=== PATIENT | female | born 1945 | race Caucasian/White ===

== ENCOUNTER 2020-08-16 07:21 | Outpatient (REF) | payer MEDICARE, SELFPAY ==
[2020-08-16 11:52] LABS: Alanine Aminotransferase 23 U/L (0-31); Albumin Level 4.1 g/dL (3.5-5.0); Alkaline Phosphatase 67 U/L (39-117); Anion Gap 12 (12-20); Aspartate Amino Transferase 22 U/L (5-31); Bilirubin Total 0.5 mg/dL (0.0-1.0); Blood Urea Nitrogen 35 mg/dL (9-16); Calcium 8.5 mg/dL (8.4-10.2); Carbon Dioxide 26 mmol/L (22-29); Chloride 108 mmol/L (96-108); Cholesterol 141 mg/dL; Estimated Glomerular Filt Rate > 60; Glucose Fasting 90 mg/dL (60-99); HDL Cholesterol 54 mg/dL; LDL Cholesterol Calculated 73 mg/dl; Potassium 4.1 mmol/l (3.3-5.1); Sodium 142 mmol/L (135-145); Total Protein 6.6 g/dL (6.5-8.0); Triglycerides 71 mg/dL
[2020-08-16 12:15] LABS: TSH reflex Free T4 0.26 mIU/mL (0.32-4.0)
[2020-08-16 13:04] LABS: Free T4 (Free Thyroxine) 1.57 ng/dL (0.71-1.85)
== END 2020-08-16 07:22 | disposition home or self-care (01) ==
LOC: HO.HMGCLDS 07:21
PROVIDERS: PCP Internal Medicine; Visit Provider Internal Medicine
DX: E06.3 Autoimmune thyroiditis (principal); E78.00 Pure hypercholesterolemia, unspecified
CPT/HCPCS: 80053; 80061; 84439; 84443

== ENCOUNTER 2020-08-23 20:01 | Emergency (ER) | payer MEDICARE, SELFPAY ==
[2020-08-23 20:26] VITALS: BP 148/78; PULSE 93; RESP 16; TEMP 36.7; O2SAT 97; BMI 29.6
--- NOTE | 2020-08-23 21:11 | ED.SKABFB ---
HPI - Skin/Abscess/Foreign Bdy General Chief complaint: Skin/Abscess/Foreign Body Stated complaint: CHICKEN IN THROAT Time Seen by Provider: 08/23/20 21:11 Source: patient Mode of arrival: ambulatory History of Present Illness HPI narrative: Patient feels like she swallowed a chicken bone, able to tolerate fluids Onset (ago): hour(s) (2) Location: neck Quality: sharp Pain Consistency: constant Relieving factors: none Exacerbating factors: none Associated symptoms: denies other symptoms Related Data Previous Rx's Medication Instructions Recorded cephalexin [Keflex] 500 mg PO QID #28 cap 08/23/20 Allergies Allergy/AdvReac Type Severity Reaction Status Date / Time orange Allergy Intermediate RASH Unverified 07/26/20 15:02 nickel [Nickel] Allergy Mild RASH Unverified 07/26/20 15:02 nickel Allergy Unknown rash Uncoded 07/09/20 00:00 orange juice Allergy Unknown hives Uncoded 07/09/20 00:00 Review of Systems Constitutional: Constitutional: Reports no additional constitutional complaints Eyes: Eyes: Reports no additional eye complaints ENT: Denies dizziness Cardiovascular: Cardiovascular: Reports no additional cardiovascular complaints Respiratory: Respiratory: Reports as per HPI Gastrointestinal: Gastrointestinal: Reports no additional gastrointestinal complaints Genitourinary: Genitourinary: Reports no additional female genitourinary complaints Musculoskeletal: Musculoskeletal: Reports no additional musculoskeletal complaints Integumentary/Breasts: Skin/Breast: Denies rash Neurologic: Reports system reviewed and no additional complaints, except as documented, Denies dizziness and Denies Sensory deficit (Neuro) Psychiatric: Psychiatric: Denies anxiety [facility] Past Medical History Medical History (Updated 08/23/20 @ 22:24 by Nishant Catalan MD) HTN (hypertension) Hyperlipidemia Hypothyroid Surgical History (Updated 08/23/20 @ 20:29 by Farhat Burroughs) Hx of tonsillectomy Social History Social History Advance Directives: No Advance Directives Information Provided: Yes Physical Exam Vital Signs: Vital Signs: Vital Signs Temp Pulse Resp BP Pulse Ox 08/23/20 20:26 98.1 F 93 16 148/78 H 97 Body Mass Index 29.6 Const: General: healthy appearing Nutritional Appearance: average body habitus Orientation/consciousness: oriented to person and patient oriented x3 Limitations: no limitations HENMT: Head: Yes normal to inspection Ears: external ears normal General nose exam: Normal external nose present Mouth: Normal oral and palatal mucosa present and oropharynx normal Throat: Yes posterior oropharynx normal Eyes: General: appearance normal, both eyes and all related structures Neck: Other: supple Neck: Yes normal visual inspection Chest: Chest palpation & inspection: normal inspection of the chest Resp: Auscultation: clear to auscultation bilaterally Cardio: Jugular venous distension: no JVD Rate: regular rate Rhythm: regular rhythm Heart sounds: S1 normal heart sound present and S2 normal heart sound present GI: Inspection: Yes normal to inspection Palpation (GI): Soft to palpation, nontender and No hepatosplenomegaly present Auscultation: normal bowel sounds : General: Yes no CVA tenderness Back/Spine/Pelvis: Back: no CVA tenderness Skin: Other: patient with right leg erythema and warmth Neuro: General: oriented to person and patient oriented x3 Cranial nerves: Yes CN's II-XII intact bilaterally Motor exam (neuro): 5/5 motor strength present throughout Sensory Exam: No Sensory deficit (Neuro) Extrem: General: Yes normal to inspection Psych: Appearance: grossly normal Course Course Course Narrative: Patient with cellulitis of leg, no FB in throat, tolerated swallowing pill without problem MDM - Skin/Abscess/Foreign Bdy MDM Narrative Medical decision making narrative: ruled out FB of throat Differential Diagnosis Differential diagnosis: Likely cellulitis Discharge Plan Discharge Clinical Impression: Cellulitis Qualifiers: Site of cellulitis: extremity Site of cellulitis of extremity: lower extremity Laterality: right Qualified Code(s): L03.115 - Cellulitis of right lower limb Patient Disposition: Home, Self-Care Instructions: Cellulitis (ED) Prescriptions: New cephalexin [Keflex] 500 mg capsule 500 mg PO QID Qty: 28 RF: 0 Referrals: Jenna Daly MD [Primary Care Provider] - 2 days
--- NOTE | 2020-08-23 21:13 | XR_ITS ---
EXAMINATION: XR SOFT TISSUE NECK CLINICAL INDICATION: Swallowed a chicken bone COMPARISON: None TECHNIQUE: 2 views of the soft tissue neck were obtained. FINDINGS: There is no radiopaque foreign body. No prevertebral soft tissue swelling. The pharynx, hypopharynx structures are normal. The epiglottis is normal. There are surgical clips in the upper central neck. There is multilevel degenerative spondylosis of the spine. Lung apices are clear. IMPRESSION: No radiopaque foreign body. No acute abnormalities soft tissues of neck
[2020-08-23] MEDS: cephALEXin 500 MG CAPSULE PO (22:17)
== END 2020-08-23 22:46 | disposition home or self-care (01) ==
PROVIDERS: Emergency Provider Emergency Medicine; PCP Internal Medicine
DX: L03.115 Cellulitis of right lower limb (principal); I10 Essential (primary) hypertension
CPT/HCPCS: 70360; 99283

== ENCOUNTER 2020-09-14 11:00 | Outpatient (REF) | payer MEDICARE, SELFPAY ==
--- NOTE | 2020-09-14 13:03 | US_ITS ---
EXAMINATION: US VENOUS ULTRASOUND WITH DOPPLER LOWER EXTREMITY, RIGHT CLINICAL INFORMATION: Right lower extremity edema. COMPARISON: Prior venous ultrasound examinations, most recently 05/30/2020. TECHNIQUE: Ultrasound of the deep veins is performed from the hip to the calf with compression sonography and color and pulse Doppler assessment. Spectral analysis with color-flow imaging is performed. FINDINGS: There is normal venous compression and respiratory variation and augmented flow. The visualized common femoral vein, proximal greater saphenous vein, femoral vein, profunda femoral vein, popliteal vein, and the trifurcation region shows no evidence of deep venous thrombosis. There is no significant popliteal fossa cyst. If the patient's symptoms persist, followup ultrasound in 5 days 7 days might be of value to exclude proximal propagation from a non-visualized calf vein. US/US venous duplex LE RT IMPRESSION: No DVT demonstrated in the right lower extremity.
== END 2020-09-14 11:01 | disposition home or self-care (01) ==
LOC: HO.HMGCLDS 11:00
PROVIDERS: PCP Internal Medicine; Visit Provider Internal Medicine
DX: Z20.828 Contact with and (suspected) exposure to other viral communicable diseases (principal); R60.0 Localized edema
CPT/HCPCS: 93971; C9803; U0003

== ENCOUNTER 2020-09-17 07:01 | Outpatient (REF) | payer MEDICARE, SELFPAY ==
[2020-09-17 11:34] LABS: MANUAL DIFF FLAG NO
[2020-09-17 11:47] LABS: Basophils Absolute Auto 0.1 X10*3/uL (0.0-0.2); Basophils Percent Auto 0.9 % (0-2); Eosinophils Absolute Auto 0.2 X10*3/uL (0.0-0.4); Eosinophils Percent Auto 2.2 % (0-4); Hematocrit 44.5 % (37-47); Hemoglobin 13.7 g/dl (12.0-16.0); Imm Gran Abs Auto 0.01 X10*3/uL (0.00-0.03); Imm Gran Pct Auto 0.1 % (0.0-0.4); Lymphocytes Absolute Auto 1.6 X10*3/uL (1.2-4.9); Lymphocytes Percent Auto 23.4 % (20-40); Mean Corpuscular HGB Conc 30.8 g/dl (31.0-35.0); Mean Corpuscular Hemoglobin 29.3 pg (27.0-33.0); Mean Corpuscular Volume 95.3 fL (80-98); Mean Platelet Volume 11.6 fL (9.4-12.3); Monocytes Absolute Auto 0.5 X10*3/uL (0.1-1.2); Monocytes Percent Auto 6.7 % (2-11); Neutrophils Absolute Auto 4.4 X10*3/uL (2.0-8.3); Neutrophils Percent Auto 66.7 % (45-73); Platelet Count 277 X10*3/uL (160-400); Red Blood Count 4.67 X10*6/uL (4.20-5.50); Red Cell Distribution Width 12.8 % (11.0-16.0); White Blood Count 6.7 X10*3/uL (4.8-10.8)
[2020-09-17 12:18] LABS: Anion Gap 14 (12-20); Blood Urea Nitrogen 30 mg/dL (9-16); Calcium 8.9 mg/dL (8.4-10.2); Carbon Dioxide 26 mmol/L (22-29); Chloride 105 mmol/L (96-108); Cholesterol 161 mg/dL; Estimated Glomerular Filt Rate > 60; Glucose Fasting 89 mg/dL (60-99); HDL Cholesterol 64 mg/dL; LDL Cholesterol Calculated 86 mg/dl; Potassium 4.8 mmol/l (3.3-5.1); Sodium 140 mmol/L (135-145); Triglycerides 55 mg/dL
== END 2020-09-17 07:02 | disposition home or self-care (01) ==
LOC: HO.HMGCLDS 07:01
PROVIDERS: PCP Internal Medicine; Visit Provider Nurse Practitioner Family
DX: L03.115 Cellulitis of right lower limb (principal); L03.116 Cellulitis of left lower limb
CPT/HCPCS: 36415; 80048; 80061; 85025

== ENCOUNTER 2020-10-02 10:42 | Outpatient (REF) | payer MEDICARE, SELFPAY | END 2020-10-02 10:43 | disposition home or self-care (01) | LOC: HO.HMGCLDS 10:42 | PROVIDERS: PCP Internal Medicine; Visit Provider Internal Medicine | DX: Z20.828 Contact with and (suspected) exposure to other viral communicable diseases (principal) | CPT/HCPCS: U0003 ==

== ENCOUNTER 2020-10-19 14:11 | Outpatient (REF) | payer MEDICARE, SELFPAY ==
[2020-10-19 17:29] LABS: TSH reflex Free T4 0.46 mIU/mL (0.32-4.0)
== END 2020-10-19 14:12 | disposition home or self-care (01) ==
LOC: HO.HMGCLDS 14:11
PROVIDERS: PCP Internal Medicine; Visit Provider Internal Medicine
DX: E03.9 Hypothyroidism, unspecified (principal)
CPT/HCPCS: 84443

== ENCOUNTER → 2020-10-23 10:16 | Outpatient (BNVA) | payer MEDICARE, SELFPAY | PROVIDERS: PCP Internal Medicine; Visit Provider Surgery Vascular Surgery | DX: I83.11 Varicose veins of right lower extremity with inflammation (principal); I65.23 Occlusion and stenosis of bilateral carotid arteries | CPT/HCPCS: 99202 ==

== ENCOUNTER 2020-10-26 12:57 | Outpatient (REF) | payer MEDICARE, SELFPAY ==
--- NOTE | 2020-10-26 12:59 | US_ITS ---
EXAMINATION: US EXTRACRANIAL CAROTID DUPLEX, BILATERAL CLINICAL INFORMATION: Decreased carotid pulses. COMPARISON: None TECHNIQUE: Real-time ultrasound and Doppler techniques (integrating B-mode 2-D vascular images, Doppler spectral analysis and color-flow Doppler imaging) were utilized to interrogate the extracranial carotid arteries, the vertebral arteries and proximal subclavian arteries bilaterally. The degree of stenosis is determined by criteria similar to NASCET. FINDINGS: Right Side: 1. There is hard atherosclerotic plaque seen in the bifurcation/proximal ICA region. 2. The common carotid artery PSV proximally is 85 cm/s and distally 65.6 cm/s. 3. The proximal internal carotid artery velocities are 70.3 cm/s systolic and 20 cm/s diastolic. 4. The proximal external carotid artery PSV is 156 cm/s. 5. The vertebral artery shows 79.2 flow. 6. The subclavian artery waveforms are normal. Left Side: 1. There is hard atherosclerotic plaque seen in the bifurcation/proximal ICA region. 2. The common carotid artery PSV proximally is 105 cm/s and distally 105 cm/s. 3. The proximal internal carotid artery velocities are 95 cm/s systolic and 27 cm/s diastolic. 4. The proximal external carotid artery PSV is 162 cm/s. 5. The vertebral artery shows 61.3 flow. 6. The subclavian artery waveforms are normal. US/US carotid duplex BI IMPRESSION: 1. RIGHT: No hemodynamically significant stenosis in right carotid artery. 2. LEFT: No hemodynamically significant stenosis in left carotid artery. 3. Normal antegrade flow seen in both vertebral arteries.
== END 2020-10-26 12:58 | disposition home or self-care (01) ==
LOC: HO.HMGCX 12:57
PROVIDERS: PCP Internal Medicine; Visit Provider Internal Medicine
DX: I87.2 Venous insufficiency (chronic) (peripheral) (principal)
CPT/HCPCS: 93880

== ENCOUNTER 2020-10-31 12:51 | Outpatient (REF) | payer MEDICARE, SELFPAY ==
--- NOTE | 2020-10-31 | US_ITS ---
EXAMINATION: RIGHT and LEFT LOWER EXTREMITY VENOUS ULTRASOUND (Reflux Exam) CLINICAL INDICATION: leg pain and varicose veins. COMPARISON: Previous exam September 2020 TECHNIQUE: Color flow triplex imaging and compression Doppler was performed to evaluate both the deep and the superficial systems bilaterally. To evaluate the superficial system, the examination was performed in the upright position. Color-flow Doppler ultrasound and compression ultrasound were utilized. In addition, maneuvers were utilized to demonstrate reflux. FINDINGS: 1. DEEP VENOUS ULTRASOUND OF THE RIGHT LOWER EXTREMITY: Respiratory variation, normal compression and augmented flow are noted in the right common femoral vein as well as the right popliteal vein and there is no evidence of deep venous thrombosis at these locations. There is no evidence of reflux in the deep system in either the common femoral vein or the popliteal vein. There is no evidence of a Chaney's cyst. 2. SUPERFICIAL ULTRASOUND WITH DOPPLER OF RIGHT LOWER EXTREMITY: The right great saphenous vein at the saphenofemoral junction measures 7 mm, at the proximal thigh 5 mm, at the mid thigh 3 mm and at the ankle measures 2 mm. The right greater saphenous vein from above the knee to the mid calf is not seen post laser therapy. There is no reflux demonstrated in the right great saphenous vein. There is a lateral accessory greater saphenous vein that measures 3 mm and does not demonstrate reflux. The right small saphenous vein measures 2 mm and shows 1.6 seconds reflux at the saphenofemoral popliteal junction and 2.4 seconds in the distal calf. There is a pants presser automatic in the calf that measures 3 mm and does not demonstrate reflux. There is a varicosity in the calf that measures 9 mm and does not demonstrate reflux 3. DEEP VENOUS ULTRASOUND OF THE LEFT LOWER EXTREMITY: Respiratory variation, normal compression and augmented flow are noted in the left common femoral vein as well as the left popliteal vein and there is no evidence of deep venous thrombosis at these locations. There is deep venous reflux in the popliteal vein measuring 1.5 seconds.. There is no evidence of a Chaney's cyst. 4. SUPERFICIAL ULTRASOUND WITH DOPPLER OF LEFT LOWER EXTREMITY: Left great saphenous vein at the saphenofemoral junction measures 5 mm, at the mid thigh 4 mm, [id number] 4 mm, [id number] 3 mm, at mid calf 3 mm and at the ankle measures 2 mm. There is no reflux demonstrated in the left great saphenous vein. There is thinning lateral accessory left greater saphenous vein that measures 4 mm and does not demonstrate reflux. The left small saphenous vein measures 3 mm and shows no reflux. There is a varicosity in the mid thigh that measures 7 mm and does not demonstrate reflux. US/US venous duplex LE BI IMPRESSION: 1. No evidence of thrombus in the common femoral veins or popliteal veins bilaterally. No evidence of right deep venous reflux. Left deep venous reflux in the popliteal vein. 2. right greater saphenous vein visualized in the proximal thigh and at the ankle only. No right greater saphenous vein reflux. Right lesser saphenous vein reflux. No left greater saphenous vein reflux.
== END 2020-10-31 12:52 | disposition home or self-care (01) ==
LOC: HO.US 12:51
PROVIDERS: Visit Provider Internal Medicine
DX: I83.893 Varicose veins of bilateral lower extremities with other complications (principal); I87.2 Venous insufficiency (chronic) (peripheral)
CPT/HCPCS: 93970

== ENCOUNTER → 2020-11-15 09:59 | Outpatient (BNVA) | payer MEDICARE, SELFPAY | PROVIDERS: PCP Internal Medicine; Visit Provider Surgery Vascular Surgery | DX: I65.23 Occlusion and stenosis of bilateral carotid arteries (principal); I83.11 Varicose veins of right lower extremity with inflammation | CPT/HCPCS: 99212 ==

== ENCOUNTER 2021-01-11 06:19 | Outpatient (REF) | payer MEDICARE, SELFPAY ==
[2021-01-11 12:13] LABS: Alanine Aminotransferase 13 U/L (0-31); Albumin Level 4.1 g/dL (3.5-5.0); Alkaline Phosphatase 77 U/L (39-117); Anion Gap 13 (12-20); Aspartate Amino Transferase 15 U/L (5-31); Bilirubin Total 0.5 mg/dL (0.0-1.0); Blood Urea Nitrogen 28 mg/dL (9-16); Calcium 8.5 mg/dL (8.4-10.2); Carbon Dioxide 27 mmol/L (22-29); Chloride 105 mmol/L (96-108); Cholesterol 171 mg/dL; Estimated Glomerular Filt Rate > 60; Glucose Fasting 84 mg/dL (60-99); HDL Cholesterol 63 mg/dL; LDL Cholesterol Calculated 88 mg/dl; Potassium 4.5 mmol/L (3.3-5.1); Sodium 140 mmol/L (135-145); Triglycerides 102 mg/dL
[2021-01-11 12:17] LABS: TSH reflex Free T4 0.19 uIU/mL (0.32-4.0)
== END 2021-01-11 06:20 | disposition home or self-care (01) ==
LOC: HO.HMGCLDS 06:19
PROVIDERS: PCP Internal Medicine; Visit Provider Internal Medicine
DX: E78.00 Pure hypercholesterolemia, unspecified (principal); E78.5 Hyperlipidemia, unspecified; E03.9 Hypothyroidism, unspecified
CPT/HCPCS: 36415; 80053; 80061; 84439; 84443

== ENCOUNTER 2021-03-11 08:16 | Outpatient (REF) | payer MEDICARE, SELFPAY ==
[2021-03-11 12:06] LABS: TSH reflex Free T4 2.32 uIU/mL (0.32-4.0)
== END 2021-03-11 08:17 | disposition home or self-care (01) ==
LOC: HO.HMGCLDS 08:16
PROVIDERS: PCP Internal Medicine; Visit Provider Internal Medicine
DX: E06.3 Autoimmune thyroiditis (principal)
CPT/HCPCS: 36415; 84443

== ENCOUNTER 2021-03-13 09:46 | Outpatient (REF) | payer MEDICARE, SELFPAY ==
--- NOTE | ~2021-03-13 | MM_ITS ---
EXAMINATION: MM SCREENING DIGITAL BREAST TOMOSYNTHESIS, BILATERAL CLINICAL INFORMATION: Screening. Asymptomatic. The lifetime risk of breast cancer based on the Tyrer-Cuzick Model is 3%. COMPARISON: Mammography: 05/13/2019, 02/10/2018, 11/26/2016 TECHNIQUE: Digital breast tomosynthesis is performed in both the craniocaudal and mediolateral oblique views along with computer-aided detection (CAD). Synthesized 2D images are generated from the tomosynthesis. Technologist notes technically challenging exam. Imaging tailored to patient capabilities. FINDINGS: There are scattered areas of fibroglandular density (ACR BI-RADS breast composition Category b). There are no significant masses, abnormal calcifications, or other abnormalities. There are some benign vascular and early ductal secretory calcifications again seen. Skin contours are smooth. No significant changes. MM/MM tomosynthesis screening BI IMPRESSION: No mammographic evidence of malignancy. ASSESSMENT: BI-RADS 2: Benign RECOMMENDATION: Routine annual mammography screening. This patient's information was entered into a reminder system with a target due date for their next mammogram.
== END 2021-03-13 09:47 | disposition home or self-care (01) ==
LOC: HO.MAMMO 09:46
PROVIDERS: PCP Internal Medicine; Visit Provider Internal Medicine
DX: Z12.31 Encounter for screening mammogram for malignant neoplasm of breast (principal)
CPT/HCPCS: 77063; 77067

== ENCOUNTER 2021-09-27 15:41 | Outpatient (REF) | payer MEDICARE, SELFPAY ==
--- NOTE | ~2021-09-27 | US_ITS ---
EXAMINATION: US VENOUS ULTRASOUND WITH DOPPLER LOWER EXTREMITY, RIGHT CLINICAL INFORMATION: Acute embolism COMPARISON: October 31, 2020, September 14, 2020, and studies dating back to August 17, 2013 TECHNIQUE: Ultrasound of the deep veins is performed from the hip to the calf with compression sonography and color and pulse Doppler assessment. Spectral analysis with color-flow imaging is performed. FINDINGS: There is normal venous compression and respiratory variation and augmented flow. The visualized common femoral vein, superficial femoral vein, profunda femoral vein, popliteal vein, and the trifurcation region shows no evidence of deep venous thrombosis. There is no significant popliteal fossa cyst. No popliteal artery aneurysm. US/US venous duplex LE RT IMPRESSION: No acute DVT demonstrated in the right lower extremity.
== END 2021-09-27 15:42 | disposition home or self-care (01) ==
LOC: HO.HMGCX 15:41
PROVIDERS: Visit Provider Internal Medicine
DX: R60.0 Localized edema (principal)
CPT/HCPCS: 93971

== ENCOUNTER 2021-10-25 06:28 | Outpatient (REF) | payer MEDICARE, SELFPAY ==
[2021-10-25 11:57] LABS: Alanine Aminotransferase 26 U/L (0-31); Albumin Level 3.7 g/dL (3.5-5.0); Alkaline Phosphatase 91 U/L (39-117); Anion Gap 11 (12-20); Aspartate Amino Transferase 19 U/L (5-31); Bilirubin Total 0.5 mg/dL (0.0-1.0); Blood Urea Nitrogen 29 mg/dL (9-16); Carbon Dioxide 27 mmol/L (22-29); Chloride 109 mmol/L (96-108); Cholesterol 191 mg/dL; Estimated Glomerular Filt Rate > 60; Glucose Fasting 98 mg/dL (60-99); HDL Cholesterol 62 mg/dL; LDL Cholesterol Calculated 109 mg/dl; Potassium 4.5 mmol/L (3.3-5.1); Sodium 142 mmol/L (135-145); Total Protein 6.5 g/dL (6.5-8.0); Triglycerides 102 mg/dL
[2021-10-25 12:03] LABS: Thyroid Stimulating Hormone 1.45 uIU/mL (0.32-4.0)
== END 2021-10-25 06:29 | disposition home or self-care (01) ==
LOC: HO.HMGCLDS 06:28
PROVIDERS: PCP Internal Medicine; Visit Provider Internal Medicine
DX: E06.3 Autoimmune thyroiditis (principal); E78.5 Hyperlipidemia, unspecified; I87.2 Venous insufficiency (chronic) (peripheral)
CPT/HCPCS: 36415; 80053; 80061; 84443

== ENCOUNTER 2021-12-16 08:40 | Outpatient (REF) | payer MEDICARE, SELFPAY ==
[2021-12-16 09:06] LABS: COVID-19 Test Negative (Negative); IDNOW Serial# 16C4AD1C
== END 2021-12-16 08:41 | disposition home or self-care (01) ==
LOC: HO.LAB 08:40
PROVIDERS: Visit Provider Internal Medicine
DX: Z20.822 Contact with and (suspected) exposure to COVID-19 (principal)
CPT/HCPCS: 87635; C9803

== ENCOUNTER 2022-01-20 09:43 | Outpatient (REF) | payer MEDICARE, SELFPAY ==
--- NOTE | ~2022-01-20 | XR_ITS ---
EXAMINATION: RIGHT FOOT X-RAY CLINICAL INFORMATION: Pain and swelling COMPARISON: None TECHNIQUE: 3 views of the right foot FINDINGS: Bone alignment is normal. No fracture or dislocation is seen. Joint spaces are normal. Soft tissues are normal. XR/XR foot LT 2V IMPRESSION: Unremarkable exam.
--- NOTE | ~2022-01-20 | XR_ITS ---
EXAMINATION: RIGHT FOOT X-RAY CLINICAL INFORMATION: Pain and swelling COMPARISON: None TECHNIQUE: 3 views of the right foot FINDINGS: Bone alignment is normal. No fracture or dislocation is seen. Joint spaces are normal. Soft tissues are normal. XR/XR foot RT 2V IMPRESSION: Unremarkable exam.
== END 2022-01-20 09:44 | disposition home or self-care (01) ==
LOC: HO.XRAY 09:43
PROVIDERS: PCP Internal Medicine; Visit Provider Internal Medicine
DX: M79.671 Pain in right foot (principal); M79.672 Pain in left foot
CPT/HCPCS: 73620

== ENCOUNTER 2022-02-11 11:32 | Outpatient (REF) | payer MEDICARE, SELFPAY ==
--- NOTE | ~2022-02-11 | US_ITS ---
EXAMINATION: US VENOUS ULTRASOUND WITH DOPPLER LOWER EXTREMITY, BILATERAL CLINICAL INFORMATION: Cellulitis of right and left lower limbs. COMPARISON: Ultrasound venous with Doppler right lower extremity TECHNIQUE: Ultrasound of the deep veins is performed from the hip to the calf with compression sonography and color and pulse Doppler assessment. Spectral analysis with color-flow imaging is performed. FINDINGS: RIGHT: There is normal venous compression and respiratory variation and augmented flow. The visualized common femoral vein, superficial femoral vein, profunda femoral vein, popliteal vein, and the trifurcation region shows no evidence of deep venous thrombosis. There is no significant popliteal fossa cyst. LEFT: There is normal venous compression and respiratory variation and augmented flow. The visualized common femoral vein, superficial femoral vein, profunda femoral vein, popliteal vein, and the trifurcation region shows no evidence of deep venous thrombosis. There is no significant popliteal fossa cyst. Incidental finding of a small left groin lymph node measuring 4.9 x 0.7 x 3.1 cm. If the patient's symptoms persist, followup ultrasound in 5 days 7 days might be of value to exclude proximal propagation from a non-visualized calf vein. US/US venous duplex LE BI IMPRESSION: No DVT demonstrated in the bilateral lower extremity. Internal finding of the left groin lymph node.
== END 2022-02-11 11:33 | disposition home or self-care (01) ==
LOC: HO.HMGCX 11:32
PROVIDERS: Visit Provider Nurse Practitioner Acute Care
DX: L03.116 Cellulitis of left lower limb (principal); L03.115 Cellulitis of right lower limb
CPT/HCPCS: 93970

== ENCOUNTER 2022-03-14 09:41 | Outpatient (REF) | payer MEDICARE, SELFPAY ==
--- NOTE | ~2022-03-14 | MM_ITS ---
EXAMINATION: MM SCREENING DIGITAL BREAST TOMOSYNTHESIS, BILATERAL CLINICAL INFORMATION: Screening. Asymptomatic. The lifetime risk of breast cancer based on the Tyrer-Cuzick Model is 2%. COMPARISON: Mammography: 03/13/2021, 05/13/2019, 02/10/2018 TECHNIQUE: Digital breast tomosynthesis is performed in both the craniocaudal and mediolateral oblique views along with computer-aided detection (CAD). Synthesized 2D images are generated from the tomosynthesis. FINDINGS: There are scattered areas of fibroglandular density (ACR BI-RADS breast composition Category b). There are no significant masses, abnormal calcifications, or other abnormalities. Parenchymal pattern is similar to prior studies. No developing density or architectural abnormality. MM/MM tomosynthesis screening BI IMPRESSION: No mammographic evidence of malignancy. ASSESSMENT: BI-RADS 1: Negative RECOMMENDATION: Routine annual mammography screening. This patient's information was entered into a reminder system with a target due date for their next mammogram.
== END 2022-03-14 09:42 | disposition home or self-care (01) ==
LOC: HO.MAMMO 09:41
PROVIDERS: Visit Provider Internal Medicine
DX: Z12.31 Encounter for screening mammogram for malignant neoplasm of breast (principal)
CPT/HCPCS: 77063; 77067

== ENCOUNTER 2022-03-20 07:51 | Outpatient (REF) | payer MEDICARE, SELFPAY ==
[2022-03-20 12:08] LABS: Alanine Aminotransferase 18 U/L (0-31); Alkaline Phosphatase 59 U/L (39-117); Anion Gap 14 (12-20); Aspartate Amino Transferase 19 U/L (5-31); Bilirubin Total 0.5 mg/dL (0.0-1.0); Blood Urea Nitrogen 28 mg/dL (9-16); Carbon Dioxide 24 mmol/L (22-29); Chloride 108 mmol/L (96-108); Cholesterol 150 mg/dL; Estimated Glomerular Filt Rate > 60; Glucose Fasting 95 mg/dL (60-99); HDL Cholesterol 60 mg/dL; LDL Cholesterol Calculated 80 mg/dl; Potassium 4.9 mmol/L (3.3-5.1); Sodium 141 mmol/L (135-145); Total Protein 6.8 g/dL (6.5-8.0); Triglycerides 53 mg/dL
[2022-03-20 12:16] LABS: Thyroid Stimulating Hormone 0.27 uIU/mL (0.32-4.0)
[2022-03-24 14:06] LABS: Vitamin D 25-OH, D2 <4 ng/mL; Vitamin D 25-OH, D3 38 ng/mL; Vitamin D 25-OH, Total 38 ng/mL (30-100)
== END 2022-03-20 07:52 | disposition home or self-care (01) ==
LOC: HO.HMGCLDS 07:51
PROVIDERS: Visit Provider Internal Medicine
DX: E55.9 Vitamin D deficiency, unspecified (principal); E78.5 Hyperlipidemia, unspecified; I10 Essential (primary) hypertension; E06.3 Autoimmune thyroiditis
CPT/HCPCS: 36415; 80053; 80061; 82306; 84443

== ENCOUNTER 2022-05-13 11:47 | Outpatient (REF) | payer MEDICARE, SELFPAY ==
[2022-05-13 15:00] LABS: Thyroid Stimulating Hormone 0.26 uIU/mL (0.32-4.0)
== END 2022-05-13 11:48 | disposition home or self-care (01) ==
LOC: HO.HMGCLDS 11:47
PROVIDERS: PCP Internal Medicine; Visit Provider Internal Medicine
DX: E06.3 Autoimmune thyroiditis (principal)
CPT/HCPCS: 36415; 84443

== ENCOUNTER 2022-08-19 07:13 | Outpatient (REF) | payer MEDICARE, SELFPAY ==
[2022-08-19 12:16] LABS: Thyroid Stimulating Hormone 5.37 uIU/mL (0.32-4.0)
== END 2022-08-19 07:14 | disposition home or self-care (01) ==
LOC: HO.HMGCLDS 07:13
PROVIDERS: PCP Internal Medicine; Visit Provider Internal Medicine
DX: E06.3 Autoimmune thyroiditis (principal)
CPT/HCPCS: 36415; 84443

== ENCOUNTER 2022-08-21 07:33 | Outpatient (REF) | payer MEDICARE, SELFPAY ==
[2022-08-21 10:57] LABS: Binax Now Covid-19 Ag Positive (Negative)
[2022-08-21 10:58] LABS: Binax Internal Control QC Valid
[2022-08-21 11:00] LABS: MANUAL DIFF FLAG NO
[2022-08-21 11:13] LABS: Basophils Absolute Auto 0.1 X10*3/uL (0.0-0.2); Basophils Percent Auto 0.9 % (0-2); Eosinophils Percent Auto 0.4 % (0-4); Hematocrit 40.4 % (37.0-47.0); Hemoglobin 12.9 g/dl (12.0-16.0); Imm Gran Abs Auto 0.02 X10*3/uL (0.00-0.03); Imm Gran Pct Auto 0.2 % (0.0-0.4); Lymphocytes Absolute Auto 1.1 X10*3/uL (1.2-4.9); Lymphocytes Percent Auto 13.1 % (20-40); Mean Corpuscular HGB Conc 31.9 g/dl (31.0-35.0); Mean Corpuscular Hemoglobin 29.8 pg (27.0-33.0); Mean Corpuscular Volume 93.3 fL (80.0-98.0); Mean Platelet Volume 11.1 fL (9.4-12.3); Monocytes Absolute Auto 1.5 X10*3/uL (0.1-1.2); Neutrophils Absolute Auto 5.4 x10*3/uL (2.0-8.3); Neutrophils Percent Auto 67.4 % (45-73); Platelet Count 232 X10*3/uL (160-400); Red Blood Count 4.33 X10*6/uL (4.20-5.50); Red Cell Distribution Width 14.3 % (11.0-16.0)
[2022-08-21 11:59] LABS: Alanine Aminotransferase 17 U/L (0-31); Alkaline Phosphatase 58 U/L (39-117); Anion Gap 16 (12-20); Aspartate Amino Transferase 21 U/L (5-31); Bilirubin Total 0.4 mg/dL (0.0-1.0); Blood Urea Nitrogen 23 mg/dL (9-16); Calcium 8.7 mg/dL (8.4-10.2); Carbon Dioxide 24 mmol/L (22-29); Chloride 102 mmol/L (96-108); Cholesterol 184 mg/dL; Estimated Glomerular Filt Rate > 60; Glucose Fasting 109 mg/dL (60-99); HDL Cholesterol 70 mg/dL; LDL Cholesterol Calculated 101 mg/dl; Potassium 3.9 mmol/L (3.3-5.1); Sodium 138 mmol/L (135-145); Total Protein 6.9 g/dL (6.5-8.0); Triglycerides 68 mg/dL; Vitamin D 25-OH Total 37.4 ng/mL (>30)
[2022-08-21 15:52] LABS: Influenza A PCR NEGATIVE (Negative); Influenza B PCR NEGATIVE (Negative); Resp Syncy Virus RNA Qual PCR NEGATIVE (Negative); SARS COV2 PCR INHOUSE POSITIVE (Negative)
== END 2022-08-21 07:34 | disposition home or self-care (01) ==
LOC: HO.HMGCLDS 07:33
PROVIDERS: Physician Assistant; PCP Internal Medicine; Visit Provider Internal Medicine
DX: E55.9 Vitamin D deficiency, unspecified (principal); R09.89 Other specified symptoms and signs involving the circulatory and respiratory systems; J06.9 Acute upper respiratory infection, unspecified; E78.5 Hyperlipidemia, unspecified; I89.0 Lymphedema, not elsewhere classified; D64.9 Anemia, unspecified; Z20.822 Contact with and (suspected) exposure to COVID-19
CPT/HCPCS: 0241U; 36415; 80053; 80061; 82306; 85025; 87811

== ENCOUNTER 2022-12-26 06:01 | Outpatient (REF) | payer MEDICARE, SELFPAY ==
[2022-12-26 12:45] LABS: Thyroid Stimulating Hormone 0.16 uIU/mL (0.32-4.0)
== END 2022-12-26 06:02 | disposition home or self-care (01) ==
LOC: HO.HMGCLDS 06:01
PROVIDERS: PCP Internal Medicine; Visit Provider Internal Medicine
DX: E06.3 Autoimmune thyroiditis (principal)
CPT/HCPCS: 36415; 84443

== ENCOUNTER 2023-01-29 07:54 | Outpatient (REF) | payer MEDICARE, SELFPAY ==
[2023-01-29 12:09] LABS: Alanine Aminotransferase 20 U/L (0-31); Albumin Level 3.8 g/dL (3.5-5.0); Alkaline Phosphatase 63 U/L (39-117); Anion Gap 15 (12-20); Aspartate Amino Transferase 19 U/L (5-31); Bilirubin Total 0.7 mg/dL (0.0-1.0); Blood Urea Nitrogen 27 mg/dL (9-16); Calcium 9.2 mg/dL (8.4-10.2); Carbon Dioxide 25 mmol/L (22-29); Chloride 108 mmol/L (96-108); Cholesterol 213 mg/dL; Estimated Glomerular Filt Rate > 60; Glucose Fasting 88 mg/dL (60-99); HDL Cholesterol 71 mg/dL; LDL Cholesterol Calculated 124 mg/dl; Potassium 4.9 mmol/L (3.3-5.1); Sodium 143 mmol/L (135-145); Thyroid Stimulating Hormone 5.65 uIU/mL (0.32-4.0); Total Protein 6.5 g/dL (6.5-8.0); Triglycerides 93 mg/dL
== END 2023-01-29 07:55 | disposition home or self-care (01) ==
LOC: HO.HMGCLDS 07:54
PROVIDERS: PCP Internal Medicine; Visit Provider Internal Medicine
DX: E06.3 Autoimmune thyroiditis (principal); E78.00 Pure hypercholesterolemia, unspecified; E78.5 Hyperlipidemia, unspecified
CPT/HCPCS: 36415; 80053; 80061; 84443

== ENCOUNTER 2023-04-10 08:58 | Outpatient (REF) | payer MEDICARE, SELFPAY ==
--- NOTE | ~2023-04-10 | MM_ITS ---
EXAMINATION: MM SCREENING DIGITAL BREAST TOMOSYNTHESIS, BILATERAL CLINICAL INFORMATION: Screening. Asymptomatic. The lifetime risk of breast cancer based on the Tyrer-Cuzick Model is under 3%. COMPARISON: Mammography: 03/14/2022, 03/13/2021, 05/13/2019 TECHNIQUE: Digital breast tomosynthesis is performed in both the craniocaudal and mediolateral oblique views along with computer-aided detection (CAD). Synthesized 2D images are generated from the tomosynthesis. FINDINGS: There are scattered areas of fibroglandular density (ACR BI-RADS breast composition Category b). There are no significant masses, abnormal calcifications, or other abnormalities. No architectural abnormality or developing density or significant change from prior studies. The axilla and skin contours are unremarkable. MM/MM tomosynthesis screening BI IMPRESSION: No mammographic evidence of malignancy. ASSESSMENT: BI-RADS 1: Negative RECOMMENDATION: Routine annual mammography screening. This patient's information was entered into a reminder system with a target due date for their next mammogram.
--- NOTE | ~2023-04-10 | MM_ITS ---
EXAMINATION: BONE DENSITOMETRY CLINICAL INDICATION: Menopause. COMPARISON: Previous BD dated 07/05/2013 and baseline BD dated 06/19/2011. TECHNIQUE: Using a [employer] DXA System (software version: 13.1) manufactured by [employer], dual-energy x-ray absorptiometry was performed of the lumbar spine and left hip. The images are of good technical quality. Summary results are attached. FINDINGS: AP SPINE L1-L2 (excluding L3 and L4): The data of L1-L4 has been changed to exclude the L3 and L4 vertebral bodies, because degenerative changes at these levels may cause overestimation of lumbar spine density. Current: BMD 0.992 g/cm2, Z-score 0.1, T-score -1.4, osteopenia, 6.9% decrease from previous, 4.7% decrease from baseline (<5% change is not significant). Prior: BMD 1.066 g/cm2. Baseline: BMD 1.041 g/cm2. LEFT FEMUR, NECK: Current: BMD 0.705 g/cm2, Z-score -0.5, T-score -2.4, osteopenia. Prior: BMD 0.918 g/cm2. Baseline: BMD 0.914 g/cm2. LEFT FEMUR, TOTAL: Current: BMD 0.780 g/cm2, Z-score 0.0, T-score -1.8, osteopenia, 19.6% decrease from previous, 21.8% decrease from baseline (<5% change is not significant). Prior: BMD 0.970 g/cm2. Baseline: BMD 0.997 g/cm2. IDENTIFIED RISK FACTORS: Menopause, osteoporosis, history of fracture (adult). HISTORY OF FRACTURE: Clavicle, ankle. MEDICATIONS: Calcium or multivitamin. Vitamin D. MM/XR DEXA axial skeleton IMPRESSION: 1. DIAGNOSIS: Osteopenia based on the lowest T-score value of -2.4 in the femoral neck applying World Health Organization criteria. 2. 10-YEAR FRACTURE RISK PREDICTION, FRAX: Major osteoporotic fracture (clinical spine, forearm, hip or shoulder) 25.1%. Hip fracture 7.6%. 3. Treatment Recommendations: NOF guidelines recommend consideration for treatment in postmenopausal women and men age 50 and older presenting with the following: -A hip or vertebral (clinical or morphometric) fracture. -T-score less than or equal to -2.5 at the femoral neck or spine after appropriate evaluation to exclude secondary causes. -Low bone mass at the hip or spine and a 10-year fracture probability by FRAX of greater than or equal to 3% for hip fracture or greater than or equal to 20% for major osteoporotic fracture based on the [place] adapted WHO algorithm. 4. Other Recommendations: All treatment decisions require clinical judgment and consideration of individual patient factors, including patient preferences, comorbidities, previous drug use, risk factors not captured in the FRAX model (e.g. frailty, falls, vitamin D deficiency, increased bone turnover, interval significant decline in bone density) and possible under or overestimation of fracture risk by FRAX. Additional medical evaluation for secondary cause of low bone mineral density may be appropriate. FUTURE SCAN RECOMMENDATION: People with diagnosed cases of osteoporosis or at high risk for fracture should have regular bone mineral density tests. For patients eligible for Medicare, routine testing is allowed once every 2 years. The testing frequency can be increased to one year for patients who have rapidly progressing disease, those who are receiving or discontinuing medical therapy to restore bone mass, or have additional risk factors.
== END 2023-04-10 08:59 | disposition home or self-care (01) ==
LOC: HO.MAMMO 08:58
PROVIDERS: PCP Internal Medicine; Visit Provider Internal Medicine
DX: Z12.31 Encounter for screening mammogram for malignant neoplasm of breast (principal); Z13.820 Encounter for screening for osteoporosis; Z78.0 Asymptomatic menopausal state
CPT/HCPCS: 77063; 77067; 77080

== ENCOUNTER 2023-06-02 06:04 | Outpatient (REF) | payer MEDICARE, SELFPAY ==
[2023-06-02 13:02] LABS: Alanine Aminotransferase 11 U/L (0-31); Alkaline Phosphatase 65 U/L (39-117); Anion Gap 9 (12-20); Aspartate Amino Transferase 16 U/L (5-31); Bilirubin Total 0.6 mg/dL (0.0-1.0); Blood Urea Nitrogen 21 mg/dL (9-16); Calcium 9.5 mg/dL (8.4-10.2); Carbon Dioxide 27 mmol/L (22-29); Chloride 109 mmol/L (96-108); Cholesterol 144 mg/dL; Estimated Glomerular Filt Rate > 60; Glucose Fasting 99 mg/dL (60-99); HDL Cholesterol 54 mg/dL; LDL Cholesterol Calculated 72 mg/dl; Potassium 4.3 mmol/L (3.3-5.1); Sodium 141 mmol/L (135-145); Thyroid Stimulating Hormone 0.56 uIU/mL (0.32-4.0); Total Protein 7.1 g/dL (6.5-8.0); Triglycerides 93 mg/dL
== END 2023-06-02 06:05 | disposition home or self-care (01) ==
LOC: HO.HMGCLDS 06:04
PROVIDERS: PCP Internal Medicine; Visit Provider Internal Medicine
DX: E06.3 Autoimmune thyroiditis (principal); E78.00 Pure hypercholesterolemia, unspecified; E78.5 Hyperlipidemia, unspecified
CPT/HCPCS: 36415; 80053; 80061; 84443

== ENCOUNTER 2023-06-11 13:16 | Outpatient (AMB) | payer MEDICARE, SELFPAY ==
--- NOTE | 2023-06-11 13:19 | MHC.PC.OV ---
Vital Signs 06/11/23 13:20 06/11/23 13:38 Height 5 ft 2 in Weight 150 lb BMI 27.4 BP 148/70 H 150/70 H Blood Pressure Location Lt brachial Lt brachial Position Sitting Sitting Intake Visit Reasons: thyroid Intake Note: Patient here for a follow up thyroid Public Housing Interviewer Required: No Accompanied by: Spouse Allergies orange Allergy (Intermediate, Verified 06/11/23 13:30) RASH cephalexin Allergy (Mild, Verified 06/11/23 13:30) Rash nickel [Nickel] Allergy (Mild, Verified 06/11/23 13:30) RASH Medication List - Last Reconciled 06/11/23 by Jenna Torres MD ammonium lactate 12% 1 appl topical BID levothyroxine 88 mcg PO DAILY 90 days lidocaine 5% (Lidoderm) 1 patch topical DAILY lidocaine HCl 4% (Aspercreme (lidocaine HCl)) 1 appl topical BID losartan 50 mg PO DAILY 90 days nystatin 1 appl topical BID 30 days simvastatin 20 mg PO BEDTIME 90 days Tobacco use date assessed: 02/03/23 Fall risk assessment: No Falls in past year Last assessed Fall Risk: 06/11/23 Dental Screening Dental Screen Date: 06/11/23 Did you have a dental visit in the last 12 months?: Yes Did you have a dental problem in the last 6 months where you did not have access to dental care?: No Was dental information given to patient?: Patient has dentist HPI HPI Comments History of Present Illness Details This is an 78-year-old female with Frida's thyroiditis, hypertension and pure hypercholesterolemia that comes accompanied by for follow-up on her recent labs. TSH normal. Blood pressure borderline normal to elevated and will be recheck by nurse navigator in 3 weeks. Cholesterol well controlled with statins. Reports no side effects from medication. No chest pain or shortness of breath. [facility] Medical History Autoimmune thyroiditis Benign essential hypertension Bilateral lower leg cellulitis Candidal intertrigo Cough Deep vein thrombosis HTN (hypertension) Hyperlipidemia Hypothyroid Intertrigo Overweight (BMI 25.0-29.9) Pure hypercholesterolemia Venous (peripheral) insufficiency Surgical History History of biopsy History of colonoscopy Hx of tonsillectomy Family History Father CAD (coronary artery disease) Coronary thrombosis Mother Hypertension Atherosclerosis Family/Other FH: mental illness Maternal Grandmother Diabetes Paternal Grandmother Esophageal cancer Social History Housing: Apartment Alcohol intake: never Patient Tobacco Use Status: Never used Tobacco e-Cigarette/Vaping Use: Never Used Second Hand Smoke Exposure: No service: No Current occupational status: disabled Cognitive needs: No Hearing needs: No Vision needs: Yes (glasses) Questionnaire Thrive Questionnaire Date Thrive assessed: 02/03/23 GENE-7 AMB Questionnaire GENE-7 Date GENE - 7 assessed: 02/03/23 Source: Developed by Drs. Brayan England, Nicole Guillaume, Anselmo Lai and colleagues, with an educational patricia from [employer]. Review of Systems Const All systems reviewed & are unremarkable except as noted in HPI and below Eyes Reports no additional complaints, Denies change in vision and Denies other visual disturbances Card Denies chest pain at rest, Denies chest pain with activity, Denies edema, Denies irregular heart rhythm, Denies claudication, Denies dyspnea, Denies dyspnea on exertion, Denies orthopnea, Denies paroxysmal nocturnal dyspnea and Denies slow heart rate Resp Denies cough, Denies dyspnea and Denies dyspnea on exertion GI Denies abdominal pain, Denies change in bowel habits, Denies excessive flatus, Denies nausea and Denies vomiting Denies urinary incontinence, Denies urinary hesitancy and Denies urinary urgency Musc Denies abnormal gait, Denies atrophy, Denies deformity and Denies limited range of motion Skin/Breast Denies bleeding lesions, Denies changing lesions and Denies rash Neuro Denies abnormal gait and Denies lack of coordination Physical exam (Primary Care) Vital Signs: Last Vital Signs BP 148/70 H 06/11/23 13:20 BMI result Body Mass Index 27.4 Tobacco/Smoking Status: Tobacco use Status Tobacco use date assessed 02/03/23 06/11/23 13:26 Patient Tobacco Use Status Never used Tobacco 06/11/23 13:26 e-Cigarette/Vaping Use Never Used 06/11/23 13:26 Thrive Assessment: Date of Thrive Assessment Date Thrive assessed 02/03/23 06/11/23 13:26 Eyes General: appearance normal, both eyes and all related structures Eyelids: Yes eyelids normal Conjunctivae: conjunctivae normal Neck Neck: Yes normal visual inspection and Yes supple Resp Effort & Inspection: normal respiratory effort Auscultation: clear to auscultation bilaterally Cardio Jugular venous distension: no JVD Rate: regular rate Rhythm: regular rhythm Heart sounds: S1 normal heart sound present and S2 normal heart sound present Extrem General: Yes full ROM Assessment and Plan Assessment & Plan (1) Frida's thyroiditis: Code(s): E06.3 - Autoimmune thyroiditis Plan: Continue levothyroxine. (2) Benign essential hypertension: Code(s): I10 - Essential (primary) hypertension Plan: Continue losartan. Blood pressure goal is equal or less than 130/80. Recheck blood pressure with nurse navigator in 3 weeks. (3) Pure hypercholesterolemia: Code(s): E78.00 - Pure hypercholesterolemia, unspecified Plan: Continue statins. Orders: Orders Comprehensive [place]. Panel Fast 6 Months I10 - Essential (primary) hypertension Lipid Panel 6 Months E78.5 - Hyperlipidemia, unspecified, I10 - Essential (primary) hypertension Thyroid Stimulating Hormone 6 Months E06.3 - Autoimmune thyroiditis Coding Level of Care Code Est Pt Level 3 (17301) Diagnoses 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 Benign essential hypertension I10 Pure hypercholesterolemia E78.00 Time Spent (min) 19
[2023-06-11 13:20] VITALS: BP 148/70; BMI 27.4
[2023-06-11 13:38] VITALS: BP 150/70
== END 2023-06-11 14:13 | disposition home or self-care (01) ==
PROVIDERS: PCP Internal Medicine; Visit Provider Internal Medicine
DX: E06.3 Autoimmune thyroiditis (principal); I10 Essential (primary) hypertension; E78.00 Pure hypercholesterolemia, unspecified
CPT/HCPCS: 99213

== ENCOUNTER 2023-07-27 13:31 | Outpatient (AMB) | payer MEDICARE, SELFPAY ==
[2023-07-27 13:57] VITALS: BP 140/76; PULSE 101; TEMP 36.8; O2SAT 96; BMI 28.7
--- NOTE | 2023-07-27 13:57 | MHC.OFFWIV ---
Intake Vital Signs 07/27/23 13:57 Height 5 ft 2 in Weight 157 lb BMI 28.7 BP 140/76 H Blood Pressure Location Rt brachial Position Sitting Pulse 101 H Pulse Source Pulse Oximeter Temp 98.3 F Temp Source Temporal Artery Scan Pulse Oximetry (%) 96 Oxygen Delivery Method Room Air Intake Visit Reasons: EST/swelling in both legs Intake Note: pt is here for c/o swelling in bilateral legs Patient Tobacco Use Status: Never used Tobacco Allergies orange Allergy (Intermediate, Verified 07/27/23 13:57) RASH cephalexin Allergy (Mild, Verified 07/27/23 13:57) Rash nickel [Nickel] Allergy (Mild, Verified 07/27/23 13:57) RASH Do you need a note to return to daycare/school/sports/work: No HPI HPI Comments History of Present Illness Details This is an 78-year-old female with a past medical history of hypertension and venous insufficiency for which she sees Dr. Lemus at the [facility] [place] presenting for evaluation of lower extremity edema has been present since Thursday. Patient states that she went to the [employer] on Thursday afternoon and was there for several hours, pushing her in a wheelchair. The patient states that she woke up on Thursday morning and noticed swelling in her lower extremities bilaterally. Patient has prescription compression stockings that she wears very intermittently. The patient states that she wore them on Thursday for a few hours and again on Thursday. The patient has a prescription for thigh-high compression stockings that she has not yet filled and states that her compression stockings are uncomfortable to wear in general. She has a follow-up appointment with Dr. Lemus scheduled on August 05. The patient denies having any chest pain, cough or shortness of breath. [facility] Medical History Deep vein thrombosis Autoimmune thyroiditis Venous (peripheral) insufficiency Overweight (BMI 25.0-29.9) Benign essential hypertension Pure hypercholesterolemia Cough Candidal intertrigo Intertrigo Bilateral lower leg cellulitis Hypothyroid Hyperlipidemia HTN (hypertension) Surgical History History of biopsy History of colonoscopy Hx of tonsillectomy Family History Father CAD (coronary artery disease) Coronary thrombosis Mother Hypertension Atherosclerosis Family/Other FH: mental illness Maternal Grandmother Diabetes Paternal Grandmother Esophageal cancer Social History Housing: Apartment Alcohol intake: never Patient Tobacco Use Status: Never used Tobacco e-Cigarette/Vaping Use: Never Used Second Hand Smoke Exposure: No service: No Current occupational status: disabled Cognitive needs: No Hearing needs: No Vision needs: Yes (glasses) Review of Systems Const All systems reviewed & are unremarkable except as noted in HPI and below Card Reports no additional complaints, Denies chest pain, Reports leg edema, Denies dyspnea, Denies dyspnea on exertion and Denies orthopnea Resp Denies cough, Denies hemoptysis, Denies dyspnea and Denies dyspnea on exertion Musc Reports no additional complaints Skin/Breast Reports system reviewed and no additional complaints, except as documented Neuro Denies Sensory deficit (Neuro) Physical Exam Vital Signs: Last Vital Signs Temp 98.3 F 07/27/23 13:57 Pulse 101 H 07/27/23 13:57 BP 140/76 H 07/27/23 13:57 Pulse Ox 96 07/27/23 13:57 Oxygen Delivery Method Room Air 07/27/23 13:57 BMI result Body Mass Index 28.7 Const General: cooperative, healthy appearing and no acute distress Nutritional Appearance: average body habitus Orientation/consciousness: patient oriented x3 Limitations: no limitations Resp Effort & Inspection: normal respiratory effort, able to speak in complete sentences, no audible wheezes and no use of accessory muscles Auscultation: clear to auscultation bilaterally Cardio Rate: regular rate Rhythm: regular rhythm Skin General skin exam: no rashes or lesions noted, erythema (faint mild erythema that is circumferential right distal lower extremity), no petechiae, no purpura and other ( no warmth or tenderness to touch lower extremities bilaterally) Neuro General: patient oriented x3 Motor exam (neuro): Normal motor muscle tone present throughout (lower extremities bilaterally) Sensory Exam: No Sensory deficit (Neuro) Extrem Other: subjective distal lower extremity non.pitting edema bilaterally Right lower extremity: normal to inspection and lower leg (no calf tenderness, no pitting edema) Left lower extremity: normal to inspection and lower leg (no calf tenderness, no pitting edema) Psych Appearance: grossly normal Mental Status: mental status grossly normal Speech and movement: Normal speech and movement present Attitude: cooperative Thought process: Normal thought process present Thought content: Normal thought content present Insight: Good insight present (Psych) Assessment & Plan Assessment & Plan (1) Bilateral lower extremity edema: Code(s): R60.0 - Localized edema Plan: Patient seen and evaluated. This patient has chronic venous insufficiency for which Dr. Lemus had scheduled laser intervention which the patient reports not completing to date. Additionally, the patient finds her compression stockings uncomfortable and wears them only intermittently. Patient will be instructed to obtain data review specialist pressure compression stockings that are available [id number] at the pharmacy to wear daily and consistently until she sees Dr. Lemus on 08.05.2023. The patient is also encouraged to fill her prescription for thigh-high compression stockings as she may find this style more agreeable and comfortable than her knee-high prescription stockings. The patient is in agreement with this plan of care. Coding Level of Care Code Est Pt Level 3 (48244) Diagnoses Bilateral lower extremity edema R60.0 Time Spent (min) 25
== END 2023-07-27 14:55 | disposition home or self-care (01) ==
PROVIDERS: PCP Internal Medicine; Visit Provider Physician Assistant
DX: R60.0 Localized edema (principal)
CPT/HCPCS: 99213

== ENCOUNTER 2023-07-28 15:48 | Outpatient (AMB) | payer MEDICARE, SELFPAY ==
[2023-07-28 15:49] VITALS: BP 152/70; PULSE 104; O2SAT 95; BMI 28.9
--- NOTE | 2023-07-28 15:49 | A.OFFPC_ITS ---
Vital Signs 07/28/23 15:49 07/28/23 16:10 Height 5 ft 2 in Weight 158 lb BMI 28.9 BP 152/70 H 134/60 Blood Pressure Location Lt brachial Lt brachial Position Sitting Sitting Pulse 104 H Pulse Source Pulse Oximeter Temp Source Skin Pulse Oximetry (%) 95 Oxygen Delivery Method Room Air Intake Visit Reasons: Right Leg Swollen/ Redness Intake Note: pt states bilateral leg swelling and redness X5days Supervisor Fertilizer Required: No Allergies orange Allergy (Intermediate, Verified 07/28/23 16:02) RASH cephalexin Allergy (Mild, Verified 07/28/23 16:02) Rash nickel [Nickel] Allergy (Mild, Verified 07/28/23 16:02) RASH Medication List - Last Reconciled 07/28/23 by GAEL Peraza ammonium lactate 12% 1 appl topical BID levothyroxine 88 mcg PO DAILY 90 days lidocaine 5% (Lidoderm) 1 patch topical DAILY lidocaine HCl 4% (Aspercreme (lidocaine HCl)) 1 appl topical BID losartan 50 mg PO DAILY 90 days nystatin 1 appl topical BID 30 days simvastatin 20 mg PO BEDTIME 90 days Tobacco use date assessed: 07/28/23 Fall risk assessment: No Falls in past year Last assessed Fall Risk: 07/28/23 Dental Screening Dental Screen Date: 07/28/23 Did you have a dental visit in the last 12 months?: Yes Did you have a dental problem in the last 6 months where you did not have access to dental care?: No Was dental information given to patient?: Patient has dentist HPI Right Leg Swollen/ Redness HPI Details Patient is an 78-year-old female who presents today for the same day visit due to bilateral lower extremity redness, swelling, warmth for the past 5 days R>L. Patient of Dr. Dockery. Medical history significant for history of bilateral lower extremity cellulitis, hypercholesterolemia, hypertension, venous insufficiency - followed by Dr. Lemus at [facility] [place] - next visit 08/05/2023. Patient denies recent injury to bilateral lower extremity. Reports tingling in her great toes. No shortness of breath or chest pain. [facility] Medical History Deep vein thrombosis Autoimmune thyroiditis Venous (peripheral) insufficiency Overweight (BMI 25.0-29.9) Benign essential hypertension Pure hypercholesterolemia Cough Candidal intertrigo Intertrigo Bilateral lower leg cellulitis Hypothyroid Hyperlipidemia HTN (hypertension) Surgical History History of colonoscopy History of biopsy Hx of tonsillectomy Family History Father CAD (coronary artery disease) Coronary thrombosis Mother Hypertension Atherosclerosis Family/Other FH: mental illness Maternal Grandmother Diabetes Paternal Grandmother Esophageal cancer Social History Housing: Apartment Alcohol intake: never Patient Tobacco Use Status: Never used Tobacco e-Cigarette/Vaping Use: Never Used Second Hand Smoke Exposure: No service: No Current occupational status: disabled Cognitive needs: No Hearing needs: No Vision needs: Yes (glasses) Questionnaire PHQ-9 Over the last 2 weeks, how often have you been bothered by any of the following problems? 1. Little interest or pleasure in doing things: not at all 2. Feeling down, depressed, or hopeless: not at all 3. Trouble falling or staying asleep, or sleeping too much: not at all 4. Feeling tired or having little energy: not at all 5. Poor appetite or overeating: not at all 6. Feeling bad about yourself - or that you are a failure or have let yourself or your family down: not at all 7. Trouble concentrating on things, such as reading the newspaper or watching television: not at all 8. Moving or speaking so slowly that other people could have noticed. Or the opposite - being so fidgety or restless that you have been moving around a lot more than usual: not at all 9. Thoughts that you would be better off or of hurting yourself in some way: not at all Total score: 0 Depression Screening Interpretation: Negative 33981 - PHQ-9 Billing: Yes Source: Developed by Drs. Brayan England, Nicole Guillaume, Anselmo Lai and colleagues, with an educational patricia from [employer]. Thrive Questionnaire Date Thrive assessed: 02/03/23 AUDIT C Alcohol Use Questionnaire (AUDIT-C) 1. How often do you have a drink containing alcohol?: Never Total Score: 0 Score Reviewed/Action Taken: No GENE-7 AMB Questionnaire GENE-7 Date GENE - 7 assessed: 02/03/23 Source: Developed by Drs. Brayan England, Nicole Guillaume, Anselmo Lai and colleagues, with an educational patricia from [employer]. Review of Systems Const Denies body aches, Denies chills, Denies fever(s) and Denies headache(s) ENT Denies dizziness, Denies otalgia, Denies headache(s), Denies nasal discharge, Denies sinus pain and Denies sore throat Card Denies chest pain, Reports leg edema, Denies lightheadedness and Denies dyspnea Resp Denies cough, Denies dyspnea and Denies wheezing GI Denies abdominal pain Denies dysuria Musc Denies myalgias Skin/Breast Reports as per HPI Neuro Denies dizziness and Denies headache(s) Aller/Immun Denies wheezing Physical exam (Primary Care) Vital Signs: Last Vital Signs Pulse 104 H 07/28/23 15:49 BP 134/60 07/28/23 16:10 Pulse Ox 95 07/28/23 15:49 Oxygen Delivery Method Room Air 07/28/23 15:49 BMI result Body Mass Index 28.9 Tobacco/Smoking Status: Tobacco use Status Tobacco use date assessed 07/28/23 07/28/23 15:56 Patient Tobacco Use Status Never used Tobacco 07/28/23 15:56 e-Cigarette/Vaping Use Never Used 07/28/23 15:56 PHQ-9: PHQ-9 Score PHQ-9: Total score 0 07/28/23 16:15 Depression Screening Interpretation: Negative Thrive Assessment: Date of Thrive Assessment Date Thrive assessed 02/03/23 07/28/23 15:56 Const General: cooperative and no acute distress Orientation/consciousness: patient oriented x3 HENMT Head: Yes normocephalic and Yes atraumatic Mouth: oropharynx normal and moist mucous membranes Throat: Yes posterior oropharynx normal Eyes General: appearance normal, both eyes and all related structures Neck Neck: Yes normal visual inspection and Yes full ROM Resp Effort & Inspection: normal respiratory effort and able to speak in complete sentences Auscultation: clear to auscultation bilaterally, no crackles, no rales, no rhonchi and no wheezes Cardio Rate: regular rate Rhythm: regular rhythm Heart sounds: S1 normal heart sound present and S2 normal heart sound present Peripheral pulses: dorsalis pedis present bilateral GI Auscultation: normal bowel sounds Skin Other: Right lower extremity edema +1 nonpitting from knee down, moderate redness and warmth, tenderness noted to medial garcia area Left lower extremity trace edema, mild redness and warmth, medial ankle mild tenderness Neuro General: patient oriented x3 Gait exam (Neuro): Normal gait present Extrem General: Yes full ROM Assessment and Plan Assessment & Plan (1) Bilateral lower extremity edema: Code(s): R60.0 - Localized edema Plan: Patient presents with bilateral lower extremity redness, swelling, warmth for the past 5 days Right lower extremity edema +1 nonpitting from knee down, moderate redness and warmth, tenderness noted to medial garcia area Left lower extremity trace edema, mild redness and warmth, medial ankle mild tenderness Will obtain stat ultrasound of bilateral lower extremity to rule out DVT, if negative will treat with antibiotic to cover cellulitis Will notify of the results, patient agreed the plan (2) Deep vein thrombosis: Code(s): I82.409 - Acute embolism and thrombosis of unspecified deep veins of unspecified lower extremity Plan: Same as above Plan Keep appointment with PCP as scheduled or follow-up sooner as needed Orders: Orders US venous duplex LE BI Today I82.409 - Acute embolism and thrombosis of unspecified deep veins of unspecified lower extremity, R60.0 - Localized edema Coding Level of Care Code Est Pt Level 3 (47816) Diagnoses Bilateral lower extremity edema R60.0 Deep vein thrombosis I82.409
[2023-07-28 16:10] VITALS: BP 134/60
== END 2023-07-28 16:16 | disposition home or self-care (01) ==
PROVIDERS: PCP Internal Medicine; Visit Provider Nurse Practitioner Family
DX: R60.0 Localized edema (principal); I82.409 Acute embolism and thrombosis of unspecified deep veins of unspecified lower extremity
CPT/HCPCS: 99213

== ENCOUNTER 2023-07-28 16:42 | Outpatient (REF) | payer MEDICARE, SELFPAY ==
--- NOTE | ~2023-07-28 | US_ITS ---
EXAMINATION: US VENOUS ULTRASOUND WITH DOPPLER LOWER EXTREMITY, BILATERAL CLINICAL INFORMATION: Bilateral lower extremity edema, swelling and skin redness COMPARISON: Bilateral lower extremity DVT study 02/11/2022 TECHNIQUE: Ultrasound of the deep veins is performed from the hip to the calf with compression sonography and color and pulse Doppler assessment. Spectral analysis with color-flow imaging is performed. FINDINGS: RIGHT: There is normal venous compression and respiratory variation and augmented flow. The visualized common femoral vein, superficial femoral vein, profunda femoral vein, popliteal vein, and the trifurcation region shows no evidence of deep venous thrombosis. The peroneal vein was not visualized. There is no significant popliteal fossa cyst. LEFT: There is normal venous compression and respiratory variation and augmented flow. The visualized common femoral vein, superficial femoral vein, profunda femoral vein, popliteal vein, and the trifurcation region shows no evidence of deep venous thrombosis. The peroneal vein was not visualized. There is no significant popliteal fossa cyst. If the patient's symptoms persist, followup ultrasound in 5 days 7 days might be of value to exclude proximal propagation from a non-visualized calf vein. US/US venous duplex LE BI IMPRESSION: No DVT seen in either lower extremity.
== END 2023-07-28 16:43 | disposition home or self-care (01) ==
LOC: HO.US 16:42
PROVIDERS: PCP Internal Medicine; Visit Provider Nurse Practitioner Family
DX: R60.0 Localized edema (principal); I82.409 Acute embolism and thrombosis of unspecified deep veins of unspecified lower extremity
CPT/HCPCS: 93970

== ENCOUNTER 2023-08-10 16:56 | Outpatient (AMB) | payer MEDICARE, SELFPAY ==
--- NOTE | 2023-08-10 16:57 | MHC.PC.OV ---
Intake Visit Reasons: BLE cellulitis, edema Intake Note: telehealth c/o cellulitis on groin area/ edema Supervisor Bindery Required: No Accompanied by: Self / Same As Patient Allergies orange Allergy (Intermediate, Verified 08/10/23 17:32) RASH cephalexin Allergy (Mild, Verified 08/10/23 17:32) Rash nickel [Nickel] Allergy (Mild, Verified 08/10/23 17:32) RASH Medication List - Last Reconciled 08/10/23 by Jenna Torres MD ammonium lactate 12% 1 appl topical BID doxycycline hyclate 100 mg PO BID 10 days levothyroxine 88 mcg PO DAILY 90 days lidocaine 5% (Lidoderm) 1 patch topical DAILY lidocaine HCl 4% (Aspercreme (lidocaine HCl)) 1 appl topical BID losartan 50 mg PO DAILY 90 days nystatin 1 appl topical BID 30 days simvastatin 20 mg PO BEDTIME 90 days Tobacco use date assessed: 07/28/23 Fall risk assessment: No Falls in past year Last assessed Fall Risk: 08/10/23 Dental Screening Dental Screen Date: 08/10/23 Did you have a dental visit in the last 12 months?: No Did you have a dental problem in the last 6 months where you did not have access to dental care?: No Was dental information given to patient?: Patient has dentist HPI HPI Comments History of Present Illness Details This is an 78-year-old female with hypertension and Frida thyroiditis that has telehealth visit by phone complaining of tachycardia and anxiety. Blood pressure has been stable. Last TSH was normal. I will order EKG and we will start her on sertraline for anxiety. No chest pain or shortness of breath. Has right leg cellulitis and will have vascular surgery at the end of this month. [facility] Medical History Deep vein thrombosis Autoimmune thyroiditis Venous (peripheral) insufficiency Overweight (BMI 25.0-29.9) Benign essential hypertension Pure hypercholesterolemia Cough Candidal intertrigo Intertrigo Bilateral lower leg cellulitis Hypothyroid Hyperlipidemia HTN (hypertension) Surgical History History of colonoscopy History of biopsy Hx of tonsillectomy Family History Father CAD (coronary artery disease) Coronary thrombosis Mother Hypertension Atherosclerosis Family/Other FH: mental illness Maternal Grandmother Diabetes Paternal Grandmother Esophageal cancer Social History Housing: Apartment Alcohol intake: never Patient Tobacco Use Status: Never used Tobacco e-Cigarette/Vaping Use: Never Used Second Hand Smoke Exposure: No service: No Current occupational status: disabled Cognitive needs: No Hearing needs: No Vision needs: Yes (glasses) Questionnaire Thrive Questionnaire Date Thrive assessed: 02/03/23 GENE-7 AMB Questionnaire GENE-7 Date GENE - 7 assessed: 02/03/23 Source: Developed by Drs. Brayan England, Nicole Guillaume, Anselmo Lai and colleagues, with an educational patricia from [employer]. Review of Systems Const All systems reviewed & are unremarkable except as noted in HPI and below Eyes Reports no additional complaints, Denies change in vision and Denies other visual disturbances Card Denies chest pain at rest, Denies chest pain with activity, Denies edema, Denies irregular heart rhythm, Denies claudication, Denies dyspnea, Denies dyspnea on exertion, Denies orthopnea, Denies paroxysmal nocturnal dyspnea and Denies slow heart rate Resp Denies cough, Denies dyspnea and Denies dyspnea on exertion GI Denies abdominal pain, Denies change in bowel habits, Denies excessive flatus, Denies nausea and Denies vomiting Denies urinary incontinence, Denies urinary hesitancy and Denies urinary urgency Musc Denies abnormal gait, Denies atrophy, Denies deformity, Reports joint swelling and Denies limited range of motion Skin/Breast Denies bleeding lesions, Denies changing lesions and Denies rash Neuro Denies abnormal gait and Denies lack of coordination Physical exam (Primary Care) Tobacco/Smoking Status: Tobacco use Status Tobacco use date assessed 07/28/23 08/10/23 16:59 Patient Tobacco Use Status Never used Tobacco 08/10/23 16:59 e-Cigarette/Vaping Use Never Used 08/10/23 16:59 Thrive Assessment: Date of Thrive Assessment Date Thrive assessed 02/03/23 08/10/23 16:59 Telehealth Telehealth Location of provider rendering services: practice address Location of patient: address on file Patient Identification confirmed using: Name, : Yes Telehealth method: voice only Patient verbally consented to treatment: No Patient verbally consented to billing insurance company: No Patient informed of any privacy concerns related to visit: No Minutes spent on Phone/Video with Pt.: 15 Assessment and Plan Assessment & Plan (1) Tachycardia: Code(s): R00.0 - Tachycardia, unspecified Plan: EKG ordered (2) Anxiety: Code(s): F41.9 - Anxiety disorder, unspecified Plan: Start sertraline (3) Frida's thyroiditis: Code(s): E06.3 - Autoimmune thyroiditis Plan: Continue levothyroxine (4) Essential hypertension: Code(s): I10 - Essential (primary) hypertension Plan: Continue losartan. Blood pressure goal is equal or less than 130/80. Orders: Orders ECG 12 lead EKG Today R00.0 - Tachycardia, unspecified Medications: New sertraline 25 mg PO DAILY 90 tabs 1RF 90 days F41.9 - Anxiety disorder, unspecified Refilled nystatin 1 appl topical BID 60 grams 2RF 30 days doxycycline hyclate 100 mg PO BID 20 tabs 0RF 10 days R60.0 - Localized edema Coding Level of Care Code Tele Est Pt Level 4 (92121) Diagnoses Tachycardia R00.0 Anxiety F41.9 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 Essential hypertension I10 Time Spent (min) 15
== END 2023-08-10 17:53 | disposition home or self-care (01) ==
LOC: HO.HMGH 16:56
PROVIDERS: PCP Internal Medicine; Visit Provider Internal Medicine
DX: R00.0 Tachycardia, unspecified (principal); F41.9 Anxiety disorder, unspecified; E06.3 Autoimmune thyroiditis; I10 Essential (primary) hypertension
CPT/HCPCS: 99443

== ENCOUNTER → 2023-08-11 11:28 | Outpatient (REF) | payer MEDICARE, SELFPAY ==
--- NOTE | 2023-08-11 11:35 | ECG_ITS ---
Test Reason : tachycardia Blood Pressure : / mmHG Vent. Rate : 082 BPM Atrial Rate : 082 BPM P-R Int : 152 ms QRS Dur : 074 ms QT Int : 368 ms P-R-T Axes : 062 018 066 degrees QTc Int : 429 ms Normal sinus rhythm Normal ECG When compared with ECG of 12-AUG-2017 13:48, Heart rate has decreased Referred By: Jenna Torres Electronically Signed By:GRISELDA COTE
== END ==
LOC: HO.CARD 11:28
PROVIDERS: PCP Internal Medicine; Visit Provider Internal Medicine
DX: R00.0 Tachycardia, unspecified (principal)
CPT/HCPCS: 93005

== ENCOUNTER 2023-08-31 09:58 | Outpatient (AMB) | payer MEDICARE, SELFPAY ==
[2023-08-31 11:34] VITALS: BP 112/62; PULSE 91; TEMP 36.7; O2SAT 97; BMI 28.7
--- NOTE | 2023-08-31 11:34 | MHC.OFFWIV ---
Intake Vital Signs 08/31/23 11:34 Height 5 ft 2 in Weight 157 lb 2 oz BMI 28.7 BP 112/62 Blood Pressure Location Rt brachial Position Sitting Pulse 91 Pulse Source Pulse Oximeter Temp 98.1 F Temp Source Temporal Artery Scan Pulse Oximetry (%) 97 Oxygen Delivery Method Room Air Intake Visit Reasons: EP, Bilateral leg pain/swelling Intake Note: pt is here for c/o bilateral leg swelling with pain. Patient Tobacco Use Status: Never used Tobacco Allergies orange Allergy (Intermediate, Verified 09/13/23 13:28) RASH cephalexin Allergy (Mild, Verified 09/13/23 13:28) Rash nickel [Nickel] Allergy (Mild, Verified 09/13/23 13:28) RASH Medication List - Last Reconciled 09/13/23 by Jb Ceron MD levofloxacin 500 mg PO DAILY 5 days levothyroxine 88 mcg PO DAILY 90 days lidocaine HCl 4% 1 patch topical DAILY PRN losartan 50 mg PO DAILY 90 days metronidazole 500 mg PO BID multivitamin 1 tab PO DAILY nystatin 1 appl topical DAILY simvastatin 20 mg PO BEDTIME 90 days Do you need a note to return to daycare/school/sports/work: Yes HPI EP, Bilateral leg pain/swelling HPI Details 78-year-old female presents to the office for a sick visit. Patient is complaining of pain and swelling in both her legs. She has history of chronic venous insufficiency. [facility] Medical History Deep vein thrombosis Autoimmune thyroiditis Venous (peripheral) insufficiency Overweight (BMI 25.0-29.9) Benign essential hypertension Pure hypercholesterolemia Cough Candidal intertrigo Intertrigo Bilateral lower leg cellulitis Hypothyroid Hyperlipidemia HTN (hypertension) Surgical History History of colonoscopy History of biopsy Hx of tonsillectomy Family History Father CAD (coronary artery disease) Coronary thrombosis Mother Hypertension Atherosclerosis Family/Other FH: mental illness Maternal Grandmother Diabetes Paternal Grandmother Esophageal cancer Social History Household Members: Spouse Housing: Assisted Living Facility Do you presently have visiting nurse or other home services: No Alcohol intake: never Patient Tobacco Use Status: Never used Tobacco e-Cigarette/Vaping Use: Never Used Second Hand Smoke Exposure: No Advance Directives Date on File: 09/01/23 service: No Current occupational status: disabled Cognitive needs: No Hearing needs: No Vision needs: Yes (glasses) Physical Exam Vital Signs: Last Vital Signs Temp 98.1 F 08/31/23 11:34 Pulse 91 08/31/23 11:34 BP 112/62 08/31/23 11:34 Pulse Ox 97 08/31/23 11:34 Oxygen Delivery Method Room Air 08/31/23 11:34 BMI result Body Mass Index 28.7 Extrem Other: Right and left lower extremity: Erythematous area over the garcia. Minimal tenderness. Assessment & Plan Assessment & Plan (1) Cellulitis of both feet: Code(s): L03.115 - Cellulitis of right lower limb; L03.116 - Cellulitis of left lower limb Plan: Antibiotics called in. Keep the foot elevated. If symptoms not better to follow-up here P Coding Level of Care Code Est Pt Level 3 (22687) Diagnoses Cellulitis of both feet L03.115; L03.116
== END 2023-08-31 12:08 | disposition home or self-care (01) ==
PROVIDERS: PCP Internal Medicine; Visit Provider Internal Medicine
DX: L03.115 Cellulitis of right lower limb (principal); L03.116 Cellulitis of left lower limb
CPT/HCPCS: 99213

== ENCOUNTER 2023-09-01 09:05 | Inpatient (IN) | payer MEDICARE, SELFPAY ==
--- NOTE | ~2023-09-01 | US_ITS ---
EXAMINATION: US VENOUS ULTRASOUND WITH DOPPLER LOWER EXTREMITY, RIGHT CLINICAL INFORMATION: Right lower extremity swelling COMPARISON: None available. TECHNIQUE: Ultrasound of the deep veins is performed from the hip to the calf with compression sonography and color and pulse Doppler assessment. Spectral analysis with color-flow imaging is performed. FINDINGS: There is normal venous compression and respiratory variation and augmented flow. The visualized common femoral vein, superficial femoral vein, profunda femoral vein, popliteal vein, and posterior tibial vein show no evidence of deep venous thrombosis. The right peroneal vein is not seen due to calf swelling. US/US venous duplex LE RT IMPRESSION: No deep venous thrombosis demonstrated in the right lower extremity.
--- NOTE | ~2023-09-01 | CT_ITS ---
EXAMINATION: CT ABDOMEN AND PELVIS WITH CONTRAST CLINICAL INFORMATION: Left lower quadrant abdominal pain. COMPARISON: None available. TECHNIQUE: Multidetector volumetric images were obtained from the superior aspect of the liver through the pubic symphysis following administration 85 mL of Omnipaque 350 intravenous contrast. Sagittal and coronal reformatted images were obtained on the technologist's workstation. Oral contrast: No This CT examination was performed using dose optimization techniques as appropriate, variously including the following: *Automated exposure control *Adjustment of mA and/or kV according to patient size (this includes techniques or standardized protocols for targeted exams where dose is matched to indication/reason for exam; i.e. extremities or head) *Use of iterative reconstruction technique DLP: 525 mGy-cm FINDINGS: LUNG BASES: There is minimal bibasilar atelectasis or scarring. Heart size is normal. LIVER, GALLBLADDER, AND BILIARY TREE: The liver is normal in size, shape, and attenuation. No focal hepatic lesion or biliary ductal dilatation is present. There is a radiopaque dependent gravel or stones. No gallbladder wall thickening or pericholecystic fluid collection. PANCREAS: Unremarkable. SPLEEN: Unremarkable. ADRENAL GLANDS: Unremarkable. KIDNEYS AND URETERS: The kidneys are normal in size, shape, and attenuation. No hydronephrosis, hydroureter, or calculi seen. No perinephric stranding. BLADDER: Unremarkable. GASTROINTESTINAL TRACT: There is scattered stool, diverticula and gas seen throughout the colon. There is diffuse mural thickening involving the left descending, proximal ascending colon and splenic flexure with mild pericolic fat stranding likely diverticulitis. Scattered stool is seen in the rest the colon. The small bowel loops are normal caliber. Appendix is nonvisualized. ABDOMINAL WALL: There is right epigastric abdominal wall hernia with fat. The neck is approximately 1.7 cm wide. LYMPH NODES: Normal. VASCULAR: Unremarkable. PELVIC VISCERA: Unremarkable. OSSEOUS STRUCTURES: Mild degenerative disc changes L4-L5 disc level. No aggressive lytic or sclerotic process seen. CT/CT abdomen pelvis w IV con IMPRESSION: 1. Diffuse colonic diverticulosis with mural thickening involving the left descending colon, proximal ascending colon and splenic flexure with pericolic fat stranding suggestive of diverticulitis. No free air, free fluid or obstruction seen. 2. Right epigastric abdominal wall hernia with fat. 3. Cholelithiasis without wall thickening. Fleischner guidelines were followed.
[2023-09-01 09:45] VITALS: BP 155/87; PULSE 90; RESP 16; TEMP 36.8; O2SAT 98; BMI 28.6
[2023-09-01 10:09] LABS: MANUAL DIFF FLAG NO
[2023-09-01 10:11] LABS: Basophils Absolute Auto 0.1 X10*3/uL (0.0-0.2); Basophils Percent Auto 0.7 % (0-2); Eosinophils Percent Auto 0.3 % (0-4); Hematocrit 40.4 % (37.0-47.0); Imm Gran Abs Auto 0.03 X10*3/uL (0.00-0.03); Imm Gran Pct Auto 0.3 % (0.0-0.4); Lymphocytes Absolute Auto 1.1 X10*3/uL (1.2-4.9); Lymphocytes Percent Auto 10.3 % (20-40); Mean Corpuscular HGB Conc 32.2 g/dl (31.0-35.0); Mean Corpuscular Hemoglobin 30.4 pg (27.0-33.0); Mean Corpuscular Volume 94.4 fL (80.0-98.0); Mean Platelet Volume 10.2 fL (9.4-12.3); Monocytes Absolute Auto 0.7 X10*3/uL (0.1-1.2); Neutrophils Absolute Auto 8.3 x10*3/uL (2.0-8.3); Neutrophils Percent Auto 81.4 % (45-73); Platelet Count 269 X10*3/uL (160-400); Red Blood Count 4.28 X10*6/uL (4.20-5.50); Red Cell Distribution Width 12.8 % (11.0-16.0); White Blood Count 10.2 X10*3/uL (4.8-10.8)
[2023-09-01 10:30] LABS: Alanine Aminotransferase 18 U/L (0-31); Alkaline Phosphatase 60 U/L (39-117); Anion Gap 14 (12-20); Aspartate Amino Transferase 18 U/L (5-31); Bilirubin Total 0.4 mg/dL (0.0-1.0); Blood Urea Nitrogen 30 mg/dL (9-16); Calcium 9.5 mg/dL (8.4-10.2); Carbon Dioxide 22 mmol/L (22-29); Chloride 110 mmol/L (96-108); Creatinine Clr Calc Pharmacy 63.6; Estimated Glomerular Filt Rate > 60; Glucose Random 104 mg/dL (60-115); Potassium 3.8 mmol/L (3.3-5.1); Sodium 142 mmol/L (135-145); Total Protein 7.3 g/dL (6.5-8.0)
[2023-09-01 14:19] VITALS: BP 160/59; PULSE 96; RESP 16; O2SAT 95
--- NOTE | 2023-09-01 14:44 | ED_ITS ---
HPI - GI Bleed General Chief complaint: GI Bleed Stated complaint: Rectal bleed Time Seen by Provider: 09/01/23 14:09 Source: patient Limitations: no limitations History of Present Illness HPI Narrative: 78 years old with past medical history of hypertension, hyperlipidemia, Frida's thyroiditis, from prior pmhx there was some concern from prior dvt however looking back at old notes and asking the patient herself she denied prior blood cloth, prior episodes of cellulitis, not on anticoagulation. Presents to the emergency room for abdominal pain associated with nausea, vomiting, diarrhea and hematochezia. Patient reports that symptoms started last night after she had some leftovers, she reports that initially she started developing severe abdominal cramps localized in the periumbilical area and subsequently she developed nausea, vomiting and diarrhea. Patient reports that she had multiple episodes of diarrhea and vomiting but eventually was able to fall asleep. Patient reports that pain has been intermittent throughout the night, around 3:00 a.m. patient woke up, went to the bathroom again and noticed that she passed blood with stools. She went back to sleep and when she woke up again this morning she had another bowel movement whether she so a blood clot. Patient reports that her nausea and vomiting have resolved and that she was able to tolerate p.o. this morning. Reports that the cramps are intermittent and at the time of examination therefore out of 10 in severity localized in the lower quadrant of her abdomen mostly on the left side. Patient reports no chills, fever, shortness of breath or chest pain. No hematemesis She reports that she has been on doxycycline for the past 3 weeks for cellulitis which is however not improving. Patient report the thrush has not worsened over the past few days but extending from the right thigh to the foot. Related Data Home Medications Medication Instructions Recorded Confirmed ammonium lactate 12 % topical cream 1 appl topical BID 02/25/21 08/10/23 Previous Rx's Medication Instructions Recorded lidocaine 5 % topical patch 1 patch topical DAILY #15 ea 07/08/22 (Lidoderm) lidocaine HCl 4 % topical cream 1 appl topical BID #30 grams 07/08/22 (Aspercreme (lidocaine HCl)) levothyroxine 88 mcg tablet 88 mcg PO DAILY 90 days #90 tabs 06/29/23 simvastatin 20 mg tablet 20 mg PO BEDTIME 90 days #90 tabs 08/01/23 doxycycline hyclate 100 mg tablet 100 mg PO BID 10 days #20 tabs 08/10/23 nystatin 100,000 unit/gram topical 1 appl topical BID 30 days #60 08/10/23 powder grams sertraline 25 mg tablet 25 mg PO DAILY 90 days #90 tabs 08/10/23 losartan 50 mg tablet 50 mg PO DAILY 90 days #90 tabs 08/14/23 Allergies Allergy/AdvReac Type Severity Reaction Status Date / Time orange Allergy Intermediate RASH Verified 09/01/23 09:44 cephalexin Allergy Mild Rash Verified 09/01/23 09:44 nickel [Nickel] Allergy Mild RASH Verified 09/01/23 09:44 Review of Systems 2 Review of Systems: Yes all other systems are reviewed and are negative PMFSH Past Medical History Medical History Deep vein thrombosis Autoimmune thyroiditis Venous (peripheral) insufficiency Overweight (BMI 25.0-29.9) Benign essential hypertension Pure hypercholesterolemia Cough Candidal intertrigo Intertrigo Bilateral lower leg cellulitis Hypothyroid Hyperlipidemia HTN (hypertension) Surgical History History of colonoscopy History of biopsy Hx of tonsillectomy Family History Family History Father CAD (coronary artery disease) Coronary thrombosis Mother Hypertension Atherosclerosis Family/Other FH: mental illness Maternal Grandmother Diabetes Paternal Grandmother Esophageal cancer Social History Social History Housing: Apartment Alcohol intake: never Patient Tobacco Use Status: Never used Tobacco Smoked in Last 30 Days: No e-Cigarette/Vaping Use: Never Used Second Hand Smoke Exposure: No Use of substances other than those prescribed or required for medical reasons: No Advance Directives: Yes Advance Directives Information Provided: Yes Advance Directives on File: No service: No Current occupational status: disabled Cognitive needs: No Hearing needs: No Vision needs: Yes (glasses) Physical Exam 2 Vital Signs: Vital Signs: Last Vital Signs Temp 97.5 F 09/01/23 17:32 Pulse 92 09/01/23 17:32 Resp 15 09/01/23 17:32 BP 140/50 H 09/01/23 17:32 Pulse Ox 97 09/01/23 17:32 O2 Del Method Room Air 09/01/23 17:32 BMI result Body Mass Index 28.6 Const: General: comfortable and alert Orientation/consciousness: patient oriented x3 HEENT: Head: Yes normocephalic Neck: Neck: Yes normal visual inspection, Yes full ROM and Yes no meningeal signs Chest: Chest palpation & inspection: normal inspection of the chest GI: Inspection: Yes normal to inspection Palpation (GI): Tenderness to palpation present (GI) in the LLQ and in the RLQ, no guarding and not rigid A uscultation: normal bowel sounds Rectal Exam - Female: visual inspection normal, Abnormal stool present Rectal exam abnormal stool - female: joaquina blood and heme positive stool Skin: Other: Erythematous rash that extends from the mid thigh of the right leg to the ankle. Right lower extremity is tender to touch. Right lower extremity is swollen, pulses 2+. Pitting edema bilaterally left lower extremity pulses 2+ No visible rash on left lower Neuro: General: patient oriented x3 and no meningeal signs Cranial nerves: Yes CN's II-XII intact bilaterally Cognition (Neuro): normal cognition Extrem: Other: see skin exam 2+ pulses on all extremity Course Reevaluation(s) Reevaluation #1: Patient imaging consistent with diverticulitis without abscess or perforation. Patient was covered with antibiotic levofloxacin and metronidazole since the patient is allergic to cephalosporin. Results of the CT scan were discussed with the patient as well as her at bedside. Patient started on IV fluids. patient's vital signs have been stable and patient is not septic Discussed case with surgery, no need for emergency surgery. We will admit to hospital. Time: 17:41 Medications Administered Generic Name Dose Route Start Last Admin Trade Name Freq PRN Reason Stop Dose Admin Sodium Chloride 1,000 mls @ 100 mls/hr 09/01/23 16:45 09/01/23 17:02 Ns IVCONT 100 mls/hr .Q10H MAYE Administration Discontinued Medications Generic Name Dose Route Start Last Admin Trade Name Freq PRN Reason Stop Dose Admin Acetaminophen 975 mg 09/01/23 14:30 09/01/23 14:56 Acetaminophen 325 Mg Tablet PO 09/01/23 14:31 975 mg ONCE ONE Administration Sodium Chloride 500 mls @ 999 mls/hr 09/01/23 14:45 09/01/23 17:01 Ns IV 09/01/23 15:15 Infused .Q31M MAYE Infusion Metronidazole 500 mg in 100 mls @ 100 mls/hr 09/01/23 16:41 09/01/23 16:54 Flagyl IV 09/01/23 17:40 100 mls/hr ONCE ONE Administration Iohexol 85 ml 09/01/23 15:23 09/01/23 15:23 Iohexol 350 Mg/Ml 100 Ml Infus..Btl IV 09/01/23 15:24 85 ml ONCE ONE Administration Medical Decision Making Medical Decision Making [facility] Narrative: 78 years old presenting to the emergency room for abdominal pain, nausea, vomiting initially diarrhea and subsequently rectal bleeding. Patient vital signs have been within normal limits except for mild hypertension and mild tachycardia with a heart rate of 90 cc. Patient's lab work showed hemoglobin is within normal limit, increased BUN which may be secondary to dehydration but also cannot rule out upper GI bleed. Rectal exam showed joaquina red blood. Impression: Diverticulitis, GI bleed, PUD, enteritis, viral syndrome, food poisoning In addition patient is reporting not healing cellulitis after 3 weeks of doxycycline, will get ultrasound lower extremity Plan CT abdomen and pelvis 6, ultrasound right lower extremity IV fluids Analgesia CBC showed normal WBC and normal hemoglobin CMP unremarkable except for elevated BUN Type and screen AB) group Differential Diagnosis Irregular bleeding, diverticulitis, GI bleed, enteritis, viral syndrome, DVT Admission/Observation Consideration of admission/observation: Escalation of care including admission/observation considered Consult Healthcare Provider Management of the patient was discussed with: Hospitalist and [employer] (Dr. Ellington ( surgery) discussed case with Dr. King surgery, at this time no need for emergent surgery. He recommended to admit to Medicine. ) Lab Data 09/01/23 10:05 09/01/23 10:05 Labs: Lab Results 09/01/23 09/01/23 Range/Units 10: 14:56 WBC 10.2 (4.8-10.8) X10*3/uL RBC 4.28 (4.20-5.50) X10*6/uL Hgb 13.0 (12.0-16.0) g/dl Hct 40.4 (37.0-47.0) % MCV 94.4 (80.0-98.0) fL MCH 30.4 (27.0-33.0) pg MCHC 32.2 (31.0-35.0) g/dl RDW 12.8 (11.0-16.0) % Plt Count 269 (160-400) X10*3/uL MPV 10.2 (9.4-12.3) fL Immature Gran % (Auto) 0.3 (0.0-0.4) % Neut % (Auto) 81.4 H (45-73) % Lymph % (Auto) 10.3 L (20-40) % [place] % (Auto) 7.0 (2-11) % Eos % (Auto) 0.3 (0-4) % Baso % (Auto) 0.7 (0-2) % Lymph # (Auto) 1.1 L (1.2-4.9) X10*3/uL [place] # (Auto) 0.7 (0.1-1.2) X10*3/uL Eos # (Auto) 0.0 (0.0-0.4) X10*3/uL Baso # (Auto) 0.1 (0.0-0.2) X10*3/uL Abs Immat Gran (auto) 0.03 (0.00-0.03) X10*3/uL Absolute Neuts (auto) 8.3 (2.0-8.3) x10*3/uL Absolute Nucleated RBC 0.000 (0.0-0.012) X10*3/uL Nucleated RBC % (auto) 0.0 (0.0-0.2) /100WBC Sodium 142 (135-145) mmol/L Potassium 3.8 (3.3-5.1) mmol/L Chloride 110 H (96-108) mmol/L Carbon Dioxide 22 (22-29) mmol/L Anion Gap 14 (12-20) BUN 30 H (9-16) mg/dL Creatinine 0.65 (0.5-1.4) mg/dL Estim Creat Clear Calc 63.6 Estimated GFR > 60 Random Glucose 104 (60-115) mg/dL Calcium 9.5 (8.4-10.2) mg/dL Total Bilirubin 0.4 (0.0-1.0) mg/dL AST 18 (5-31) U/L ALT 18 (0-31) U/L Alkaline Phosphatase 60 (39-117) U/L Total Protein 7.3 (6.5-8.0) g/dL Albumin 4.0 (3.5-5.0) g/dL Blood Type A Negative Antibody Screen NEGATIVE Radiology Impression Discussion of test interpretation with radiology: I have reviewed the radiologist's reading. Radiologist Impression: IMPRESSION: 1. Diffuse colonic diverticulosis with mural thickening involving the left descending colon, proximal ascending colon and splenic flexure with pericolic fat stranding suggestive of diverticulitis. No free air, free fluid or obstruction seen. 2. Right epigastric abdominal wall hernia with fat. 3. Cholelithiasis without wall thickening. Discharge Plan Discharge Clinical Impression: Diverticulitis Patient Disposition: Admitted As Inpatient Prescriptions: No Action levothyroxine 88 mcg tablet 88 mcg PO DAILY 90 Days Qty: 90 1RF simvastatin 20 mg tablet 20 mg PO BEDTIME 90 Days Qty: 90 1RF losartan 50 mg tablet 50 mg PO DAILY 90 Days Qty: 90 1RF ammonium lactate 12 % cream 1 appl topical BID lidocaine [Lidoderm] 5 % adhesive patch,medicated 1 patch topical DAILY Qty: 15 0RF Rx Instructions: leave on most painful area for up to 12 hrs lidocaine HCl [Aspercreme (lidocaine HCl)] 4 % cream 1 appl topical BID Qty: 30 0RF nystatin 100,000 unit/gram powder 1 appl topical BID 30 Days Qty: 60 2RF doxycycline hyclate 100 mg tablet 100 mg PO BID 10 Days Qty: 20 0RF sertraline 25 mg tablet 25 mg PO DAILY 90 Days Qty: 90 1RF
[2023-09-01] MEDS: 0.9 % Sodium Chloride 500 ML 999 ML IV (14:55)
[2023-09-01] MEDS: Acetaminophen 325 MG TABLET 975 MG PO (14:56)
[2023-09-01] MEDS: iohexoL 350 MG/ML 100 ML INFUS..BTL 85 ML IV (15:23)
[2023-09-01 16:28] VITALS: BP 136/73; PULSE 90; RESP 14; TEMP 36.4; O2SAT 94
[2023-09-01] MEDS: metroNIDAZOLE/NS 500 MG/100 ML PIGGYBACK 100 MG IV (16:54)
--- NOTE | 2023-09-01 17:00 | PC.NURSE ---
no distress. +CMS. talking well. calm, coop.
[2023-09-01] MEDS: 0.9 % Sodium Chloride 1,000 ML 100 ML IVCONT (17:02)
--- NOTE | 2023-09-01 17:23 | P.HPHOSP_ITS ---
History of Present Illness Date of Service: 09/01/23 Chief Complaint: vomitting and blood on stool An 78-year-old female with a medical history that includes hypertension (HTN), hypothyroidism, hyperlipidemia (HLD), and other conditions experienced abdominal cramps, nausea, vomiting, and diarrhea following dinner yesterday. Although she did not have any subsequent episodes, she discovered blood on her sanitary pad after using the bathroom early in the morning. Concerned, she decided to visit the Emergency Department (ED). Upon examination at the ED, her complete blood count (CBC) came back entirely normal, and she reported no further abdominal pain, nausea, or vomiting. She was able to eat breakfast without any issues. A CT scan revealed diffuse colonic diverticulosis with thickening of the colon wall in the left descending colon, proximal ascending colon, and splenic flexure. pericolic fat stranding, which is suggestive of diverticulitis. Her white blood cell count (WBC) was within the normal range, and she did not have a fever. In the ED, the patient received Flagyl and Levaquin. Notably, she had recently undergone a three-week course of doxycycline treatment for cellulitis in her leg, which still exhibited mild redness and swelling. This is consistent with her known history of lymphadema Review of Systems 2 Review of Systems: no more nausea or vomitting, no abdominal pain, reported blood in srini but seems to have resolved. Yes all other systems are reviewed and are negative [facility] Medical History Deep vein thrombosis Autoimmune thyroiditis Venous (peripheral) insufficiency Overweight (BMI 25.0-29.9) Benign essential hypertension Pure hypercholesterolemia Cough Candidal intertrigo Intertrigo Bilateral lower leg cellulitis Hypothyroid Hyperlipidemia HTN (hypertension) Family History Father CAD (coronary artery disease) Coronary thrombosis Mother Hypertension Atherosclerosis Family/Other FH: mental illness Maternal Grandmother Diabetes Paternal Grandmother Esophageal cancer Surgical History History of colonoscopy History of biopsy Hx of tonsillectomy Social History Housing: Apartment Alcohol intake: never Patient Tobacco Use Status: Never used Tobacco Smoked in Last 30 Days: No e-Cigarette/Vaping Use: Never Used Second Hand Smoke Exposure: No Use of substances other than those prescribed or required for medical reasons: No Advance Directives: Yes Advance Directives Information Provided: Yes Advance Directives on File: No service: No Current occupational status: disabled Cognitive needs: No Hearing needs: No Vision needs: Yes (glasses) Meds Allergies Allergy/AdvReac Type Severity Reaction Status Date / Time orange Allergy Intermediate RASH Verified 09/01/23 09:44 cephalexin Allergy Mild Rash Verified 09/01/23 09:44 nickel [Nickel] Allergy Mild RASH Verified 09/01/23 09:44 Active Medications: Current Medications Metronidazole (Flagyl) 500 mg in 100 mls @ 100 mls/hr IV ONCE ONE Stop: 09/01/23 17:40 Last Admin: 09/01/23 16:54 Dose: 100 mls/hr Sodium Chloride (Ns) 1,000 mls @ 100 mls/hr IVCONT .Q10H MAYE Last Admin: 09/01/23 17:02 Dose: 100 mls/hr Levofloxacin (Levaquin) 500 mg in 100 mls @ 100 mls/hr IV ONCE ONE Stop: 09/01/23 17:43 Home Medications Medication Instructions Recorded Confirmed Last Taken Type ammonium lactate 12 % topical cream 1 appl topical BID 02/25/21 08/10/23 Unknown History Physical Exam 2 Vital Signs and Narrative: Vital Signs: Last Vital Signs Temp 97.5 F 09/01/23 16:28 Pulse 90 09/01/23 16:28 Resp 14 09/01/23 16:28 BP 136/73 09/01/23 16:28 Pulse Ox 94 09/01/23 16:28 O2 Del Method Room Air 09/01/23 16:28 BMI result Body Mass Index 28.6 Const: Other: Constitutional: Alert, in no distress, overweight. Mental Status: Oriented to person, place and time. Eyes: Pupils are equal, round and reactive to light. Ear, Nose and Throat: Oropharynx clear, mucous membranes moist. Respiratory: Clear to auscultation. No wheezing, rales or rhonchi. Cardiovascular: S1 S2 regular. No murmurs, rubs or gallops. Gastrointestinal: Abdomen soft, non-tender, non-distended. Normal bowel sounds.? Neurologic: Cranial nerves II-XII grossly intact. No focal neurological deficits. Moves all extremities spontaneously.? Skin: No rashes or lesions.? minimal erythem of both legs with uniform swelling, c/w lymphadema Musculoskeletal: No cyanosis or clubbing. Psychiatric: Normal mood and affect? Results Labs 09/01/23 10:05 09/01/23 10:05 Labs: Laboratory Results - last 24 hr 09/01/23 09/01/23 10:05 14:56 MCV 94.4 MCH 30.4 MCHC 32.2 RDW 12.8 Plt Count 269 MPV 10.2 Immature Gran % (Auto) 0.3 Neut % (Auto) 81.4 H Lymph % (Auto) 10.3 L Loup % (Auto) 7.0 Eos % (Auto) 0.3 Baso % (Auto) 0.7 Lymph # (Auto) 1.1 L Loup # (Auto) 0.7 Eos # (Auto) 0.0 Baso # (Auto) 0.1 Abs Immat Gran (auto) 0.03 Absolute Neuts (auto) 8.3 Absolute Nucleated RBC 0.000 Nucleated RBC % (auto) 0.0 Anion Gap 14 Estim Creat Clear Calc 63.6 Estimated GFR > 60 Random Glucose 104 Calcium 9.5 Total Bilirubin 0.4 AST 18 ALT 18 Alkaline Phosphatase 60 Total Protein 7.3 Albumin 4.0 Blood Type A Negative Antibody Screen NEGATIVE Imaging Radiologist's Impressions: Impressions Venous Duplex 09/01/23 15:04 IMPRESSION: No deep venous thrombosis demonstrated in the right lower extremity. Abdomen/Pelvis CT 09/01/23 15:24 IMPRESSION: 1. Diffuse colonic diverticulosis with mural thickening involving the left descending colon, proximal ascending colon and splenic flexure with pericolic fat stranding suggestive of diverticulitis. No free air, free fluid or obstruction seen. 2. Right epigastric abdominal wall hernia with fat. 3. Cholelithiasis without wall thickening. Fleischner guidelines were followed. Assessment and Plan (1) Diverticulitis: Status: Acute Plan 78 F with acute diverticulitis with hematochezia, clinically pretty stable. Plan: Continue the administration of Levaquin and Flagyl, gradually progressing the diet as tolerated. Monitor hemoglobin and hematocrit (H/H) levels regularly, and if there is a drop in these values, consult the gastrointestinal (GI) team. Use morphine or Tylenol as needed for pain management. Maintain the patient's regular medications for hypothyroidism, hyperlipidemia, and hypertension. The leg swelling is not attributed to cellulitis but rather to lymphedema; therefore, the patient should continue wearing compression stockings. The patient will be admitted for a minimum of two nights to receive treatment for acute diverticulitis with hematochezia. Plan discussed with pt and at the bedside Time Spent With Patient Time: Total time managing care of this patient today ____ minutes. Quality Stroke Does the patient have a stroke diagnosis?: No VTE Prior VTE?: Yes VTE Risk Level:: Medical - moderate - high VTE Device Contraindication: Procedure Contraindicated VTE Drug Contraindication: Treatment Not Tolerated
[2023-09-01 17:32] VITALS: BP 140/50; PULSE 92; RESP 15; TEMP 36.4; O2SAT 97
--- NOTE | 2023-09-01 17:56 | PHA.MEDREC ---
Pharmacy Consult ? Medication Reconciliation Pharmacy has completed the medication reconciliation. Patient reported medicaitons. Peyton Steiner, GioD
[2023-09-01] MEDS: levoFLOXacin/D5W 500 MG/100 ML PIGGYBACK 100 MG IV (18:17)
--- NOTE | 2023-09-01 19:54 | PC.NURSE ---
calling report to misty
--- NOTE | 2023-09-01 19:57 | PC.NURSE ---
aox4. calm, coop. no distress. talks well.
--- NOTE | 2023-09-01 20:03 | PC.NURSE ---
report finished. no transporters on for ED. finding tech to bring pt up- pt is nowin line for transport by bedspread inspector
[2023-09-01] MEDS: Lactated Ringers 1,000 ML 100 ML IVCONT ×2 (20:11→22:51)
[2023-09-01 20:12] VITALS: BP 125/48; PULSE 94; RESP 14; TEMP 36.1; O2SAT 96
[2023-09-01 21:14] VITALS: BMI 28.8
[2023-09-01 21:42] VITALS: BP 133/62; PULSE 99; RESP 16; TEMP 36.6; O2SAT 96
[2023-09-02 03:25] VITALS: BP 132/61; PULSE 99; RESP 16; TEMP 37.1; O2SAT 94
[2023-09-02 05:59] LABS: Hemoglobin 12.6 g/dl (12.0-16.0); Mean Corpuscular HGB Conc 31.5 g/dl (31.0-35.0); Mean Corpuscular Hemoglobin 30.3 pg (27.0-33.0); Mean Corpuscular Volume 96.2 fL (80.0-98.0); Mean Platelet Volume 11.1 fL (9.4-12.3); Platelet Count 260 X10*3/uL (160-400); Red Blood Count 4.16 X10*6/uL (4.20-5.50); Red Cell Distribution Width 12.7 % (11.0-16.0); White Blood Count 11.2 X10*3/uL (4.8-10.8)
[2023-09-02 07:50] VITALS: BP 151/65; PULSE 86; RESP 18; TEMP 36.9; O2SAT 97
[2023-09-02] MEDS: metroNIDAZOLE 500 MG TABLET PO (08:22)
[2023-09-02] MEDS: Multivitamin TABLET 1 TAB PO (08:22)
[2023-09-02] MEDS: Losartan Potassium 50 MG TABLET PO (08:22)
[2023-09-02] MEDS: Lactated Ringers 1,000 ML 100 ML IVCONT (08:23)
--- NOTE | 2023-09-02 10:45 | PM.DS ---
DS: Providers Provider Date of Service: 09/02/23 Date of admission: 09/01/23 17:37 Primary care physician: Jenna Torres MD DS: Diagnosis Discharge Diagnosis (1) Diverticulitis: Status: Acute DS: Summary Hospital Course Hospital Course: Chief Complaint: vomitting and blood on stool An 78-year-old female with a medical history that includes hypertension (HTN), hypothyroidism, hyperlipidemia (HLD), and other conditions experienced abdominal cramps, nausea, vomiting, and diarrhea following dinner yesterday. Although she did not have any subsequent episodes, she discovered blood on her sanitary pad after using the bathroom early in the morning. Concerned, she decided to visit the Emergency Department (ED). Upon examination at the ED, her complete blood count (CBC) came back entirely normal, and she reported no further abdominal pain, nausea, or vomiting. She was able to eat breakfast without any issues. A CT scan revealed diffuse colonic diverticulosis with thickening of the colon wall in the left descending colon, proximal ascending colon, and splenic flexure. pericolic fat stranding, which is suggestive of diverticulitis. Her white blood cell count (WBC) was within the normal range, and she did not have a fever. In the ED, the patient received Flagyl and Levaquin. Notably, she had recently undergone a three-week course of doxycycline treatment for cellulitis in her leg, which still exhibited mild redness and swelling. This is consistent with her known history of lymphadema. Hospital course The patient has not experienced any additional pain, nausea, vomiting, or rectal bleeding since her initial presentation in the Emergency Department. Treatment for diverticulitis was initiated with Levaquin and Flagyl. There have been no significant changes in her hemoglobin and hematocrit levels, and she remains able to tolerate a regular diet. In light of her stable condition, the decision has been made to discharge her to continue her antibiotic course with Levaquin and Flagyl at home. She has been strongly advised to promptly return to the Emergency Department if she experiences any recurrence of bleeding or pain. Final diagnosis: Rectal bleed acute diverticulitis Time Spent with Patient Time attestation: Total time managing care of this patient today ____ minutes. Discharge coordination time: Greater than 30 minutes Quality: Safe Use of Opioids Does Pt have an Active Cancer Diagnosis on the Problem List?: No Quality: Stroke Does the patient have a stroke diagnosis?: No Physical Exam Vital Signs: Vital Signs: Last Vital Signs Temp 98.4 F 09/02/23 07:50 Pulse 86 09/02/23 07:50 Resp 18 09/02/23 07:50 BP 151/65 H 09/02/23 07:50 Pulse Ox 97 09/02/23 07:50 O2 Del Method Room Air 09/02/23 07:50 BMI result Body Mass Index 28.8 Const: Other: General: AO X 3, no acute distress Resp: CTA bilateral CVS: S1,S2,RRR GI: +BS, NT, no distention Skin: No rash Neuro: motor grossly intact Psych: appropriate affect DS: Data Data Completed and Pending Labs on day of discharge: Laboratory Results - last 24 hr 09/01/23 09/02/23 14:56 05:19 WBC 11.2 H RBC 4.16 L Hgb 12.6 Hct 40.0 MCV 96.2 MCH 30.3 MCHC 31.5 RDW 12.7 Plt Count 260 MPV 11.1 Absolute Nucleated RBC 0.000 Nucleated RBC % (auto) 0.0 Blood Type A Negative Antibody Screen NEGATIVE Discharge Plan Discharge Anticipated Discharge Date/Time: 09/02/23 10:41 Patient Disposition: Home, Self-Care Discharge Diagnosis: Acute diverticulitis Referrals: Jenna Daly MD [Primary Care Provider] - 1 Week Discharge Medications: New metronidazole 500 mg Tablet 500 mg PO BID Qty: 10 0RF levofloxacin 500 mg tablet 500 mg PO DAILY 5 Days Qty: 5 0RF Continued levothyroxine 88 mcg tablet 88 mcg PO DAILY 90 Days Qty: 90 1RF simvastatin 20 mg tablet 20 mg PO BEDTIME 90 Days Qty: 90 1RF losartan 50 mg tablet 50 mg PO DAILY 90 Days Qty: 90 1RF multivitamin Tablet 1 tab PO DAILY lidocaine HCl 4 % Adhesive Patch,Medicated 1 patch TOPICAL DAILY PRN (Reason: Pain) No Action nystatin 100,000 unit/gram powder 1 appl topical DAILY Qty: 60 3RF Discharge Orders: Discharge Order (Routine); Ordered 09/02/23 Ordered By: Te Galvin Diet: Advance to usual diet Activity on Discharge: Use Splints or Immobilizers Stand Alone Forms: Patient Portal Discharge page Care Plan Goals: recovery from diverticulitis Health Concerns: acute diverticulitis Plan of Treatment: Take Levaquin and Flagyl as directed and follow up with your Doctor in a week, if you notice anymore bleeding call 911 Assessment: as above Discharge Date/Time: 09/02/23 14:12
--- NOTE | 2023-09-02 10:51 | MHC.CM.PN ---
IMM 09/02/23 She lives with . 2 sons assist prn. She is independent with all functional mobility. DP home self care. Patients son and spouse will pick patient up after lunch. A discussion re AVERY newsome was discussed. Patient declined going to the discharge lounge. She stated that her family will pick her up in the room after lunch.
[2023-09-02] MEDS: Levothyroxine Sodium 88 MCG TABLET PO (11:04)
== END 2023-09-02 14:12 | disposition home or self-care (01) | DRG 379 ==
LOC: HO.ED 17:43 → HO.EDOVER 17:45 → HO.S3 19:40
PROVIDERS: Admitting Provider Internal Medicine; Emergency Provider Student in an Organized Health Care Education/Training Program; PCP Internal Medicine; Visit Provider Internal Medicine
DX: K57.33 Diverticulitis of large intestine without perforation or abscess with bleeding (principal); E78.5 Hyperlipidemia, unspecified; I10 Essential (primary) hypertension; I89.0 Lymphedema, not elsewhere classified; Z79.890 Hormone replacement therapy; Z79.899 Other long term (current) drug therapy
CPT/HCPCS: 36415; 74177; 80053; 85025; 85027; 86850; 86900; 86901; 93971; 99221; 99285; J1956; Q9967

== ENCOUNTER → 2023-09-01 17:37 | Outpatient (BNV) | payer MEDICARE, SELFPAY | PROVIDERS: Admitting Provider Internal Medicine; Emergency Provider Student in an Organized Health Care Education/Training Program; PCP Internal Medicine; Visit Provider Internal Medicine | DX: K57.92 Diverticulitis of intestine, part unspecified, without perforation or abscess without bleeding (principal) | CPT/HCPCS: 99223; 99232 ==

== ENCOUNTER 2023-09-15 15:49 | Outpatient (AMB) | payer MEDICARE, SELFPAY ==
--- NOTE | 2023-09-15 15:55 | MHC.PC.OV ---
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 Required: No Accompanied by: Self / Same As Patient Allergies orange Allergy (Intermediate, Verified 09/15/23 16:25) RASH cephalexin Allergy (Mild, Verified 09/15/23 16:25) Rash nickel [Nickel] Allergy (Mild, Verified 09/15/23 16:25) RASH Medication List - Last Reconciled 09/15/23 by Jenna Torres MD levothyroxine 88 mcg PO DAILY 90 days lidocaine HCl 4% 1 patch topical DAILY PRN losartan 50 mg PO DAILY 90 days multivitamin 1 tab PO DAILY nystatin 1 appl topical DAILY simvastatin 20 mg PO BEDTIME 90 days Tobacco use date assessed: 07/28/23 Fall risk assessment: 1 Fall in past year Last assessed Fall Risk: 09/15/23 Dental Screening Dental Screen Date: 09/15/23 Did you have a dental visit in the last 12 months?: No Did you have a dental problem in the last 6 months where you did not have access to dental care?: No Was dental information given to patient?: Patient has dentist HPI TCM TCM Information Date of Discharge 09/02/23 Discharged From [facility] HPI Comments History of Present Illness Details This is an 78-year-old female with hypertension, Frida's thyroiditis and pure hypercholesterolemia that comes today for hospital discharge follow-up due to diverticulitis with discharge date 09/02/2023. She went to ER due to fresh blood in the stools and had a CT scan of the abdomen showing diverticulitis, cholelithiasis and abdominal wall hernia. She said this is her 1st episode of diverticulitis. She declines any abdominal pain after having a fatty food but when she went to ER had abdominal cramps associated with nausea. No fever or chills. Was given oral antibiotics. Patient feels markedly improved. Will be referred to surgery due to CT of abdomen findings. Hematochezia resolved. Blood pressure stable. Last TSH was well control. Cholesterol stable with statins. [facility] Medical History (Updated 09/16/23 @ 09:20 by Jenna Torres MD) Deep vein thrombosis Autoimmune thyroiditis Venous (peripheral) insufficiency Overweight (BMI 25.0-29.9) Benign essential hypertension Pure hypercholesterolemia Cough Candidal intertrigo Intertrigo Bilateral lower leg cellulitis Hypothyroid Hyperlipidemia HTN (hypertension) Surgical History History of colonoscopy History of biopsy Hx of tonsillectomy Family History Father CAD (coronary artery disease) Coronary thrombosis Mother Hypertension Atherosclerosis Family/Other FH: mental illness Maternal Grandmother Diabetes Paternal Grandmother Esophageal cancer Social History Household Members: Spouse Housing: Assisted Living Facility Do you presently have visiting nurse or other home services: No Alcohol intake: never Patient Tobacco Use Status: Never used Tobacco e-Cigarette/Vaping Use: Never Used Second Hand Smoke Exposure: No Advance Directives Date on File: 09/01/23 service: No Current occupational status: disabled Cognitive needs: No Hearing needs: No Vision needs: Yes (glasses) Questionnaire Thrive Questionnaire Date Thrive assessed: 09/02/23 GENE-7 AMB Questionnaire GENE-7 Date GENE - 7 assessed: 02/03/23 Source: Developed by Drs. Brayan England, Nicole Guillaume, Anselmo Lai and colleagues, with an educational patricia from [employer] Review of Systems Const All systems reviewed & are unremarkable except as noted in HPI and below Eyes Reports no additional complaints, Denies change in vision and Denies other visual disturbances Card Denies chest pain at rest, Denies chest pain with activity, Denies edema, Denies irregular heart rhythm, Denies claudication, Denies dyspnea, Denies dyspnea on exertion, Denies orthopnea, Denies paroxysmal nocturnal dyspnea and Denies slow heart rate Resp Denies cough, Denies dyspnea and Denies dyspnea on exertion GI Denies abdominal pain, Denies change in bowel habits, Denies excessive flatus, Denies nausea and Denies vomiting Denies urinary incontinence, Denies urinary hesitancy and Denies urinary urgency Musc Denies abnormal gait, Denies atrophy, Denies deformity and Denies limited range of motion Skin/Breast Denies bleeding lesions, Denies changing lesions and Denies rash Neuro Denies abnormal gait, Denies behavioral changes and Denies lack of coordination Psych Denies behavioral changes Physical exam (Primary Care) Vital Signs: Last Vital Signs Pulse 90 09/15/23 15:56 BP 126/70 09/15/23 15:56 Pulse Ox 96 09/15/23 15:56 Oxygen Delivery Method Room Air 09/15/23 15:56 BMI result Body Mass Index 28.9 Tobacco/Smoking Status: Tobacco use Status Tobacco use date assessed 07/28/23 09/15/23 16:01 Patient Tobacco Use Status Never used Tobacco 09/15/23 16:01 e-Cigarette/Vaping Use Never Used 09/15/23 16:01 Thrive Assessment: Date of Thrive Assessment Date Thrive assessed 09/02/23 09/15/23 16:01 Eyes General: appearance normal, both eyes and all related structures Eyelids: Yes eyelids normal Conjunctivae: conjunctivae normal Neck Neck: Yes normal visual inspection and Yes supple Resp Effort & Inspection: normal respiratory effort Auscultation: clear to auscultation bilaterally Cardio Jugular venous distension: no JVD Rate: regular rate Rhythm: regular rhythm Heart sounds: S1 normal heart sound present and S2 normal heart sound present GI Inspection: Yes normal to inspection Palpation (GI): Soft to palpation and nontender Auscultation: normal bowel sounds Assessment and Plan Assessment & Plan (1) Hospital discharge follow-up: Code(s): Z09 - Encounter for follow-up examination after completed treatment for conditions other than malignant neoplasm Plan: Discharge date 09/02/2023. Went to ER due to blood in the stools and abdominal pain. CT of abdomen revealing diverticulitis, abdominal wall hernia and cholelithiasis. Discharge with oral antibiotics feels markedly improved. (2) Diverticulitis: Code(s): K57.92 - Diverticulitis of intestine, part unspecified, without perforation or abscess without bleeding Plan: Resolved. Will be referred to surgery for evaluation. 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 Monitor TSH. (4) Benign essential hypertension: Code(s): I10 - Essential (primary) hypertension Plan: Continue losartan. Blood pressure goal is equal or less than 130/80. (5) Pure hypercholesterolemia: Code(s): E78.00 - Pure hypercholesterolemia, unspecified Plan: Continue statins. Orders: Orders US carotid duplex BI 09/15/23 R09.89 - Other specified symptoms and signs involving the circulatory and respiratory systems Referrals General Surgery Referral K43.9 - Ventral hernia without obstruction or gangrene, K57.92 - Diverticulitis of intestine, part unspecified, without perforation or abscess without bleeding, K80.20 - Calculus of gallbladder without cholecystitis without obstruction Coding Level of Care Code TCM Mod MDM <= 14 Days Diagnoses Hospital discharge follow-up Z09 Diverticulitis K57.92 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 Benign essential hypertension I10 Pure hypercholesterolemia E78.00 Time Spent (min) 27
[2023-09-15 15:56] VITALS: BP 126/70; PULSE 90; O2SAT 96; BMI 28.9
== END 2023-09-15 16:41 | disposition home or self-care (01) ==
PROVIDERS: PCP Internal Medicine; Visit Provider Internal Medicine
DX: K57.92 Diverticulitis of intestine, part unspecified, without perforation or abscess without bleeding (principal); Z09 Encounter for follow-up examination after completed treatment for conditions other than malignant neoplasm; E06.3 Autoimmune thyroiditis; I10 Essential (primary) hypertension; E78.00 Pure hypercholesterolemia, unspecified
CPT/HCPCS: 99495

== ENCOUNTER 2023-09-30 14:15 | Outpatient (AMB) | payer MEDICARE, SELFPAY ==
--- NOTE | 2023-09-30 14:19 | MHC.OFFVIS ---
Intake Vital Signs 09/30/23 14:32 Height 5 ft 2 in Weight 157 lb BMI 28.7 Respiration 16 Intake Visit Reasons: Diverticulitis, calc gallbladder, ventral hernia Intake Note: Patient is seen in office for evaluation and treatment of diverticulitis, calculus of the gallbladder & ventral hernia. 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 Accompanied by: Spouse Allergies orange Allergy (Intermediate, Verified 09/30/23 14:30) RASH cephalexin Allergy (Mild, Verified 09/30/23 14:30) Rash nickel [Nickel] Allergy (Mild, Verified 09/30/23 14:30) RASH Medication List - Last Reconciled 09/30/23 by Milton Storm MD levothyroxine 88 mcg PO DAILY 90 days levothyroxine 75 mcg PO lidocaine HCl 4% 1 patch topical DAILY PRN losartan 50 mg PO DAILY 90 days multivitamin 1 tab PO DAILY nystatin 1 appl topical DAILY simvastatin 20 mg PO BEDTIME 90 days HPI Diverticulitis, calc gallbladder, ventral hernia HPI Details 78-year-old female referred for diverticular disease gallbladder stones and a ventral hernia. She apparently went to the ER last month because of abdominal pain, nausea and diarrhea. She also had described small amounts of blood per rectum then with bowel movements. She had a CAT scan suggestive of mild diverticulitis of the sigmoid. There was also note of gallstones as well as a small ventral hernia on the epigastric area which was fat containing. She has multiple medical problems including hypertension, carotid artery stenosis, chronic leg edema, thyroiditis, and post herpetic neuralgia. She says that she has had no further episodes of blood per rectum since that time in the ER. Furthermore she denies any GI complaints at this time. She denies any abdominal pain or tenderness. COUNTS INCLUDE 234 BEDS AT THE [facility] Medical History (Updated 09/30/23 @ 15:05 by Milton Storm MD) Gallstones Bleeding hemorrhoids Deep vein thrombosis Autoimmune thyroiditis Venous (peripheral) insufficiency Overweight (BMI 25.0-29.9) Benign essential hypertension Pure hypercholesterolemia Cough Candidal intertrigo Intertrigo Bilateral lower leg cellulitis Hypothyroid Hyperlipidemia HTN (hypertension) Surgical History History of colonoscopy History of biopsy Hx of tonsillectomy Family History Father CAD (coronary artery disease) Coronary thrombosis Mother Hypertension Atherosclerosis Family/Other FH: mental illness Maternal Grandmother Diabetes Paternal Grandmother Esophageal cancer Household Members: Spouse Housing: Assisted Living Facility Do you presently have visiting nurse or other home services: No Alcohol intake: never Patient Tobacco Use Status: Never used Tobacco e-Cigarette/Vaping Use: Never Used Second Hand Smoke Exposure: No Advance Directives Date on File: 09/01/23 service: No Current occupational status: disabled Cognitive needs: No Hearing needs: No Vision needs: Yes (glasses) Review of Systems Const Denies chills and Denies fever(s) Card Denies chest pain, Denies dyspnea and Denies dyspnea on exertion Resp Denies cough, Denies dyspnea and Denies dyspnea on exertion GI Denies hematochezia and Denies change in bowel habits Denies hematuria Musc Denies back pain and Denies limited range of motion Neuro Denies focal weakness and Denies convulsions Psych Denies depression and Denies mood swings Physical Exam Const Other: Walks but appears a little unsteady General: comfortable and no acute distress Orientation/consciousness: patient oriented x3 Neck Neck: Yes no lymphadenopathy Resp Auscultation: clear to auscultation bilaterally Cardio Rhythm: regular rhythm GI Other: Epigastric hernia felt on Valsalva maneuvers, nontender Rectal exam shows small external hemorrhoids with a little bit of prolapse of internal component, no other lesions, no induration, blood on exam finger Palpation (GI): Soft to palpation, nontender and no guarding Neuro General: patient oriented x3 Assessment & Plan Assessment & Plan (1) Bleeding hemorrhoids: Code(s): K64.9 - Unspecified hemorrhoids Plan: I have reviewed her CAT scan as well. This does show stones without any evidence of cholecystitis. There was note of a small fat containing hernia and epigastric area. There was also note of some thickening of of the transverse colon suggestive more of colitis. She denies any complaints with regards to her gall bladder at that time. As a matter fact, she says she had this have any abdominal complaints for now. She also says that since that time month ago, she has not passed any blood per rectum This was likely secondary to bleeding hemorrhoids. I would not recommend colonoscopy at this time. She otherwise follows up on a p.r.n. basis with me. (2) Gallstones: Code(s): K80.20 - Calculus of gallbladder without cholecystitis without obstruction Plan: She seems to be asymptomatic with regards to this for now. (3) Abdominal wall hernia: Code(s): K43.9 - Ventral hernia without obstruction or gangrene Plan: This is fat containing and is asymptomatic as well. She does not have any pain or tenderness with regards to this. Coding Level of Care Code New Pt Level 3 (60074) Diagnoses Bleeding hemorrhoids K64.9 Gallstones K80.20 Abdominal wall hernia K43.9
[2023-09-30 14:32] VITALS: RESP 16; BMI 28.7
== END 2023-09-30 15:00 | disposition home or self-care (01) ==
PROVIDERS: PCP Internal Medicine; Referring Provider Internal Medicine; Visit Provider Surgery
DX: K64.9 Unspecified hemorrhoids (principal); K80.20 Calculus of gallbladder without cholecystitis without obstruction; K43.9 Ventral hernia without obstruction or gangrene
CPT/HCPCS: 99203

== ENCOUNTER → 2023-09-30 14:15 | Outpatient (BNVA) | payer MEDICARE, SELFPAY | PROVIDERS: PCP Internal Medicine; Referring Provider Internal Medicine; Visit Provider Surgery | DX: K57.32 Diverticulitis of large intestine without perforation or abscess without bleeding (principal); K43.9 Ventral hernia without obstruction or gangrene; K80.20 Calculus of gallbladder without cholecystitis without obstruction; K64.9 Unspecified hemorrhoids | CPT/HCPCS: 99202 ==

== ENCOUNTER 2023-10-05 14:22 | Outpatient (REF) | payer MEDICARE, SELFPAY ==
--- NOTE | ~2023-10-05 | US_ITS ---
EXAMINATION: US EXTRACRANIAL CAROTID DUPLEX, BILATERAL CLINICAL INFORMATION: Carotid bruit. COMPARISON: 10/26/2020. TECHNIQUE: Real-time ultrasound and Doppler techniques (integrating B-mode 2-D vascular images, Doppler spectral analysis and color-flow Doppler imaging) were utilized to interrogate the extracranial carotid arteries, the vertebral arteries and proximal subclavian arteries bilaterally. The degree of stenosis is determined by criteria similar to NASCET. FINDINGS: Right Side: 1. There is mild atherosclerotic plaque seen in the bifurcation/proximal ICA region. 2. The common carotid artery PSV proximally is 97 cm/s and distally 82 cm/s. 3. The proximal internal carotid artery velocities are 79 cm/s systolic and 22 cm/s diastolic. 4. The proximal external carotid artery PSV is 104 cm/s. 5. The vertebral artery shows antegrade flow. 6. The subclavian artery waveforms are normal. Left Side: 1. There is mild atherosclerotic plaque seen in the bifurcation/proximal ICA region. 2. The common carotid artery PSV proximally is 82 cm/s and distally 70 cm/s. 3. The proximal internal carotid artery velocities are 68 cm/s systolic and 19 cm/s diastolic. 4. The proximal external carotid artery PSV is 94 cm/s. 5. The vertebral artery shows antegrade flow. 6. The subclavian artery waveforms are normal. US/US carotid duplex BI IMPRESSION: 1. RIGHT: Minimal, non-hemodynamically significant stenosis of the proximal right internal carotid artery corresponding to a 0-49% stenosis by velocity criteria. 2. LEFT: Minimal, non-hemodynamically significant stenosis of the proximal left internal carotid artery corresponding to a 0-49% stenosis by velocity criteria. 3. Compared to the prior study from 10/26/2020, there's been no significant interval change.
== END 2023-10-05 14:23 | disposition home or self-care (01) ==
LOC: HO.HMGCX 14:22
PROVIDERS: PCP Internal Medicine; Visit Provider Internal Medicine
DX: R09.89 Other specified symptoms and signs involving the circulatory and respiratory systems (principal)
CPT/HCPCS: 93880

== ENCOUNTER 2023-11-11 06:45 | Outpatient (REF) | payer MEDICARE, SELFPAY ==
[2023-11-11 12:41] LABS: Alanine Aminotransferase 19 U/L (0-31); Albumin Level 3.7 g/dL (3.5-5.0); Alkaline Phosphatase 60 U/L (39-117); Anion Gap 12 (12-20); Aspartate Amino Transferase 21 U/L (5-31); Bilirubin Total 0.5 mg/dL (0.0-1.0); Blood Urea Nitrogen 24 mg/dL (9-16); Calcium 9.1 mg/dL (8.4-10.2); Carbon Dioxide 26 mmol/L (22-29); Chloride 109 mmol/L (96-108); Cholesterol 176 mg/dL (<200); Estimated Glomerular Filt Rate > 60; Glucose Fasting 86 mg/dL (60-99); HDL Cholesterol 61 mg/dL (>40); LDL Cholesterol Calculated 99 mg/dL (<100); Potassium 5.1 mmol/L (3.3-5.1); Sodium 142 mmol/L (135-145); Total Protein 6.9 g/dL (6.5-8.0); Triglycerides 83 mg/dL (<150)
== END 2023-11-11 06:46 | disposition home or self-care (01) ==
LOC: HO.HMGCLDS 06:45
PROVIDERS: PCP Internal Medicine; Visit Provider Internal Medicine
DX: E06.3 Autoimmune thyroiditis (principal); E78.5 Hyperlipidemia, unspecified; I10 Essential (primary) hypertension
CPT/HCPCS: 36415; 80053; 80061; 84443

== ENCOUNTER 2023-11-16 09:45 | Outpatient (AMB) | payer MEDICARE, SELFPAY ==
[2023-11-16 09:46] VITALS: BP 160/74; BMI 28.7
--- NOTE | 2023-11-16 09:46 | MHC.PC.OV ---
Vital Signs 11/16/23 09:46 11/16/23 10:48 Height 5 ft 2 in Weight 157 lb BMI 28.7 BP 160/74 H 160/70 H Blood Pressure Location Lt brachial Lt brachial Position Sitting Sitting Intake Visit Reasons: thyroid,bp,lipids Intake Note: Patient here for a follow up thyroid, bp, lipids, ? 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 Accompanied by: Self / Same As Patient Allergies orange Allergy (Intermediate, Verified 11/16/23 10:01) RASH cephalexin Allergy (Mild, Verified 11/16/23 10:01) Rash nickel [Nickel] Allergy (Mild, Verified 11/16/23 10:01) RASH Medication List - Last Reconciled 11/16/23 by Jenna Torres MD levothyroxine 88 mcg PO DAILY 90 days lidocaine HCl 4% 1 patch topical DAILY PRN losartan 50 mg PO DAILY 90 days multivitamin 1 tab PO DAILY nystatin 1 appl topical DAILY simvastatin 20 mg PO BEDTIME 90 days Tobacco use date assessed: 11/16/23 Fall risk assessment: No Falls in past year Last assessed Fall Risk: 11/16/23 Dental Screening Dental Screen Date: 11/16/23 Did you have a dental visit in the last 12 months?: Yes Did you have a dental problem in the last 6 months where you did not have access to dental care?: No Was dental information given to patient?: Patient has dentist HPI HPI Comments History of Present Illness Details This is an 78-year-old female with hypertension, pure hypercholesterolemia and Frida's thyroiditis that complains of productive cough and chest congestion that started about 2 days ago. She has sick contacts at home. No fever. No nausea, vomiting or diarrhea. No chest pain, shortness of breath or wheezing. Blood pressure elevated today and she did took her medication. Blood pressure will be recheck in 3 weeks by nurse navigator. Cholesterol stable with statins. TSH is normal. [facility] Medical History (Updated 11/16/23 @ 10:53 by Jenna Torres MD) Gallstones Bleeding hemorrhoids Deep vein thrombosis Autoimmune thyroiditis Venous (peripheral) insufficiency Overweight (BMI 25.0-29.9) Benign essential hypertension Pure hypercholesterolemia Cough Candidal intertrigo Intertrigo Bilateral lower leg cellulitis Hypothyroid Hyperlipidemia HTN (hypertension) Surgical History History of colonoscopy History of biopsy Hx of tonsillectomy Family History Father CAD (coronary artery disease) Coronary thrombosis Mother Hypertension Atherosclerosis Family/Other FH: mental illness Maternal Grandmother Diabetes Paternal Grandmother Esophageal cancer Social History Household Members: Spouse Housing: Assisted Living Facility Do you presently have visiting nurse or other home services: No Alcohol intake: never Patient Tobacco Use Status: Never used Tobacco e-Cigarette/Vaping Use: Never Used Second Hand Smoke Exposure: No Advance Directives Date on File: 09/01/23 service: No Current occupational status: disabled Cognitive needs: No Hearing needs: No Vision needs: Yes (glasses) Questionnaire PHQ-9 Over the last 2 weeks, how often have you been bothered by any of the following problems? 1. Little interest or pleasure in doing things: not at all 2. Feeling down, depressed, or hopeless: not at all 3. Trouble falling or staying asleep, or sleeping too much: not at all 4. Feeling tired or having little energy: not at all 5. Poor appetite or overeating: not at all 6. Feeling bad about yourself - or that you are a failure or have let yourself or your family down: not at all 7. Trouble concentrating on things, such as reading the newspaper or watching television: not at all 8. Moving or speaking so slowly that other people could have noticed. Or the opposite - being so fidgety or restless that you have been moving around a lot more than usual: not at all 9. Thoughts that you would be better off or of hurting yourself in some way: not at all Total score: 0 Depression Screening Interpretation: Negative Depression Screening Done: Yes 41630 - PHQ-9 Billing: Yes Source: Developed by Drs. Brayan England, Nicole Guillaume, Anselmo Lai and colleagues, with an educational patricia from [employer]. Thrive Questionnaire Date Thrive assessed: 11/16/23 I am a: Patient What is your living situation today?: I have a steady place to live Within the past 12 months, did the food you bought not last and you didn't have the money to get more?: Never true Within the past 12 months, did you worry whether your food would run out before you got money to buy more?: Never true Do you have trouble paying for medicines?: No Do you have trouble getting transportation to medical appointments?: No Do you have trouble paying your heating and electricity bill?: No Do you have trouble taking care of your child, family member or friend?: No Do you have trouble with day-to-day activities such as bathing, preparing meals, shopping, managing finances, etc.?: No Are you currently unemployed and looking for a job?: No Are you interested in more education?: No Please select the resources that you would like help with: None Currently or been in a relationship where the following occur: no concerns reported AUDIT C Alcohol Use Questionnaire (AUDIT-C) 1. How often do you have a drink containing alcohol?: Never Total Score: 0 GENE-7 AMB Questionnaire GENE-7 Date GENE - 7 assessed: 11/16/23 Feeling nervous, anxious, or on edge: 0 = Not at all Not being able to stop or control worryin = Not at all Worrying too much about different things: 0 = Not at all Trouble relaxin = Not at all Being so restless that it is hard to sit still: 0 = Not at all Becoming easily annoyed or irritable: 0 = Not at all Feeling afraid as if something awful might happen: 0 = Not at all Total GENE-7 score (0-4 normal; 5-9 mild; 10-14 moderate; 15-21 severe): 0 Source: Developed by Drs. Brayan England, Nicole Guillaume, Anselmo Lai and colleagues, with an educational patricia from [employer]. GENE-7 Assessment Billing GENE-7 Assessment Tool: GENE-7 Assessment 29466 Review of Systems Const All systems reviewed & are unremarkable except as noted in HPI and below Eyes Reports no additional complaints, Denies change in vision and Denies other visual disturbances Card Denies chest pain at rest, Denies chest pain with activity, Denies edema, Denies irregular heart rhythm, Denies claudication, Denies dyspnea, Denies dyspnea on exertion, Denies orthopnea, Denies paroxysmal nocturnal dyspnea and Denies slow heart rate Resp Denies cough, Denies dyspnea and Denies dyspnea on exertion GI Denies abdominal pain, Denies change in bowel habits, Denies excessive flatus, Denies nausea and Denies vomiting Denies urinary incontinence, Denies urinary hesitancy and Denies urinary urgency Musc Denies abnormal gait, Denies atrophy, Denies deformity and Denies limited range of motion Skin/Breast Denies bleeding lesions, Denies changing lesions and Denies rash Neuro Denies abnormal gait, Denies behavioral changes and Denies lack of coordination Psych Denies behavioral changes Physical exam (Primary Care) Vital Signs: Last Vital Signs BP 160/74 H 11/16/23 09:46 BMI result Body Mass Index 28.7 Tobacco/Smoking Status: Tobacco use Status Tobacco use date assessed 11/16/23 11/16/23 09:55 Patient Tobacco Use Status Never used Tobacco 11/16/23 09:50 e-Cigarette/Vaping Use Never Used 11/16/23 09:50 PHQ-9: PHQ-9 Score PHQ-9: Total score 0 11/16/23 10:04 Depression Screening Interpretation: Negative Thrive Assessment: Date of Thrive Assessment Date Thrive assessed 11/16/23 11/16/23 09:55 Currently or been in a relationship where the following occur: no concerns reported Eyes General: appearance normal, both eyes and all related structures Eyelids: Yes eyelids normal Conjunctivae: conjunctivae normal Neck Neck: Yes normal visual inspection and Yes supple Resp Effort & Inspection: normal respiratory effort Auscultation: clear to auscultation bilaterally Cardio Jugular venous distension: no JVD Rate: regular rate Rhythm: regular rhythm Heart sounds: S1 normal heart sound present and S2 normal heart sound present Extrem General: Yes full ROM Assessment and Plan Assessment & Plan (1) Essential hypertension: Code(s): I10 - Essential (primary) hypertension Plan: Continue losartan. Blood pressure goal is equal or less than 130/80. Recheck blood pressure with nurse navigator in 3 weeks. 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 (3) Pure hypercholesterolemia: Code(s): E78.00 - Pure hypercholesterolemia, unspecified Plan: Continue statins. (4) URI (upper respiratory infection): Code(s): J06.9 - Acute upper respiratory infection, unspecified Plan: Rule out COVID, flu and RSV. Start Zpack of covid, flu and rsv were rule out. Orders: Orders Thyroid Stimulating Hormone 4 Months E06.3 - Autoimmune thyroiditis SARS-CoV2/FLU/RSV Today R09.89 - Other specified symptoms and signs involving the circulatory and respiratory systems Lipid Panel 4 Months E78.5 - Hyperlipidemia, unspecified Comprehensive [place]. Panel Fast 4 Months I10 - Essential (primary) hypertension Medications: New azithromycin Take 2 tabs the first day, then 1 tab for the next 4 day 250 mg PO DAILY 5 days 6 tabs 0RF benzonatate 100 mg PO BID 5 days PRN 10 caps 0RF cough Coding Level of Care Code Est Pt Level 4 (94275) Diagnoses Essential hypertension I10 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 Pure hypercholesterolemia E78.00 URI (upper respiratory infection) J06.9 Additional Codes GENE-7 Assessment Billing - GENE-7 Assessment Tool: GENE-7 Assessment 64982 ([id number]) Time Spent (min) 22
[2023-11-16 10:48] VITALS: BP 160/70
== END 2023-11-16 10:09 | disposition home or self-care (01) ==
PROVIDERS: PCP Internal Medicine; Visit Provider Internal Medicine
DX: I10 Essential (primary) hypertension (principal); E06.3 Autoimmune thyroiditis; E78.00 Pure hypercholesterolemia, unspecified; J06.9 Acute upper respiratory infection, unspecified
CPT/HCPCS: 99214

== ENCOUNTER 2023-11-16 10:24 | Outpatient (REF) | payer MEDICARE, SELFPAY | END 2023-11-16 10:25 | disposition home or self-care (01) | LOC: HO.LAB 10:24 | PROVIDERS: PCP Internal Medicine; Visit Provider Internal Medicine | DX: Z11.52 Encounter for screening for COVID-19 (principal); Z20.822 Contact with and (suspected) exposure to COVID-19; R09.89 Other specified symptoms and signs involving the circulatory and respiratory systems | CPT/HCPCS: 0241U ==

== ENCOUNTER 2024-03-03 09:55 | Outpatient (AMB) | payer MEDICARE, SELFPAY ==
--- NOTE | 2024-03-03 10:00 | A.OFFVIS_ITS ---
Vital Signs 03/03/24 10:10 Height 5 ft 2 in Weight 150 lb BMI 27.4 Intake Visit Reasons: diarrhea 1 week, ? diverticulitis flare-up Intake Note: This patient presents for an assessment for diarrhea for 1 week, question diverticulitis flare-up. Pt c/o; reports had diarrhea x10 days, reports tried Imodium and liquids but symptoms did not improve, reports LLQ pain, reports lower abdominal pain, reports postprandial pain, reports had a bowel movement this morning, reports had nausea, reports had no appetite, reports Thursday02/29/2024 was the good day. 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 diverticulitis flare-up: Details: 78-year-old female here for GI complaints. She says that she had severe diarrhea for about 10 days last week. She says that this resolved about 5 days ago. She was concerned about diverticulitis so she called the office for a follow-up She was admitted overnight last August, because of possible diverticulitis. She had a CAT scan done at that time for anal pain and this showed edema of the splenic flexure, left colon and sigmoid. She says that up until last weekend, she had about 5 bowel movements a day which were usually loose. Sometimes she has to get up at night for bowel movements. She describes some vague abdominal pains at that time. She denies any nausea or vomiting. She denies any fever. She had good oral intake. She is known to have gallstones which have been asymptomatic. She has a fat containing left inguinal hernia as well. [facility] Medical History Abdominal pain Gallstones Bleeding hemorrhoids Deep vein thrombosis Autoimmune thyroiditis Venous (peripheral) insufficiency Overweight (BMI 25.0-29.9) Benign essential hypertension Pure hypercholesterolemia Cough Candidal intertrigo Intertrigo Bilateral lower leg cellulitis Hypothyroid Hyperlipidemia HTN (hypertension) Surgical History History of colonoscopy History of biopsy Hx of tonsillectomy Family History Father CAD (coronary artery disease) Coronary thrombosis Mother Hypertension Atherosclerosis Family/Other FH: mental illness Maternal Grandmother Diabetes Paternal Grandmother Esophageal cancer Social History Household Members: Spouse Housing: Assisted Living Facility Do you presently have visiting nurse or other home services: No Alcohol intake: never Patient Tobacco Use Status: Never used Tobacco e-Cigarette/Vaping Use: Never Used Second Hand Smoke Exposure: No Advance Directives Date on File: 09/01/23 service: No Current occupational status: disabled Cognitive needs: No Hearing needs: No Vision needs: Yes (glasses) Review of Systems Const Denies chills and Denies fever(s) Card Denies chest pain, Denies dyspnea and Denies dyspnea on exertion Resp Denies cough, Denies dyspnea and Denies dyspnea on exertion GI Denies hematochezia and Denies change in bowel habits Denies hematuria Musc Denies back pain and Denies limited range of motion Neuro Denies focal weakness and Denies convulsions Psych Denies depression and Denies mood swings Physical Exam Vital Signs: BMI result Body Mass Index 27.4 Const General: comfortable and no acute distress Orientation/consciousness: patient oriented x3 Neck Neck: Yes no lymphadenopathy Resp Auscultation: clear to auscultation bilaterally Cardio Rhythm: regular rhythm GI Palpation (GI): Soft to palpation, nontender and no guarding Neuro General: patient oriented x3 Assessment & Plan Assessment & Plan (1) Abdominal pain: Code(s): R10.9 - Unspecified abdominal pain Category: Medical Plan: She describes having vague abdominal pain as well as severe diarrhea last week. Her exam currently is unremarkable. She does not have any pain or tenderness. She looks well and has adequate oral intake She is however concerned because of her history of diverticulitis as well as because of her left inguinal hernia. She wanted to proceed with a follow-up CT scan because of his history I will she will refer this and will see her in the office thereafter She has a benign exam otherwise. She understands that if she has severe symptoms, she should go to the emergency room. Orders: Orders CT abdomen pelvis w IV con Today R10.9 - Unspecified abdominal pain Blood Urea Nitrogen Today R10.9 - Unspecified abdominal pain Creatinine Today R10.9 - Unspecified abdominal pain Coding Level of Care Code Est Pt Level 3 (96439) Diagnoses Abdominal pain R10.9
[2024-03-03 10:10] VITALS: BMI 27.4
== END 2024-03-03 10:22 | disposition home or self-care (01) ==
PROVIDERS: PCP Internal Medicine; Visit Provider Surgery
DX: R10.9 Unspecified abdominal pain (principal)
CPT/HCPCS: 99213

== ENCOUNTER → 2024-03-03 09:55 | Outpatient (BNVA) | payer MEDICARE, SELFPAY | PROVIDERS: PCP Internal Medicine; Visit Provider Surgery | DX: R10.9 Unspecified abdominal pain (principal) | CPT/HCPCS: 99212 ==

== ENCOUNTER 2024-03-04 06:02 | Outpatient (REF) | payer MEDICARE, SELFPAY ==
[2024-03-04 10:51] LABS: Blood Urea Nitrogen 19 mg/dL (9-16); Estimated Glomerular Filt Rate > 60
== END 2024-03-04 06:03 | disposition home or self-care (01) ==
LOC: HO.HMGCLDS 06:02
PROVIDERS: PCP Internal Medicine; Visit Provider Surgery
DX: R10.9 Unspecified abdominal pain (principal)
CPT/HCPCS: 36415; 82565; 84520

== ENCOUNTER 2024-03-16 06:05 | Outpatient (REF) | payer MEDICARE, SELFPAY ==
[2024-03-16 11:00] LABS: Alanine Aminotransferase 16 U/L (0-31); Albumin Level 3.7 g/dL (3.5-5.0); Alkaline Phosphatase 56 U/L (39-117); Anion Gap 15 (12-20); Aspartate Amino Transferase 22 U/L (5-31); Bilirubin Total 0.7 mg/dL (0.0-1.0); Blood Urea Nitrogen 30 mg/dL (9-16); Calcium 9.2 mg/dL (8.4-10.2); Carbon Dioxide 22 mmol/L (22-29); Chloride 108 mmol/L (96-108); Cholesterol 178 mg/dL (<200); Estimated Glomerular Filt Rate > 60; Glucose Fasting 79 mg/dL (60-99); HDL Cholesterol 66 mg/dL (>40); LDL Cholesterol Calculated 98 mg/dL (<100); Potassium 4.3 mmol/L (3.3-5.1); Sodium 141 mmol/L (135-145); Total Protein 7.2 g/dL (6.5-8.0); Triglycerides 74 mg/dL (<150)
[2024-03-16 11:18] LABS: Thyroid Stimulating Hormone 0.47 uIU/mL (0.32-4.0)
== END 2024-03-16 06:06 | disposition home or self-care (01) ==
LOC: HO.HMGCLDS 06:05
PROVIDERS: PCP Internal Medicine; Visit Provider Internal Medicine
DX: E78.5 Hyperlipidemia, unspecified (principal); E06.3 Autoimmune thyroiditis; I10 Essential (primary) hypertension
CPT/HCPCS: 36415; 80053; 80061; 84443

== ENCOUNTER 2024-03-24 09:57 | Outpatient (AMB) | payer MEDICARE, SELFPAY ==
--- NOTE | 2024-03-24 09:59 | MHC.PC.OV ---
Vital Signs 03/24/24 10:00 Height 5 ft 2 in Weight 152 lb BMI 27.8 BP 138/66 Blood Pressure Location Lt brachial Position Sitting Intake Visit Reasons: bp Intake Note: Patient here for a follow up BP, requesting something to help for sleep, back pain Financial Internship Required: No Accompanied by: Self / Same As Patient Allergies orange Allergy (Intermediate, Verified 03/24/24 10:20) RASH cephalexin Allergy (Mild, Verified 03/24/24 10:20) Rash nickel [Nickel] Allergy (Mild, Verified 03/24/24 10:20) RASH Medication List - Last Reconciled 03/24/24 by Jenna Torres MD levothyroxine 88 mcg PO DAILY 90 days lidocaine HCl 4% 1 patch topical DAILY PRN losartan 50 mg PO DAILY 90 days multivitamin 1 tab PO DAILY nystatin 1 appl topical DAILY simvastatin 20 mg PO BEDTIME 90 days Tobacco use date assessed: 11/16/23 Dental Screening Dental Screen Date: 11/16/23 HPI HPI Comments History of Present Illness Details This is an 79-year-old female with hypertension, Frida's disease, and pure hypercholesterolemia that comes today complaining of difficulty falling asleep occasionally. She has been on trazodone in the past and I will restart her on it as needed. Blood pressure stable. Last TSH was normal. Cholesterol well controlled with statins and reports no side effects. No chest pain or shortness of breath. [facility]MERLY [facility], [facility] Medical History (Updated 03/24/24 @ 12:12 by Jenna Torres MD) Abdominal pain Gallstones Bleeding hemorrhoids Deep vein thrombosis Autoimmune thyroiditis Venous (peripheral) insufficiency Overweight (BMI 25.0-29.9) Benign essential hypertension Pure hypercholesterolemia Cough Candidal intertrigo Intertrigo Bilateral lower leg cellulitis Hypothyroid Hyperlipidemia HTN (hypertension) Surgical History History of colonoscopy History of biopsy Hx of tonsillectomy Family History Father CAD (coronary artery disease) Coronary thrombosis Mother Hypertension Atherosclerosis Family/Other FH: mental illness Maternal Grandmother Diabetes Paternal Grandmother Esophageal cancer Social History Household Members: Spouse Housing: Assisted Living Facility Do you presently have visiting nurse or other home services: No Alcohol intake: never Patient Tobacco Use Status: Never used Tobacco e-Cigarette/Vaping Use: Never Used Second Hand Smoke Exposure: No Advance Directives Date on File: 09/01/23 service: No Current occupational status: disabled Cognitive needs: No Hearing needs: No Vision needs: Yes (glasses) Questionnaire Thrive Questionnaire Date Thrive assessed: 11/16/23 GENE-7 AMB Questionnaire GENE-7 Date GENE - 7 assessed: 11/16/23 Source: Developed by Drs. Brayan England, Nicole Guillaume, Anselmo Lai and colleagues, with an educational patricia from [employer]. Review of Systems Const All systems reviewed & are unremarkable except as noted in HPI and below Card Denies chest pain at rest, Denies chest pain with activity, Denies edema, Denies irregular heart rhythm, Denies claudication, Denies dyspnea, Denies dyspnea on exertion, Denies orthopnea, Denies paroxysmal nocturnal dyspnea and Denies slow heart rate Resp Denies cough, Denies dyspnea and Denies dyspnea on exertion GI Denies abdominal pain, Denies change in bowel habits, Denies excessive flatus, Denies nausea and Denies vomiting Denies urinary incontinence, Denies urinary hesitancy and Denies urinary urgency Musc Denies abnormal gait Neuro Denies abnormal gait, Denies behavioral changes and Denies lack of coordination Psych Denies behavioral changes Physical exam (Primary Care) Vital Signs: Last Vital Signs BP 138/66 03/24/24 10:00 BMI result Body Mass Index 27.8 Tobacco/Smoking Status: Tobacco use Status Tobacco use date assessed 11/16/23 03/24/24 10:07 Patient Tobacco Use Status Never used Tobacco 03/24/24 10:07 e-Cigarette/Vaping Use Never Used 03/24/24 10:07 Thrive Assessment: Date of Thrive Assessment Date Thrive assessed 11/16/23 03/24/24 10:07 Neck Neck: Yes normal visual inspection and Yes supple Resp Effort & Inspection: normal respiratory effort Auscultation: clear to auscultation bilaterally Cardio Jugular venous distension: no JVD Rate: regular rate Rhythm: regular rhythm Heart sounds: S1 normal heart sound present and S2 normal heart sound present Neuro General: no focal motor deficits Extrem General: Yes full ROM Psych Appearance: grossly normal Assessment and Plan Assessment & Plan (1) Essential hypertension: Code(s): I10 - Essential (primary) hypertension Plan: Continue losartan. Blood pressure goal is equal or less than 130/80. 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 Monitor TSH. (3) Pure hypercholesterolemia: Code(s): E78.00 - Pure hypercholesterolemia, unspecified Plan: Continue statins. Repeat lipid panel. (4) Insomnia: Code(s): G47.00 - Insomnia, unspecified Qualifiers: Insomnia type: adjustment Qualified Code(s): F51.02 - Adjustment insomnia Plan: Start trazodone as needed. Orders: Orders Lipid Panel 6 Months E78.5 - Hyperlipidemia, unspecified Thyroid Stimulating Hormone 6 Months E06.3 - Autoimmune thyroiditis Vitamin D 25-OH Total 6 Months E55.9 - Vitamin D deficiency, unspecified Comprehensive [place]. Panel Fast 6 Months E78.00 - Pure hypercholesterolemia, unspecified Medications: New trazodone 50 mg PO BEDTIME PRN 30 tabs 1RF sleep 30 days Coding Level of Care Code Est Pt Level 4 (96966) Diagnoses Essential hypertension I10 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 Pure hypercholesterolemia E78.00 Adjustment insomnia F51.02 Insomnia type: adjustment Time Spent (min) 23
[2024-03-24 10:00] VITALS: BP 138/66; BMI 27.8
== END 2024-03-24 10:45 | disposition home or self-care (01) ==
PROVIDERS: PCP Internal Medicine; Visit Provider Internal Medicine
DX: I10 Essential (primary) hypertension (principal); E06.3 Autoimmune thyroiditis; E78.00 Pure hypercholesterolemia, unspecified; F51.02 Adjustment insomnia
CPT/HCPCS: 99214

== ENCOUNTER 2024-04-14 08:59 | Outpatient (REF) | payer MEDICARE, SELFPAY ==
--- NOTE | ~2024-04-14 | MM_ITS ---
EXAMINATION: MM SCREENING DIGITAL BREAST TOMOSYNTHESIS, BILATERAL CLINICAL INFORMATION: Screening. Asymptomatic. COMPARISON: Mammography: This study is compared with prior exams dating back to 2019. TECHNIQUE: Digital breast tomosynthesis is performed in both the craniocaudal and mediolateral oblique views along with computer-aided detection (CAD). Synthesized 2D images are generated from the tomosynthesis. FINDINGS: The breasts are almost entirely fatty (ACR BI-RADS breast composition Category a). There are no significant masses, abnormal calcifications, or other abnormalities. There is a small amount of unchanged, benign secretory calcification in the upper outer quadrant of the right breast. MM/MM tomosynthesis screening BI IMPRESSION: No mammographic evidence of malignancy. ASSESSMENT: BI-RADS BI-RADS 2 - Benign Findings RECOMMENDATION: Routine annual mammography screening. 1 year F/U This examination should not preclude the clinical evaluation of a suspicious palpable abnormality. This patient's information was entered into a reminder system with a target due date for their next mammogram.
== END 2024-04-14 09:00 | disposition home or self-care (01) ==
LOC: HO.MAMMO 08:59
PROVIDERS: PCP Internal Medicine; Visit Provider Internal Medicine
DX: Z12.31 Encounter for screening mammogram for malignant neoplasm of breast (principal); R10.9 Unspecified abdominal pain
CPT/HCPCS: 77063; 77067; 99212

== ENCOUNTER → 2024-04-14 09:00 | Outpatient (BNV) | payer MEDICARE, SELFPAY | PROVIDERS: PCP Internal Medicine; Visit Provider Radiology Diagnostic Radiology | DX: Z12.31 Encounter for screening mammogram for malignant neoplasm of breast (principal) | CPT/HCPCS: 77063; 77067 ==

== ENCOUNTER 2024-04-14 14:43 | Outpatient (AMB) | payer MEDICARE, SELFPAY ==
[2024-04-14 14:44] VITALS: BMI 27.1
--- NOTE | 2024-04-14 14:44 | MHC.OFFVIS ---
Vital Signs 04/14/24 14:44 Height 5 ft 2 in Weight 148 lb BMI 27.1 Intake Visit Reasons: abdominal pain, diarrhea Intake Note: This patient presents for an assessment for abdominal pain, diarrhea. Patient c/o; reports occasional RUQ pain, reports had diarrhea, reports she had eat food that contain vegetables but she does not know if when she had a bowel movement she passed vegetable or blood, she describes what she saw in her stool as an orange color. Administration Intern Required: No Accompanied by: Self / Same As Patient Allergies orange Allergy (Intermediate, Verified 04/14/24 15:09) RASH cephalexin Allergy (Mild, Verified 04/14/24 15:09) Rash nickel [Nickel] Allergy (Mild, Verified 04/14/24 15:09) RASH Medication List - Last Reconciled 04/14/24 by Milton Storm MD levothyroxine 88 mcg PO DAILY 90 days lidocaine HCl 4% 1 patch topical DAILY PRN losartan 50 mg PO DAILY 90 days multivitamin 1 tab PO DAILY nystatin 1 appl topical DAILY simvastatin 20 mg PO BEDTIME 90 days trazodone 50 mg PO BEDTIME PRN 30 days HPI HPI abdominal pain, diarrhea: Details: I have been following her in the office because of vague abdominal pain on the left side, along with diarrhea. I had set her up for a CT scan and she says she is having this done in 2 weeks She says she called the office to be seen because she this did her torso about 2 weeks ago and had pain on the right side. 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 The pain on the right side after that incident has resolved. However, she wanted to be seen in the office and she actually wanted to talk about her 's multiple medical issues. She has good oral intake. She denies any left-sided abdominal pain either. She has good bowel movements. [facility] Medical History Abdominal pain Gallstones Bleeding hemorrhoids Deep vein thrombosis Autoimmune thyroiditis Venous (peripheral) insufficiency Overweight (BMI 25.0-29.9) Benign essential hypertension Pure hypercholesterolemia Cough Candidal intertrigo Intertrigo Bilateral lower leg cellulitis Hypothyroid Hyperlipidemia HTN (hypertension) Surgical History History of colonoscopy History of biopsy Hx of tonsillectomy Family History Father CAD (coronary artery disease) Coronary thrombosis Mother Hypertension Atherosclerosis Family/Other FH: mental illness Maternal Grandmother Diabetes Paternal Grandmother Esophageal cancer Social History Household Members: Spouse Housing: Assisted Living Facility Do you presently have visiting nurse or other home services: No Alcohol intake: never Patient Tobacco Use Status: Never used Tobacco e-Cigarette/Vaping Use: Never Used Second Hand Smoke Exposure: No Advance Directives Date on File: 09/01/23 service: No Current occupational status: disabled Cognitive needs: No Hearing needs: No Vision needs: Yes (glasses) Review of Systems Const Denies chills and Denies fever(s) Card Denies chest pain, Denies dyspnea and Denies dyspnea on exertion Resp Denies cough, Denies dyspnea and Denies dyspnea on exertion GI Denies hematochezia and Denies change in bowel habits Denies hematuria Musc Denies back pain and Denies limited range of motion Neuro Denies focal weakness and Denies convulsions Psych Denies depression and Denies mood swings Physical Exam Vital Signs: BMI result Body Mass Index 27.1 Const General: comfortable and no acute distress Orientation/consciousness: patient oriented x3 Neck Neck: Yes no lymphadenopathy Resp Auscultation: clear to auscultation bilaterally Cardio Rhythm: regular rhythm GI Palpation (GI): Soft to palpation, nontender and no guarding Neuro General: patient oriented x3 Assessment & Plan Assessment & Plan (1) Abdominal pain: Code(s): R10.9 - Unspecified abdominal pain Category: Medical Plan: She is here today specifically because she had twisted her torso 2 weeks ago and had pain on the right side. She says that this has since resolved She actually talked about her 's multiple medical issues with me for about 30 minutes. I did tell her that she still has a CT scan pending because of her history of diverticulitis. She says she is having this done in 2 weeks. She says she already has an appointment with me thereafter Current exam is unremarkable and she does not seem to have any significant acute issues. Coding Level of Care Code Est Pt Level 3 (08798) Diagnoses Abdominal pain R10.9
== END 2024-04-14 15:26 | disposition home or self-care (01) ==
PROVIDERS: PCP Internal Medicine; Visit Provider Surgery
DX: R10.9 Unspecified abdominal pain (principal)
CPT/HCPCS: 99213

== ENCOUNTER 2024-05-02 07:02 | Outpatient (REF) | payer MEDICARE, SELFPAY ==
[2024-05-02 12:54] LABS: Blood Urea Nitrogen 27 mg/dL (9-16); Estimated Glomerular Filt Rate > 60
== END 2024-05-02 07:03 | disposition home or self-care (01) ==
LOC: HO.HMGCLDS 07:02
PROVIDERS: PCP Internal Medicine; Visit Provider Surgery
DX: R10.9 Unspecified abdominal pain (principal)
CPT/HCPCS: 36415; 82565; 84520

== ENCOUNTER 2024-05-05 15:22 | Outpatient (REF) | payer MEDICARE, SELFPAY ==
--- NOTE | ~2024-05-05 | CT_ITS ---
EXAMINATION: CT ABDOMEN AND PELVIS WITH CONTRAST CLINICAL INFORMATION: Unspecified abdominal pain. COMPARISON: CT abdomen pelvis September 01, 2023 TECHNIQUE: Multidetector volumetric images were obtained from the superior aspect of the liver through the pubic symphysis following administration 85 mL of Omnipaque 350 intravenous contrast. Sagittal and coronal reformatted images were obtained on the technologist's workstation. Oral contrast: No This CT examination was performed using dose optimization techniques as appropriate, variously including the following: *Automated exposure control *Adjustment of mA and/or kV according to patient size (this includes techniques or standardized protocols for targeted exams where dose is matched to indication/reason for exam; i.e. extremities or head) *Use of iterative reconstruction technique DLP: 336 mGy-cm FINDINGS: LUNG BASES: The visualized lung bases are unremarkable. LIVER, GALLBLADDER, AND BILIARY TREE: The liver is normal in size, shape, and attenuation. No focal hepatic lesion or biliary ductal dilatation is present. Gallbladder is contracted. No edema around the gallbladder. No gallstone is evident. PANCREAS: Unremarkable. SPLEEN: Unremarkable. ADRENAL GLANDS: Unremarkable. KIDNEYS AND URETERS: The kidneys are normal in size, shape, and attenuation. No hydronephrosis, hydroureter, or calculi seen. No perinephric stranding. BLADDER: Unremarkable. GASTROINTESTINAL TRACT: There are numerous diverticula of the sigmoid, and descending colon. There is no diverticulitis. There is no bowel wall thickening /edema. There is no bowel obstruction. There is a moderate volume of stool in the colon. The appendix is nonvisualized . There is no inflammatory change of the mesentery. The small bowel loops are unremarkable. The stomach is normal. There is no hiatal hernia. ABDOMINAL WALL: Fat-containing ventral wall hernia. This is best 6 cm superior to the umbilicus. Defect in the wall measuring 1 x 2 cm. Hernia sac measures 4.3 x 2.6 x 5 cm. LYMPH NODES: Normal. VASCULAR: Unremarkable. PELVIC VISCERA: Unremarkable. OSSEOUS STRUCTURES: Degenerative changes with vacuum disc phenomenon L4-L5 disc. CT/CT abdomen pelvis w IV con IMPRESSION: No acute abnormality CT scan abdomen pelvis. Fleischner guidelines were followed.
[2024-05-05] MEDS: iohexoL 350 MG/ML 75 ML INFUS..BTL 85 ML IV (16:23)
== END 2024-05-05 15:23 | disposition home or self-care (01) ==
LOC: HO.CT 15:22
PROVIDERS: PCP Internal Medicine; Visit Provider Surgery
DX: R10.9 Unspecified abdominal pain (principal)
CPT/HCPCS: 74177; Q9967

== ENCOUNTER 2024-05-11 09:32 | Outpatient (AMB) | payer MEDICARE, SELFPAY ==
--- NOTE | 2024-05-11 09:32 | MHC.OFFVIS ---
Vital Signs 05/11/24 09:38 Height 5 ft 2 in Weight 142 lb BMI 26.0 Intake Visit Reasons: 05/05/24 CT results Intake Note: This patient presents for a follow-up assessment for CT results 05/05/2024. Patient c/o; reports no complaints. 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 Accompanied by: Spouse Allergies orange Allergy (Intermediate, Verified 05/11/24 09:38) RASH cephalexin Allergy (Mild, Verified 05/11/24 09:38) Rash nickel [Nickel] Allergy (Mild, Verified 05/11/24 09:38) RASH Medication List - Last Reconciled 05/11/24 by Milton Storm MD levothyroxine 88 mcg PO DAILY 90 days lidocaine HCl 4% 1 patch topical DAILY PRN losartan 50 mg PO DAILY 90 days multivitamin 1 tab PO DAILY nystatin 1 appl topical DAILY simvastatin 20 mg PO BEDTIME 90 days trazodone 50 mg PO BEDTIME PRN 30 days HPI HPI 05/05/24 CT results: Details: She is here to discuss her CT scan results. She had describes some belly pain last month that has why I had sent her for a CT scan. Currently, her main complaint is that she has this chronic left hip pain after she had fallen many years ago. She has good oral intake. She has good bowel movements. She says she otherwise feels well overall. [facility] Medical History Abdominal pain Gallstones Bleeding hemorrhoids Deep vein thrombosis Autoimmune thyroiditis Venous (peripheral) insufficiency Overweight (BMI 25.0-29.9) Benign essential hypertension Pure hypercholesterolemia Cough Candidal intertrigo Intertrigo Bilateral lower leg cellulitis Hypothyroid Hyperlipidemia HTN (hypertension) Surgical History History of colonoscopy History of biopsy Hx of tonsillectomy Family History Father CAD (coronary artery disease) Coronary thrombosis Mother Hypertension Atherosclerosis Family/Other FH: mental illness Maternal Grandmother Diabetes Paternal Grandmother Esophageal cancer Social History Household Members: Spouse Housing: Assisted Living Facility Do you presently have visiting nurse or other home services: No Alcohol intake: never Patient Tobacco Use Status: Never used Tobacco e-Cigarette/Vaping Use: Never Used Second Hand Smoke Exposure: No Advance Directives Date on File: 09/01/23 service: No Current occupational status: disabled Cognitive needs: No Hearing needs: No Vision needs: Yes (glasses) Review of Systems Const Denies chills and Denies fever(s) Card Denies chest pain and Denies chest pain at rest Resp Denies cough GI Denies diarrhea Physical Exam Vital Signs: BMI result Body Mass Index 26.0 Const General: comfortable and no acute distress Resp Effort & Inspection: normal respiratory effort Cardio Rate: regular rate GI Palpation (GI): Soft to palpation, not firm, nontender and no guarding Back/Spine/Pelvis Other: Some tenderness on the left hip area Assessment & Plan Assessment & Plan (1) Abdominal pain: Code(s): R10.9 - Unspecified abdominal pain Category: Medical Plan: I have reviewed her CAT scan and I do not see any acute inflammatory changes within her peritoneal cavity. She does have this containing hernia in the upper abdomen. This is not tender on exam and it does not appear that this is bothering her Her main complaint today is that she has chronic left hip pain. This is is likely secondary to arthritis. Her CT scan is not officially read yet but I will review this again once the report is in. She does not need any further workup for her abdomen at this time. Coding Level of Care Code Est Pt Level 3 (46544) Diagnoses Abdominal pain R10.9
[2024-05-11 09:38] VITALS: BMI 26.0
== END 2024-05-11 09:56 | disposition home or self-care (01) ==
PROVIDERS: PCP Internal Medicine; Visit Provider Surgery
DX: R10.9 Unspecified abdominal pain (principal)
CPT/HCPCS: 99213

== ENCOUNTER → 2024-05-11 09:32 | Outpatient (BNVA) | payer MEDICARE, SELFPAY | PROVIDERS: PCP Internal Medicine; Visit Provider Surgery | DX: R10.9 Unspecified abdominal pain (principal) | CPT/HCPCS: 99212 ==

== ENCOUNTER 2024-05-17 11:09 | Outpatient (AMB) | payer MEDICARE, SELFPAY ==
--- NOTE | 2024-05-17 11:10 | A.OFFPC_ITS ---
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 Accompanied by: Spouse Allergies orange Allergy (Intermediate, Verified 05/17/24 11:18) RASH cephalexin Allergy (Mild, Verified 05/17/24 11:18) Rash nickel [Nickel] Allergy (Mild, Verified 05/17/24 11:18) RASH Medication List - Last Reconciled 05/17/24 by Jenna Torres MD levothyroxine 88 mcg PO DAILY 90 days lidocaine HCl 4% 1 patch topical DAILY PRN losartan 50 mg PO DAILY 90 days multivitamin 1 tab PO DAILY nystatin 1 appl topical DAILY simvastatin 20 mg PO BEDTIME 90 days trazodone 50 mg PO BEDTIME PRN 30 days Tobacco use date assessed: 11/16/23 Fall risk assessment: No Falls in past year Last assessed Fall Risk: 05/17/24 Dental Screening Dental Screen Date: 11/16/23 HPI HPI Comments History of Present Illness Details This is an 79-year-old female with hypertension, Frida's thyroiditis and pure hypercholesterolemia that comes today complaining of right lower leg swelling with erythema, warmth and tenderness that started few days ago. She does have lymphedema and use a pneumatic compressor at home but admits not being compliant with it recently. I recommend to restarted today. Will start her on antibiotics. Blood pressure stable. Last TSH was normal and this will be repeated in September. Cholesterol well controlled with statins. She is accompanied by . [facility] Medical History Abdominal pain Gallstones Bleeding hemorrhoids Deep vein thrombosis Autoimmune thyroiditis Venous (peripheral) insufficiency Overweight (BMI 25.0-29.9) Benign essential hypertension Pure hypercholesterolemia Cough Candidal intertrigo Intertrigo Bilateral lower leg cellulitis Hypothyroid Hyperlipidemia HTN (hypertension) Surgical History History of colonoscopy History of biopsy Hx of tonsillectomy Family History Father CAD (coronary artery disease) Coronary thrombosis Mother Hypertension Atherosclerosis Family/Other FH: mental illness Maternal Grandmother Diabetes Paternal Grandmother Esophageal cancer Social History Household Members: Spouse Housing: Assisted Living Facility Do you presently have visiting nurse or other home services: No Alcohol intake: never Patient Tobacco Use Status: Never used Tobacco e-Cigarette/Vaping Use: Never Used Second Hand Smoke Exposure: No Advance Directives Date on File: 09/01/23 service: No Current occupational status: disabled Cognitive needs: No Hearing needs: No Vision needs: Yes (glasses) Questionnaire Thrive Questionnaire Date Thrive assessed: 11/16/23 GENE-7 AMB Questionnaire GENE-7 Date GENE - 7 assessed: 11/16/23 Source: Developed by Drs. Brayan England, Nicole Guillaume, Anselmo Lai and colleagues, with an educational patricia from [employer]. Review of Systems Const All systems reviewed & are unremarkable except as noted in HPI and below Card Denies chest pain at rest, Denies chest pain with activity, Denies edema, Denies irregular heart rhythm, Denies claudication, Denies dyspnea, Denies dyspnea on exertion, Denies orthopnea, Denies paroxysmal nocturnal dyspnea and Denies slow heart rate Resp Denies cough, Denies dyspnea and Denies dyspnea on exertion Skin/Breast Reports erythema Neuro Denies behavioral changes and Denies lack of coordination Psych Denies behavioral changes Physical exam (Primary Care) Vital Signs: Last Vital Signs Pulse 88 05/17/24 11:15 BP 144/64 H 05/17/24 11:15 Pulse Ox 96 05/17/24 11:15 Oxygen Delivery Method Room Air 05/17/24 11:15 BMI result Body Mass Index 25.8 Tobacco/Smoking Status: Tobacco use Status Tobacco use date assessed 11/16/23 05/17/24 11:11 Patient Tobacco Use Status Never used Tobacco 05/17/24 11:11 e-Cigarette/Vaping Use Never Used 05/17/24 11:11 Thrive Assessment: Date of Thrive Assessment Date Thrive assessed 11/16/23 05/17/24 11:11 Resp Effort & Inspection: normal respiratory effort Auscultation: clear to auscultation bilaterally Cardio Jugular venous distension: no JVD Rate: regular rate Rhythm: regular rhythm Heart sounds: S1 normal heart sound present and S2 normal heart sound present Skin General skin exam: erythema Extrem Right lower extremity: lower leg (warmth) Details: erythema, tenderness and localized swelling Assessment and Plan Assessment & Plan (1) Cellulitis of right lower extremity: Code(s): L03.115 - Cellulitis of right lower limb Plan: Start doxycycline. (2) Essential hypertension: Code(s): I10 - Essential (primary) hypertension Plan: Continue losartan. Blood pressure goal is equal or less than 130/80. 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 (4) Pure hypercholesterolemia: Code(s): E78.00 - Pure hypercholesterolemia, unspecified Plan: Continue statins. Advise low-cholesterol diet. Medications: New doxycycline hyclate 100 mg PO BID 20 tabs 0RF 10 days clobetasol 0.05% 1 appl topical BID 30 grams 0RF 2 weeks Coding Level of Care Code Est Pt Level 4 (50681) Complex EM visit Add On G2211 Diagnoses Cellulitis of right lower extremity L03.115 Essential hypertension I10 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 Pure hypercholesterolemia E78.00 Time Spent (min) 22
[2024-05-17 11:15] VITALS: BP 144/64; PULSE 88; O2SAT 96; BMI 25.8
== END 2024-05-17 11:40 | disposition home or self-care (01) ==
LOC: HO.HMGH 11:09
PROVIDERS: PCP Internal Medicine; Visit Provider Internal Medicine
DX: L03.115 Cellulitis of right lower limb (principal); I10 Essential (primary) hypertension; E06.3 Autoimmune thyroiditis; E78.00 Pure hypercholesterolemia, unspecified
CPT/HCPCS: 99214; G2211

== ENCOUNTER 2024-09-20 06:11 | Outpatient (REF) | payer MEDICARE, SELFPAY ==
[2024-09-20 10:50] LABS: Alanine Aminotransferase 16 U/L (0-31); Albumin Level 3.6 g/dL (3.5-5.0); Alkaline Phosphatase 58 U/L (39-117); Anion Gap 9 (12-20); Aspartate Amino Transferase 21 U/L (5-31); Bilirubin Total 0.4 mg/dL (0.0-1.0); Blood Urea Nitrogen 30 mg/dL (9-16); Calcium 8.7 mg/dL (8.4-10.2); Carbon Dioxide 27 mmol/L (22-29); Chloride 111 mmol/L (96-108); Cholesterol 175 mg/dL (<200); Estimated Glomerular Filt Rate > 60; Glucose Fasting 93 mg/dL (60-99); HDL Cholesterol 62 mg/dL (>40); LDL Cholesterol Calculated 96 mg/dL (<100); Potassium 4.7 mmol/L (3.3-5.1); Sodium 142 mmol/L (135-145); Total Protein 6.7 g/dL (6.5-8.0); Triglycerides 87 mg/dL (<150)
[2024-09-20 11:13] LABS: Thyroid Stimulating Hormone 3.86 uIU/mL (0.32-4.0); Vitamin D 25-OH Total 40.2 ng/mL (>30)
== END 2024-09-20 06:12 | disposition home or self-care (01) ==
LOC: HO.HMGCLDS 06:11
PROVIDERS: PCP Internal Medicine; Visit Provider Internal Medicine
DX: E78.00 Pure hypercholesterolemia, unspecified (principal); E78.5 Hyperlipidemia, unspecified; E06.3 Autoimmune thyroiditis; E55.9 Vitamin D deficiency, unspecified
CPT/HCPCS: 36415; 80053; 80061; 82306; 84443

== ENCOUNTER 2024-09-28 09:04 | Outpatient (AMB) | payer MEDICARE, SELFPAY ==
[2024-09-28 09:17] VITALS: BP 126/70; BMI 29.4
--- NOTE | 2024-09-28 09:17 | MHC.PC.OV ---
Vital Signs 09/28/24 09:17 Height 5 ft 2 in Weight 161 lb BMI 29.4 BP 126/70 Blood Pressure Location Lt brachial Position Sitting Intake Visit Reasons: physical exam Intake Note: Patient here for a physical exam, c/o right ear blockage Manager Trade Marketing Required: No Accompanied by: Spouse Allergies orange Allergy (Intermediate, Verified 09/28/24 09:41) RASH cephalexin Allergy (Mild, Verified 09/28/24 09:41) Rash nickel [Nickel] Allergy (Mild, Verified 09/28/24 09:41) RASH Medication List - Last Reconciled 09/28/24 by Jenna Torres MD clobetasol 0.05% 1 appl topical BID 2 weeks levothyroxine 88 mcg PO DAILY 90 days lidocaine HCl 4% 1 patch topical DAILY PRN losartan 50 mg PO DAILY 90 days multivitamin 1 tab PO DAILY nystatin 1 appl topical DAILY simvastatin 20 mg PO BEDTIME 90 days trazodone 50 mg PO BEDTIME PRN 30 days Tobacco use date assessed: 11/16/23 Fall risk assessment: No Falls in past year Last assessed Fall Risk: 09/28/24 Dental Screening Dental Screen Date: 09/28/24 Did you have a dental visit in the last 12 months?: Yes Did you have a dental problem in the last 6 months where you did not have access to dental care?: No Was dental information given to patient?: Patient has dentist HPI HPI Comments History of Present Illness Details The patient is an 79-year-old female presenting for her physical exam accompanied by . She hearing issues described involve a sensation of blocked ears, particularly on the right side, with no successful attempts to unblock them. She reports no accompanying pain. Chronic hearing issues have been present and attempts to use hearing aids in the past were not satisfactory for the patient. In addition to hearing loss, the patient has a history of rectal bleeding which occurred in August 2023, leading to hospital admission. Imaging identified a hernia. Historical rectal bleeding led to colonoscopies in 2006 and 2012, performed by Dr. Stevens and Dr. Storm respectively. The most recent colonoscopy in 2012 was due to rectal bleeding and found hemorrhoids. Dr. Storm decided against surgery for hernia or gallbladder due to the patient's age. Mammogram done 2023 was normal. No need for Pap smear due to age. Will order a DEXA scan to rule out osteoporosis. [facility] Medical History (Updated 09/28/24 @ 10:11 by Jenna Torres MD) Abdominal pain Gallstones Bleeding hemorrhoids Deep vein thrombosis Autoimmune thyroiditis Venous (peripheral) insufficiency Overweight (BMI 25.0-29.9) Benign essential hypertension Pure hypercholesterolemia Cough Candidal intertrigo Intertrigo Bilateral lower leg cellulitis Hypothyroid Hyperlipidemia HTN (hypertension) Surgical History (Updated 09/28/24 @ 09:48 by Jenna Torres MD) History of colonoscopy History of biopsy Hx of tonsillectomy Family History Father CAD (coronary artery disease) Coronary thrombosis Mother Hypertension Atherosclerosis Family/Other FH: mental illness Maternal Grandmother Diabetes Paternal Grandmother Esophageal cancer Social History Household Members: Spouse Housing: Assisted Living Facility Do you presently have visiting nurse or other home services: No Alcohol intake: never Patient Tobacco Use Status: Never used Tobacco e-Cigarette/Vaping Use: Never Used Second Hand Smoke Exposure: No Advance Directives Date on File: 09/01/23 service: No Current occupational status: disabled Cognitive needs: No Hearing needs: No Vision needs: Yes (glasses) Questionnaire PHQ-9 Over the last 2 weeks, how often have you been bothered by any of the following problems? 1. Little interest or pleasure in doing things: not at all 2. Feeling down, depressed, or hopeless: not at all 3. Trouble falling or staying asleep, or sleeping too much: not at all 4. Feeling tired or having little energy: not at all 5. Poor appetite or overeating: not at all 6. Feeling bad about yourself - or that you are a failure or have let yourself or your family down: not at all 7. Trouble concentrating on things, such as reading the newspaper or watching television: not at all 8. Moving or speaking so slowly that other people could have noticed. Or the opposite - being so fidgety or restless that you have been moving around a lot more than usual: not at all 9. Thoughts that you would be better off or of hurting yourself in some way: not at all Total score: 0 Depression Screening Interpretation: Negative Depression Screening Done: Yes 65765 - PHQ-9 Billing: Yes Source: Developed by Drs. Brayan England, Nicole Guillaume, Anselmo Lai and colleagues, with an educational patricia from [employer]. Thrive Questionnaire Date Thrive assessed: 09/28/24 I am a: Patient What is your living situation today?: I have a steady place to live Within the past 12 months, did the food you bought not last and you didn't have the money to get more?: Never true Within the past 12 months, did you worry whether your food would run out before you got money to buy more?: Never true Do you have trouble paying for medicines?: No Do you have trouble getting transportation to medical appointments?: No Do you have trouble paying your heating and electricity bill?: No Do you have trouble taking care of your child, family member or friend?: No Do you have trouble with day-to-day activities such as bathing, preparing meals, shopping, managing finances, etc.?: No Are you currently unemployed and looking for a job?: No Are you interested in more education?: No Please select the resources that you would like help with: Food Currently or been in a relationship where the following occur: No concerns reported THRIVE Score: 0 AUDIT C Alcohol Use Questionnaire (AUDIT-C) 1. How often do you have a drink containing alcohol?: Never Total Score: 0 Score Reviewed/Action Taken: No GENE-7 AMB Questionnaire GENE-7 Date GENE - 7 assessed: 09/28/24 Feeling nervous, anxious, or on edge: 0 = Not at all Not being able to stop or control worryin = Not at all Worrying too much about different things: 0 = Not at all Trouble relaxin = Several days Being so restless that it is hard to sit still: 0 = Not at all Becoming easily annoyed or irritable: 0 = Not at all Feeling afraid as if something awful might happen: 0 = Not at all Total GENE-7 score (0-4 normal; 5-9 mild; 10-14 moderate; 15-21 severe): 1 Source: Developed by Nicole Sheehan Kurt Kroenke and colleagues, with an educational particia from [employer]. GENE-7 Assessment Billing GENE-7 Assessment Tool: GENE-7 Assessment 39116 Review of Systems Const All systems reviewed & are unremarkable except as noted in HPI and below ENT Reports hearing loss Card Denies chest pain at rest, Denies chest pain with activity, Denies edema, Denies irregular heart rhythm, Denies claudication, Denies dyspnea, Denies dyspnea on exertion, Denies orthopnea, Denies paroxysmal nocturnal dyspnea and Denies slow heart rate Resp Denies cough, Denies dyspnea and Denies dyspnea on exertion Physical exam (Primary Care) Vital Signs: Last Vital Signs BP 126/70 09/28/24 09:17 BMI result Body Mass Index 29.4 BMI Assessment/Plan discussion: High BMI High, discussed plan: lifestyle, weight reduction, dietary and physical activity Tobacco/Smoking Status: Tobacco use Status Tobacco use date assessed 11/16/23 09/28/24 09:23 Patient Tobacco Use Status Never used Tobacco 09/28/24 09:23 e-Cigarette/Vaping Use Never Used 09/28/24 09:23 PHQ-9: PHQ-9 Score PHQ-9: Total score 0 09/28/24 09:44 Depression Screening Interpretation: Negative Thrive Assessment: Date of Thrive Assessment Date Thrive assessed 09/28/24 09/28/24 09:23 Currently or been in a relationship where the following occur: No concerns reported [facility] Head: Yes normal to inspection, Yes normocephalic and Yes atraumatic Ears: external ears normal and hearing grossly impaired bilaterally Eyes General: appearance normal, both eyes and all related structures Eyelids: Yes eyelids normal Conjunctivae: conjunctivae normal Neck Neck: Yes normal visual inspection and Yes supple Resp Effort & Inspection: normal respiratory effort Auscultation: clear to auscultation bilaterally Cardio Jugular venous distension: no JVD Rate: regular rate Rhythm: regular rhythm Heart sounds: S1 normal heart sound present and S2 normal heart sound present GI Inspection: Yes normal to inspection Palpation (GI): Soft to palpation and nontender Auscultation: normal bowel sounds Skin General skin exam: no rashes or lesions noted Neuro General: no focal motor deficits Extrem General: Yes full ROM Psych Appearance: grossly normal Immunizations tetanus-diphtheria toxoids-Td 2 Lf unit-2 Lf unit/0.5 mL IM suspension Performing Provider: Jenna Torres MD [facility] Administered by: JASMIN East on 09/28/24 10:08 Dose Route Admin Location Dispensed Lot Number Expiration Date [place] Mortgage Lender 0.5 mL IM Left Deltoid 0.5 mL [id number] 12/19/24 [address]-4 [employer] VIS Given Date VIS Provided VIS Publication Date 09/28/24 Single Vaccine 21 Eligibility Eligibility Date Funding Source Not [facility] Eligible 09/28/24 [facility] funds Coding Level of Care Code Est Pt Level 3 (36144) Est Pt Prev Care >65y(55919) Diagnoses Physical exam Z00.00 Bilateral hearing loss, unspecified hearing loss type H91.93 Hearing loss type: unspecified Laterality: bilateral Additional Codes PHQ-9 - 53411 - PHQ-9 Billing: Yes ([id number]) GENE-7 Assessment Billing - GENE-7 Assessment Tool: GENE-7 Assessment 86195 ([id number]) Time Spent (min) 35 Assessment & Plan Assessment & Plan (1) Physical exam: Code(s): Z00.00 - Encounter for general adult medical examination without abnormal findings Category: Medical (2) Hearing loss: Code(s): H91.90 - Unspecified hearing loss, unspecified ear Category: Medical Qualifiers: Hearing loss type: unspecified Laterality: bilateral Qualified Code(s): H91.93 - Unspecified hearing loss, bilateral Plan - Hearing Loss: Suggest hearing test to assess for definitive hearing impairment, as wax not fully blocking canal. Consider ear drops or hydrogen peroxide for cerumen softening. - Hypertension: Continues losartan; blood pressure reported as stable. - Obesity: Initiate dietary recommendations focusing on low carbohydrate intake. - Health Maintenance: Administer tetanus vaccine as last recorded in 2011. Patient was informed and verbally consented to the use of an ambient scribe for clinic note documentation during this visit. During the consultation, I reviewed the patient's hearing loss concerns and suggested a follow-up hearing test due to persistent symptoms and previous unsatisfactory experiences with hearing aids. I informed the patient about the potential benefit of ear drops to manage earwax build-up. I advised on the significance of managing her dietary habits, incorporating a low carbohydrate diet to address the BMI and prevent transition into obesity. Health maintenance was emphasized with the recommendation of a tetanus booster and monitoring of all values as noted within normal limits in recent labs. Orders: Orders XR DEXA axial skeleton Today Z78.0 - Asymptomatic menopausal state ECG 12 lead EKG Today Z01.818 - Encounter for other preprocedural examination Td State Immunization Today Z23 - Encounter for immunization Referrals Speech and Hearing Referral H91.90 - Unspecified hearing loss, unspecified ear Medications: New carbamide peroxide 6.5% (Debrox) 5 drps otic (ears) Q12H 4 days 15 mL 0RF Patient Instructions: - Use hydrogen peroxide on a Q-tip for ear canal guidance. - Adhere to a low carbohydrate diet as outlined. - Arrange a tetanus vaccine administration for today at this office visit. - Schedule a hearing test to assess hearing loss further. - Maintain current medication regimen for hypertension. - Return if experiencing any new symptoms or urgent concerns.
== END 2024-09-28 10:09 | disposition home or self-care (01) ==
PROVIDERS: PCP Internal Medicine; Visit Provider Internal Medicine
DX: Z00.00 Encounter for general adult medical examination without abnormal findings (principal); H91.93 Unspecified hearing loss, bilateral; Z23 Encounter for immunization

== ENCOUNTER → 2024-09-28 09:04 | Outpatient (BNVA) | payer MEDICARE, SELFPAY | PROVIDERS: PCP Internal Medicine; Visit Provider Internal Medicine | DX: Z00.00 Encounter for general adult medical examination without abnormal findings (principal); Z23 Encounter for immunization; H91.93 Unspecified hearing loss, bilateral; I10 Essential (primary) hypertension; E78.5 Hyperlipidemia, unspecified | CPT/HCPCS: 90471; 90714; 96127; 99212; 99397 ==

== ENCOUNTER 2024-10-12 07:57 | Outpatient (REF) | payer MEDICARE, SELFPAY ==
--- OUTSIDE RECORDS SUMMARY | 2024-10-18 16:21 | XMS_ITS ---
Author Organization [facility] Address [address] [place] [address] Care Team Providers Care Pharmaceutical Sales Specialist Name Role Phone Martin MICHAEL, Jenna Primary Care Provider Unavail Serg Kwong Unavailable [phone] grimes Encounters Encounter Location Date Provider Diagnosis [address] [address] 04/01/2024 Serg Hale Plan Of Treatment Next Appt Details Provider Name:Serg Hale , 12/27/2024 09:00:00 AM, [address] [place] [address], [id number], Progress Notes * Sara LARSON FDOB: [birth year] (79 yo F)Acc No.[id number]:04/01/2024 Progress Note Patient:?Sara LARSON Provider:Jacy Hale DPM :1945???Age:79 Y???Sex:Female D ate:04/01/2024 [place], [place] Pcp:Jenna Salazar MD Subjective: * Chief Complaints: * ???1. Dr grimes. * Medical History:? Objective: * Vitals:? Assessment: Plan: * Treatment: * Images: * The named appointment provid er may or may not be the originator of this progress note, and it is not deemed complete until electronically signed by the appointment provider. Sign off status: Pending * Provider:Jacy Hale DPM Date:?2023 Generated for Adilia olivares/Edwin/Valente on:?10/18/2024 04:21 PM EST
--- OUTSIDE RECORDS SUMMARY | 2024-10-18 16:21 | XMS_ITS ---
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 Medications Medication SIG (Take, Route, Frequency, Duration) Notes Start Date End Date Status Meloxicam 15 MG 1 tablet Orally Once a day for 30 day(s) PRM Not-Taking traMADol HCl 50 MG 1 tablet as needed Orally Once a day PRM Not-Taking Ciclopirox Olamine 0.77 % 1 application Externally Twice a day for 30 days Active Nystatin - as directed Orally Not-Taking Furosemide 20 MG 1 tablet Orally Once a day for 30 day(s) Not-Taking Levothyroxine Sodium 88 MCG TAKE 1 TABLET BY MOUTH EVERY DAY Orally Active Ivermectin 3 MG TAKE 3 TABLETS BY [facility] ONCE ON EMPTY STOMACH IN THE MORNING. REPEAT IN 14 DAYS Oral for 2 Not-Taking Losartan Potassium 50 MG as directed Orally Active oxyCODONE-Acetaminophen Not-Taking Simvastatin 20 MG TAKE 1 TABLET BY MERI TH EVERY EVENING Orally Active Ketoconazole 2 % APPLY TWICE A DAY UN ANTOLIN CHEST FOR 4 WEEKS External for 20 Not-Taking Clotrimazole-Betamethason e 1-0.05 % 1 application Externally Twice a day Not-Kyle brewer Triamcinolone Acetonide 0.1 % USE TWICE DAILY 2 WEEKS ON, 1 WEEK OFF TO BACK FOR UP TO 2 WEEKS AT A TIME NOT FOR FACE/BODY FOLDS External for 14 Not-Taking Social History Tobacco Use: Social History Observation Description Date Details (start date - stop date) Never Smoker NA - NA Tobacco Use/Smoking Question Answer Notes Are you a: nonsmoker Additional Findings: Tobacco Non-User Current no n-smoker Alcohol Screen Question Answer Notes Did you have a drink containing alcohol in the p ast year? No Points 0 Interpretation Negative Tobacco use other than smoking: Question Answer Notes Are you an other tobacco user? No Vital Signs Height 5 ft 2 in in 06/10/2024 Weight 143 lbs 06/10/2024 BMI 26.15 kg/m2 06/10/2024 Blood pressure systolic 120 mm Hg 06/10/20 24 Blood pressure diastolic 72 mm Hg 024 Procedures Procedure Date Ordered Date Performed Result Body Sit e 53962-POZUIFY NAIL, 6 OR MORE 06/10/2024 N/A 72835-KRNO SKIN LESIONS, OVER 4 06/10/2024 N/A Encounters Encounter Location Date Provider Diagnosis [facility] [place] [address] [place] [address] 06/10/2024 Serg Hale Atherosclerosis of [place] artery of both lower extremities, with unspecified presence of clinical manifestation I70.203 ; Tinea unguium B35.1 ; Pain in right toe(s) M79.674 and Pain in left toe(s) M79.675 Assessments Encounter Date Diagnosis (ICD Code) Assessment Notes Treatment Notes Treatment Clinical Notes Section Notes 06/10/2024 Atherosclerosis of [place] artery of both lower extremities, with unspecified presence of clinical manifestation (ICD-10 - I70.203) 06/10/2024 Tinea unguium (ICD-10 - B35.1) 06/10/2024 Pain in right toe(s) (ICD-10 - M79.674) 06/10/2024 Pain in left toe(s) (ICD-10 - M79.675) Plan Of Treatment Pending Test Test Name Order Date 33688-OKMYCYD NAIL, 6 OR MORE 06/10/2024 87662-IPGD SKIN LESIONS, OVER 4 06/10/20 24 Next Appt Details Follow Up: prn, Reason: Provider Name:Serg V Alexia , 12/27/2024 09:00:00 AM, [address] [place] [address], [phone], Procedure Notes * Category Sub-Category Detail Notes Debride Nail 6-10 Nail debridement Nail debridem ent performed extensively to reduce/remove overall nail length, girth, thickness, subungual debris, and necrotic tissue, by manual and electrical means through the use of a nail nipper and/or dremel, to more viable healthy nail plate or bed tissue 6-10. Silver nitrate used for any petechial bleeding as necessary. Patient chooses, no pharmaceutical tx (16732) Keratoma Treatment Parring or Cutting o f Benign Hyperkeratotic Lesion(s) 66183 ( >4 Lesions) - The Benign hyperkeratotic lesions, as described above were pared, and/or cut utilizing a sterile #15 blade, tissue nippers, and/or dremel, Q8 Progress Notes * Sara LARSON FDOB: [birth year] (79 yo F)Acc No.[id number]:06/10/2024 Progress Note Patient:?Sara Larson Provider:?Serg Hale DPM :1945???Age:79 Y???Sex:Female D ate:06/10/2024 Address:[address] [place], [place] [id number] Pcp:Jenna Salazar MD Subjective: * Chief Complaints: * ???At Risk FootcarePainful N ail(s) aggrevated by shoes and causing difficulty standing/walking. * HPI: ???At Risk footcare:?Pt States Last PCP Visit:?Date?03/08/2024 * ROS:?General/Constitutional:?Nausea?denies.?Vomiting?denies.?Hunger Thirst?denies.?Loss appetite?denies.?Chills?denies.?Fatigue?denies.?Fever?denies.?Night Sweats?denies.?Unexplained weight loss?denies.?Unexplained weight gain?denies.?HEENTM:?Dentures?denies.?Dizziness?denies.?Glasses/contacts?admits.?Retinopathy?de nies.?Blurred/double vision?denies.?TMJ?denies.?Discharge/drainage?denies.?Implants?denies.?Sore throat?denies.?Dental implants?denies.?Hard of hearing ?admits.?Difficulty chewing/swallowing/speaking?denies.?Nose bleeds?denies.?Sore mouth?denies.?Respiratory:?On Oxygen?denies.?Pneumonia/pleurisy?admits.?Bronchitis?admits.?Emphysema?denies.?C oughing?denies.?Cough blood?denies.?Shortness of breath?denies.?Wheezing?denies.?Cardiovascular:?Pacemaker?denies.?MVP?denies.?WPW?denies.?CHF?denies.?Heart attack?denies.?Septal defect?denies.?Rapid beat?denies.?Chest pain ?denies.?Atrial Fib.?denies.?Murmur/Palpitations?denies.?Gastrointestinal:?Hemorrhoids?denies.?Stomach/Abdominal pain?denies.?Dark blood stool?denies.?Irritable bowel ?denies.?Constipation?denies.?Diarrhea?denies.?Hematology:?Swelling?admits.?Clots?denies.?Varicose Veins?admits.?Bruising?denies.?Bleeding problem?denies.?Genitourinary:?Blood urine?denies.?Frequent/Painfu/urination/bladder control?denies.?Kidney stones?denies.?Infection (UTI)?denies.?Nephropathy?admits.?sex trans dis (STD)?denies.?Prostate?denies.?Musculoskeletal:?Hammertoes?denies.?Bunions?denies.?Back Pain?admits.?Muscle Cramps/ Resting?admits.?Muscle cramps / walking?admits.?Generalized aches and pains?admits.?Weakness?denies.?Integ.:?[place]?denies.?Scars?denies.?Corns/calluses?admits.?Ingrown nails?admits.?Painful nails?admits.?Open Sores?denies.?Rashes?admits.?Neurologic:?Difficulty sleeping?denies.?Brain disorder?denies.?Numbness?admits.?Balance trouble?denies.?Confusion?denies.?Fainting/blackouts?denies.?Tingling?denies.?Tr emors?denies.? * Medical History:? * Surgical History:?frozen voc al chord 2008colonoscopy Invasive Vein Surgery 05/2018tonsillectomy 1973Invasive vein inficentcy 09/09/2023 * Hospitalization/Major Diagno stic Procedure:?[facility] [place] [facility] pt broke collar bone 06/05/2016[facility] [place]- Chicken bone stuck in throat - Had x-ray 08/2020[facility] [place] - diverticulitis 09/01- * Family History:?Mother: dece ased, arthritis.?Father: .?Spouse: alive.?Maternal Grand Mother: diagnosed with Diabetic - NIDDM.? * Social History:?Tobacco Use:?Tobacco Use/Smoking?Are you a:?nonsmoker ?Additional Findings: Tobacco Non-User?Current non-smoker ?Tobacco use other than smoking?Are you an other tobacco user??No ???Sexual History:?Caffeine: yes, 1-2 cups per day. ?Children: yes, 2 sons. ?Exercise: yes, walking, playing cards, reading. ?Marital status: . 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 ???Drugs/Alcohol:?Drugs?Have you used drugs other than those for medical reasons in the past 12 months??No ?Alcohol Screen?Did you have a drink containing alcohol in the past year??No ?Points?0 ?Interpretation?Negative ???Miscellaneous:?Caffeine: yes, 1-2 cups per day. ?Children: yes, 2 sons. ?Exercise: yes, walking, playing cards, reading. ?Marital status: . 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 * Medications:?TakingLevothyro xine Sodium 88 MCG Tablet TAKE 1 TABLET BY MOUTH EVERY DAY Orally Losartan Potassium 50 MG Tablet as directed Orally Simvastatin 20 MG Tablet TAKE 1 TABLET BY MOUTH EVERY EVENING Orally Ciclopirox Olamine 0.77 % Cream 1 application Externally Twice a dayTaking Levothyroxine Sodium 88 MCG Tablet TAKE 1 TABLET BY MOUTH EVERY DAY Orally Taking Losartan Potassium 50 MG Tablet as directed Orally Taking Simvastatin 20 MG Tablet TAKE 1 TABLET BY MOUTH EVERY EVENING Orally Taking Ciclopirox Olamine 0.77 % Cream 1 application Externally Twice a dayNot-Taking/PRNMeloxicam 15 MG Tablet 1 tablet Orally Once a day, Notes: PRMtraMADol HCl 50 MG Tablet 1 tablet as needed Orally Once a day, Notes: PRMNystatin - Powder as directed Orally Furosemide 20 MG Tablet 1 tablet Orally Once a dayClotrimazole-Betamethasone 1-0.05 % Cream 1 application Externally Twice a dayTriamcinolone Acetonide 0.1 % Cream USE TWICE DAILY 2 WEEKS ON, 1 WEEK OFF TO BACK FOR UP TO 2 WEEKS AT A TIME NOT FOR FACE/BODY FOLDS External Ketoconazole 2 % Cream APPLY TWICE A DAY UNDER CHEST FOR 4 WEEKS External Ivermectin 3 MG Tablet TAKE 3 TABLETS BY MOUTH ONCE ON EMPTY STOMACH IN THE MORNING. REPEAT IN 14 DAYS Oral oxyCODONE-Acetaminophen Medication List reviewed and reconciled with the patientNot-Taking/PRN Meloxicam 15 MG Tablet 1 tablet Orally Once a day, Notes: PRMNot-Taking/PRN traMADol HCl 50 MG Tablet 1 tablet as needed Orally Once a day, Notes: PRMNot-Taking/PRN Nystatin - Powder as directed Orally Not-Taking/PRN Furosemide 20 MG Tablet 1 tablet Orally Once a dayNot-Taking/PRN Clotrimazole-Betamethasone 1-0.05 % Cream 1 application Externally Twice a dayNot-Taking/PRN Triamcinolone Acetonide 0.1 % Cream USE TWICE DAILY 2 WEEKS ON, 1 WEEK OFF TO BACK FOR UP TO 2 WEEKS AT A TIME NOT FOR FACE/BODY FOLDS External Not-Taking/PRN Ketoconazole 2 % Cream APPLY TWICE A DAY UNDER CHEST FOR 4 WEEKS External Not-Taking/PRN Ivermectin 3 MG Tablet TAKE 3 TABLETS BY MOUTH ONCE ON EMPTY STOMACH IN THE MORNING. REPEAT IN 14 DAYS Oral Not-Taking/PRN oxyCODONE- Acetaminophen Medication List reviewed and reconciled with the patient * Allergies:?CephalexinNickel: hivesOrange: hivesyes[Allergies Verified] Objective: * Vitals:?Ht: 5 ft 2 in, Wt:14 3, BMI:26.15, Shoe size:7W, BP:120/72 mm Hg. * Examination: ???Vascular: ?DP PULSES:? 1/4, LEFT, 0/4, RIGHT.?PT PULSES:? 0/4, B/L.?CAPILLARY FILL TIME:? delayed, all digits, B/L.?SKIN TEMPERTURE GRADIENT OF THE LOWER EXTERMITIES:? decreased, cool to cool, proximal to distal, B/L.?HAIR GROWTH/TEXTURE/ELASTICITY/TURGOR:? decreased, B/L.?PIGMENTATION:? rubrous, B/L.?EDEMA:? 2/4, pitting, without aching pain, B/L, Leg(s), Ankle(s).?CLAUDICATION:?denies, B/L.?REST PAIN:?denies, B/L.?Nails: ?NAILS are:?Elongated, overgrown, dystrophic, lytic, greater than 3mm thick, discolored and friable with crumbly malodorous subungual debris, with pain on palpation, TA, T3, T4, T5, T6, T7, T8, T9, remaining nails are elongated, overgrown, dystrophic.?Dermatologic: ?SKIN FINDINGS:?Skin exam reveals Keratotic lesion(s) located at, Medial, IPJ, TA, Medial, IPJ, T5, SUB MTH (s), 1, B/L , SUB MTH (s), 2, B/L , SUB MTH (s), 3, B/L , SUB MTH (s), 5, B/L, Heel(s), B/L.? Assessment: * Assessment: 1.?Tinea unguium - B35.1?2.? Atherosclerosis of [place] artery of both lower extremities, with unspecified presence of clinical manifestation - I70.203 (Primary)?3.?Pain in right toe(s) - M79.674?4.?Pain in left toe(s) - M79.675? Plan: * Treatment: 2.?Tinea unguium?Procedure: 27685-MBYCUAZ NAIL, 6 OR MORE * Procedures:?Debride Nail 6-10:?Nail debridement?Nail debridement performed extensively to reduce/remove overall nail length, girth, thickness, subungual debris, and necrotic tissue, by manual and electrical means through the use of a nail nipper and/or dremel, to more viable healthy nail plate or bed tissue 6-10. Silver nitrate used for any petechial bleeding as necessary. Patient chooses, no pharmaceutical tx (41871).?Keratoma Treatment:?Parring or Cutting of Benign Hyperkeratotic Lesion(s)?46189 ( >4 Lesions) - The Benign hyperkeratotic lesions, as described above were pared, and/or cut utilizing a sterile #15 blade, tissue nippers, and/or dremel, Q8.? * Procedure Codes:?78468 DEBRI DE NAIL, 6 OR MORE, Modifiers: XS 38685 TRIM SKIN LESIONS, OVER 4, Modifiers: XS , Q8 * Follow Up:?prn * Images: * Sign off status: Completed true * Provider:Jacy Hale DPM Date:?2023 Generated for Adilia olivares/Edwin/eTransmarlen on:?10/18/2024 04:21 PM EST History and Physical Notes * HPI (History of Present Illness) Category Sub-Category Detail Notes Category Not es At Risk footcare Pt States Last PCP Visit: Date: Examination Category Sub-Category Detail Notes Category Not es Dermatologic SKIN FINDINGS: Skin exam reveal s Keratotic lesion(s) located at, Medial, IPJ, TA, Medial, IPJ, T5, SUB MTH (s), 1, B/L , SUB MTH (s), 2, B/L , SUB MTH (s), 3, B/L , SUB MTH (s), 5, B/L, Heel(s), B/L Vascular DP PULSES(B): 1/4, LEFT, 0/4, RIGHT PT PULSES(B): 0/4, B/L CAPILLARY FILL TIME: delayed, all digits , B/L TEMPERTURE GRADIENT(C): decreased, cool to cool, proximal to distal, B/L TROPHIC CONDITION-TEXTURE/ELASTICITY/TURGOR/HAIR GROWTH(B): decreased, B/L EDEMA(C): 2/4, pitting, withou t aching pain, B/L, Leg(s), Ankle(s) CLAUDICATION(C): denies, B/L REST PAIN: denies, B/L PIGMENTATION: rubrous, B/L Nails NAILS are: Elongated, overg rown, dystrophic, lytic, greater than 3mm thick, discolored and friable with crumbly malodorous subungual debris, with pain on palpation, TA, T3, T4, T5, T6, T7, T8, T9, remaining nails are elongated, overgrown, dystrophic
--- OUTSIDE RECORDS SUMMARY | 2024-10-18 16:21 | XMS_ITS ---
Author Organization [facility] Address [address] [facility] [place] [address] Care Team Providers Care Boiler Technician Name Role Phone Martin MICHAEL, Jenna Primary Care Provider Unavail able Serg Hale Unavailable [phone] Allergies Allergen (clinical drug ingredient) Drug/Non Drug Allergy documented on EMR Reaction Allergy Type Onset Date Status [place] hives Drug Allergy Active cephalexin Cephalexin Unknown Drug Allergy Activ e nickel Nickel hives Allergy Active REASON FOR VISIT At Risk Footcare, Painful Nail(s) aggrevated by shoes and causing difficulty standing/walking. Medications Medication SIG (Take, Route, Frequency, Duration) Notes Start Date End Date Status oxyCODONE-Acetaminophen Not-Taking Ivermectin 3 MG TAKE 3 TABLETS BY [facility] ONCE ON EMPTY STOMACH IN THE MORNING. REPEAT IN 14 DAYS Oral for 2 Not-Taking Ketoconazole 2 % APPLY TWICE A DAY UN ANTOLIN CHEST FOR 4 WEEKS External for 20 Not-Taking Triamcinolone Acetonide 0.1 % USE TWICE DAILY 2 WEEKS ON, 1 WEEK OFF TO BACK FOR UP TO 2 WEEKS AT A TIME NOT FOR FACE/BODY FOLDS External for 14 Not-Taking Clotrimazole-Betamethason e 1-0.05 % 1 application Externally Twice a day Not-Takin g traMADol HCl 50 MG 1 tablet as needed Orally Once a day PRM Not-Taking Meloxicam 15 MG 1 tablet Orally Once a day for 30 day(s) PRM Not-Taking Ciclopirox Olamine 0.77 % 1 application Externally Twice a day for 30 days Active Furosemide 20 MG 1 tablet Orally Once a day for 30 day(s) Not-Taking Nystatin - as directed Orally Not-Taking Simvastatin 20 MG TAKE 1 TABLET BY MERI TH EVERY EVENING Orally Active Losartan Potassium 50 MG as directed Orally Active Levothyroxine Sodium 88 MCG TAKE 1 TABLET BY MOUTH EVERY DAY Orally Active Social History Tobacco Use: Social History Observation [...] Signs Height 5 ft 2 in in 09/23/2024 Weight 143 lbs 09/23/2024 BMI 26.15 kg/m2 09/23/2024 Blood pressure systolic 120 mm Hg 09/23/20 Blood pressure diastolic 72 mm Hg 024 Procedures Procedure Date Ordered Date Performed Result Body Sit e 82334-PLDFZIE NAIL, 6 OR MORE 09/23/2024 N/A 96158-COTM SKIN LESIONS, OVER 4 09/23/2024 N/A Encounters Encounter Location Date Provider Diagnosis [facility] [place] [address] [place] [address] 09/23/2024 Serg Hale Atherosclerosis of [place] artery of both lower extremities, with unspecified presence of clinical manifestation I70.203 ; Tinea unguium B35.1 ; Pain in right toe(s) M79.674 and Pain in left toe(s) M79.675 Assessments Encounter Date Diagnosis (ICD Code) Assessment Notes Treatment Notes Treatment Clinical Notes Section Notes 09/23/2024 Atherosclerosis of [place] artery of both lower extremities, with unspecified presence of clinical manifestation (ICD-10 - I70.203) 09/23/2024 Tinea unguium (ICD-10 - B35.1) 09/23/2024 Pain in right toe(s) (ICD-10 - M79.674) 09/23/2024 Pain in left toe(s) (ICD-10 - M79.675) Plan Of Treatment Pending Test Test Name Order Date 13795-JCMHFKP NAIL, 6 OR MORE 09/23/2024 37094-VCPP SKIN LESIONS, OVER 4 09/23/20 24 Next Appt Details Follow Up: prn, Reason: Provider Name:Serg oBb Alexia , 12/27/2024 09:00:00 AM, [address] [place] [address], [phone], Procedure Notes * Category Sub-Category Detail Notes Debride Nail 6-10 Nail debridement Performance o f this nail treatment by a nonprofessional would put this patients foot and overall health at risk. Therefore, debridement to affected nail(s), as described in exam, was performed extensively to reduce/remove overall nail length, girth, thickness, subungual debris, and necrotic tissue, by manual and/or electrical means through the use of a nail nipper and/or dremel-type finish grinder, to a more viable healthy nail plate or bed tissue 6-10. Silver nitrate used for any petechial bleeding as necessary. Definitive antifungal treatment options have been reviewed and discussed with the patient. The patient chooses, no pharmaceutical tx - 88483 Keratoma Treatment Parring or Cutting o f Benign Hyperkeratotic Lesion(s) (-57) More than 4 Lesions - The Benign hyperkeratotic lesions, as described in exam, were pared, and/or cut utilizing a sterile 15 blade, tissue nippers, and/or dremel - 43532, Q8 Progress Notes * Sara LARSON FDOB: [birth year] (79 yo F)Acc No.[id number]:09/23/2024 Progress Note Patient:?Sara LARSON Provider:?Serg Hale DPM :1945???Age:79 Y???Sex:Female D ate:09/23/2024 Address:[address] [place], [place] [id number] Pcp:Jenna Salazar MD Subjective: * Chief Complaints: * ???At Risk FootcarePainful N ail(s) aggrevated by shoes and causing difficulty standing/walking. * HPI: ???At Risk footcare:?Pt States Last PCP Visit:?Date?09/08/2024 * ROS:?General/Constitutional:?Nausea?denies.?Vomiting?denies.?Hunger Thirst?denies.?Loss appetite?denies.?Chills?denies.?Fatigue?denies.?Fever?denies.?Night Sweats?denies.?Unexplained weight loss?denies.?Unexplained [...] vein inficentcy 09/09/2023 * Hospitalization/Major Diagno stic Procedure:[place] [place]05[place] [place] Chicken bone stuck in throat - Had x-ray 08/[place] [place] 09/01- * Family History:?Mother: dece ased, arthritis.?Father: .?Spouse: alive.?Maternal Grand Mother: diagnosed with Diabetic - NIDDM.? * Social History:?Tobacco Use:?Tobacco Use/Smoking?Are you a:?nonsmoker ?Additional Findings: Tobacco Non-User?Current non-smoker ?Tobacco use other than smoking?Are you an other tobacco user??No ???Drugs/Alcohol:?Drugs?Have you used drugs other than those for medical reasons in the past 12 months??No ?Alcohol Screen?Did you have a drink containing alcohol in the past year??No ?Points?0 ?Interpretation?Negative ???Miscellaneous:?Caffeine: yes, 1-2 cups per day. ?Children: yes, 2 sons. ?Exercise: yes, walking, playing cards, reading. ?Marital status: . 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 * Medications:?TakingLevothyro xine Sodium 88 MCG Tablet TAKE 1 TABLET BY MOUTH EVERY DAY Orally Losartan Potassium 50 MG Tablet as directed Orally Simvastatin 20 MG Tablet TAKE 1 TABLET BY MOUTH EVERY EVENING Orally Ciclopirox Olamine 0.77 % Cream 1 application Externally Twice a day Taking Levothyroxine Sodium 88 MCG Tablet TAKE 1 TABLET BY MOUTH EVERY DAY Orally Taking Losartan Potassium 50 MG Tablet as directed Orally Taking Simvastatin 20 MG Tablet TAKE 1 TABLET BY MOUTH EVERY EVENING Orally Taking Ciclopirox Olamine 0.77 % Cream 1 application Externally Twice a day Not-Taking/PRNMeloxicam 15 MG Tablet 1 tablet Orally Once a day , Notes to Pharmacist: PRMtraMADol HCl 50 MG Tablet 1 tablet as needed Orally Once a day , Notes to Pharmacist: PRMNystatin - Powder as directed Orally Furosemide 20 MG Tablet 1 tablet Orally Once a day Clotrimazole-Betamethasone 1-0.05 % Cream 1 application Externally Twice a day Triamcinolone Acetonide 0.1 % Cream USE TWICE [...] MG Tablet 1 tablet Orally Once a day , Notes to Pharmacist: PRMNot-Taking/PRN traMADol HCl 50 MG Tablet 1 tablet as needed Orally Once a day , Notes to Pharmacist: PRMNot-Taking/PRN Nystatin - Powder as directed Orally Not-Taking/PRN Furosemide 20 MG Tablet 1 tablet Orally Once a day Not-Taking/PRN Clotrimazole-Betamethasone 1-0.05 % Cream 1 application Externally Twice a day Not-Taking/PRN Triamcinolone Acetonide 0.1 % Cream USE TWICE [...] MORNING. REPEAT IN 14 DAYS Oral Not-Taking/PRN oxyCODONE-Acetaminophen Medication List reviewed and reconciled with the patient * Allergies:?CephalexinNickel: hivesOrange: hivesyes[Allergies Verified] Objective: * Vitals:?Ht: 5 ft 2 in, Wt:14 3, BMI: 26.15, Shoe size:7W, BP:120/72mm Hg, Wt-k.86 kg. * Examination: ???Vascular: ?DP PULSES(B):?0/4, RIGHT,1/4.?PT PULSES(B):? 0/4, B/L.?CAPILLARY FILL TIME:? delayed, all digits, B/L.?TROPHIC CONDITION-TEXTURE/ELASTICITY/TURGOR/HAIR GROWTH(B):? decreased,?with sparse to absent hair growth, B/L.?TEMPERTURE GRADIENT(C):? decreased, cool to cool, proximal to distal, B/L.?PIGMENTATION:? rubrous, B/L.?EDEMA(C):? 2/4, pitting, without aching pain, B/L, Leg(s), Ankle(s).?CLAUDICATION(C):?denies, B/L.?REST PAIN:?denies, B/L.?Nails: ?NAILS are:?Elongated, overgrown, dystrophic, [...] B/L , SUB MTH (s), 5, B/L, Plantar, Heel(s), B/L.? Assessment: * Assessment: 1.?Tinea unguium - B35.1???2 .?Atherosclerosis of [place] artery of both lower extremities, with unspecified presence of clinical manifestation - I70.203 (Primary)???3.?Pain in right toe(s) - M79.674???4.?Pain in left toe(s) - M79.675??? Plan: * Treatment: 2.?Tinea unguium?Procedure: 40062-LQJKMBL NAIL, 6 OR MORE * Procedures:?Debride Nail 6-10:?Nail debridement?Performance of this nail treatment by a nonprofessional would put this patients foot and overall health at risk. Therefore, debridement to affected nail(s), as described in exam, was performed extensively to reduce/remove overall nail length, girth, thickness, subungual debris, and necrotic tissue, by manual and/or electrical means through the use of a nail nipper and/or dremel-type finish grinder, to a more viable healthy nail plate or bed tissue 6-10. Silver nitrate used for any petechial bleeding as necessary. Definitive antifungal treatment options have been reviewed and discussed with the patient. The patient chooses, no pharmaceutical tx - 23900.?Keratoma Treatment:?Parring or Cutting of Benign Hyperkeratotic Lesion(s)?(-57) More than 4 Lesions - The Benign hyperkeratotic lesions, as described in exam, were pared, and/or cut utilizing a sterile 15 blade, tissue nippers, and/or dremel - 42971, Q8.? * Procedure Codes:?65716 DEBRI DE NAIL, 6 OR MORE, Modifiers: XS 45627 TRIM SKIN LESIONS, OVER 4, Modifiers: XS , Q8 * Follow Up:?prn * Images: * Sign off status: Completed true * Provider:?Serg Hale DPM Date:?2023 Generated for Adilia olivares/Edwin/Valente on:?10/18/2024 04:21 PM EST History and Physical [...] B/L , SUB MTH (s), 5, B/L, Plantar, Heel(s), B/L Vascular DP PULSES(B): 0/4, RIGHT,1/4 PT PULSES(B): 0/4, B/L CAPILLARY FILL TIME: delayed, all digits , B/L TEMPERTURE GRADIENT(C): decreased, cool to cool, proximal to distal, B/L TROPHIC CONDITION-TEXTURE/ELASTICITY/TURGOR/HAIR GROWTH(B): decreased, with sparse to absent hair gr owth, B/L EDEMA(C): 2/4, pitting, withou t aching [...]
--- OUTSIDE RECORDS SUMMARY | 2024-10-18 16:22 | XMS_ITS | Continuity of Care Document ---
Author Organization [facility] Address [address] [place] [address] Dr [address] [place] [address] Phone Care Team Providers Care Machining Manager Name Role Phone Moses MICHAEL, ZACK, Brayan VENEGAS Unavailable U navailable Allergies, Adverse Reactions, Alerts Substance Reaction Status Criticality cephalexin Active No Information Medications Medication Instructions Dosage Effective Dates (start - stop) Status Comments LOSARTAN POTASSIUM (unknown strength) Not Available - Active LASIX (unknown strength) Not Available - Active LEVOTHYROXINE SODIUM (unknown strength) Not Available - Active MELOXICAM (unknown strength) Not Available - Active SIMVASTATIN (unknown strength) Not Available - Active Procedures Procedure Date Duplex Scan-extrem Veins; Uni/ Office/Outpt E&M Established 15 Mins Sep Office/Outpt E&M Established 15 Mins Sep Endovenous Laser, 1st Vein Office/Outpt E&M Established 15 Mins Jul Duplex Scan-extrem Veins; Comp 23 Office/Outpt E&M Established 15 Mins Jul Advance Directives Directive Yes / No Effective Date File Name No Information Encounters Encounter Description Practice Location Reason(s) For Visit Diagnoses Date Provider Providers Copied on Encounter [facility], [address] [place] [address] Dr Gibson [address]Dor[place], [id number], [place] tel:[phone] [facility] No Information 4 Moses MICHAEL, ZACK, THEO Schmidt. [address] [place], [place], [id number] , [place]. tel: [phone] Referring Provider: Jenna Dockery MD, 2 [facility] DrBianca, [address] [place] [address] D/B/A: [place], [address]. tel:[phone] [facility], [address] [place] [address] Dr [address]Dorothy [place], [id number], [place] tel:[phone] [facility] [place] Encounter for follow-up examination after completed treatment for conditions other than malignant nePain in right leg 3 Allan MICHAEL FACS Dima Rose. [address] [facility], [place] [address], [place], [address], [place]. tel:[phone] Referring Provider: Jenna Dockery MD, 2 [facility] DrBianca, [address] [place] [address] D/B/A: [place], [address]. tel:[phone] Office/Outpt E&M Established 15 Mins [facility], [address] [place] [address] [address]Dorothy [place], [id number], [place] tel:[phone] [facility] - [facility] Chronic venous hypertension (idiopathic) with other complications of left lower extremity 3 Allan Rose. [address] [facility], [place] [address], [place], [address], [place]. tel:[phone] Referring Provider: Jenna Dockery MD, 2 [facility] DrBianca, [address] [place] [address] D/B/A: [place], [address]. tel:[phone] Office/Outpt E&M Established 15 Mins [facility], [address] [place] [address] [address]Dorothy [place], [id number], [place] tel:[phone] [facility] [place] Chronic venous hypertension (idiopathic) with other complications of bilateral lower extremity 3 Allan Rose. [address] [facility], Suite [facility], [place], [address], [place]. [phone] Referring Provider: Jenna Dockery MD, 2 [facility] [address], [address] [place] [address] D/B[place]: [place], [address]. tel:[phone] [facility], [address] [place] [address] Dr [address]Dorothy [place], [id number], [place] tel:[phone] [facility] [place] Chronic venous hypertension (idiopathic) with inflammation of right lower extremity Nov-0 3 Allan MICHAEL FACS T RPFER Rose. [address] [facility], [place] [address], [place], [address], [place]. [phone] Referring Provider: Jenna Dockery MD, 2 [facility] DrBianca, [address] [place] [address] D/B/[place]: [place], [address]. tel:[phone] Office/Outpt E&M Established 15 Mins [facility], [address] [place] [address] Dr [address]Dorothy [place], [id number], [place] tel:[phone] [facility] - [facility] Chronic venous htn w inflammation of bilateral low extrm Sep-2 3 Allan MICHAEL FACS T THEO Rose. [facility], [place] [address], [place], [address], [place]. [phone] Referring Provider: Jenna Dockery MD, 2 [facility] DrBianca, [address] [place] [address] D/B/[place]: [place], [address]. tel:[phone] [facility], [address] [place] [address] Dr [address]Dorothy [place], [id number], [place] tel:[phone] [facility] - [facility] Chronic venous htn w oth comp of bilateral low extrm Sep-2 3 Allan MICHAEL FACS T RPFER Rose. [address] [facility], Suite [facility], [place], [address], [place]. tel:[phone] Referring Provider: Jenna Dockery MD, 2 [facility] , [address] [place] D/B/A: elsi [facility] [place], [address]. tel:[phone] Office/Outpt E&M Established 15 Mins [facility], [address] [facility] [address], [place], [id number], [place] tel:[phone] [facility] [place] Chronic venous htn w inflammation of bilateral low extrm Sep-2 3 Allan MICHAEL FACS RVT RPVI Laz Rose. [address] [facility], [address], [place], [address], [place]. tel:[phone] Referring Provider: Jenna Dockery MD, 2 [facility] , [address] [place] D/B/A: [place], [address]. tel:[phone] Family History Family Member Type Diagnosis Age At Onset No Information Payers Payer name Insurance type Covered republican ID [facility] [id number] Social History Type Description Quantity Date Captured Comments Alcohol Use Details Unknown Caffeine Use Details Unknown Tobacco Use Status No Information Smoking Status No Information Sex Female Chief Complaint And Reason For Visit No Information Reason For Referral Reason For Referral No Information Plan Of Treatment Date Type Action Status Goal Tobacco cessation counseling completed History Of Present Illness Encounter Date Complaint History Of Prese nt Illness No Information Functional Status Date Functional Assessmen t No Information Instructions Date Instruction Additional Infor mation No Information Assessments Type Assessment Date No Information Patient Care Teams Name Effective Dates (start - stop) Status Members No Information
--- OUTSIDE RECORDS SUMMARY | 2024-10-18 16:22 | XMS_ITS | Patient Health Record ---
Author Organization [facility] [place] Address [address] [facility] [place] [address] Care Team Providers Care Log Peeler Name Role Phone Martin MICHAEL, Jenna Primary Care Provider Unavail able Serg Hale Unavailable [phone] Allergies Allergen (clinical drug ingredient) Drug/Non Drug Allergy documented on EMR Reaction Allergy Type Onset Date Status Creek hives Drug Allergy Active cephalexin Cephalexin Unknown Drug Allergy Activ e nickel Nickel hives Allergy Active Reason For Referral No Information Medications Medication SIG (Take, Route, Frequency, Duration) Notes Start Date End Date Status traMADol HCl 50 MG 1 tablet as needed Orally Once a day PRM Not-Taking Meloxicam 15 MG 1 tablet Orally Once a day for 30 day(s) PRM Not-Taking Ciclopirox Olamine 0.77 % 1 application Externally Twice a day for 30 days Active Simvastatin 20 MG TAKE 1 TABLET BY MERI TH EVERY EVENING Orally Active Losartan Potassium 50 MG as directed Orally Active oxyCODONE-Acetaminophen Not-Taking Levothyroxine Sodium 88 MCG TAKE 1 [...] application Externally Twice a day Not-Takin g Furosemide 20 MG 1 tablet Orally Once a day for 30 day(s) Not-Taking Nystatin - as directed Orally Not-Taking Immunizations Vaccine Route Administration Date Status Comme nts COVID-19 Pfizer BioNTech Vaccine Unknown 10/23/2021 Administered 1st 12/21/2020 Influenza Unknown 08/16/2021 Administered Social History Tobacco Use: Social History Observation [...] Are you an other tobacco user? No Problems Problem Type SNOMED Code ICD Code Onset Dates Problem Status W/U Status Risk Notes Problem Atherosclerosis of [place] arteries of the extremities ([id number]) Atherosclerosis of [place] artery of both lower extremities, with unspecified presence of clinical manifestation (I70.203) Active confirmed Vital Signs Blood pressure diastolic 72 mm Hg 09/23/2024 Height 5 ft 2 in in 09/23/2024 Blood pressure systolic 120 mm Hg 09/23/2024 Weight 143 lbs 09/23/2024 BMI 26.15 kg/m2 09/23/2024 Procedures Procedure Date Ordered Date Performed Result Body Sit e 08081-JLYVAKY NAIL, 6 OR MORE 12/25/2023 N/A 92890-TOTC SKIN LESIONS, OVER 4 12/25/2023 N/A 81007-LNLZPVQ NAIL, 6 OR MORE 06/10/2024 N/A 11089-ARYH SKIN LESIONS, OVER 4 06/10/2024 N/A 96594-ZJVKMQK NAIL, 6 OR MORE 09/23/2024 N/A 10069-EVED SKIN LESIONS, OVER 4 09/23/2024 N/A Encounters Encounter Location Date Provider Diagnosis [address] [address] 12/25/2023 Serg Hale Atherosclerosis of [place] artery of both lower extremities, with unspecified presence of clinical manifestation I70.203 ; Tinea unguium B35.1 ; Pain in right toe(s) M79.674 ; Pain in left toe(s) M79.675 and Tinea pedis of both feet B35.[address] [facility] [address] 06/10/2024 Serg Hale Atherosclerosis of [place] artery of both lower extremities, with unspecified presence of clinical manifestation I70.203 ; Tinea unguium B35.1 ; Pain in right toe(s) M79.674 and Pain in left toe(s) M79.[address] [facility] [address] 09/23/2024 Serg Vargheseunier Atherosclerosis of [place] artery of both lower extremities, with unspecified presence of clinical manifestation I70.203 ; Tinea unguium B35.1 ; Pain in right toe(s) M79.674 and Pain in left toe(s) M79.675 Assessments Encounter Date Diagnosis (ICD Code) Assessment Notes Treatment Notes Treatment Clinical Notes Section Notes 12/25/2023 Tinea unguium (ICD-10 - B35.1) 12/25/2023 Atherosclerosis of [place] artery of both lower extremities, with unspecified presence of clinical manifestation (ICD-10 - I70.203) 06/10/2024 Tinea unguium (ICD-10 - B35.1) 06/10/2024 Atherosclerosis of [place] artery of both lower extremities, with unspecified presence of clinical manifestation (ICD-10 - I70.203) 09/23/2024 Tinea unguium (ICD-10 - B35.1) 09/23/2024 Atherosclerosis of [place] artery of both lower extremities, with unspecified presence of clinical manifestation (ICD-10 - I70.203) 06/10/2024 Pain in right toe(s) (ICD-10 - M79.674) 09/23/2024 Pain in right toe(s) (ICD-10 - M79.674) 12/25/2023 Pain in right toe(s) (ICD-10 - M79.674) 12/25/2023 Pain in left toe(s) (ICD-10 - M79.675) 09/23/2024 Pain in left toe(s) (ICD-10 - M79.675) 06/10/2024 Pain in left toe(s) (ICD-10 - M79.675) 12/25/2023 Tinea pedis of both feet (ICD-10 - B35.3) Plan Of Treatment Pending Test Test Name Order Date 76998-XNEBKTU NAIL, 6 OR MORE 03/11/2016 36938-UNEMKUR NAIL, 6 OR MORE 07/04/2016 40904-FIFLGKI NAIL, 6 OR MORE 10/10/2016 48600-OAAJGZC NAIL, 6 OR MORE 01/13/2017 21443-PFXLSDB NAIL, 6 OR MORE 06/25/2018 88333-BDPVBUS NAIL, 6 OR MORE 11/23/2020 65709-RIPUZWO NAIL, 6 OR MORE 02/22/2021 78600-KJVHCSA NAIL, 6 OR MORE 05/31/2021 04034-NFBWRAT NAIL, 6 OR MORE 08/30/2021 48773-IACJAHD NAIL, 6 OR MORE 11/29/2021 98409-OHUMCJV NAIL, 6 OR MORE 03/04/2022 20498-GKHCUVX NAIL, 6 OR MORE 06/20/2022 45119-ROEBRSX NAIL, 6 OR MORE 09/19/2022 50615-JODZQHK NAIL, 6 OR MORE 12/23/2022 98651-PASRCNF NAIL, 6 OR MORE 03/24/2023 26594-DHMZZRA NAIL, 6 OR MORE 06/23/2023 79973-TZHLWIU NAIL, 6 OR MORE 09/29/2023 57171-EFFIZST NAIL, 6 OR MORE 12/25/2023 14825-VWWQHWX NAIL, 6 OR MORE 06/10/2024 10162-KEFHYZA NAIL, 6 OR MORE 09/23/2024 91794-Pxrznaln Plate 09/19/2022 52453-Usddqszk Plate 09/29/2023 01279-Yqeejder Plate 12/23/2022 55858-XUFG SKIN LESIONS, OVER 4 12/23/19 23 13314-ESWF SKIN LESIONS, OVER 4 03/24/20 23 26324-DRJN SKIN LESIONS, OVER 4 09/29/20 23 75298-AIKJ SKIN LESIONS, OVER 4 06/23/20 23 22986-WJRV SKIN LESIONS, OVER 4 09/19/20 22 41082-ZBWP SKIN LESIONS, OVER 4 06/20/20 22 10869-VUFO SKIN LESIONS, OVER 4 03/04/20 22 04671-WPBX SKIN LESIONS, OVER 4 11/29/19 22 24734-WDHZ SKIN LESIONS, OVER 4 08/30/20 21 50832-KMSW SKIN LESIONS, OVER 4 05/31/20 21 02024-QKET SKIN LESIONS, OVER 4 02/23/20 21 52894-UIQL SKIN LESIONS, OVER 4 11/23/19 21 93307-QSQW SKIN LESIONS, OVER 4 01/14/20 17 19322-FZMP SKIN LESIONS, OVER 4 06/25/20 18 96856-KTFF SKIN LESIONS, OVER 4 10/10/20 16 49677-UASN SKIN LESIONS, OVER 4 07/04/20 16 70481-AAAH SKIN LESIONS, OVER 4 03/11/20 16 69414-KQDC SKIN LESIONS, OVER 4 12/25/19 24 52209-FPFB SKIN LESIONS, OVER 4 09/23/20 24 98792-TROT SKIN LESIONS, OVER 4 06/10/20 Next Appt Details Provider Name:Serg Hale , 12/27/2024 09:00:00 AM, [address] [place], [address], Insurance Providers Payer Name Payer Address Payer Phone Subscriber Number Group Number Insured Name Patient Relationship to Insured Coverage Start Date Coverage End Date [employer] [place] [employer]age [address] [place] [address] [id number] Sara Larson Self - patient is the insured Medical (General) History Medical History History ICD Code Arthritis High blood pressure Thyroid disorder Chicken pox Measles Mumps Cholesterol Back,Hip,and Knee pain CAD (Cholesterol) Numbness Osteoporosis thyroid swelling of feet and leg Surgical History Surgery Date(Month/Year) frozen vocal chord 2007 colonoscopy Invasive Vein Surgery 05/2018 tonsillectomy 1973 Invasive vein inficentcy 09/09/2023 Hospitalization History Reason Date(Month/Year) [facility] [place] [facility] [place] stuck in throat - Had x-ray 08/2020 [facility] [place] pt broke collar bone 06/05/2016
== END 2024-10-12 07:58 | disposition home or self-care (01) ==
LOC: HO.SH 07:57
PROVIDERS: Visit Provider Internal Medicine
DX: Z01.118 Encounter for examination of ears and hearing with other abnormal findings (principal); H90.A31 Mixed conductive and sensorineural hearing loss, unilateral, right ear with restricted hearing on the contralateral side; H90.A22 Sensorineural hearing loss, unilateral, left ear, with restricted hearing on the contralateral side
CPT/HCPCS: 92557; 92567

== ENCOUNTER 2024-10-13 13:22 | Outpatient (AMB) | payer MEDICARE, SELFPAY ==
--- NOTE | 2024-10-13 13:26 | MHC.PC.OV ---
Vital Signs 10/13/24 13:27 Height 5 ft 2 in Weight 165 lb BMI 30.2 BP 130/62 Blood Pressure Location Lt brachial Position Sitting Pulse 101 H Pulse Source Pulse Oximeter Pulse Oximetry (%) 96 Oxygen Delivery Method Room Air Intake Visit Reasons: Pre op Bilateral Cataract 11/10 & 11/21 Director Of Business Systems Required: No Accompanied by: Spouse Allergies orange Allergy (Intermediate, Verified 10/13/24 13:33) RASH cephalexin Allergy (Mild, Verified 10/13/24 13:33) Rash nickel [Nickel] Allergy (Mild, Verified 10/13/24 13:33) RASH Medication List - Last Reconciled 10/13/24 by Jenna Torres MD carbamide peroxide 6.5% (Debrox) 5 drps otic (ears) Q12H 4 days clobetasol 0.05% 1 appl topical BID 2 weeks levothyroxine 88 mcg PO DAILY 90 days lidocaine HCl 4% 1 patch topical DAILY PRN losartan 50 mg PO DAILY 90 days multivitamin 1 tab PO DAILY nystatin 1 appl topical DAILY simvastatin 20 mg PO BEDTIME 90 days trazodone 50 mg PO BEDTIME PRN 30 days Tobacco use date assessed: 11/16/23 Fall risk assessment: No Falls in past year Last assessed Fall Risk: 10/13/24 Dental Screening Dental Screen Date: 09/28/24 HPI HPI Comments History of Present Illness Details The patient is an 79-year-old female presenting with a need for pre-operative evaluation for cataract surgery. She reports fluid in her right ear which has been causing hearing difficulties. This was noted during a hearing test conducted the previous day. The presence of the fluid has led to impaired hearing in the right ear, while the left ear is functioning better. The patient has a history of persistent ear fluid which blocks and unblocks intermittently. She has previously been told that there is no wax accumulation but fluid causing the blockage. Additionally, she is currently on ciprofloxacin, which she started recently, as an antibiotic treatment. A history of essential hypertension is well-controlled. The patient's cholesterol levels are also well-managed, and her thyroid function and blood sugar levels are normal. She has had prior surgeries including a colonoscopy, right groin biopsy, and tonsillectomy. There is no history of smoking or alcohol consumption. [facility] Medical History (Updated 09/28/24 @ 10:11 by Jenna Torres MD) Abdominal pain Gallstones Bleeding hemorrhoids Deep vein thrombosis Autoimmune thyroiditis Venous (peripheral) insufficiency Overweight (BMI 25.0-29.9) Benign essential hypertension Pure hypercholesterolemia Cough Candidal intertrigo Intertrigo Bilateral lower leg cellulitis Hypothyroid Hyperlipidemia HTN (hypertension) Surgical History History of colonoscopy History of biopsy Hx of tonsillectomy Family History Father CAD (coronary artery disease) Coronary thrombosis Mother Hypertension Atherosclerosis Family/Other FH: mental illness Maternal Grandmother Diabetes Paternal Grandmother Esophageal cancer Social History Household Members: Spouse Housing: Assisted Living Facility Do you presently have visiting nurse or other home services: No Alcohol intake: never Patient Tobacco Use Status: Never used Tobacco e-Cigarette/Vaping Use: Never Used Second Hand Smoke Exposure: No Advance Directives Date on File: 09/01/23 service: No Current occupational status: disabled Cognitive needs: No Hearing needs: No Vision needs: Yes (glasses) Questionnaire Thrive Questionnaire Date Thrive assessed: 09/28/24 I am a: Patient What is your living situation today?: I have a steady place to live Within the past 12 months, did the food you bought not last and you didn't have the money to get more?: Never true Within the past 12 months, did you worry whether your food would run out before you got money to buy more?: Never true Do you have trouble paying for medicines?: No Do you have trouble getting transportation to medical appointments?: No Do you have trouble paying your heating and electricity bill?: No Do you have trouble taking care of your child, family member or friend?: No Do you have trouble with day-to-day activities such as bathing, preparing meals, shopping, managing finances, etc.?: No Are you currently unemployed and looking for a job?: No Are you interested in more education?: No Please select the resources that you would like help with: Food Currently or been in a relationship where the following occur: No concerns reported THRIVE Score: 0 GENE-7 AMB Questionnaire GENE-7 Date GENE - 7 assessed: 09/28/24 Source: Developed by Drs. Brayan England, Nicole Guillaume, Anselmo Lai and colleagues, with an educational patricia from [employer]. Review of Systems Const Details: - Cardiovascular: Denies chest pain or shortness of breath. - Musculoskeletal: Reports ability to climb stairs without difficulty. - Ears, Nose, Throat: Reports decreased hearing in the right ear. Physical exam (Primary Care) Vital Signs: Last Vital Signs Pulse 101 H 10/13/24 13:27 BP 130/62 10/13/24 13:27 Pulse Ox 96 10/13/24 13:27 Oxygen Delivery Method Room Air 10/13/24 13:27 BMI result Body Mass Index 30.2 BMI Assessment/Plan discussion: High BMI High, discussed plan: lifestyle, weight reduction, dietary and physical activity Tobacco/Smoking Status: Tobacco use Status Tobacco use date assessed 11/16/23 10/13/24 13:33 Patient Tobacco Use Status Never used Tobacco 10/13/24 13:33 e-Cigarette/Vaping Use Never Used 10/13/24 13:33 Thrive Assessment: Date of Thrive Assessment Date Thrive assessed 09/28/24 10/13/24 13:33 Currently or been in a relationship where the following occur: No concerns reported Const Other: Ears: External ears normal, fluid present in the right ear, hearing is much better in the left ear than in the right ear Eyes: Appearance normal, both eyes and all related structures Eyelids: Eyelids normal Conjunctivae: Conjunctivae normal Respiratory: Normal respiratory effort, clear to auscultation bilaterally, no shortness of breath Cardiovascular: No jugular venous distension, regular rate, regular rhythm, S1 normal heart sound present and S2 normal heart sound present, no chest pain Extremities: Full ROM Coding Level of Care Code Est Pt Level 4 (50016) Complex EM visit Add On G2211 Diagnoses Pre-op evaluation Z01.818 Bilateral hearing loss, unspecified hearing loss type H91.93 Hearing loss type: unspecified Laterality: bilateral Essential hypertension I10 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 Pure hypercholesterolemia E78.00 Time Spent (min) 21 Assessment & Plan Assessment & Plan (1) Pre-op evaluation: Code(s): Z01.818 - Encounter for other preprocedural examination Category: Medical (2) Hearing loss: Code(s): H91.90 - Unspecified hearing loss, unspecified ear Category: Medical Qualifiers: Hearing loss type: unspecified Laterality: bilateral Qualified Code(s): H91.93 - Unspecified hearing loss, bilateral (3) Essential hypertension: Code(s): I10 - Essential (primary) hypertension Category: Medical (4) 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 An electrocardiogram EKG) is ordered to update previous results obtained last year. Surgery is scheduled for November 10 and . - Otitis Media with Effusion: Prescribe ear drops to address fluid in the right ear. Patient is to follow up with further hearing testing and potential consideration of a hearing aid. - Essential Hypertension: Continue current management as blood pressure is well-controlled. - Hyperlipidemia: Continue current management since cholesterol is well-controlled. Patient was informed and verbally consented to the use of an ambient scribe for clinic note documentation during this visit. During our discussion, I focused on the patient's upcoming cataract surgery, ensuring pre-operative steps were clearly outlined, including the necessity of an updated EKG to medically clear patient. I explained the current findings regarding the fluid in the right ear and the prescription of ear drops to the patient. We discussed the implications of fluid build-up and the potential need for future hearing aids after resolution of the current issue. The patient was advised of her stable essential hypertension and well-managed lipid profile. Medications: New ciprofloxacin-dexamethasone 0.3-0.1 % 4 drps otic (ears) BID 7.5 mL 0RF 7 days Patient Instructions: - Obtain prescribed ear drops from [facility] on [address] for the fluid in the right ear. - Schedule and complete an EKG today as part of the pre-operative evaluation for upcoming cataract surgery. - Continue current antihypertensive and lipid-lowering medications. - Follow up regarding hearing improvement and potential need for a hearing aid.
[2024-10-13 13:27] VITALS: BP 130/62; PULSE 101; O2SAT 96; BMI 30.2
--- OUTSIDE RECORDS SUMMARY | 2024-10-19 02:23 | XMS_ITS ---
Author Organization [facility] Address [address] [place] [address] Care Team Providers Care Nurse Sexual Assault Name Role Phone Martin MICHAEL, Jenna Primary Care Provider Unavail Serg Kwong Unavailable [phone] grimes Encounters Encounter Location Date Provider Diagnosis [address] [address] 04/01/2024 Serg Hale Plan Of Treatment Next Appt Details Provider Name:Serg Hale , 12/27/2024 09:00:00 AM, [address] [place] [address], [phone], Progress Notes * Sara LARSON FDOB: [birth year] (79 yo F)Acc No.[id number]:04/01/2024 Progress Note Patient:?Sara LARSON Provider:Jacy Hale DPM :1945???Age:79 Y???Sex:Female D ate:04/01/2024 Address[place], [place] Pcp:Jenna Salazar MD Subjective: * Chief Complaints: [...] Hale DPM Date:?2023 Generated for Adilia olivares/Edwin/Valente on:?10/19/2024 02:23 AM EST
--- OUTSIDE RECORDS SUMMARY | 2024-10-19 02:23 | XMS_ITS ---
Author Organization [facility] Address [address] [facility] [place] [address] Care Team Providers Care Business Office Manager Name Role Phone Martin MICHAEL, Jenna Primary Care Provider Unavail able Serg Hale Unavailable [phone] Allergies Allergen (clinical drug ingredient) Drug/Non Drug Allergy documented on EMR Reaction Allergy Type Onset Date Status [place] hives Drug Allergy Active cephalexin Cephalexin Unknown Drug Allergy Activ e nickel Nickel hives Allergy Active REASON FOR VISIT At Risk Footcare, Painful Nail(s) aggrevated by shoes and causing difficulty standing/walking. Medications Medication SIG (Take, Route, Frequency, Duration) Notes Start Date End Date Status oxyCODONE-Acetaminophen Not-Taking Ivermectin 3 MG TAKE 3 TABLETS BY [facility] ONCE ON EMPTY STOMACH IN THE MORNING. [...] an other tobacco user? No Vital Signs Blood pressure systolic 120 mm Hg 09/23/20 Blood pressure diastolic 72 mm Hg 024 Height 5 ft 2 in in 09/23/2024 Weight 143 lbs 09/23/2024 BMI 26.15 kg/m2 09/23/2024 Procedures Procedure Date Ordered Date Performed Result Body Sit e 47752-XGSHJNT NAIL, 6 OR MORE 09/23/2024 N/A 31233-JRJJ SKIN LESIONS, OVER 4 09/23/2024 N/A Encounters Encounter Location Date Provider Diagnosis [facility] [place] [address] [place] [address] 09/23/2024 Serg Hale Atherosclerosis of [place] artery of both lower extremities, with unspecified presence of clinical manifestation I70.203 ; Tinea unguium B35.1 ; Pain in right toe(s) M79.674 and Pain in left toe(s) M79.675 Assessments Encounter Date Diagnosis (ICD Code) Assessment Notes Treatment Notes Treatment Clinical Notes Section Notes 09/23/2024 Atherosclerosis of [place] artery of both lower extremities, with unspecified presence of clinical manifestation (ICD-10 - I70.203) 09/23/2024 Tinea unguium (ICD-10 - B35.1) 09/23/2024 Pain in right toe(s) (ICD-10 - M79.674) 09/23/2024 Pain in left toe(s) (ICD-10 - M79.675) Plan Of Treatment Pending Test Test Name Order Date 60028-OSOQJPM NAIL, 6 OR MORE 09/23/2024 24767-VMOT SKIN LESIONS, OVER 4 09/23/20 24 Next Appt Details Follow Up: prn, Reason: Provider Name:Serg Bob Alexia , 12/27/2024 09:00:00 AM, [address] [place] [address], [phone], Procedure Notes * Category Sub-Category Detail Notes [...] use of a nail nipper and/or dremel-type precision thread grinder operator, to a more viable healthy nail plate or bed tissue 6-10. Silver nitrate used for any petechial bleeding as necessary. Definitive antifungal treatment options have been reviewed and discussed with the patient. The patient chooses, no pharmaceutical tx - 04609 Keratoma Treatment Parring or Cutting o f Benign Hyperkeratotic Lesion(s) (-57) More than 4 Lesions - The Benign hyperkeratotic lesions, as described in exam, were pared, and/or cut utilizing a sterile 15 blade, tissue nippers, and/or dremel - 17202, Q8 Progress Notes * Sara LARSON FDOB: [birth year] (79 yo F)Acc No.[id number]:09/23/2024 Progress Note Patient:?Sara LARSON Provider:?Serg Hale DPM :1945???Age:79 Y???Sex:Female D ate:09/23/2024 Address:[address] [place], [place] [address] Pcp:Jenna Salazar MD Subjective: * Chief Complaints: [...] vein inficentcy 09/09/2023 * Hospitalization/Major Diagno stic Procedure:?[facility] [place] pt broke collar bone 06/05/2016[facility] [place] Chicken bone stuck in throat - Had x-ray 08/2020[facility] [place] - diverticulitis 09/01- * Family History:?Mother: dece [...] cards, reading. ?Marital status: . 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 * Medications:?TakingLevothyro xine Sodium 88 MCG Tablet [...] Assessment: 1.?Tinea unguium - B35.1???2 .?Atherosclerosis of [place] artery of both lower extremities, with unspecified presence of clinical manifestation - I70.203 (Primary)???3.?Pain in right toe(s) - M79.674???4.?Pain in left toe(s) - M79.675??? Plan: * Treatment: 2.?Tinea unguium?Procedure: 86035-TOVVKJB NAIL, 6 OR MORE * Procedures:?Debride Nail [...] use of a nail nipper and/or dremel-type precision thread grinder operator, to a more viable healthy nail plate or bed tissue 6-10. Silver nitrate used for any petechial bleeding as necessary. Definitive antifungal treatment options have been reviewed and discussed with the patient. The patient chooses, no pharmaceutical tx - 56566.?Keratoma Treatment:?Parring or Cutting of Benign Hyperkeratotic Lesion(s)?(-57) More than 4 Lesions - The Benign hyperkeratotic lesions, as described in exam, were pared, and/or cut utilizing a sterile 15 blade, tissue nippers, and/or dremel - 47631, Q8.? * Procedure Codes:?72636 DEBRI DE NAIL, 6 OR MORE, Modifiers: XS 00556 TRIM SKIN LESIONS, OVER 4, Modifiers: XS , Q8 * Follow Up:?prn * Images: * Sign off status: Completed true * Provider:?Serg Hale DPM Date:?2023 Generated for Adilia olivares/Edwin/Valente on:?10/19/2024 02:23 AM EST History and Physical Notes * HPI [...]
--- OUTSIDE RECORDS SUMMARY | 2024-10-19 02:23 | XMS_ITS ---
Author Organization [facility]ardo [facility] Address [address] [facility] [place] [address] Care Team Providers Care Speedboat Driver Name Role Phone Martin MICHAEL, Jenna Primary Care Provider Unavail able Serg Hale Unavailable [phone] Allergies Allergen (clinical drug ingredient) Drug/Non Drug Allergy documented on EMR Reaction Allergy Type Onset Date Status [place] hives Drug Allergy Active cephalexin Cephalexin Unknown [...] application Externally Twice a day Not-Takin g Triamcinolone Acetonide 0.1 % USE TWICE DAILY [...] Signs Blood pressure systolic 120 mm Hg 06/10/20 Blood pressure diastolic 72 mm Hg 024 Height 5 ft 2 in in 06/10/2024 Weight 143 lbs 06/10/2024 BMI 26.15 kg/m2 06/10/2024 Procedures Procedure Date Ordered Date Performed Result Body Sit e 98202-HHUZUBZ NAIL, 6 OR MORE 06/10/2024 N/A 86386-YGJG SKIN LESIONS, OVER 4 06/10/2024 N/A Encounters Encounter Location Date Provider Diagnosis [facility] Sargeant [address] [place] [address] 06/10/2024 Serg Hale Atherosclerosis of [place] artery of both lower extremities, with unspecified presence of clinical manifestation I70.203 ; Tinea unguium B35.1 ; Pain in right toe(s) M79.674 and Pain in left toe(s) M79.675 Assessments Encounter Date Diagnosis (ICD Code) Assessment Notes Treatment Notes Treatment Clinical Notes Section Notes 06/10/2024 Atherosclerosis of [place] artery of both lower extremities, with unspecified presence of clinical manifestation (ICD-10 - I70.203) 06/10/2024 Tinea unguium (ICD-10 - B35.1) 06/10/2024 Pain in right toe(s) (ICD-10 - M79.674) 06/10/2024 Pain in left toe(s) (ICD-10 - M79.675) Plan Of Treatment Pending Test Test Name Order Date 13083-IDKRISD NAIL, 6 OR MORE 06/10/2024 15884-THKM SKIN LESIONS, OVER 4 06/10/20 24 Next Appt Details Follow Up: prn, Reason: Provider Name:Serg V Alexia , 12/27/2024 09:00:00 AM, [address] [place] [address], [id number], Procedure Notes * Category Sub-Category Detail Notes [...] as necessary. Patient chooses, no pharmaceutical tx (57178) Keratoma Treatment Parring or Cutting o f Benign Hyperkeratotic Lesion(s) 78641 ( >4 Lesions) - The Benign hyperkeratotic lesions, as described above were pared, and/or cut utilizing a sterile #15 blade, tissue nippers, and/or dremel, Q8 Progress Notes * Sara LARSON FDOB: [birth year] (79 yo F)Acc No.[id number]:06/10/2024 Progress Note Patient:?Sara Larson Provider:?Serg Hale DPM :1945???Age:79 Y???Sex:Female D ate:06/10/2024 Address:[address] [place], [place] [id number] Pcp:Jenna Salazar MD Subjective: * Chief Complaints: [...] vein inficentcy 09/09/2023 * Hospitalization/Major Diagno stic Procedure:?[facility] ER pt broke collar bone 06/05/2016[facility]- Chicken bone stuck in throat - Had x-ray 08/2020[facility] - diverticulitis 09/01- * Family History:?Mother: dece ased, arthritis.?Father: .?Spouse: alive.?Maternal Grand Mother: diagnosed with Diabetic - NIDDM.? * Social History:?Tobacco Use:?Tobacco Use/Smoking?Are you a:?nonsmoker ?Additional Findings: Tobacco Non-User?Current non-smoker ?Tobacco use other than smoking?Are you an other tobacco user??No ???Sexual History:?Caffeine: yes, 1-2 cups per day. ?Children: yes, 2 sons. ?Exercise: yes, walking, playing cards, reading. ?Marital status: . 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 ???Drugs/Alcohol:?Drugs?Have you used drugs other than those for medical reasons in the past 12 months??No ?Alcohol Screen?Did you have a drink containing alcohol in the past year??No ?Points?0 ?Interpretation?Negative ???Miscellaneous:?Caffeine: yes, 1-2 cups per day. ?Children: yes, 2 sons. ?Exercise: yes, walking, playing cards, reading. ?Marital status: . 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 * Medications:?TakingLevothyro xine Sodium 88 MCG Tablet [...] Assessment: 1.?Tinea unguium - B35.1?2.? Atherosclerosis of clover[place] artery of both lower extremities, with unspecified presence of clinical manifestation - I70.203 (Primary)?3.?Pain in right toe(s) - M79.674?4.?Pain in left toe(s) - M79.675? Plan: * Treatment: 2.?Tinea unguium?Procedure: 95855-SWNTNLD NAIL, 6 OR MORE * Procedures:?Debride Nail 6-10:?Nail debridement?Nail debridement performed extensively to reduce/remove overall nail length, girth, thickness, subungual debris, and necrotic tissue, by manual and electrical means through the use of a nail nipper and/or dremel, to more viable healthy nail plate or bed tissue 6-10. Silver nitrate used for any petechial bleeding as necessary. Patient chooses, no pharmaceutical tx (57730).?Keratoma Treatment:?Parring or Cutting of Benign Hyperkeratotic Lesion(s)?36101 ( >4 Lesions) - The Benign hyperkeratotic lesions, as described above were pared, and/or cut utilizing a sterile #15 blade, tissue nippers, and/or dremel, Q8.? * Procedure Codes:?10789 DEBRI DE NAIL, 6 OR MORE, Modifiers: XS 70998 TRIM SKIN LESIONS, OVER 4, Modifiers: XS , Q8 * Follow Up:?prn * Images: * Sign off status: Completed true * Provider:Jacy Hale DPM Date:?2023 Generated for Adilia olivares/Edwin/eTransmarlen on:?10/19/2024 02:23 AM EST History and Physical [...]
--- OUTSIDE RECORDS SUMMARY | 2024-10-19 02:24 | XMS_ITS | Continuity of Care Document ---
Author Organization [facility] Address [address] [place] [address] [address] [place] [address] Phone Care Team Providers Care Social Services Specialist Name Role Phone Moses MICHAEL, ZACK, Brayan [...] Providers Copied on Encounter [facility], [address] [place] [address] [address], [id number], [place] tel:[phone] [facility] No Information 4 Moses MICHAEL, ZACK, THEO Schmidt. [address] [place], [place], [id number] , [place]. tel: [phone] Referring Provider: Jenna Dockery MD, [address] [facility] DrBianca, [address] [place] [address] D/B/A: [place], [address]. tel:[phone] [facility], [address] [place] [address] Dr [address]Dorothy [place], [id number], [place] tel:[phone] [facility] - [place] [facility] [place] Encounter for follow-up examination after completed treatment for conditions other than malignant nePain in right leg 3 Allan MICHAEL FACS Dima Rose. [address] [facility], [place] [address], [place], [address], [place]. tel:[phone] Referring Provider: Jenna Dockery MD, 2 [facility] DrBianca, [address] [place] [address] D/B/A: [place], [address]. tel:[phone] Office/Outpt E&M Established 15 Mins [facility], [address] [place] [address] [address]Dor[place], [id number], [place] tel:[phone] [facility] - [facility] Chronic venous hypertension (idiopathic) with other complications of left lower extremity 3 Allan Rose. [address] [facility], [place] [address], [place], [address], [place]. tel:[phone] Referring Provider: Jenna Dockery MD, [address] [facility] [address]Bianca, [address] [place] [address] D/B/A: [place], [address]. tel:[phone] Office/Outpt E&M Established 15 Mins [facility], [address] [place] [address] [address]Dorothy [place], [id number], [place] tel:[phone] [facility] [place] [facility] [place] Chronic venous hypertension (idiopathic) with other complications of bilateral lower extremity 3 Allan Rose. [address] [facility], Suite [facility], [place], [address], [place]. [phone] Referring Provider: Jenna Dockery MD, [address], [address] [place] [address] D/B/[place]: [place], [address]. tel:[phone] [facility], [address] [place] [address] Dr [address]Dorothy [place], [id number], [place] tel:[phone] [facility] [place] Chronic venous hypertension (idiopathic) with inflammation of right lower extremity Nov-0 3 Allan MICHAEL FACS T RPFER Rose. [address] [facility], [place] [address], [place], [address], [place]. [phone] Referring Provider: Jenna Dockery MD, 2 [facility] [address]Bianca, [address] [place] [address] D/B/[place]: [place], [address]. tel:[phone] Office/Outpt E&M Established 15 Mins [facility], [address] [place] [address] Dr [address]Dorothy [place], [id number], [place] tel:[phone] [facility]R - [facility] Chronic venous htn w inflammation of bilateral low extrm Sep-2 3 Allan MICHAEL FACS T THEO Rose. [facility], [place] [address], [place], [address], [place]. [phone] Referring Provider: Jenna Dockery MD, 2 [facility] [address]Bianca, [address] [place] [address] D/B/[place]: [place], [address]. tel:[phone] [facility], [address] [place] [address] Dr [address]Dorothy [place], [id number], [place] tel:[phone] CVR - [facility] Chronic venous htn w oth comp of bilateral low extrm Sep-2 3 Allan MICHAEL FACS T RPFER Rose. [address] [facility], Suite [facility], [place], [address], [place]. tel:[phone] Referring Provider: Jenna Dockery MD, [address] [facility] , [address] [place] D/B/A: elsi [facility] [place], [address]. tel:[phone] Office/Outpt E&M Established 15 Mins [facility], [address] [facility] [address], [place], [id number], [place] tel:[phone] [facility] - [place] [facility] [place] Chronic venous htn w inflammation of bilateral low extrm Sep-2 3 Allan MICHAEL FACS RVT RPVI Laz Rose. [address] [facility], [address], [place], [address], [place]. tel:[phone] Referring Provider: Jenna Dockery MD, 2 [facility] , [address] [place] D/B/A: [place], [address]. tel:[phone] Family History Family Member Type Diagnosis Age At Onset No Information Payers Payer name Insurance type Covered democrat ID [facility] [id number] Social History Type Description Quantity Date Captured [...]
--- OUTSIDE RECORDS SUMMARY | 2024-10-19 02:24 | XMS_ITS | Patient Health Record ---
Author Organization [facility] Address [address] [facility] [place] [address] Care Team Providers Care Neurologist Name Role Phone Martin MICHAEL, Jenna Primary Care Provider Unavail able Serg Hale Unavailable [phone] Allergies Allergen (clinical drug ingredient) Drug/Non Drug Allergy documented on EMR Reaction Allergy Type Onset Date Status [place] hives Drug Allergy Active cephalexin Cephalexin Unknown [...] W/U Status Risk Notes Problem Atherosclerosis of [place] arteries of the extremities ([id number]) Atherosclerosis of [place] artery of both lower extremities, with unspecified presence of clinical manifestation (I70.203) Active confirmed Vital Signs Blood pressure diastolic 72 mm Hg 09/23/2024 Height 5 ft 2 in in 09/23/2024 Blood pressure systolic 120 mm Hg 09/23/2024 Weight 143 lbs 09/23/2024 BMI 26.15 kg/m2 09/23/2024 Procedures Procedure Date Ordered Date Performed Result Body Sit e 54476-CQHCJFX NAIL, 6 OR MORE 12/25/2023 N/A 20356-ZSDH SKIN LESIONS, OVER 4 12/25/2023 N/A 55980-DAAPNJL NAIL, 6 OR MORE 06/10/2024 N/A 53889-KTLA SKIN LESIONS, OVER 4 06/10/2024 N/A 46796-TAPOCTQ NAIL, 6 OR MORE 09/23/2024 N/A 16771-RAXX SKIN LESIONS, OVER 4 09/23/2024 N/A Encounters Encounter Location Date Provider Diagnosis [address] [address] 12/25/2023 Serg Hale Atherosclerosis of [place] artery of both lower extremities, with unspecified presence of clinical manifestation I70.203 ; Tinea unguium B35.1 ; Pain in right toe(s) M79.674 ; Pain in left toe(s) M79.675 and Tinea pedis of both feet B35.3 [facility] [address] 06/10/2024 Serg Hale Atherosclerosis of [place] artery of both lower extremities, with unspecified presence of clinical manifestation I70.203 ; Tinea unguium B35.1 ; Pain in right toe(s) M79.674 and Pain in left toe(s) M79.675 [facility] [address] 09/23/2024 Serg Vargheseunier Atherosclerosis of [place] artery of both lower extremities, with unspecified presence of clinical manifestation I70.203 ; Tinea unguium B35.1 ; Pain in right toe(s) M79.674 and Pain in left toe(s) M79.675 Assessments Encounter Date Diagnosis (ICD Code) Assessment Notes Treatment Notes Treatment Clinical Notes Section Notes 12/25/2023 Tinea unguium (ICD-10 - B35.1) 12/25/2023 Atherosclerosis of [place] artery of both lower extremities, with unspecified presence of clinical manifestation (ICD-10 - I70.203) 06/10/2024 Tinea unguium (ICD-10 - B35.1) 06/10/2024 Atherosclerosis of [place] artery of both lower extremities, with unspecified presence of clinical manifestation (ICD-10 - I70.203) 09/23/2024 Tinea unguium (ICD-10 - B35.1) 09/23/2024 Atherosclerosis of [place] artery of both lower extremities, with unspecified [...] Treatment Pending Test Test Name Order Date 35322-WCBDZYF NAIL, 6 OR MORE 03/11/2016 20009-MZWGHRL NAIL, 6 OR MORE 07/04/2016 13941-WXCGYJB NAIL, 6 OR MORE 10/10/2016 21289-XQKDEAO NAIL, 6 OR MORE 01/13/2017 90834-JWBMOWY NAIL, 6 OR MORE 06/25/2018 63530-RAJDSPG NAIL, 6 OR MORE 11/23/2020 37409-EPNMAGZ NAIL, 6 OR MORE 02/22/2021 42871-ZFMVOMK NAIL, 6 OR MORE 05/31/2021 50116-KBCQLVJ NAIL, 6 OR MORE 08/30/2021 89881-RPYIRZQ NAIL, 6 OR MORE 11/29/2021 83559-IGZFRUM NAIL, 6 OR MORE 03/04/2022 31581-SQRNSBF NAIL, 6 OR MORE 06/20/2022 40232-AYOLLZV NAIL, 6 OR MORE 09/19/2022 19185-KESUJYO NAIL, 6 OR MORE 12/23/2022 27862-OTLBCFF NAIL, 6 OR MORE 03/24/2023 90950-XRAPAEL NAIL, 6 OR MORE 06/23/2023 88176-IWYKIZJ NAIL, 6 OR MORE 09/29/2023 92472-PVPGHMN NAIL, 6 OR MORE 12/25/2023 30603-RZJSEYE NAIL, 6 OR MORE 06/10/2024 17081-DEUVVYC NAIL, 6 OR MORE 09/23/2024 37831-Epmnpdyd Plate 09/19/2022 81723-Bqxmhvxx Plate 09/29/2023 60459-Hcmlgvzt Plate 12/23/2022 78718-AJUE SKIN LESIONS, OVER 4 12/23/19 23 47207-EJTU SKIN LESIONS, OVER 4 03/24/20 23 70981-XVWY SKIN LESIONS, OVER 4 09/29/20 23 01156-ZFWY SKIN LESIONS, OVER 4 06/23/20 23 57314-IYUY SKIN LESIONS, OVER 4 09/19/20 22 60922-UWHD SKIN LESIONS, OVER 4 06/20/20 22 74116-LWFN SKIN LESIONS, OVER 4 03/04/20 22 65935-STVV SKIN LESIONS, OVER 4 11/29/19 22 68442-IEJM SKIN LESIONS, OVER 4 08/30/20 21 18782-XVRR SKIN LESIONS, OVER 4 05/31/20 21 19073-KUWO SKIN LESIONS, OVER 4 02/23/20 21 23330-LBUP SKIN LESIONS, OVER 4 11/23/19 21 43353-FHGL SKIN LESIONS, OVER 4 01/14/20 17 01503-RPPI SKIN LESIONS, OVER 4 06/25/20 18 70649-PRGQ SKIN LESIONS, OVER 4 10/10/20 16 52985-IHRZ SKIN LESIONS, OVER 4 07/04/20 16 19323-YUMT SKIN LESIONS, OVER 4 03/11/20 16 15205-UVYW SKIN LESIONS, OVER 4 12/25/19 24 87162-JFKA SKIN LESIONS, OVER 4 09/23/20 24 28660-OFJC SKIN LESIONS, OVER 4 06/10/20 Next Appt Details Provider Name:Serg Hale , 12/27/2024 09:00:00 AM, [address] [place], [address], Insurance Providers Payer Name Payer Address Payer Phone Subscriber Number Group Number Insured Name Patient Relationship to Insured Coverage Start Date Coverage End Date [employer] [place] [employer] Advantage [address] [place] [address] [phone] [id number] Sara Larson Self - patient is the insured Medical (General) History Medical History History ICD Code Arthritis High blood pressure Thyroid disorder Chicken pox Measles Mumps Cholesterol Back,Hip,and Knee pain CAD (Cholesterol) Numbness Osteoporosis thyroid swelling of feet and leg Surgical History Surgery Date(Month/Year) frozen vocal chord 2007 colonoscopy Invasive Vein Surgery 05/2018 tonsillectomy 1973 Invasive vein inficentcy 09/09/2023 Hospitalization History Reason Date(Month/Year) [facility] - diverticulitis 09/01- [facility]- Chicken bone stuck in throat - Had x-ray 08/2020 [facility] ER pt broke collar bone 06/05/2016
== END 2024-10-13 13:46 | disposition home or self-care (01) ==
PROVIDERS: PCP Internal Medicine; Visit Provider Internal Medicine
DX: Z01.818 Encounter for other preprocedural examination (principal); H91.93 Unspecified hearing loss, bilateral; I10 Essential (primary) hypertension; E06.3 Autoimmune thyroiditis; E78.00 Pure hypercholesterolemia, unspecified

== ENCOUNTER → 2024-10-13 13:22 | Outpatient (REF) | payer MEDICARE, SELFPAY ==
--- NOTE | 2024-10-13 14:09 | ECG_ITS ---
Test Reason : preop Blood Pressure : / mmHG Vent. Rate : 104 BPM Atrial Rate : 104 BPM P-R Int : 144 ms QRS Dur : 076 ms QT Int : 334 ms P-R-T Axes : 040 041 065 degrees QTc Int : 439 ms Sinus tachycardia Otherwise normal ECG When compared with ECG of 11-AUG-2023 11:35, No significant change was found Referred By: Jenna Torres Electronically Signed By:Jack Stallings
--- OUTSIDE RECORDS SUMMARY | 2024-10-19 02:59 | XMS_ITS | Continuity of Care Document ---
Author Organization [facility] Address [address] [place] [address] [address] [place] [address] Phone Care Team Providers Care Offal Trimmer Name Role Phone Moses MICHAEL, ZACK, Brayan [...] Providers Copied on Encounter [facility], [address] [place] [address] [address] 1000[place]othy [place], [id number], [place] tel:[phone] [facility] No Information 4 Moses MICHAEL, ZACK, THEO Schmidt. [address] [place], [place], [id number] , [place]. tel: [phone] Referring Provider: Jenna Dockery MD, [address] [facility] DrBianca, [address] [place] [address] D/B/A: [place], [address]. tel:[phone] [facility], [address] [place] [address] Dr [address] 1000Dorothy [place], [id number], [place] tel:[phone] [facility] - [place] Encounter for follow-up examination after completed treatment for conditions other than malignant nePain in right leg 3 Allan MICHAEL FACS Dima Rose. [address] [facility], [place] [address], [place], [address], [place]. tel:[phone] Referring Provider: Jenna Dockery MD, 2 [facility] DrBianca, [address] [place] [address] D/B/A: [facility], [address]. tel:[phone] Office/Outpt E&M Established 15 Mins [facility], [address] [place] [address] [address] 1000Dorothy [place], [id number], [place] tel:[phone] [facility] - [facility] Chronic venous hypertension (idiopathic) with other complications of left lower extremity 3 Allan Rose. [address] [facility], [place] [address], [place], [address], [place]. tel:[phone] Referring Provider: Jenna Dockery MD, 2 [facility] DrBianca, [address] [place] [address] D/B/A: [facility], [address]. tel:[phone] Office/Outpt E&M Established 15 Mins [facility], [address] [place] [address] [address] 1000Dorothy [place], [id number], [place] tel:[phone] [facility] [place] Chronic venous hypertension (idiopathic) with other complications of bilateral lower extremity 3 Allan Rose. [address] [facility], Suite [facility], [place], [address], [place]. [phone] Referring Provider: Jenna Dockery MD, [address]ca, [address] [place] [address] D/B[place]: [place], [address]. tel:[phone] [facility], [address] [place] [address] Dr [address]Dorothy [place], [id number], [place] tel:[phone] [facility] [place] Chronic venous hypertension (idiopathic) with inflammation of right lower extremity Nov-0 3 Allan MICHAEL FACS T RPFER Rose. [address] [facility], [place] [address], [place], [address], [place]. [phone] Referring Provider: Jenna Dockery MD, 2 [facility] DrBianca, [address] [place] [address] D/B/A: [place], [address]. tel:[phone] Office/Outpt E&M Established 15 Mins [facility], [address] [place] [address] Dr [address] 1000Dorothy [place], [id number], [place] tel:[phone] CVR - [facility] Chronic venous htn w inflammation of bilateral low extrm Sep-2 3 Allan MICHAEL FACS T THEO Rose. [facility], [place] [address], [place], [address], [place]. [phone] Referring Provider: Jenna Dockery MD, 2 [facility] DrBianca, [address] [place] [address] D/B/[place]: [place], [address]. tel:[phone] [facility], [address] [place] [address] Dr [address] 1000Dorothy [place], [id number], [place] tel:[phone] [facility]R - [facility] Chronic venous htn w oth comp of bilateral low extrm Sep-2 3 Allan MICHAEL FACS T RPFER Rose. [address] [facility], Suite [facility], [place], [address], [place]. tel:[phone] Referring Provider: Jenna Dockery MD, 2 [facility] , [address] [place] D/B/A: elsi [facility] [place], [address]. tel:[phone] Office/Outpt E&M Established 15 Mins [facility], [address] [facility] [address], [place], [id number], [place] tel:[phone] [facility] [place] Chronic venous htn w inflammation of bilateral low extrm Sep-2 3 Allan MICHAEL FACS RVT RPVI Laz Rose. [address] [facility], [address], [place], [address], [place]. tel:[phone] Referring Provider: Jenna Dockery MD, [address] [facility] , [address] [place] D/B/A: [place], [address]. tel:[phone] Family History Family Member Type Diagnosis Age At Onset No Information Payers Payer name Insurance type Covered libertarian ID [facility]([employer] [facility] [id number] Social History Type Description Quantity Date Captured [...]
== END ==
LOC: HO.CARD 13:22
PROVIDERS: PCP Internal Medicine; Visit Provider Internal Medicine
DX: Z01.818 Encounter for other preprocedural examination (principal); H91.93 Unspecified hearing loss, bilateral; I10 Essential (primary) hypertension; E06.3 Autoimmune thyroiditis; E78.00 Pure hypercholesterolemia, unspecified
CPT/HCPCS: 93005; 99212

== ENCOUNTER → 2024-10-13 14:09 | Outpatient (BNV) | payer MEDICARE, SELFPAY | PROVIDERS: PCP Internal Medicine; Visit Provider Internal Medicine Cardiovascular Disease | DX: R00.0 Tachycardia, unspecified (principal) | CPT/HCPCS: 93010 ==

== ENCOUNTER 2025-02-07 09:43 | Outpatient (AMB) | payer MEDICARE, MEDICAID, SELFPAY ==
--- NOTE | 2025-02-07 09:51 | MHC.PC.OV ---
Vital Signs 02/07/25 09:58 Height 5 ft 2 in Weight 147 lb BMI 26.9 BP 130/64 Blood Pressure Location Lt brachial Position Sitting Intake Visit Reasons: thyroid Intake Note: Patient here for a follow up Thyroid Architectural Representative Required: No Accompanied by: Spouse Allergies orange Allergy (Intermediate, Verified 02/07/25 10:08) RASH cephalexin Allergy (Mild, Verified 02/07/25 10:08) Rash nickel [Nickel] Allergy (Mild, Verified 02/07/25 10:08) RASH Medication List - Last Reconciled 02/07/25 by Jenna Torres MD clobetasol 0.05% 1 appl topical BID 2 weeks levothyroxine 88 mcg PO DAILY 90 days lidocaine HCl 4% 1 patch topical DAILY PRN losartan 50 mg PO DAILY 90 days multivitamin 1 tab PO DAILY nystatin 1 appl topical DAILY simvastatin 20 mg PO BEDTIME 90 days trazodone 50 mg PO BEDTIME PRN 30 days Tobacco use date assessed: 02/07/25 Fall risk assessment: No Falls in past year Last assessed Fall Risk: 02/07/25 Dental Screening Dental Screen Date: 02/07/25 Did you have a dental visit in the last 12 months?: No Did you have a dental problem in the last 6 months where you did not have access to dental care?: No Was dental information given to patient?: Patient has dentist HPI HPI Comments History of Present Illness Details The patient is an 79-year-old female presenting for a follow-up on her chronic medical conditions. She has a history of essential hypertension, well-managed with losartan and amlodipine, with no side effects such as leg swelling. Her hypertension management appears effective, as her blood pressure is stable. She also has a controlled case of hypothyroidism, taking levothyroxine with a normal TSH reading. For hypercholesterolemia, she is on simvastatin. The patient manages eczema with a topical cream and avoids known allergens such as orange, Keflex, and nickel, which cause rashes. Due to cataract surgery, her recent inability to drive at night postponed her lab work. Now with improved vision, she has adjusted her lifestyle, avoiding eating between meals and ice cream, which she has removed from her diet, contributing to weight management. [facility] Medical History (Updated 02/07/25 @ 10:20 by Jenna Torres MD) Abdominal pain Gallstones Bleeding hemorrhoids Deep vein thrombosis Autoimmune thyroiditis Venous (peripheral) insufficiency Overweight (BMI 25.0-29.9) Benign essential hypertension Pure hypercholesterolemia Cough Candidal intertrigo Intertrigo Bilateral lower leg cellulitis Hypothyroid Hyperlipidemia HTN (hypertension) Surgical History History of colonoscopy History of biopsy Hx of tonsillectomy Family History Father CAD (coronary artery disease) Coronary thrombosis Mother Hypertension Atherosclerosis Family/Other FH: mental illness Maternal Grandmother Diabetes Paternal Grandmother Esophageal cancer Social History Household Members: Spouse Housing: Assisted Living Facility Do you presently have visiting nurse or other home services: No Alcohol intake: never Patient Tobacco Use Status: Never used Tobacco e-Cigarette/Vaping Use: Never Used Second Hand Smoke Exposure: No Advance Directives Date on File: 09/01/23 service: No Current occupational status: disabled Cognitive needs: No Hearing needs: No Vision needs: Yes (glasses) Questionnaire PHQ-9 Over the last 2 weeks, how often have you been bothered by any of the following problems? 1. Little interest or pleasure in doing things: not at all 2. Feeling down, depressed, or hopeless: not at all 3. Trouble falling or staying asleep, or sleeping too much: not at all 4. Feeling tired or having little energy: not at all 5. Poor appetite or overeating: not at all 6. Feeling bad about yourself - or that you are a failure or have let yourself or your family down: not at all 7. Trouble concentrating on things, such as reading the newspaper or watching television: not at all 8. Moving or speaking so slowly that other people could have noticed. Or the opposite - being so fidgety or restless that you have been moving around a lot more than usual: not at all 9. Thoughts that you would be better off or of hurting yourself in some way: not at all Total score: 0 Depression Screening Interpretation: Negative Depression Screening Done: Yes 64882 - PHQ-9 Billing: Yes Source: Developed by Drs. Brayan LNicole Nolan Kurt Kroenke and colleagues, with an educational patricia from [employer] [place]. Thrive Questionnaire Date Thrive assessed: 02/07/25 I am a: Patient What is your living situation today?: I have a steady place to live Within the past 12 months, did the food you bought not last and you didn't have the money to get more?: Never true Within the past 12 months, did you worry whether your food would run out before you got money to buy more?: Never true Do you have trouble paying for medicines?: No Do you have trouble getting transportation to medical appointments?: No Do you have trouble paying your heating and electricity bill?: No Do you have trouble taking care of your child, family member or friend?: No Do you have trouble with day-to-day activities such as bathing, preparing meals, shopping, managing finances, etc.?: No Are you currently unemployed and looking for a job?: No Are you interested in more education?: No Please select the resources that you would like help with: Food Currently or been in a relationship where the following occur: No concerns reported THRIVE Score: 0 AUDIT C Alcohol Use Questionnaire (AUDIT-C) 1. How often do you have a drink containing alcohol?: Never Total Score: 0 Score Reviewed/Action Taken: No GENE-7 AMB Questionnaire GENE-7 Date GENE - 7 assessed: 02/07/25 Feeling nervous, anxious, or on edge: 0 = Not at all Not being able to stop or control worryin = Not at all Worrying too much about different things: 0 = Not at all Trouble relaxin = Not at all Being so restless that it is hard to sit still: 0 = Not at all Becoming easily annoyed or irritable: 0 = Not at all Feeling afraid as if something awful might happen: 0 = Not at all Total GENE-7 score (0-4 normal; 5-9 mild; 10-14 moderate; 15-21 severe): 0 Source: Developed by Nicole Sheehan Kurt Kroenke and colleagues, with an educational patricia from [employer] [place]. GENE-7 Assessment Billing GENE-7 Assessment Tool: GENE-7 Assessment 00233 Review of Systems Const All systems reviewed & are unremarkable except as noted in HPI and below Card Denies chest pain at rest, Denies chest pain with activity, Denies edema, Denies irregular heart rhythm, Denies claudication, Denies dyspnea, Denies dyspnea on exertion, Denies orthopnea, Denies paroxysmal nocturnal dyspnea and Denies slow heart rate Resp Denies cough, Denies dyspnea and Denies dyspnea on exertion GI Denies abdominal pain, Denies change in bowel habits, Denies excessive flatus, Denies nausea and Denies vomiting Denies urinary incontinence, Denies urinary hesitancy and Denies urinary urgency Musc Denies abnormal gait, Denies atrophy, Denies deformity and Denies limited range of motion Skin/Breast Denies bleeding lesions, Denies changing lesions and Denies rash Neuro Denies abnormal gait and Denies lack of coordination Physical exam (Primary Care) Vital Signs: Last Vital Signs BP 130/64 02/07/25 09:58 BMI result Body Mass Index 26.9 Tobacco/Smoking Status: Tobacco use Status Tobacco use date assessed 02/07/25 02/07/25 10:04 Patient Tobacco Use Status Never used Tobacco 02/07/25 09:52 e-Cigarette/Vaping Use Never Used 02/07/25 09:52 PHQ-9: PHQ-9 Score PHQ-9: Total score 0 02/07/25 09:52 Depression Screening Interpretation: Negative Thrive Assessment: Date of Thrive Assessment Date Thrive assessed 02/07/25 02/07/25 09:52 Currently or been in a relationship where the following occur: No concerns reported Resp Effort & Inspection: normal respiratory effort Auscultation: clear to auscultation bilaterally Cardio Jugular venous distension: no JVD Rate: regular rate Rhythm: regular rhythm Heart sounds: S1 normal heart sound present and S2 normal heart sound present Extrem General: Yes full ROM Coding Level of Care Code Est Pt Level 4 (16101) Complex EM visit Add On G2211 Diagnoses Essential hypertension I10 Pure hypercholesterolemia E78.00 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 Eczema L30.9 Additional Codes PHQ-9 - 79930 - PHQ-9 Billing: Yes ([id number]) GENE-7 Assessment Billing - GENE-7 Assessment Tool: GNEE-7 Assessment 56172 ([id number]) Time Spent (min) 21 Assessment & Plan Assessment & Plan (1) Essential hypertension: Code(s): I10 - Essential (primary) hypertension Category: Medical (2) Pure hypercholesterolemia: Code(s): E78.00 - Pure hypercholesterolemia, unspecified Category: Medical (3) 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 Essential hypertension is well controlled with losartan and amlodipine. Hypothyroidism remains stable with levothyroxine, supported by normal TSH levels. Additionally, simvastatin will continue for hypercholesterolemia management. Cataract surgery has necessitated delaying lab work, but this will be addressed at her subsequent visit. Her dietary changes are noted as positive steps toward effective weight management. Patient was informed and verbally consented to the use of an ambient scribe for clinic note documentation during this visit. I confirmed with the patient that her treatment plan for essential hypertension and hypothyroidism remains the same, as her current medical regimen, including losartan, amlodipine, and levothyroxine, aligns well with clinical goals. We discussed the benefits of continued adherence to simvastatin for cholesterol management. The slight delay in obtaining laboratory work due to her cataract surgery was reviewed, with plans to conduct these tests at her next visit in four months. We addressed lifestyle adjustments she has made, particularly in her diet, which she has managed effectively by eliminating specific foods. Our follow-up plan includes a review of her blood pressure, thyroid status, cholesterol levels, and overall adherence to her treatment regimen, with a visit scheduled in four months. Orders: Orders Lipid Panel 4 Months E78.5 - Hyperlipidemia, unspecified, I10 - Essential (primary) hypertension Comprehensive Bryant. Panel Fast 4 Months I10 - Essential (primary) hypertension Thyroid Stimulating Hormone 4 Months E06.3 - Autoimmune thyroiditis Patient Instructions: - Continue current medications: losartan, amlodipine, levothyroxine, simvastatin, and eczema cream as needed. - Adhere to dietary changes by avoiding eating between meals and ice cream. - Blood work will be done in four months at the next office visit. - Contact the office if there are any changes in symptoms such as chest pain, shortness of breath, or swelling. - Schedule an appointment in four months for follow-up and lab tests.
[2025-02-07 09:58] VITALS: BP 130/64; BMI 26.9
--- OUTSIDE RECORDS SUMMARY | 2025-02-07 11:09 | XMS_ITS ---
Author Organization [facility] Address [address] [place] [address] Phone Care Team Providers Care In School Suspension Coordinator Name Role Phone Sachin Fiore NP Primary Care Provider [phone] Program of [facility]-In[facility] for the Elderly Status:Enrolled (Active) Start date:11/09/2024 Enrollment date:11/09/2024 Related social drivers of health:Housing Instability, TH Health Literacy, Financial Risk, Transportation, Social Isolation, Food Risk Overview This episode will track PACE documentation. Case Team Name Relationship Phone Sachin Fiore HAND CEMENTER Nurse Practitioner [phone] Ryland Miller Recreational Therapist Tiffanie Phillips RN Gold Frame Assembler Jose Maria Rene OT Occupational Therapist Juan José Meyer RN Registered Nurse Beba Sevillaitidestin [place] Metal Engraver Juan Pablo Benoit LCSW Assistant Cook Caroline Guzman RN Gold Frame Assembler Yanet Gordon Assistant Cook Ishmael Weaver Spiritual Care Katarzyna Mccollum PT Physical Therapist Elina Bustos MD Primary Care Provider Continued Care and Services Coordination
--- OUTSIDE RECORDS SUMMARY | 2025-02-07 11:09 | XMS_ITS ---
Author Organization [facility] Address [address] [facility] [place] [address] Care Team Providers Care Chef French Name Role Phone Martin MICHAEL, Jenna Primary Care Provider Unavail able Serg Hale Unavailable [phone] Allergies Allergen (clinical drug ingredient) Drug/Non Drug Allergy documented on EMR Reaction Allergy Type Onset Date Status [place] hives Drug Allergy Active cephalexin Cephalexin Unknown [...] FOR FACE/BODY FOLDS External for 14 Not-Taking Ketoconazole 2 % APPLY TWICE A DAY UN ANTOLIN CHEST FOR 4 WEEKS External for 20 Not-Taking Ivermectin 3 MG TAKE 3 TABLETS BY [facility] ONCE ON EMPTY STOMACH IN THE MORNING. REPEAT IN 14 DAYS Oral for 2 Not-Taking oxyCODONE-Acetaminophen Not-Taking Ciclopirox Olamine 0.77 % 1 application Externally Twice a day for 30 days Active Meloxicam 15 MG 1 [...] Negative Encounters Encounter Location Date Provider Diagnosis [facility] [address] [address] 12/27/2024 Serg Hale Plan Of Treatment Next Appt Details Provider Name:Serg Hale , 03/31/2025 09:00:00 AM, [address] [place] [address], [phone], Progress Notes * Sara LARSON FDOB: [birth year] (79 yo F)Acc No.[id number]:12/27/2024 Progress Note Patient:?Sara LARSON Provider:?Serg Hale DPM :1945???Age:79 Y???Sex:Female D ate:12/27/2024 Address:[address] [place] [address] [place], [place] [id number] Pcp:Jenna Salazar MD Subjective: * Chief Complaints: * ??? * ROS:?General/Constitutional:?Nausea?denies.?Vomiting?denies.?Hunger Thirst?denies.?Loss appetite?denies.?Chills?denies.?Fatigue?denies.?Fever?denies.?Night Sweats?denies.?Unexplained weight loss?denies.?Unexplained weight gain?denies.?HEENTM:?Dentures?denies.?Dizziness?denies.?Glasses/contacts?admits.?Retinopathy?de nies.?Blurred/double vision?denies.?TMJ?denies.?Discharge/drainage?denies.?Implants?denies.?Sore throat?denies.?Dental implants?denies.?Hard of hearing ?admits.?Difficulty chewing/swallowing/speaking?denies.?Nose bleeds?denies.?Sore mouth?denies.?Respiratory:?On Oxygen?denies.?Pneumonia/pleurisy?admits.?Bronchitis?admits.?Emphysema?denies.?C oughing?denies.?Cough blood?denies.?Shortness of breath?denies.?Wheezing?denies.?Cardiovascular:?Pacemaker?denies.?MVP?denies.?WPW?denies.?CHF?denies.?Heart attack?denies.?Septal defect?denies.?Rapid beat?denies.?Chest pain ?denies.?Atrial Fib.?denies.?Murmur/Palpitations?denies.?Gastrointestinal:?Hemorrhoids?denies.?Stomach/Abdominal pain?denies.?Dark blood stool?denies.?Irritable bowel ?denies.?Constipation?denies.?Diarrhea?denies.?Hematology:?Swelling?admits.?Clots?denies.?Varicose Veins?admits.?Bruising?denies.?Bleeding problem?denies.?Genitourinary:?Blood urine?denies.?Frequent/Painfu/urination/bladder control?denies.?Kidney stones?denies.?Infection (UTI)?denies.?Nephropathy?admits.?sex trans dis (STD)?denies.?Prostate?denies.?Musculoskeletal:?Hammertoes?denies.?Bunions?denies.?Back Pain?admits.?Muscle Cramps/ Resting?admits.?Muscle cramps / walking?admits.?Generalized aches and pains?admits.?Weakness?denies.?Integ.:?[place]?denies.?Scars?denies.?Corns/calluses?admits.?Ingrown nails?admits.?Painful nails?admits.?Open Sores?denies.?Rashes?admits.?Neurologic:?Difficulty sleeping?denies.?Brain disorder?denies.?Numbness?admits.?Balance trouble?denies.?Confusion?denies.?Fainting/blackouts?denies.?Tingling?denies.?Tr emors?denies.? * Medical History:?Arthritis, High blood pressure, Thyroid disorder, Chicken pox, Measles, Mumps, Cholesterol, Back,Hip,and Knee pain, CAD (Cholesterol), Numbness, Osteoporosis, Thyroid, Swelling of feet and leg. * Social History:?Tobacco Use:?Tobacco use other than smoking?Are you an other tobacco user??No ?Tobacco Control (Standard)?Tobacco use:?Nonsmoker ?Additional Findings: Tobacco non-user?Current nonsmoker ???Drugs/Alcohol:?Drugs?Have you used drugs other than those for medical reasons in the past 12 months??No ???Drug/Alcohol:?AUDIT-C (Standard)?Did you have a drink containing alcohol in the past year??No ?Points?0 ?Interpretation?Negative * Medications:?Taking Levothyr oxine Sodium 88 MCG Tablet TAKE 1 TABLET BY MOUTH EVERY DAY Orally , Taking Losartan Potassium 50 MG Tablet as directed Orally , Taking Simvastatin 20 MG Tablet TAKE 1 TABLET BY MOUTH EVERY EVENING Orally , Taking Ciclopirox Olamine 0.77 % Cream 1 application Externally Twice a day , Not- Taking/PRN Meloxicam 15 MG Tablet 1 tablet Orally Once a day , Notes to Pharmacist: PRM, Not-Taking/PRN traMADol HCl 50 MG Tablet 1 tablet as needed Orally Once a day , Notes to Pharmacist: PRM, Not-Taking/PRN Nystatin - Powder as directed Orally , Not-Taking/PRN Furosemide 20 MG Tablet 1 tablet Orally Once a day , Not- Taking/PRN Clotrimazole-Betamethasone 1-0.05 % Cream 1 application Externally [...] 14 DAYS Oral , Not-Taking/PRN oxyCODONE-Acetaminophen * Allergies:?Cephalexin, Nicke [place]: hives, [place]: hives. Objective: * Vitals:? Assessment: Plan: * Treatment: * Images: * The named appointment provid er may or may not be the originator of this progress note, and it is not deemed complete until electronically signed by the appointment provider. Sign off status: Pending * Provider:?Serg Hale DPM Date:?2024 Generated for Adilia olivares/Edwin/Valente on:?02/07/2025 11:09 AM EDT
--- OUTSIDE RECORDS SUMMARY | 2025-02-07 11:09 | XMS_ITS ---
Author Organization [facility] Address [address] [facility] [place] [address] Care Team Providers Care Finance Effectiveness Manager Name Role Phone Martin MICHAEL, Jenna Primary Care Provider Unavail able Serg Hale Unavailable [phone] Allergies Allergen (clinical drug ingredient) Drug/Non Drug Allergy documented on EMR Reaction Allergy Type Onset Date Status [place] hives Drug Allergy Active cephalexin Cephalexin Unknown Drug Allergy Activ e nickel [place] hives Allergy Active REASON FOR VISIT At Risk Footcare, Painful Nail(s) aggrevated by shoes and causing difficulty standing/walking. Medications Medication SIG (Take, Route, Frequency, Duration) Notes Start Date End Date Status Triamcinolone Acetonide 0.1 % USE TWICE DAILY 2 WEEKS ON, 1 WEEK OFF TO BACK FOR UP TO 2 WEEKS AT A TIME NOT FOR FACE/BODY FOLDS External for 14 Not-Taking Clotrimazole-Betamethason e 1-0.05 % 1 application Externally Twice a day Not-Takin g Ivermectin 3 MG TAKE 3 TABLETS BY [facility] ONCE ON EMPTY STOMACH IN THE MORNING. REPEAT IN 14 DAYS Oral for 2 Not-Taking Ketoconazole 2 % APPLY TWICE A DAY UN ANTOLIN CHEST FOR 4 WEEKS External for 20 Not-Taking oxyCODONE-Acetaminophen Not-Taking Nystatin - as directed Orally Not-Taking traMADol HCl 50 MG 1 tablet as needed Orally Once a day PRM Not-Taking Furosemide 20 MG 1 tablet Orally Once a day for 30 day(s) Not-Taking Meloxicam 15 MG 1 tablet Orally Once a day for 30 day(s) PRM Not-Taking Ciclopirox Olamine 0.77 % 1 application Externally Twice a day for 30 days Active Levothyroxine Sodium 88 MCG TAKE 1 TABLET BY MOUTH EVERY DAY Orally Active amLODIPine Besylate Active Simvastatin 20 MG TAKE 1 TABLET BY [facility] EVERY EVENING Orally Active Losartan Potassium 50 MG as directed Orally Active Social History Tobacco Use: Social [...] ast year? No Points 0 Interpretation Negative Vital Signs Height 5 ft 2 in in 01/17/2025 Weight 143 lbs 01/17/2025 BMI 26.15 kg/m2 01/17/2025 Blood pressure systolic 120 mm Hg 01/18/20 25 Blood pressure diastolic 70 mm Hg 025 Procedures Procedure Date Ordered Date Performed Result Body Sit e 79561-WHZPLPU NAIL, 6 OR MORE 01/17/2025 N/A 15978-JQUQ SKIN LESIONS, OVER 4 01/17/2025 N/A Encounters Encounter Location Date Provider Diagnosis [facility] [address] [place] [address] 01/17/2025 Serg Hale Atherosclerosis of [place] artery of both lower extremities, with unspecified presence of clinical manifestation I70.203 ; Tinea unguium B35.1 ; Pain in right toe(s) M79.674 and Pain in left toe(s) M79.675 Assessments Encounter Date Diagnosis (ICD Code) Assessment Notes Treatment Notes Treatment Clinical Notes Section Notes 01/17/2025 Atherosclerosis of [place] artery of both lower extremities, with unspecified presence of clinical manifestation (ICD-10 - I70.203) 01/17/2025 Tinea unguium (ICD-10 - B35.1) 01/17/2025 Pain in right toe(s) (ICD-10 - M79.674) 01/17/2025 Pain in left toe(s) (ICD-10 - M79.675) Plan Of Treatment Pending Test Test Name Order Date 49811-BEPZSSZ NAIL, 6 OR MORE 01/17/2025 65858-CAQH SKIN LESIONS, OVER 4 01/18/20 Next Appt Details Follow Up: prn, Reason: Provider Name:Serg Hale , 03/31/2025 09:00:00 AM, [address] [place], [address], Procedure Notes * Category Sub-Category Detail Notes Debride Nail 6-10 Nail debridement Due to the cl inical pathology outlined in the exam findings, performance of this nail treatment is medically necessary as its management by an unskilled/untrained nonprofessional would put this patients foot and overall health at risk. Therefore, debridement to affected nail(s), as described in exam ( TA, T3, T4, T5, T6, T7, T8, T9 ), was performed exclusively by the physician of record to reduce/remove overall nail length, girth, thickness, subungual debris, and necrotic tissue, by manual and/or electrical means through the use of a nail nipper and/or dremel-type valve grinder, to a more viable healthy nail plate or bed tissue 6-10 nails in total. Silver nitrate was used for any petechial bleeding as necessary. Definitive antifungal treatment options, both pharmaceutical and surgical, have been reviewed and discussed with the patient. The patient solely prefers the use of intermittent/as needed professional debridement services for their nail condition and understands the need for additional periodic treatments to maintain effectiveness in symptomatic relief - 60682 Keratoma Treatment Parring or Cutting o f Benign Hyperkeratotic Lesion(s) (-57) More than 4 Lesions - Due to the at risk nature of the patients medical condition as documented in the exam findings, performance of this keratoderma treatment is medically necessary as its management by an unskilled/untrained nonprofessional would put this patients foot and overall health at risk. Therefore, the benign hyperkeratotic lesions, ( 12 ) in total, locations as stated and described in the exam ( Medial, IPJ, TA, Medial, IPJ, T5, SUB MTH (s), 1, B/L , SUB MTH (s), 2, B/L , SUB MTH (s), 3, B/L , SUB MTH (s), 5, B/L, Plantar, Heel(s), B/L ), were pared, and/or cut utilizing a sterile 15 blade, tissue nippers, and/or power dremel instrumentation by the physician of record - 63852, Q8 Progress Notes * Sara LARSON FDOB: [birth year] (79 yo F)Acc No.[id number]:01/17/2025 Progress Note Patient:Sara DAVIES Provider:?Serg Hale DPM :1945???Age:79 Y???Sex:Female D ate:01/17/2025 Address:[address] [place] [address] [address], [id number] Pcp:Jenna Salazar MD Subjective: * Chief Complaints: * ???At Risk FootcarePainful N ail(s) aggrevated by shoes and causing difficulty standing/walking. * HPI: ???At Risk footcare:?Pt States Last PCP Visit:?Date?09/08/2024 ?Misc?Patient accompanied by, ,SHERWIN, who is physically present in exam room at time of visit.? * ROS:?General/Constitutional:?Nausea?denies.?Vomiting?denies.?Hunger Thirst?denies.?Loss appetite?denies.?Chills?denies.?Fatigue?denies.?Fever?denies.?Night Sweats?denies.?Unexplained weight loss?denies.?Unexplained [...] vein inficentcy 09/09/2023 * Hospitalization/Major Diagno stic Procedure:[place] [place] [place] in throat - Had x[place] [place]- * Family History:?Mother: dece ased, arthritis.?Father: .?Spouse: alive.?Maternal Grand Mother: diagnosed with Diabetic - NIDDM.? * Social History:?Tobacco Use:?Tobacco use other than smoking?Are you an other tobacco user??No ?Tobacco Control (Standard)?Tobacco use:?Nonsmoker ?Additional Findings: Tobacco non-user?Current nonsmoker ???Drugs/Alcohol:?Drugs?Have you used drugs other than those for medical reasons in the past 12 months??No ???Miscellaneous:?Caffeine: yes, 1-2 cups per day. ?Children: yes, 2 sons. ?Exercise: yes, walking, playing cards, reading. ?Marital status: . 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 ???Drug/Alcohol:?AUDIT-C (Standard)?Did you have a drink containing alcohol in the past year??No ?Points?0 ?Interpretation?Negative * Medications:?TakingamLODIPin e Besylate Levothyroxine Sodium 88 MCG Tablet TAKE 1 TABLET BY MOUTH EVERY DAY Orally Losartan Potassium 50 MG Tablet as directed Orally Simvastatin 20 MG Tablet TAKE 1 TABLET BY MOUTH EVERY EVENING Orally Ciclopirox Olamine 0.77 % Cream 1 application Externally Twice a day Taking amLODIPine Besylate Taking Levothyroxine Sodium 88 MCG Tablet TAKE [...] Tablet 1 tablet Orally Once a day Clotrimazole- Betamethasone 1-0.05 % Cream 1 application Externally Twice [...] Once a day , Notes to Pharmacist: PRMNot- Taking/PRN Nystatin - Powder as directed Orally Not-Taking/PRN [...] THE MORNING. REPEAT IN 14 DAYS Oral Not- Taking/PRN oxyCODONE-Acetaminophen Medication List reviewed and reconciled with the patient * Allergies:?CephalexinNickel: hivesOrange: hivesyes[Allergies Verified] Objective: * Vitals:?Ht: 5 ft 2 in, Wt:14 3, BMI: 26.15, Shoe size:7W, BP:120/70mm Hg, Wt-k.86 kg. * Examination: ???Vascular: ?DP PULSES (B):?0/4, RIGHT,1/4.?PT PULSES (B):? 0/4, B/L.?CAPILLARY FILL TIME:? delayed, all digits, B/L.?TROPHIC CONDITION-TEXTURE/ELASTICITY/TURGOR/HAIR GROWTH (B):? decreased,?with sparse to absent hair growth, B/L.?TEMPERTURE GRADIENT (C):? decreased, cool to cool, proximal to distal, B/L.?PIGMENTATION:? rubrous, B/L.?EDEMA (C):? 2/4, pitting, without aching pain, B/L, Leg(s), Ankle(s).?CLAUDICATION (C):?denies, B/L.?REST PAIN:?denies, B/L.?Nails: ?NAILS are:?Elongated, overgrown, dystrophic, lytic, greater than 3mm thick, discolored and friable with crumbly malodorous subungual debris, with pain on palpation, TA, T3, T4, T5, T6, T7, T8, T9, all other nails not described with characteristics as possessing mycosis are elongated, overgrown, and dystrophic.?Dermatologic: ?SKIN FINDINGS:?Skin exam reveals Keratotic lesion(s) located at, Medial, IPJ, TA, Medial, IPJ, T5, SUB MTH (s), 1, B/L , SUB MTH (s), 2, B/L , SUB MTH (s), 3, B/L , SUB MTH (s), 5, B/L, Plantar, Heel(s), B/L.? Assessment: * Assessment: 1.?Tinea unguium - B35.1???2 .?Atherosclerosis of [place] artery of both lower extremities, with unspecified presence of clinical manifestation - I70.203 (Primary)???3.?Pain in right toe(s) - M79.674???4.?Pain in left toe(s) - M79.675??? Plan: * Treatment: 2.?Tinea unguium?Procedure: 96289-[id number] NAIL, 6 OR MORE * Procedures:?Debride Nail 6-10:?Nail debridement?Due to the clinical pathology outlined in the exam findings, performance of this nail treatment is medically necessary as its management by an unskilled/untrained nonprofessional would put this patients foot and overall health at risk. Therefore, debridement to affected nail(s), as described in exam (?TA,?T3,?T4,?T5,?T6,?T7,?T8,?T9?), was performed exclusively by the physician of record to reduce/remove overall nail length, girth, thickness, subungual debris, and necrotic tissue, by manual and/or electrical means through the use of a nail nipper and/or dremel-type valve grinder, to a more viable healthy nail plate or bed tissue 6- 10 nails in total. Silver nitrate was used for any petechial bleeding as necessary. Definitive antifungal treatment options, both pharmaceutical and surgical, have been reviewed and discussed with the patient. The patient solely prefers the use of intermittent/as needed professional debridement services for their nail condition and understands the need for additional periodic treatments to maintain effectiveness in symptomatic relief - 22809.?Keratoma Treatment:?Parring or Cutting of Benign Hyperkeratotic Lesion(s)?(-57) More than 4 Lesions - Due to the at risk nature of the patients medical condition as documented in the exam findings, performance of this keratoderma treatment is medically necessary as its management by an unskilled/untrained nonprofessional would put this patients foot and overall health at risk. Therefore, the benign hyperkeratotic lesions, ( 12 ) in total, locations as stated and described in the exam (?Medial,?IPJ,?TA,?Medial,?IPJ,?T5,?SUB MTH (s),?1,?B/L?,?SUB MTH (s),?2,?B/L?,?SUB MTH (s),?3,?B/L?,?SUB MTH (s),?5,?B/L,?Plantar,?Heel(s),?B/L?), were pared, and/or cut utilizing a sterile 15 blade, tissue nippers, and/or power dremel instrumentation by the physician of record - 79923, Q8.? * Procedure Codes:?27866 DEBRI DE NAIL, 6 OR MORE, Modifiers: XS 76215 TRIM SKIN LESIONS, OVER 4, Modifiers: XS , Q8 * Follow Up:?prn * Images: * Sign off status: Completed true * Provider:?Serg Hale DPM Date:?2024 Generated for Adilia olivares/Edwin/Valente on:?02/07/2025 11:09 AM EDT History and Physical Notes * HPI (History of Present Illness) Category Sub-Category Detail Notes Category Not es At Risk footcare Pt States Last P[place] Visit: Date: 4 [facility] [place] accompanied by, , SHERWIN, who is physically present in exam room at time of visit Examination Category Sub-Category Detail Notes Category Not es Dermatologic SKIN FINDINGS: Skin exam reveal s Keratotic lesion(s) located at, Medial, IPJ, TA, Medial, IPJ, T5, SUB MTH (s), 1, B/L , SUB MTH (s), 2, B/L , SUB MTH (s), 3, B/L , SUB MTH (s), 5, B/L, Plantar, Heel(s), B/L Vascular DP PULSES (B): 0/4, RIGHT,1/4 PT PULSES (B): 0/4, B/L CAPILLARY FILL TIME: delayed, all digits , B/L TEMPERTURE GRADIENT (C): decreased, cool to cool, proximal to distal, B/L TROPHIC CONDITION-TEXTURE/ELASTICITY/TURGOR/HAIR GROWTH (B): decreased, with sparse to absent hair gr owth, B/L EDEMA (C): 2/4, pitting, withou t aching pain, B/L, Leg(s), Ankle(s) CLAUDICATION (C): denies, B/L REST PAIN: denies, B/L PIGMENTATION: rubrous, B/L Nails NAILS are: Elongated, overg rown, dystrophic, lytic, greater than 3mm thick, discolored and friable with crumbly malodorous subungual debris, with pain on palpation, TA, T3, T4, T5, T6, T7, T8, T9, all other nails not described with characteristics as possessing mycosis are elongated, overgrown, and dystrophic
--- OUTSIDE RECORDS SUMMARY | 2025-02-07 11:10 | XMS_ITS ---
Author Organization [facility] Address [address] [place] [address] Care Team Providers Care Dispensary Attendant Name Role Phone Martin MICHAEL, Jenna Primary Care Provider Unavail able Serg Hale Unavailable [phone] REASON FOR VISIT 12/27/24 appt Encounters Encounter Location Date Provider Diagnosis [facility] [place] [address] [place] [address] [place] [phone] 12/27/2024 Serg Hale Plan Of Treatment Next Appt Details Provider Name:Serg Hale , 03/31/2025 09:00:00 AM, [address] [facility], [place], [address], Progress Notes * Sara LARSON FDOB: [birth year] (79 yo F)Acc No.[id number]:12/27/2024 Patient:?[place] LARSONlene Danielle :1945???Age:79 Y???Sex:Female Address:[address], [place], [address] * true * Date:? Generated for Printi ng/Fadaríog/eTransmitting on:?02/07/2025 11:09 AM EDT
--- OUTSIDE RECORDS SUMMARY | 2025-02-07 11:10 | XMS_ITS | Patient Health Record ---
Author Organization [facility] Eduardo swetha [place] Address [address] [facility] [place] [address] Care Team Providers Care Academic Program Specialist Name Role Phone Martin MICHAEL, Jenna Primary Care Provider Unavail able Serg Hale Unavailable [phone] Allergies Allergen (clinical drug ingredient) Drug/Non Drug Allergy documented on EMR Reaction Allergy Type Onset Date Status Bucks hives Drug Allergy Active cephalexin Cephalexin Unknown Drug Allergy Activ e nickel Nickel hives Allergy Active Reason For Referral No Information Medications Medication SIG (Take, Route, Frequency, Duration) Notes Start Date End Date Status Nystatin - as directed Orally Not-Taking traMADol HCl 50 MG 1 tablet as needed Orally Once a day PRM Not-Taking Furosemide 20 MG 1 tablet Orally Once a day for 30 day(s) Not-Taking Triamcinolone Acetonide 0.1 % USE TWICE DAILY 2 WEEKS ON, 1 WEEK OFF TO BACK FOR UP TO 2 WEEKS AT A TIME NOT FOR FACE/BODY FOLDS External for 14 Not-Taking Clotrimazole-Betamethason e 1-0.05 % 1 application Externally Twice a day Not-Takin g Levothyroxine Sodium 88 MCG TAKE 1 TABLET BY MOUTH EVERY DAY Orally Active Ivermectin 3 MG TAKE 3 TABLETS BY MO UTH ONCE ON EMPTY STOMACH IN THE MORNING. REPEAT IN 14 DAYS Oral for 2 Not-Taking amLODIPine Besylate Active Ketoconazole 2 % APPLY TWICE A DAY UN ANTOLIN CHEST FOR 4 WEEKS External for 20 Not-Taking Simvastatin 20 MG TAKE 1 TABLET BY MERI TH EVERY EVENING Orally Active Losartan Potassium 50 MG as directed Orally Active oxyCODONE-Acetaminophen Not-Taking Meloxicam 15 MG 1 tablet Orally Once a day for 30 day(s) PRM Not-Taking Ciclopirox Olamine 0.77 % 1 application Externally Twice a day for 30 days Active Immunizations Vaccine Route Administration Date Status Comme [...] ast year? No Points 0 Interpretation Negative Problems Problem Type SNOMED Code ICD Code Onset Dates Problem Status W/U Status Risk Notes Problem Atherosclerosis of [place] arteries of the extremities (303561792268814) Atherosclerosis of [place] artery of both lower extremities, with unspecified presence of clinical manifestation (I70.203) Active confirmed Vital Signs Blood pressure diastolic 70 mm Hg 01/17/2025 Height 5 ft 2 in in 01/17/2025 Blood pressure systolic 120 mm Hg 01/17/2025 Weight 143 lbs 01/17/2025 BMI 26.15 kg/m2 01/17/2025 Procedures Procedure Date Ordered Date Performed Result Body Sit e 25628-DMALJSC NAIL, 6 OR MORE 06/10/2024 N/A 27901-AVIU SKIN LESIONS, OVER 4 06/10/2024 N/A 11654-IDKWLRB NAIL, 6 OR MORE 09/23/2024 N/A 69586-JPKE SKIN LESIONS, OVER 4 09/23/2024 N/A 72901-XOQKJIT NAIL, 6 OR MORE 01/17/2025 N/A 34496-HCIA SKIN LESIONS, OVER 4 01/17/2025 N/A Encounters Encounter Location Date Provider Diagnosis [facility] [address] 06/10/2024 Serg Hale Atherosclerosis of [place] artery of both lower extremities, with unspecified presence of clinical manifestation I70.203 ; Tinea unguium B35.1 ; Pain in right toe(s) M79.674 and Pain in left toe(s) M79.675 [facility] [address] [address] 09/23/2024 Serg Alexia Atherosclerosis of [place] artery of both lower extremities, with unspecified presence of clinical manifestation I70.203 ; Tinea unguium B35.1 ; Pain in right toe(s) M79.674 and Pain in left toe(s) M79.[address] [address] 01/17/2025 Sergsuzan VargheseAlexia Atherosclerosis of [place] artery of both lower extremities, with unspecified presence of clinical manifestation I70.203 ; Tinea unguium B35.1 ; Pain in right toe(s) M79.674 and Pain in left toe(s) M79.675 [facility] [address] [address] 12/27/2024 Serg Alexia Assessments Encounter Date Diagnosis (ICD Code) Assessment Notes Treatment Notes Treatment Clinical Notes Section Notes 06/10/2024 Tinea unguium (ICD-10 - B35.1) 06/10/2024 Atherosclerosis of [place] artery of both lower extremities, with unspecified presence of clinical manifestation (ICD-10 - I70.203) 09/23/2024 Tinea unguium (ICD-10 - B35.1) 09/23/2024 Atherosclerosis of [place] artery of both lower extremities, with unspecified presence of clinical manifestation (ICD-10 - I70.203) 01/17/2025 Tinea unguium (ICD-10 - B35.1) 01/17/2025 Atherosclerosis of [place] artery of both lower extremities, with unspecified presence of clinical manifestation (ICD-10 - I70.203) 01/17/2025 Pain in right toe(s) (ICD-10 - M79.674) 06/10/2024 Pain in right toe(s) (ICD-10 - M79.674) 09/23/2024 Pain in right toe(s) (ICD-10 - M79.674) 09/23/2024 Pain in left toe(s) (ICD-10 - M79.675) 06/10/2024 Pain in left toe(s) (ICD-10 - M79.675) 01/17/2025 Pain in left toe(s) (ICD-10 - M79.675) Plan Of Treatment Pending Test Test Name Order Date 77783-WSIBAYE NAIL, 6 OR MORE 03/11/2016 68767-VYNSKDF NAIL, 6 OR MORE 07/04/2016 39339-FPBKRZW NAIL, 6 OR MORE 10/10/2016 59962-HTZINSC NAIL, 6 OR MORE 01/13/2017 35197-NFALOWK NAIL, 6 OR MORE 06/25/2018 84929-ENADXZE NAIL, 6 OR MORE 11/23/2020 51992-YVOGPYZ NAIL, 6 OR MORE 02/22/2021 61602-QVOPWGP NAIL, 6 OR MORE 05/31/2021 15689-BYWFYCQ NAIL, 6 OR MORE 08/30/2021 07604-ZHSMJCW NAIL, 6 OR MORE 11/29/2021 91446-BXNLGRG NAIL, 6 OR MORE 03/04/2022 00321-XKTDUNG NAIL, 6 OR MORE 06/20/2022 48220-XJBPNXH NAIL, 6 OR MORE 09/19/2022 89482-WAHPDOT NAIL, 6 OR MORE 12/23/2022 46162-LFOFZJL NAIL, 6 OR MORE 03/24/2023 53464-YHYCLYP NAIL, 6 OR MORE 06/23/2023 59354-WNUFVYE NAIL, 6 OR MORE 09/29/2023 96582-VTPNEHW NAIL, 6 OR MORE 12/25/2023 99530-YEQFJMX NAIL, 6 OR MORE 06/10/2024 43045-BNGLZCM NAIL, 6 OR MORE 09/23/2024 35882-HEXPMUL NAIL, 6 OR MORE 01/17/2025 17106-Fptvnssw Plate 09/19/2022 44013-Kvolmzkn Plate 09/29/2023 97369-Qxonslij Plate 12/23/2022 64279-MLKD SKIN LESIONS, OVER 4 12/23/19 23 82767-HIZZ SKIN LESIONS, OVER 4 03/24/20 97060-DPPV SKIN LESIONS, OVER 4 09/29/20 07319-SWVV SKIN LESIONS, OVER 4 06/23/20 86027-ETCB SKIN LESIONS, OVER 4 09/19/20 87273-WHYH SKIN LESIONS, OVER 4 06/20/20 57769-RVZH SKIN LESIONS, OVER 4 03/04/20 22 53504-FJDJ SKIN LESIONS, OVER 4 11/29/19 32714-TWNC SKIN LESIONS, OVER 4 08/30/20 55646-COKT SKIN LESIONS, OVER 4 05/31/20 21 08838-TPOJ SKIN LESIONS, OVER 4 02/23/20 01312-JGMN SKIN LESIONS, OVER 4 11/23/19 06755-QZXK SKIN LESIONS, OVER 4 01/14/20 17 33632-DFKP SKIN LESIONS, OVER 4 06/25/20 18 38919-ZJAZ SKIN LESIONS, OVER 4 10/10/20 16 87373-QKHP SKIN LESIONS, OVER 4 07/04/20 16 77313-OVOU SKIN LESIONS, OVER 4 03/11/20 16 55894-GMXC SKIN LESIONS, OVER 4 12/25/19 05454-XABU SKIN LESIONS, OVER 4 09/23/20 24 77170-DSXE SKIN LESIONS, OVER 4 06/10/20 13654-ZFKK SKIN LESIONS, OVER 4 01/18/20 Next Appt Details Provider Name:Serg Hale , 03/31/2025 09:00:00 AM, [address] [place] [address], [phone], Insurance Providers Payer Name Payer Address Payer Phone Subscriber Number Group Number Insured Name Patient Relationship to Insured Coverage Start Date Coverage End Date [employer] Claims Adjudication - [place] [id number] [place] [address] [phone] [id number] Sara Larson Self - patient is the insured Medical (General) History Medical History History ICD Code Arthritis High blood pressure Thyroid disorder Chicken pox Measles Mumps Cholesterol Back,Hip,and Knee pain CAD (Cholesterol) Numbness Osteoporosis thyroid swelling of feet and leg Surgical History Surgery Date(Month/Year) frozen vocal chord 2008 colonoscopy Invasive Vein Surgery 05/2018 tonsillectomy 1973 Invasive vein inficentcy 09/09/2023 Hospitalization History Reason Date(Month/Year) [facility] - diverticulitis 09/01- [facility]- Chicken bone stuck in throat - Had x-ray 08/2020 [facility] ER pt broke collar bone 06/05/2016
--- OUTSIDE RECORDS SUMMARY | 2025-02-07 11:10 | XMS_ITS | Clinical Summary ---
Author Organization [facility] Address [address] [place] [address] Phone Care Team Providers Care Wet Process Technician Name Role Phone Sachin Fiore NP Primary Care Provider [phone] Allergies Active Allergy Reactions Criticality Noted Date Comments Cephalexin Rash 12/15/2024 Nickel 12/15/2024 Conyers 12/15/2024 Medications amLODIPine (NORVASC) 2.5 mg tablet 1 tab by mouth daily Active ammonium lactate (LAC-HYDRIN) 12 % lotion 1 application to (affected) skin 2 times per day Active levothyroxine (SYNTHROID, LEVOTHROID) 88 mcg tablet 1 tab by mouth once daily Active losartan (COZAAR) 50 mg tablet 1 tab by mouth daily Active yq-lj-njqm-FA-C a carb-vit K (One-A-Day Womens Formula) 18 mg iron-400 mcg-500 mg tablet 1 tab by mouth daily Active simvastatin (ZOCOR) 20 mg tablet 1 tab by mouth every day at bedtime Active vit C,Y-Es-yzyni-ysa tein-zeaxan (PreserVision AREDS-2) 250-90-40-1 mg tablet,chewable 1 tab chewed in the mouth once Active Active Problems Problem Noted Date Diagnosed Date Anxiety 12/15/2024 Atherosclerosis of both carotid arteries 025 Overview (12/15/2024): Atherosclerotic Plaque, Bilateral Internal Carotid Artery Cholelithiasis 12/15/2024 Cognitive impairment 12/15/2024 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 Overview (12/15/2024): Morley Angiomas, Skin and Subcutaneous Seborrheic keratosis 12/15/2024 Xerosis of skin 12/15/2024 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 Hernia, abdominal 12/15/2024 Overview (12/15/2024): Hernia, Abdominal, Left Lower Quadrant Hypercholesterolemia 12/15/2024 Hyperlipidemia 12/15/2024 Hypertension 12/15/2024 Venous insufficiency, peripheral 12/15/2024 Varicose veins of both lower extremities 025 Overview (12/15/2024): Superficial Varicose Veins in Bilateral Ankles and Feet Astigmatism of right eye 12/15/2024 Amblyopia, right eye 12/15/2024 Encounters Date Type Department Care Team Description 01/18/2025 Telephone [employer] [address] [address] Sachin Fiore NP from Last 3 Months Immunizations Name Administration Dates Next Due Influenza, Unspecified 11/11/2024 Moderna SARS-CoV-2 COVID-19, mRNA, LNP-S, preservative free 11/11/2024,11/11/2024 Pfizer SARS-CoV-2 COVID-19, mRNA, LNP-S, preservative free 11/11/2024,11/11/2024,11/11/2024 Pneumococcal polysaccharide 23 valent (Pneumovax 23) 2yo and older 11/11/2024 Tdap Tetanus diptheria acell ular pertussis (Boostrix; Adacel) 7yo and older 11/11/2024 Medical History Medical History Date Comments History of basal cell carcinoma History of bilateral cataract extraction Social History Tobacco Use Types Packs/Day Years Used Date Smoking Tobacco: Never Tobacco Cessation:Counseling Given: Not Answered Comments:Never smoked tobacco Comments Unknown Sex and Gender Information Value Date Recorded Sex Assigned at Not on file Legal Sex Female 12:02 PM EST Gender Identity Not on file Sexual Orientation Not on file Obstetrics History Last Filed Vital Signs Vital Sign Reading Time Taken Comments Blood Pressure 170/80 11/30/2024 9:25 AM EST 171/80- Sitting Pulse 92 11/30/2024 9:25 AM EST 92-Apical pulse, 104-Apical pulse, 92-Sitting pulse Temperature 36.2 ??C (97.2 ??F) 11/30/2024 9 :25 AM EST Respiratory Rate 20 11/30/2024 9:25 AM EST Oxygen Saturation 97% 11/30/2024 9:2 5 AM EST Inhaled Oxygen Concentration - - Weight 71.6 kg (157 lb 12.8 oz) 11/30/2024 9:25 AM EST Height 157.5 cm (5' 2 ) 12/01/2024 9:25 AM EST Body Mass Index 28.86 11/30/2024 9:25 AM EST Plan of Treatment Upcoming Encounters Date Type Department Care Team (Late st Contact Info) Description 02/09/2025 9:00 AM EDT [facility] Attend[facility] [address] [place] [phone] 02/14/2025 9:00 AM EDT P[facility] Attendance[facility]Day Center [employer] [facility] [address] [place] [phone] 02/16/2025 9:00 AM EDT [facility] Attendance[facility]Day [facility] [address] [place] [phone] 02/21/2025 9:00 AM EDT [facility] Attendance[facility]Day [facility] [address] [place] [phone] 02/23/2025 9:00 AM EDT [facility] Attendance[facility]Day [facility] [employer] [facility] Day [address] [phone] 02/28/2025 9:00 AM EDT [facility] Attendance[facility]Day Center [facility] [employer] [facility] Day [address] [phone] 03/02/2025 9:00 AM EDT [facility] [place] [facility] [address] [place] [address] 03/07/2025 9:00 AM EDT [facility] [place] [facility] [address] [place] [address] 03/09/2025 9:00 AM EDT [facility] [place] [facility] [address] [place] [address] 03/14/2025 9:00 AM EDT [facility] [place] [facility] [address] [place] [phone] 03/16/2025 9:00 AM EDT [facility] [place] [facility] [address] [place] [address] 03/21/2025 9:00 AM EDT [facility] [place] [facility] [address] [place] [phone] 03/23/2025 9:00 AM EDT [facility] [place] [facility] [address] [place] [phone] 03/28/2025 9:00 AM EDT [facility] [place] [facility] [address] [place] [phone] 03/30/2025 9:00 AM EDT [facility] [place] [facility] [address] [place] [address] 04/04/2025 9:00 AM EDT [facility] [place] [facility] [address] [place] [address] 04/06/2025 9:00 AM EDT [facility] [place] [facility] [address] [place] [phone] 04/11/2025 9:00 AM EDT [facility] [place] [facility] [address] [place] [address] 04/13/2025 9:00 AM EDT [facility] [place] [facility] [address] [place] [address] 04/18/2025 9:00 AM EDT [facility] [place] [facility] [address] [place] [phone] 04/20/2025 9:00 AM EDT [facility] [place] [facility] [address] [place] [phone] 04/25/2025 9:00 AM EDT [facility] [place] [facility] [address] [place] [address] 04/27/2025 9:00 AM EDT [facility] [place] [facility] [address] [place] [phone] 05/02/2025 9:00 AM EDT [facility] [place] [facility] [address] [place] [phone] 05/04/2025 9:00 AM EDT [facility] [place] [facility] [address] [place] [phone] 05/09/2025 9:00 AM EDT [facility] [place] [facility] [address] [place] [phone] 05/11/2025 9:00 AM EDT [facility] [place] [facility] [address] [place] [phone] 05/16/2025 9:00 AM EDT [facility] [place] [facility] [address] [place] [phone] 05/18/2025 9:00 AM EDT [facility] [place] [facility] [address] [place] [address] 05/23/2025 9:00 AM EDT [facility] [place] [facility] [address] [place] [address] 05/25/2025 9:00 AM EDT [facility] [place] [facility] [address] [place] [address] 05/30/2025 9:00 AM EDT [facility] [place] [facility] [address] [place] [address] 06/01/2025 9:00 AM EDT [facility] [place] [facility] [address] [place] [address] 06/06/2025 9:00 AM EDT [facility] [place] [facility] [address] [place] [address] 06/08/2025 9:00 AM EDT [facility] [place] [facility] [address] [place] [phone] 06/13/2025 9:00 AM EDT [facility] [place] [facility] [address] [place] [phone] 06/15/2025 9:00 AM EDT [facility] [place] [facility] [address] [place] [address] 06/20/2025 9:00 AM EDT [facility] [place] [facility] [address] [place] [address] 06/22/2025 9:00 AM EDT [facility] [place] [facility] [address] [place] [address] 06/27/2025 9:00 AM EDT [facility] [place] [facility] [address] [place] [address] 06/29/2025 9:00 AM EDT [facility] [place] [facility] [address] [place] [address] 07/04/2025 9:00 AM EDT [facility] [place] [facility] [address] [place] [address] 07/06/2025 9:00 AM EDT [facility] [place] [facility] [address] [place] [address] 07/11/2025 9:00 AM EDT [facility] [place] [facility] [address] [place] [address] 07/13/2025 9:00 AM EDT [facility] [place] [facility] [address] [place] [address] 07/18/2025 9:00 AM EDT [facility] [place] [facility] [address] [place] [phone] 07/20/2025 9:00 AM EDT [facility] [place] [facility] [address] [place] [address] 07/25/2025 9:00 AM EDT [facility] [place] [facility] [address] [place] [address] 07/27/2025 9:00 AM EDT [facility] [place] [facility] [address] [place] [address] 08/01/2025 9:00 AM EDT [facility] [place] [facility] [address] [place] [address] 08/03/2025 9:00 AM EDT [facility] [place] [facility] [address] [place] [address] 08/08/2025 9:00 AM EDT [facility] [place] [facility] [address] [place] [address] 08/10/2025 9:00 AM EDT [facility] [place] [facility] [address] [place] [address] 08/15/2025 9:00 AM EDT [facility] [place] [facility] [address] [place] [phone] 08/17/2025 9:00 AM EDT [facility] [place] [facility] [address] [place] [phone] 08/22/2025 9:00 AM EDT [facility] [place] [facility] [address] [place] [phone] 08/24/2025 9:00 AM EDT [facility] [place] [facility] [address] [place] [phone] 08/29/2025 9:00 AM EDT [facility] [place] [facility] [address] [place] [phone] 08/31/2025 9:00 AM EDT [facility] [place] [facility] [address] [place] [phone] 09/05/2025 9:00 AM EDT [facility] [place] [facility] [address] [place] [phone] 09/07/2025 9:00 AM EDT [facility] [place] [facility] [address] [place] [phone] 09/12/2025 9:00 AM EST [facility] Attendance[facility] [place] [facility] [address] [place] [phone] 09/14/2025 9:00 AM EST [facility] [place] [facility] [address] [place] [address] 09/19/2025 9:00 AM EST [facility] [place] [facility] [address] [place] [address] 09/21/2025 9:00 AM EST [facility] [place] [facility] [address] [place] [address] 09/26/2025 9:00 AM EST [facility] [place] [facility] [address] [place] [phone] 09/28/2025 9:00 AM EST [facility] [place] [facility] [address] [place] [phone] 10/03/2025 9:00 AM EST [facility] [place] [facility] [address] [place] [phone] 10/05/2025 9:00 AM EST [facility] [place] [facility] [address] [place] [phone] 10/10/2025 9:00 AM EST [facility] [place] [facility] [address] [place] [phone] 10/12/2025 9:00 AM EST [facility] [place] [facility] [address] [place] [phone] 10/17/2025 9:00 AM EST [facility] [place] [facility] [address] [place] [address] 10/19/2025 9:00 AM EST [facility] [place] [facility] [address] [place] [address] 10/24/2025 9:00 AM EST [facility] [place] [facility] [address] [place] [address] 10/26/2025 9:00 AM EST [facility] [place] [facility] [address] [place] [address] 10/31/2025 9:00 AM EST [facility] [place] [facility] [address] [place] [address] 11/02/2025 9:00 AM EST [facility] [place] [facility] [address] [place] [address] 11/07/2025 9:00 AM EST [facility] [place] [facility] [address] [place] [address] 11/09/2025 9:00 AM EST [facility] [place] [facility] [address] [place] [address] 11/14/2025 9:00 AM EST [facility] [place] [facility] [address] [place] [phone] 11/16/2025 9:00 AM EST [facility] [place] [facility] [address] [place] [phone] 11/21/2025 9:00 AM EST [facility] [place] [facility] [address] [place] [address] 11/23/2025 9:00 AM EST [facility] [place] [facility] [address] [place] [address] 11/28/2025 9:00 AM EST [facility] [place] [facility] [address] [place] [address] 11/30/2025 9:00 AM EST [facility] [place] [facility] [address] [place] [address] 12/05/2025 9:00 AM EST [facility] [place] [facility] [address] [place] [phone] 12/07/2025 9:00 AM EST [facility] Att[facility] [address] [place] [phone] 12/12/2025 9:00 AM EST [facility] Att[facility] [address] [place] [phone] 12/14/2025 9:00 AM EST [facility] Attendance[facility]Day [facility] [address] [address] 12/19/2025 9:00 AM EST [facility] [address] [phone] Health Maintenance Due Date Last Done Comments Zoster Vaccines (1 of 2) 1964 RSV Immunization Patients 60+ Years Old (1 - 1-dose 75+ series) 2018 Depression Screening 11/15/2024 Falls Risk Assessment 11/15/2024 Osteoporosis Screening (Bone Density Screening) 11/15/2024 Social Influencers of Health Screening 11/15/2024 COVID-19 Vaccine (2 - Pfizer risk series) 12/02/2024 11/11/2024, 11/11/2024, 11/11/2024, Additional history exists Pneumococcal Vaccine: 50+ Years (2 of 2 - PCV) 11/11/2025 11/11/2024 Hypertension/CHF/CAD Annual BMP Blood Test 11/30/2025 11/30/2024 Cholesterol Screening (Lipid Panel) 11/30/2029 11/30/2024 DTaP,Tdap,and Td Vaccines (2 - Td or Tdap) 11/11/2034 11/11/2024 Influenza Vaccine Completed 11/11/2024 HIB Vaccines Aged Out No longer eligi ble based on patient's age to complete this topic HPV Vaccines Aged Out No longer eligi ble based on patient's age to complete this topic Hepatitis A Vaccines Aged Out No long er eligible based on patient's age to complete this topic Hepatitis B Vaccines Aged Out No long er eligible based on patient's age to complete this topic IPV Vaccines Aged Out No longer eligi ble based on patient's age to complete this topic MMR Vaccines Aged Out No longer eligi ble based on patient's age to complete this topic Meningococcal ACWY Vaccine Aged Out N o longer eligible based on patient's age to complete this topic Meningococcal B Vacine Aged Out No lo nger eligible based on patient's age to complete this topic RSV Immunization Patients Under 20 months Aged Out No longer eligible based on patient's age to complete this topic Varicella Vaccines Aged Out No longer eligible based on patient's age to complete this topic Procedures Procedure Name Priority Date/Time Associated Diagnosis Comments ANNUAL BMP BLOOD TEST Routine 11/30/2024 HEMOGLOBIN A1C Routine 11/30/2024 LIPID PANEL Routine 11/30/2024 from Last 3 Months Results * Annual BMP Blood Test (11/30/2024) Annual BMP Blood Test Abstracted Result [facility] Provider HEALTH MAINTENANCE Final Result * Hemoglobin A1c (11/30/2024) Hemoglobin A1C 5.5 <=5.7 % Blood Venous blood specimen / Unknown Result [facility] Provider LAB BLOOD ORDERABLES Swapna l Result * Lipid panel (11/30/2024) LDL/HDL Ratio 2 <=5 Triglycerides 92 <=150 mg/dL Cholesterol 143 <=200 mg/dL HDL 61 >=50 mg/dL LDL Cholesterol 64 <=100 mg/dL Blood Venous blood specimen / Unknown Result [facility] Provider LAB BLOOD ORDERABLES Swapna l Result from Last 3 Months Insurance * Guarantor: [facility] Account Type Relation to Patient Date of Phone B[place] [address] [facility] Advance Directives Documents on File Type Date Recorded Patient Route Sales Representative Expl anation Advance Directives and Living Will 12/15/2024 8:57 AM ADV DIR-[facility]OL[facility] [email or web address] * Full Code - Default (Latest Code Status on File) Date Activated Date Inactivated Comments 01/03/2025 9:23 AM This is order is used when code status has not been discussed with the patient, or code status is otherwise unknown/unconfirmed To update the patient's code status, place a code status order. Do not modify or discontinue any currently active code status orders. Care Teams Wet Process Technician Relationship Specialty Start Date End Date Sachin Fiore NP [address] [place] [address] PCP - General END 12/23/24
== END 2025-02-07 10:19 | disposition home or self-care (01) ==
PROVIDERS: PCP Internal Medicine; Visit Provider Internal Medicine
DX: I10 Essential (primary) hypertension (principal); E78.00 Pure hypercholesterolemia, unspecified; E06.3 Autoimmune thyroiditis; L30.9 Dermatitis, unspecified

== ENCOUNTER → 2025-02-07 09:43 | Outpatient (BNVA) | payer MEDICARE, MEDICAID, SELFPAY | PROVIDERS: PCP Internal Medicine; Visit Provider Internal Medicine | DX: I10 Essential (primary) hypertension (principal); E78.00 Pure hypercholesterolemia, unspecified; E06.3 Autoimmune thyroiditis; L30.9 Dermatitis, unspecified | CPT/HCPCS: 96127; 99212 ==

== ENCOUNTER 2025-06-16 12:37 | Outpatient (REF) | payer OTHER, SELFPAY ==
--- OUTSIDE RECORDS SUMMARY | 2024-12-27 05:00 | XMS_ITS ---
Author Organization [facility] Address [address] [facility] [place] [address] Care Team Providers Care Safety Pin Assembling Machine Operator Name Role Phone Martin MICHAEL, Jenna Primary Care Provider Unavail able Serg Hale Unavailable [phone] Allergies Allergen (clinical drug ingredient) Drug/Non Drug Allergy documented on EMR Reaction Allergy Type Onset Date Status Riley hives Drug Allergy Active cephalexin Cephalexin Unknown [...] Ivermectin 3 MG TAKE 3 TABLETS BY [facility] ONCE ON EMPTY STOMACH IN THE [...] Negative Encounters Encounter Location Date Provider [facility] [address] [place] [address] 12/27/2024 Serg Hale Plan Of Treatment No Information Progress Notes * LARSONSara FDOB: [birth year] (80 yo F)Acc No.[id number]:12/27/2024 Progress Note Patient: Sara KUMAR Provider: Phoenix Hale DPM :1945 A ge:79 Y S ex:Female Date:12/27/2024 Address:[address] [place] [address] [address], [place], [place] Pcp:Jenna Salazar MD Subjective: * Chief Complaints: [...] enies. C ardiovascular: Pacemaker d enies. M SENSOR SPECIALIST d enies. W PW d enies. C [...] oxyCODONE-Acetaminophen * Allergies: C ephalexin, Nickel: hives, Riley: hives. Objective: * Vitals: Assessment: Plan: * Treatment: * Images: * The named appointment provid er may or may not be the originator of this progress note, and it is not deemed complete until electronically signed by the appointment provider. Sign off status: Pending * Provider: Phoenix Hale DPM Date: 0 12/27/2024 Generated for Adilia olivares/Edwin/Valente on: 0 06/16/2025 12:41 PM EDT
--- OUTSIDE RECORDS SUMMARY | 2025-06-13 11:45 | XMS_ITS | Encounter Summary ---
Author Organization [facility] Address [address] [place] [address] Care Team Providers Care Environmental Assistant Name Role Phone Adebayo Sachin ZUHAIR Primary Care Provider [phone] Encounter Details Date Type Department Care Team (Late st Contact Info) Description 06/13/2025 11:45 AM EDT [facility] [address] [place] [id number] Saad Castillo PT Social History Tobacco Use Types Packs/Day Years Used Date Smoking Tobacco: Never Smokeless Tobacco: Never Comments:Never smoked tobacc o Comments No Sex and Gender Information Value Date Recorded Sex Assigned at Not on file Legal Sex Female 12:02 PM EST Gender Identity Not on file Sexual Orientation Not on file documented as of this encounter Functional Status * Are you deaf or do you have serious difficulty hearing? Answer Date of Assessment Author No 05/15/2025 12:20 PM EDT Austin Lopez RN * Are you blind or do you have serious difficulty seeing, even when wearing glasses? Answer Date of Assessment Author No 05/15/2025 12:20 PM EDT Austin Lopez RN * Do you have serious difficulty walking or climbing stairs? Answer Date of Assessment Author No 05/15/2025 12:20 PM EDT Austin Lopez RN * Do you have serious difficulty dressing or bathing? Answer Date of Assessment Author No 05/15/2025 12:20 PM EDT Austin Lopez, GUSTAVO * Because of a physical, mental, or emotional condition, do you have serious difficulty doing errandsalone such as visiting the doctor? Answer Date of Assessment Author No 05/15/2025 12:20 PM EDT Austin Lopez RN documented as of this encounter Mental Status * Because of a physical, mental, or emotional condition, do you have serious difficulty concentrating, remembering, or making decisions? (5 years old or older) Answer Entry Date Author No 05/15/2025 12:20 PM EDT Austin Lopez RN documented in this encounter Progress Notes * Saad Castillo, PT - 06/13/2025 11:45 AM EDT PT TREATMENT S: Participant stated she would like to see PT as her has returned home and she is back to a routine. She went out and purchased schechers on her own. Back pain resoloving and Sara states she is 80% better with occas moving the wrong way and temp pain 4/10. O: Participant although pleased with her schechers she was not wearing socks or compression stockings this date. She reports that the ortho feet shoes she had previously purchased on her own were notas comfortable and supportive. She was not wearing the metatarsal pads given by podiatry as she reports they were worn. PT trialed metatarsal gel pads, however participant did not have socks or stocki ngs on. Gait without A.D with limited push off. (Preferred gait pattern) Hips ER with forward head and kyphosis. Occas unsteadiness with quick movements noted. Education on fall prevention. PT strongly advised Sara not to walk barefoot in the home due to risk for pressure sores/injury and increase foot pain. Sara states she is Independent with donning socks, shoes and stockings however it takes her along time. A: Initial trial with metatarsal gel pads went wll however some concern regarding participants fluctuating edema and compliance with socks. No open areas on metatarsals head. Resolving back pain. Balance decreases as participant fatiques or is distracted. Plan: PT to assess footwear and determine if footwear from [facility] something that participant would consider. Re assess gel pad with appropriate socks. documented in this encounter Plan of Treatment Upcoming Encounters Date Type Department Care Team (Late st Contact Info) Description 06/29/2025 9:00 AM EDT Clinical Support Stacey COCHRAN [address] [address] 10/17/2025 2:30 PM EST Clinical Support [address] [address] 11/08/2025 12:15 PM EST [facility] [address] [address] documented as of this encounter Visit Diagnoses Not on filedocumented in this encounter Care Teams Environmental Assistant Relationship Specialty Start Date End Date Sachin Fiore NP [address] [place] [address] PCP - General [facility] 12/23/24 documented as of this encounter
--- OUTSIDE RECORDS SUMMARY | 2025-06-16 12:41 | XMS_ITS | Patient Health Record ---
Demographics Address [address] [place] [address] [place] [address] Preferred Language en Marital Status Jainism Affiliation Unknown Race White Ethnic Group Not or Lati no Author Organization [facility] Address [address] [place] [address] Care Team Providers Care Hot Mill Worker Name Role Phone Jenna Daly Primary Care Provider Frederick Emmanuel Jr Unavailable Allergies Allergen (clinical drug ingredient) Drug/Non Drug Allergy documented on EMR Reaction Allergy Type Onset Date Status orange allergenic extract oranges (uncoded) Unknown Allergy Active Reason For Referral No Information Medications Medication SIG (Take, Route, Frequency, Duration) Notes Start Date End Date Status Levothyroxine Sodium 88 MCG 1 tablet Ora lly Once a day Active traMADol HCl 50 MG 1 tablet as needed Orally every 6 hrs Active Simvastatin 10 MG 1 tablet in the even ing Orally Once a day Active Losartan Potassium 50 MG 1 tablet Orally Once a day Active traZODone HCl 50 MG Orally Active Calcium 600 + D Acti ve Multivitamins Orally Active Problems Problem Type SNOMED Code ICD Code Onset Dates Problem Status W/U Status Risk Notes Problem [id number] Hepatitis B surface antigen positive (795.79) Active confirmed Plan Of Treatment No Information Insurance Providers Payer Name Payer Address Payer Phone Subscriber Number Group Number Insured Name Patient Relationship to Insured Coverage Start Date Coverage End Date [facility] [address] [place] [phone] [id number] COOKIE ACUÑA Self - patient is the insured Medical (General) History Medical History History ICD Code Hypothyroidism hypertension elevated Cholesterol insomnia anxiety GERD gastritis Surgical History Surgery Date(Month/Year) Left ankle fracture tonsillectomy biopsy in groin
[2025-06-16 16:48] LABS: Alanine Aminotransferase 12 U/L (0-31); Albumin Level 3.9 g/dL (3.5-5.0); Alkaline Phosphatase 74 U/L (39-117); Anion Gap 12 (12-20); Aspartate Amino Transferase 32 U/L (5-31); Blood Urea Nitrogen 33 mg/dL (9-16); Calcium 8.9 mg/dL (8.4-10.2); Carbon Dioxide 23 mmol/L (22-29); Chloride 110 mmol/L (96-108); Cholesterol 169 mg/dL (<200); Estimated Glomerular Filt Rate > 60; HDL Cholesterol 53 mg/dL (>40); Potassium 4.4 mmol/L (3.3-5.1); Sodium 141 mmol/L (135-145); Total Protein 7.3 g/dL (6.5-8.0); Triglycerides 74 mg/dL (<150)
[2025-06-16 16:53] LABS: Thyroid Stimulating Hormone 2.21 uIU/mL (0.32-4.0)
== END 2025-06-16 12:38 | disposition home or self-care (01) ==
LOC: HO.HMGCLDS 12:37
PROVIDERS: PCP Internal Medicine; Visit Provider Internal Medicine
DX: I10 Essential (primary) hypertension (principal); E78.5 Hyperlipidemia, unspecified; E06.3 Autoimmune thyroiditis
CPT/HCPCS: 36415; 80053; 80061; 84443

== ENCOUNTER 2025-08-14 08:12 | Outpatient (AMB) | payer OTHER, MEDICAID, SELFPAY ==
--- OUTSIDE RECORDS SUMMARY | 2024-12-27 05:00 | XMS_ITS ---
Author Organization [facility] Address [address] [facility] [place] [address] Care Team Providers Care Clinical Staff Rn Name Role Phone Martin MICHAEL, Jenna Primary Care Provider Unavail able Serg Hale Unavailable [phone] Allergies Allergen (clinical drug ingredient) Drug/Non Drug Allergy documented on EMR Reaction Allergy Type Onset Date Status Doddridge hives Drug Allergy Active cephalexin Cephalexin Unknown Drug Allergy Activ e nickel Nickel hives Allergy Active Medications Medication SIG (Take, Route, Frequency, Duration) Notes Start Date End Date Status Clotrimazole-Betamethason e 1-0.05 % 1 application Externally Twice a day Not-Takin g Triamcinolone Acetonide 0.1 % USE TWICE DAILY 2 WEEKS ON, 1 WEEK OFF TO BACK FOR UP TO 2 WEEKS AT A TIME NOT FOR FACE/BODY FOLDS External; Duration: 14 Not-Taking Ketoconazole 2 % APPLY TWICE A DAY UN ANTOLIN CHEST FOR 4 WEEKS External; Duration: 20 Not-Takin g Ivermectin 3 MG TAKE 3 TABLETS BY [facility] ONCE ON EMPTY STOMACH IN THE MORNING. REPEAT IN 14 DAYS Oral; Duration: 2 Not-Taking oxyCODONE-Acetaminophen Not-Taking Ciclopirox Olamine 0.77 % 1 application Externally Twice a day; Duration: 30 days Active Meloxicam 15 MG 1 tablet Orally Once a day; Duration: 30 day(s) PRM Not-Taking traMADol HCl 50 MG 1 tablet as needed Orally Once a day PRM Not-Taking Nystatin - as directed Orally Not-Taking Furosemide 20 MG 1 tablet Orally Once a day; Duration: 30 day(s) Not-Taking Levothyroxine Sodium 88 MCG TAKE 1 TABLET BY MOUTH EVERY DAY Orally Active Losartan Potassium 50 MG as directed Orally Active Simvastatin 20 MG TAKE 1 TABLET BY [facility] EVERY EVENING Orally Active Social History Tobacco Use: Social History Observation Description Date Details (start date - stop date) Never Smoker NA - NA Tobacco use other than smoking: Question Answer Notes Are you an other tobacco user? No Tobacco Control (Standard) Question Answer Notes Tobacco use: Nonsmoker Additional Findings: Tobacco non-user Current no nsmoker AUDIT-C (Standard) Question Answer Notes Did you have a drink containing alcohol in the p ast year? No Points 0 Interpretation Negative Encounters Encounter Location Date Provider Diagnosis [facility] [address] [place] [address] 12/27/2024 Serg Hale Plan Of Treatment No Information Progress Notes * LARSONSara FDOB: [birth year] (80 yo F)Acc No.[id number]:12/27/2024 Progress Note Patient: Sara KUMAR Provider: Phoenix Hale DPM :1945 A ge:79 Y S ex:Female Date:12/27/2024 Address:[address] [place] [address] [address], [place], [place] Pcp:Jenna Salazar MD Subjective: * Chief Complaints: * * ROS: G eneral/Constitutional: Nausea d enies. V omiting d enies. H daisy Thirst d enies. L oss appetite d enies. C hills d enies. F atigue d enies.?Fever d enies. N ight Sweats d enies. U nexplained weight loss d enies. U nexplained weight gain d enies. H EENTM: Dentures d enies. D izziness d enies. G lasses/contacts a dmits. R etinopathy d enies. B lurred/double vision d enies. T MJ?denies. D ischarge/drainage d enies. I mplants d enies. S ore throat d enies. D ental implants d enies. H delano of hearing a dmits. D ifficulty chewing/swallowing/speaking d enies. N ose bleeds d enies. S ore mouth d enies. ? R espiratory: On Oxygen d enies. P neumonia/pleurisy a dmits.?Bronchitis a dmits. E mphysema d enies. C oughing d enies. C ough blood?denies. S hortness of breath d enies. W heezing d enies. C ardiovascular: Pacemaker d enies. M PARTS MANAGER d enies. W PW d enies. C HF d enies. H eart attack d enies. S eptal defect d enies. R apid beat d enies. C hest pain d enies. A trial Fib. d enies. M urmur/Palpitations d enies. G astrointestinal: Hemorrhoids d enies. S tomach/Abdominal pain d enies. D ark blood stool d enies. I rritable bowel d enies. C onstipation d enies. D iarrhea d enies. H ematology: Swelling a dmits. C lots d enies. V aricose Veins a dmits. B ruising d enies. B leeding problem d enies. G enitourinary: Blood urine d enies. F requent/Painfu/urination/bladder control d enies. K idney stones d enies. I nfection (UTI) d enies. N ephropathy a dmits. s ex trans dis (STD) d enies. P rostate d enies. M usculoskeletal: Hammertoes d enies. B unions d enies. B ack Pain a dmits. M uscle Cramps/ Resting a dmits. M uscle cramps / walking a dmits.?Generalized aches and pains a dmits. W eakness d enies. I nteg.: [place] d enies. S cars d enies. C orns/calluses?admits. I ngrown nails a dmits. P ainful nails a dmits. O pen Sores d enies. R ashes a dmits. N eurologic: Difficulty sleeping d enies. B rain disorder d enies. N umbness a dmits. B alance trouble d enies. C onfusion d enies. F ainting/blackouts d enies. T ingling d enies. T remors d enies. * Medical History: A rthritis, High blood pressure, Thyroid disorder, Chicken pox, Measles, Mumps, Cholesterol, Back,Hip,and Knee pain, CAD (Cholesterol), Numbness, Osteoporosis, Thyroid, Swelling of feet and leg. * Social History: T obacco Use: T obacco use other than smoking A re you an other tobacco user? N o Tobacco Control (Standard) T obacco use: N onsmoker A dditional Findings: Tobacco non-user C urrent nonsmoker D rugs/Alcohol: D rugs H ave you used drugs other than those for medical reasons in the past 12 months? N o D rug/Alcohol: A SUSHILA-C (Standard) D id you have a drink containing alcohol in the past year? N o P oints 0 I nterpretation N egative * Medications: T aking Levothyroxine Sodium 88 MCG Tablet TAKE 1 TABLET BY MOUTH EVERY DAY Orally , Taking Losartan Potassium 50 MG Tablet as directed Orally , Taking Simvastatin 20 MG Tablet TAKE 1 TABLET BY MOUTH EVERY EVENING Orally , Taking Ciclopirox Olamine 0.77 % Cream 1 application Externally Twice a day , Not-Taking/PRN Meloxicam 15 MG Tablet 1 tablet Orally Once a day , Notes to Pharmacist: PRM, Not-Taking/PRN traMADol HCl 50 MG Tablet 1 tablet as needed Orally Once a day , Notes to Pharmacist: PRM, Not-Taking/PRN Nystatin - Powder as directed Orally , Not-Taking/PRN Furosemide 20 MG Tablet 1 tablet Orally Once a day , Not-Taking/PRN Clotrimazole-Betamethasone 1- 0.05 % Cream 1 application Externally Twice a day , Not-Taking/PRN Triamcinolone Acetonide 0.1 % Cream USE TWICE DAILY 2 WEEKS ON, 1 WEEK OFF TO BACK FOR UP TO 2 WEEKS AT A TIME NOT FOR FACE/BODY FOLDS External , Not-Taking/PRN Ketoconazole 2 % Cream APPLY TWICE A DAY UNDER CHEST FOR 4 WEEKS External , Not-Taking/PRN Ivermectin 3 MG Tablet TAKE 3 TABLETS BY MOUTH ONCE ON EMPTY STOMACH IN THE MORNING. REPEAT IN 14 DAYS Oral , Not-Taking/PRN oxyCODONE-Acetaminophen * Allergies: C ephalexin, Nickel: hives, Doddridge: hives. Objective: * Vitals: Assessment: Plan: * Treatment: * Images: * The named appointment provid er may or may not be the originator of this progress note, and it is not deemed complete until electronically signed by the appointment provider. Sign off status: Pending * Provider: Phoenix Hale DPM Date: 0 12/27/2024 Generated for Adilia olivares/Edwin/Valente on: 1 08:26 AM EDT
--- OUTSIDE RECORDS SUMMARY | 2025-03-31 05:00 | XMS_ITS ---
Author Organization [facility] Address [address] [facility] [place] [address] Care Team Providers Care Systematic Theology Professor Name Role Phone Martin MICHAEL, Jenna Primary Care Provider Unavail able Serg Hale Unavailable [phone] Allergies Allergen (clinical drug ingredient) Drug/Non Drug Allergy documented on EMR Reaction Allergy Type Onset Date Status Holmes hives Drug Allergy Active cephalexin Cephalexin Unknown Drug Allergy Activ e nickel Nickel hives Allergy Active Medications Medication SIG (Take, Route, Frequency, Duration) Notes Start Date End Date Status Ivermectin 3 MG TAKE 3 TABLETS BY MO UTH ONCE ON EMPTY STOMACH IN THE MORNING. REPEAT IN 14 DAYS Oral; Duration: 2 Not-Taking Triamcinolone Acetonide 0.1 % USE TWICE DAILY 2 WEEKS ON, 1 WEEK OFF TO BACK FOR UP TO 2 WEEKS AT A TIME NOT FOR FACE/BODY FOLDS External; Duration: 14 Not-Taking Ketoconazole 2 % APPLY TWICE A DAY UN ANTOLIN CHEST FOR 4 WEEKS External; Duration: 20 Not-Takin g Clotrimazole-Betamethason e 1-0.05 % 1 application Externally Twice a day Not-Takin g Furosemide 20 MG 1 tablet Orally Once a day; Duration: 30 day(s) Not-Taking Nystatin - as directed Orally Not-Taking Meloxicam 15 MG 1 tablet Orally Once a day; Duration: 30 day(s) PRM Not-Taking traMADol HCl 50 MG 1 tablet as needed Orally Once a day PRM Not-Taking Simvastatin 20 MG TAKE 1 TABLET BY MERI TH EVERY EVENING Orally Active Ciclopirox Olamine 0.77 % 1 application Externally Twice a day; Duration: 30 days Active Levothyroxine Sodium 88 MCG TAKE 1 TABLET BY MOUTH EVERY DAY Orally Active Losartan Potassium 50 MG as directed Orally Active oxyCODONE-Acetaminophen Not-Taking amLODIPine Besylate Active Encounters Encounter Location Date Provider Diagnosis [facility] [address] [place] [address] 03/31/2025 Serg Hale Plan Of Treatment No Information Progress Notes * Sara LARSON FDOB: [birth year] (80 yo F)Acc No.[id number]:03/31/2025 Progress Note Patient: Sara KUMAR Provider: Phoenix Hale DPM :1945 A ge:80 Y S ex:Female Date:03/31/2025 Address:[address] [place] [address] [address], [facility] Pcp:Jenna Salazar MD Subjective: * Chief Complaints: * * Medical History: A rthritis, High blood pressure, Thyroid disorder, Chicken pox, Measles, Mumps, Cholesterol, Back,Hip,and Knee pain, CAD (Cholesterol), Numbness, Osteoporosis, Thyroid, Swelling of feet and leg. * Medications: T aking amLODIPine Besylate , Taking Levothyroxine Sodium 88 MCG Tablet TAKE [...] Orally Once a day , Not-Taking/PRN Clotrimazole-Betamethasone 1-0.05 % Cream 1 application [...] oxyCODONE-Acetaminophen * Allergies: C ephalexin, Nickel: hives, Holmes: hives. Objective: * Vitals: Assessment: Plan: * Treatment: * Images: * The named appointment provid er may or may not be the originator of this progress note, and it is not deemed complete until electronically signed by the appointment provider. Sign off status: Pending * Provider: Phoenix Hale DPM Date: 0 03/31/2025 Generated for Adilia olivares/Edwin/Valente on: 08:27 AM EDT
--- NOTE | 2025-08-14 08:22 | MHC.OFFWIV ---
Intake Vital Signs 08/14/25 08:24 Height 5 ft 2 in Weight 156 lb BMI 28.5 BP 136/78 Blood Pressure Location Lt brachial Position Sitting Pulse 82 Pulse Source Pulse Oximeter Pulse Oximetry (%) 97 Intake Visit Reasons: EP Back pain Patient Tobacco Use Status: Never used Tobacco Allergies orange Allergy (Intermediate, Verified 08/14/25 08:28) RASH cephalexin Allergy (Mild, Verified 08/14/25 08:28) Rash nickel (Nickel) Allergy (Mild, Verified 08/14/25 08:28) RASH Medication List - Last Reconciled 08/14/25 by Mala Lopez NP levothyroxine 88 mcg PO DAILY 90 days lidocaine HCl 4% 1 patch topical DAILY PRN losartan 50 mg PO DAILY 90 days multivitamin 1 tab PO DAILY simvastatin 20 mg PO BEDTIME 90 days trazodone 50 mg PO BEDTIME PRN 30 days Do you need a note to return to daycare/school/sports/work: No HPI HPI Comments History of Present Illness Details 80 y/o Female patient who presents to the walk in clinic with c/o Chronic Lower back pain. Pt had an injury back in May - she was seen and evaluated at a Local ED where images were negative. According to Patient they did not give her Anything for her back. She has been using Lidocaine Patches, NSAIDs, Heat and cold with no relief. Pain worse with any movement such as walking or standing. Denies Urinary or bowel symptoms. Denies Numbness or tingling. [facility] Medical History (Updated 08/14/25 @ 09:09 by Mala Lopez NP) Chronic back pain Abdominal pain Gallstones Bleeding hemorrhoids Deep vein thrombosis Autoimmune thyroiditis Venous (peripheral) insufficiency Overweight (BMI 25.0-29.9) Benign essential hypertension Pure hypercholesterolemia Cough Candidal intertrigo Intertrigo Bilateral lower leg cellulitis Hypothyroid Hyperlipidemia HTN (hypertension) Surgical History History of colonoscopy History of biopsy Hx of tonsillectomy Family History Father CAD (coronary artery disease) Coronary thrombosis Mother Hypertension Atherosclerosis Family/Other FH: mental illness Maternal Grandmother Diabetes Paternal Grandmother Esophageal cancer Social History Household Members: Spouse Housing: Assisted Living Facility Do you presently have visiting nurse or other home services: No Alcohol intake: never Patient Tobacco Use Status: Never used Tobacco e-Cigarette/Vaping Use: Never Used Second Hand Smoke Exposure: No Advance Directives Date on File: 09/01/23 service: No Current occupational status: disabled Cognitive needs: No Hearing needs: No Vision needs: Yes (glasses) Review of Systems Const All systems reviewed & are unremarkable except as noted in HPI and below Physical Exam Vital Signs: Last Vital Signs Pulse 82 08/14/25 08:24 BP 136/78 08/14/25 08:24 Pulse Ox 97 08/14/25 08:24 BMI result Body Mass Index 28.5 Const General: no acute distress Nutritional Appearance: obese Orientation/consciousness: patient oriented x3 Back/Spine/Pelvis Back: back tenderness Thoracic/Lumbar Spine: pain with thoraco-lumbar ROM, thoraco-lumbar spasm, thoracic spinal tenderness and lumbar spinal tenderness Neuro General: patient oriented x3, gait normal and moves all extremities Psych Speech and movement: Normal speech and movement present Assessment & Plan Assessment & Plan (1) Chronic back pain: Code(s): M54.9 - Dorsalgia, unspecified; G89.29 - Other chronic pain Plan: Ordered PT Ordered Meloxicam for 10 days. Continue using Lido Patches, heat or cold F/U with PCP. Orders: Orders PT Evaluation and Treatment Today G89.29 - Other chronic pain, M54.9 - Dorsalgia, unspecified Medications: New meloxicam 7.5 mg PO DAILY 20 tabs 0RF 10 days G89.29 - Other chronic pain, M54.9 - Dorsalgia, unspecified Discontinued nystatin Discontinued Reason: Patient Completed Course 1 appl topical DAILY 60 grams 3RF B37.2 - Candidiasis of skin and nail clobetasol 0.05% Discontinued Reason: Patient Completed Course 1 appl topical BID 2 weeks 30 grams 0RF Coding Level of Care Code Est Pt Level 4 (15747) Diagnoses Chronic back pain M54.9; G89.29 Time Spent (min) 20
[2025-08-14 08:24] VITALS: BP 136/78; PULSE 82; O2SAT 97; BMI 28.5
--- OUTSIDE RECORDS SUMMARY | 2025-08-14 08:27 | XMS_ITS ---
Author Organization [facility] Address [address] [facility] [place] [address] Phone Care Team Providers Care Flame Annealing Machine Setter Name Role Phone Sachin Fiore NP Primary Care Provider [phone] Program of [facility]-In[facility] for the Elderly Status:Enrolled (Active) Start date:11/09/2024 Enrollment date:11/09/2024 Related social drivers of health:Housing Instability, TH Health Literacy, Financial Risk, Transportation, Social Isolation, Food Risk Overview This episode will track [facility] documentation. Case Team Name Relationship Phone Sachin Fiore INSIDE SALES ADVERTISING EXECUTIVE Nurse Practitioner [phone] Ryland Miller Recreational Therapist Tiffanie Phillips RN Assistant Public Defender Poornima Summers RN Assistant Public Defender Jose Maria Rene OT Occupational Therapist Juan José Meyer RN Registered Nurse Beba Khan RD Dietitian Eliceo Jackson PT Physical Therapist Sriram Campbell [facility] HospitalNetbackup Engineer Juan Pablo Benoit [address] [facility] Commercial Account Officer Caroline Guzman desktop publishing specialistAssistant Public Defender Mary Toledo RN Registered Nurse Yanet Gordon Commercial Account Officer Melodie Johnston [facility] Commercial Account Officer Ishmael Weaver Spiritual Care Katarzyna Mccollum PT Physical Therapist Destini Huggins OT Occupational Therapist Jonna STODDARDW Commercial Account Officer Saad Castillo PT Physical Therapist Elina Bustos MD Primary Care Provider Continued Care and Services Coordination
--- OUTSIDE RECORDS SUMMARY | 2025-08-14 08:27 | XMS_ITS | Patient Health Record ---
Author Organization [facility] [place] Address [address] [place] [address] Care Team Providers Care Nurse Anesthesia Program Director Name Role Phone Martin MICHAEL, Jenna Primary Care Provider Unavail able Serg Hale Unavailable [phone] Allergies Allergen (clinical drug ingredient) Drug/Non Drug Allergy documented on EMR Reaction Allergy Type Onset Date Status Prescott hives Drug Allergy Active cephalexin Cephalexin Unknown Drug Allergy Activ e nickel Nickel hives Allergy Active Reason For Referral No Information Medications Medication SIG (Take, Route, Frequency, Duration) Notes Start Date End Date Status Clotrimazole-Betamethason e 1-0.05 % 1 application Externally Twice a day Not-Kyle brewer Nystatin - as directed Orally Not-Taking Furosemide 20 MG 1 tablet Orally Once a day; Duration: 30 day(s) Not-Taking Meloxicam 15 MG 1 [...] IN 14 DAYS Oral; Duration: 2 Not-Taking Losartan Potassium 50 MG as directed Orally Active oxyCODONE-Acetaminophen Not-Taking Triamcinolone Acetonide 0.1 % USE TWICE DAILY 2 WEEKS ON, 1 WEEK OFF TO BACK FOR UP TO 2 WEEKS AT A TIME NOT FOR FACE/BODY FOLDS External; Duration: 14 Not-Taking amLODIPine Besylate Active Ketoconazole 2 % APPLY TWICE A DAY UN ANTOLIN CHEST FOR 4 WEEKS External; Duration: 20 Not-Takin g Immunizations Vaccine Route Administration Date Status Comme nts Influenza Unknown 08/16/2021 Administered COVID-19 Pfizer BioNTech Vaccine Unknown 10/23/2021 Administered 1st 12/21/2020 Social History Tobacco Use: Social History Observation [...] Problem Status W/U Status Risk Notes Problem Bilateral atherosclerosis of arteries of lower limbs (disorder) ([id number] ) Atherosclerosis of [place] artery of both lower extremities, with unspecified presence of clinical manifestation (I70.203) Active confirmed Vital Signs Blood pressure diastolic 70 mm Hg 01/17/2025 Height 5 ft 2 in in 01/17/2025 Blood pressure systolic 120 mm Hg 01/17/2025 Weight 143 lbs 01/17/2025 BMI 26.15 kg/m2 01/17/2025 Procedures Procedure Date Ordered Date Performed Result Body Sit e 58658-NDNOFXE NAIL, 6 OR MORE 09/23/2024 N/A 70537-HMVU SKIN LESIONS, OVER 4 09/23/2024 N/A 07105-BINJHLP NAIL, 6 OR MORE 01/17/2025 N/A 13217-YMUE SKIN LESIONS, OVER 4 01/17/2025 N/A Encounters Encounter Location Date Provider Diagnosis [facility] [address] [address] 09/23/2024 Serg Hale Atherosclerosis of [place] artery of both lower extremities, with unspecified presence of clinical manifestation I70.203 ; Tinea unguium B35.1 ; Pain in right toe(s) M79.674 and Pain in left toe(s) M79.[address] [facility] [address] 01/17/2025 Serg Hale Atherosclerosis of [place] artery of both lower extremities, with unspecified presence of clinical manifestation I70.203 ; Tinea unguium B35.1 ; Pain in right toe(s) M79.674 and Pain in left toe(s) M79.675 [facility] [address] [place] [address] 12/27/2024 [facility]erg [facility] [address] [place] [address] 03/30/2025 Serg Hale Assessments Encounter Date Diagnosis (ICD Code) Assessment Notes Treatment Notes Treatment Clinical Notes Section Notes 09/23/2024 Tinea unguium (ICD-10 - B35.1) 09/23/2024 Atherosclerosis of [place] artery of both lower extremities, with unspecified presence of clinical manifestation (ICD-10 - I70.203) 01/17/2025 Tinea unguium (ICD-10 - B35.1) 01/17/2025 Atherosclerosis of [place] artery of both lower extremities, with unspecified presence of clinical manifestation (ICD-10 - I70.203) 01/17/2025 Pain in right toe(s) (ICD-10 - M79.674) 09/23/2024 Pain in right toe(s) (ICD-10 - M79.674) 09/23/2024 Pain in left toe(s) (ICD-10 - M79.675) 01/17/2025 Pain in left toe(s) (ICD-10 - M79.675) Plan Of Treatment Pending Test Test Name Order Date 70617-QORUGXO NAIL, 6 OR MORE 03/11/2016 03923-HRKLJPS NAIL, 6 OR MORE 07/04/2016 06156-MMKARDB NAIL, 6 OR MORE 10/10/2016 18468-YBZSEWF NAIL, 6 OR MORE 01/13/2017 10074-WCDISOC NAIL, 6 OR MORE 06/25/2018 95118-PPGWMWU NAIL, 6 OR MORE 11/23/2020 40278-IGDFQUJ NAIL, 6 OR MORE 02/22/2021 82140-YLNALAY NAIL, 6 OR MORE 05/31/2021 31077-OXAPVIW NAIL, 6 OR MORE 08/30/2021 84414-DLHUBCD NAIL, 6 OR MORE 11/29/2021 89977-BIRKHZH NAIL, 6 OR MORE 03/04/2022 58000-DHLUYOZ NAIL, 6 OR MORE 06/20/2022 44220-ILFVLUE NAIL, 6 OR MORE 09/19/2022 01940-CCQENLK NAIL, 6 OR MORE 12/23/2022 52186-YPWRCJS NAIL, 6 OR MORE 03/24/2023 01612-JXEFRKY NAIL, 6 OR MORE 06/23/2023 72371-SPFBNOR NAIL, 6 OR MORE 09/29/2023 68755-QLTKGVP NAIL, 6 OR MORE 12/25/2023 90451-PUSUNTQ NAIL, 6 OR MORE 06/10/2024 51145-DPKSLPE NAIL, 6 OR MORE 09/23/2024 56039-PJKWESH NAIL, 6 OR MORE 01/17/2025 16188-Sryumanm Plate 09/19/2022 30913-Whaspvrb Plate 09/29/2023 59008-Oxnqakip Plate 12/23/2022 51029-DTYS SKIN LESIONS, OVER 4 12/23/19 23 76414-DBFF SKIN LESIONS, OVER 4 03/24/20 23 92805-SALE SKIN LESIONS, OVER 4 09/29/20 23 64131-FHFY SKIN LESIONS, OVER 4 06/23/20 23 50224-GAZZ SKIN LESIONS, OVER 4 09/19/20 22 28151-YITR SKIN LESIONS, OVER 4 06/20/20 22 19794-GOMW SKIN LESIONS, OVER 4 03/04/20 22 77785-VFMV SKIN LESIONS, OVER 4 11/29/19 22 35204-QHAS SKIN LESIONS, OVER 4 08/30/20 21 05054-DLZW SKIN LESIONS, OVER 4 05/31/20 21 54348-GXJI SKIN LESIONS, OVER 4 02/23/20 21 07928-RJJF SKIN LESIONS, OVER 4 11/23/19 21 16730-WWKY SKIN LESIONS, OVER 4 01/14/20 17 76915-GCOG SKIN LESIONS, OVER 4 06/25/20 18 78032-IZON SKIN LESIONS, OVER 4 10/10/20 16 74721-HPQC SKIN LESIONS, OVER 4 07/04/20 16 11082-OFET SKIN LESIONS, OVER 4 03/11/20 16 76440-KHFO SKIN LESIONS, OVER 4 12/25/19 24 88792-SPTC SKIN LESIONS, OVER 4 09/23/20 78715-KWNT SKIN LESIONS, OVER 4 06/10/20 28135-TYKA SKIN LESIONS, OVER 4 01/18/20 Insurance Providers Payer Name Payer Address Payer Phone Subscriber Number Group Number Insured Name Patient Relationship to Insured Coverage Start Date Coverage End Date [employer] Claims Adjudication - [place] [id number] [place] [address] [id number] Sara Larson Self - patient is the insured Medical (General) History Medical History History ICD Code Arthritis High blood pressure Thyroid disorder Chicken pox Measles Mumps Cholesterol Back,Hip,and Knee pain CAD (Cholesterol) Numbness Osteoporosis thyroid swelling of feet and leg Surgical History Surgery Date(Month/Year) frozen vocal chord 2007 colonoscopy Invasive Vein Surgery 05/2018 tonsillectomy 1973 Invasive vein inficentcy 09/09/2023 Hospitalization History Reason Date(Month/Year) [facility] [place] 09/01- [facility] [place] Chicken bone stuck in throat - Had x-ray 08/2020 [facility] [place] pt broke collar bone 06/05/2016
--- OUTSIDE RECORDS SUMMARY | 2025-08-14 08:27 | XMS_ITS | Clinical Summary ---
Author Organization [facility] Former[facility] Address [address] [place] [address] Phone Care Team Providers Care Hospice Consultant Name Role Phone Sb Larsen NP Primary Care Provider [phone] Allergies Active Allergy Reactions Criticality Noted Date Comments Cephalexin Rash 12/15/2024 [place] 12/15/2024 [place] 12/15/2024 Medications amLODIPine (NORVASC) 2.5 mg tabletIndications :Calculus of gallbladder without cholecystitis without obstruction,Prima ry hypertension,Nanette min D deficiency,Xerosi s of skin Take 1 tablet (2.5 mg total) by mouth 1 (one) time each day. 1 tab by mouth daily 30 each 05/04/20 026 Active ammonium lactate (LAC-HYDRIN) 12 % lotionIndications :Calculus of gallbladder without cholecystitis without obstruction,Prima ry hypertension,Nanette min D deficiency,Xerosi s of skin Apply topically 2 (two) times a day. 1 application to (affected) skin 2 times per day 400 g 5 05/04/20 25 025 Active levothyroxine (SYNTHROID, LEVOTHROID) 88 mcg tabletIndications :Calculus of gallbladder without cholecystitis without obstruction,Prima ry hypertension,Nanette min D deficiency,Xerosi s of skin Take 1 tablet (88 mcg total) by mouth 1 (one) time each day before breakfast. 1 tab by mouth once daily 30 each 05/04/20 026 Active fg-vp-lggh-FA-Ca carb-vit K (One-A-Day Womens Formula) 18 mg iron-400 mcg-500 mg tabletIndications :Calculus of gallbladder without cholecystitis without obstruction,Prima ry hypertension,Nanette min D deficiency,Xerosi s of skin Take 1 tablet by mouth 1 (one) time each day. 1 tab by mouth daily 30 tablet 05/04/20 026 Active simvastatin (ZOCOR) 20 mg tabletIndications :Calculus of gallbladder without cholecystitis without obstruction,Prima ry hypertension,Nanette min D deficiency,Xerosi s of skin Take 1 tablet (20 mg total) by mouth at bedtime. 1 tab by mouth every day at bedtime 30 each 05/04/20 Active vit C,C-Fl-pvjqi-lute in-zeaxan (PreserVision AREDS-2) 250-90-40-1 mg tablet,chewableIn dications:Calculu s of gallbladder without cholecystitis without obstruction,Prima ry hypertension,Nanette min D deficiency,Xerosi s of skin Chew 1 tablet 1 (one) time each day. 1 tab chewed in the mouth once 30 tablet 05/04/20 026 Active hydrOXYzine HCL (ATARAX) 25 mg tabletIndications :Anxiety Take 1 tablet (25 mg total) by mouth 3 (three) times a day if needed for itching or anxiety. 90 each 05/04/20 25 Active losartan (COZAAR) 50 mg tabletIndications :Primary hypertension Take 2 tablets (100 mg total) by mouth 1 (one) time each day. 1 tab by mouth daily 30 each 05/29/20 026 Active clotrimazole (LOTRIMIN) 1 % creamIndications: Onychomycosis Apply topically 2 (two) times a day. 15 g 1 06/14/20 25 025 Active Problems Problem Noted Date Diagnosed Date Intertrigo 05/04/2025 Assessment & Plan (05/04/2025 5:11 PM EDT): Intertrigo right pannicular fold. Antifungal cream provided with instructions to apply twice daily and keep area dry. Plan: RTC in two weeks or sooner if needed to assess progress. Stasis dermatitis of both legs 03/14/2025 Assessment & Plan (05/04/2025 4:27 PM EDT): Active Stasis dermatitis RLE, none to LLE, continue compression stockings and apply ammonium lactate cream daily, Par stated understanding and agreed with plan. Assessment & Plan (03/17/2025 1:29 PM EDT): RLE is not claire-red, as it was over 2 weeks ago. Discussed with pt that she did not have cellulitis, and did not then, nor does she now, need antibiotics. Assessment & Plan (03/14/2025 1:30 PM EDT): RLE > LLE, LEONEL measurements BLEs WNL, Par fitted with compression stockings with instructions to wear during the day and take off at night for sleep. Elevate legs when at rest to level of her heart. Par stated understanding and agreed with plan. Duplex Venous US completed on 03/08/2025 to r/o DVT: 1. Study done only in the right lower extremity as requested in the medical order. 2. There is no evidence of a DVT in the visualized veins of the right lower extremity. Anxiety 12/15/2024 Assessment & Plan (05/04/2025 4:32 PM EDT): Par agreed to start Hydroxyzine 25 mg PO Q6hrs PRN for anxiety as a trial and will alert ML on medication affects, will f/u in two weeks. Atherosclerosis of both carotid arteries 025 Overview (12/15/2024): Atherosclerotic Plaque, Bilateral Internal Carotid Artery Assessment & Plan (05/04/2025 4:22 PM EDT): No record of imaging study found on chart review for carotid arteries. Plan: Duplex US b/l carotid arteries ordered, will CTM. Cholelithiasis 12/15/2024 Assessment & Plan (05/04/2025 4:28 PM EDT): Chronic, stable condition, w/o biliary colic, post prandial nausea or early satiety, continue current medications and CTM. Cognitive impairment 12/15/2024 Assessment & Plan (05/04/2025 4:33 PM EDT): Chronic, stable condition, SLUMS on this encounter = (mild cognitive deficit) continue current medications and CTM. Assessment & Plan (03/04/2025 2:09 PM EDT): Gentle, repeated reminders for compression of bilateral legs may be helpful, given cognitive impairment. Claire angioma 12/15/2024 Overview (12/15/2024): Claire Angiomas, Skin and Subcutaneous Assessment & Plan (05/04/2025 4:23 PM EDT): Will order Dermatology consult, no claire angioma found on exam, will CTM. Seborrheic keratosis 12/15/2024 Assessment & Plan (05/04/2025 4:28 PM EDT): Chronic, stable condition, continue ammonium lactate cream daily continue current medications and CTM. 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 Hernia, abdominal 12/15/2024 Overview (12/15/2024): Hernia, Abdominal, Left Lower Quadrant Assessment & Plan (05/04/2025 4:36 PM EDT): >>ASSESSMENT AND PLAN FOR ABDOMINAL WALL HERNIA WRITTEN ON 03/14/2025 1:35 PM BY SB LARSEN NP No hernia defect appreciated on exam. Bradly explained that her hospitalization in August 2023 was at [facility]. Par's Pre-enrollment documentation speaks of hospitalization for GI bleed r/t diverticulitis and cholecystitis. CT ABD performed and in this note only ABD wall hernia is mentioned. ML will reach out to [facility] for these records. Assessment & Plan (05/04/2025 4:34 PM EDT): Will order ABD US complete to r/o hiatal hernia, no obvious hernia defect found on physical exam. Hypercholesterolemia 12/15/2024 Assessment & Plan (05/04/2025 4:31 PM EDT): Last lipid panel in March 2025 WNL, save for mildly elevated TG, will continue current medications and monitor. Hypertension 12/15/2024 Assessment & Plan (05/31/2025 10:25 AM EDT): Initially her BP was 173/77. Repeat manual BP by me had a slightly lower systolic BP. New orders: written down for bradly. Orders: losartan (COZAAR) 50 mg tablet; Take 2 tablets (100 mg total) by mouth 1 (one) time each day. 1 tab by mouth daily Assessment & Plan (05/04/2025 4:24 PM EDT): Normotensive on exam, Chronic, stable condition, continue current medications and CTM. Assessment & Plan (03/17/2025 1:47 PM EDT): Currently weaning off amlodipine (not a good option with gross LE edema). Currently on losartan 50mg. Considering adding metoprolol succinate 25mg QD, and stopping amlopidine after this upcoming medication cycle. She does not have DM-II. She does have anxiety, and a betablocker may be all that she needs. F/U with me in 1 month. Assessment & Plan (03/04/2025 2:09 PM EDT): Normotensive today. Continue current medications. Venous insufficiency, peripheral 12/15/2024 Assessment & Plan (05/04/2025 4:25 PM EDT): Chronic, stable condition. Compression stockings applied in clinic, instruction to take them off at night and keep them on all day, will continue current medications and CTM. Assessment & Plan (03/17/2025 1:29 PM EDT): Recommended LEANDRO wraps in the morning, and our nurse will measure for zippered compression socks. Sara can't put on the regular compression socks by herself. Assessment & Plan (03/03/2025 2:50 PM EDT): Orders: Vascular US duplex lower extremity venous right; Future Varicose veins of both lower extremities 025 Overview (12/15/2024): Superficial Varicose Veins in Bilateral Ankles and Feet Assessment & Plan (05/04/2025 4:25 PM EDT): History of vein stripping procedure X 3 to RLE, none to LLE, no active varicose veins on exam. Assessment & Plan (03/17/2025 1:29 PM EDT): Pt is aware that she has 'bad valves' in her legs, jossie the right. She has a machine at home which 'squeezes' the legs. Assessment & Plan (03/04/2025 2:09 PM EDT): Chronic, episodic edema due to known venous stasis. H/o venous ablation with former MD. Discussed the need for compression, with patient. Will cc Therapy, to see if we can have fitted, zippered compression stockings for patient. Orders: Vascular US duplex lower extremity venous right; Future Astigmatism of right eye 12/15/2024 Assessment & Plan (05/04/2025 4:35 PM EDT): Chronic, stable condition, continue current medications and CTM. Amblyopia, right eye 12/15/2024 Assessment & Plan (05/04/2025 4:20 PM EDT): Chronic, stable condition, continue current medications and CTM. Encounters Date Type Department Care Team Description 08/02/2025 2:00 PM EDT PACE External Visit [address] [phone] 07/21/2025 Telephone [facility] Occupational Therapy [address] [phone] Arelis Francis, OT 07/17/2025 12:00 PM EDT Treatment [facility] Physical Therapy [address] [place] [phone] Shea Mendez, MINE ENGINEERING SUPERVISOR 06/29/2025 1:15 PM EDT Treatment [facility] Occupational Therapy [address] [place] [phone] Shelli Villatoro COTA 06/29/2025 11:00 AM EDT Treatment [facility] Physical Therapy [address] [place] [phone] Shea Mendez, MINE ENGINEERING SUPERVISOR 06/29/2025 9:00 AM EDT PACE External Visit [address] [phone] Adult general medical examination 06/27/2025 3:00 PM EDT Treatment [facility] Physical Therapy [address] [place] [phone] Saad Castillo, PT 06/15/2025 1:30 PM EDT Treatment [facility] Physical Therapy [address] [place] [phone] Saad Castillo, PT 06/13/2025 11:45 AM EDT Treatment [facility] Physical Therapy [address] [place] [phone] Saad Castillo, PT 06/13/2025 9:00 AM EDT PACE External Visit [address] [phone] Healthcare maintenance 06/06/2025 Telephone [facility] PACE Clinic [address] [place] [phone] Mary Toledo RN 05/29/2025 12:00 PM EDT Office Visit [facility] [address] [place] [phone] Elina Bustos MD Encounter for assessment of decision-making capacity (Primary Dx); Primary hypertension; ADHD (attention deficit hyperactivity disorder) evaluation; Impaired thought process; Rambling speech; Lack of insight; Impaired judgment regarding safety; Receptive aphasia; Calculus of gallbladder without cholecystitis without obstruction; Vitamin D deficiency; Xerosis of skin 05/25/2025 Plan of Care Documentation [facility] [address] [place] [phone] 05/23/2025 8:36 AM EDT - 05/23/2025 11:59 PM EDT Hospital Encounter [facility] Ultrasound [address] [place] [phone] Calculus of gallbladder without cholecystitis without obstruction; Primary hypertension; Vitamin D deficiency; Xerosis of skin; Amblyopia, right eye; Atherosclerosis of both carotid arteries; Claire angioma; Venous insufficiency, peripheral; Varicose veins of both lower extremities, unspecified whether complicated; Stasis dermatitis of both legs; Seborrheic keratosis; Frida's thyroiditis; Hypercholesterolemia ; Anxiety; Cognitive impairment; Abdominal hernia without obstruction and without gangrene, recurrence not specified, unspecified hernia type; Astigmatism of right eye, unspecified type Discharge Disposition: Home or Self Care 05/23/2025 8:36 AM EDT - 05/23/2025 11:59 PM EDT Hospital Encounter [facility] Ultrasound [address] [place] [phone] Calculus of gallbladder without cholecystitis without obstruction; Primary hypertension; Vitamin D deficiency; Xerosis of skin; Amblyopia, right eye; Atherosclerosis of both carotid arteries; Claire angioma; Venous insufficiency, peripheral; Varicose veins of both lower extremities, unspecified whether complicated; Stasis dermatitis of both legs; Seborrheic keratosis; Frida's thyroiditis; Hypercholesterolemia ; Anxiety; Cognitive impairment; Abdominal hernia without obstruction and without gangrene, recurrence not specified, unspecified hernia type; Astigmatism of right eye, unspecified type Discharge Disposition: Home or Self Care 05/23/2025 Telephone [facility] [address] [place] [phone] Betsy Crooks LPN 05/18/2025 2:00 PM EDT Treatment [facility] Physical Therapy [address] [place] [phone] Saad Castillo, ARNALDO 05/18/2025 12:00 PM EDT PACE External Visit [address] [phone] Healthcare maintenance 05/17/[address] [phone] Mary Toledo RN 05/16/2025 11:00 AM EDT Clinical Support [address] [phone] Betsy Crooks LPN 05/16/2025 PACE Fall [address] [phone] Elizabet Barrow, GUSTAVO 05/15/2025 12:00 PM EDT - 05/15/2025 6:[address] [facility] Emergency [address] [place] [address] Fall, initial encounter (Primary Dx); Right leg pain; Acute low back pain without sciatica, unspecified back pain laterality Discharge Disposition: Home or Self Care 05/15/2025 PACE Admissions [address] [phone] Elizabet Barrow, RN Fall, initial encounter (Primary Dx); Right leg pain; Acute low back pain without sciatica, unspecified back pain laterality from Last 3 Months Immunizations Immunization Administration Dates Next Due Influenza, Unspecified 11/11/2024 [...] Date Smoking Tobacco: Never Smokeless Tobacco: Never Tobacco Cessation:Counseling Given: Not Answered Comments:Never smoked tobacco Comments No Sex and Gender Information Value Date Recorded Sex Assigned at Not on file Legal Sex Female 12:02 PM EST Gender Identity Not on file Sexual Orientation Not on file Obstetrics History Last Filed Vital Signs Vital Sign Reading Time Taken Comments Blood Pressure 160/82 05/29/2025 12:25 PM EDT initial: 177/77 Pulse 97 05/29/2025 12:25 PM EDT Temperature 36.1 C (97 F) 05/29/2025 12:25 PM EDT Respiratory Rate 18 05/15/2025 2:50 PM EDT Oxygen Saturation 98% 05/29/2025 12: 25 PM EDT Inhaled Oxygen Concentration - - Weight 74.8 kg (165 lb) 05/15/2025 11:5 8 AM EDT Height 157.5 cm (5' 2 ) 05/15/2025 11:5 8 AM EDT Body Mass Index 30.18 05/15/2025 11:58 AM EDT Plan of Treatment Upcoming Encounters Date Type Department Care Team (Late st Contact Info) Description 08/31/2025 9:10 AM EDT Clinical Support [facility] [address] [phone] 10/17/2025 2:30 PM EST Clinical Support [facility] [address] [phone] 11/08/2025 12:15 PM EST PACE External Visit [facility] [address] [phone] Health Maintenance Due Date Last Done Comments Zoster Vaccines (1 of 2) 1964 Depression Screening 11/09/2024 Falls Risk Assessment 11/15/2024 Osteoporosis Screening (Bone Density Screening) 11/15/2024 Social Influencers of Health Screening 11/15/2024 COVID-19 Vaccine (8 - Mixed Product risk season) 2025 11/11/2024, 11/11/2024, 11/11/2024, Additional history exists Influenza Vaccine (#1) 2025 , 08/02/2024, 07/28/2023, Additional history exists Pneumococcal Vaccine: 50+ Years (2 of 2 - PCV) 11/11/2025 11/11/2024, 08/15/2017 Hypertension/CHF/CAD Annual BMP Blood Test 05/15/2026 05/15/2025, 05/04/2025, 03/15/2025, Additional history exists Cholesterol Screening (Lipid Panel) 11/30/2029 11/30/2024 DTaP,Tdap,and Td Vaccines (3 - Td or Tdap) 11/11/2034 11/11/2024, 09/28/2024 RSV Immunization Adult Patients Completed 09/05/2024 HIB Vaccines Aged Out No longer eligi [...] age to complete this topic Meningococcal B Vaccine Aged Out No l onger eligible based on patient's age to complete this topic RSV Immunization Patients Under 20 months Aged Out No longer eligible based on patient's age to complete this topic Varicella Vaccines Aged Out No longer eligible based on patient's age to complete this topic Procedures Procedure Name Priority Date/Time Associated Diagnosis Comments US ABDOMEN COMPLETE Routine 05/23/2025 1 0:31 AM EDT Calculus of gallbladder without cholecystitis without obstruction Primary hypertension Vitamin D deficiency Xerosis of skin Amblyopia, right eye Atherosclerosis of both carotid arteries Claire angioma Venous insufficiency, peripheral Varicose veins of both lower extremities, unspecified whether complicated Stasis dermatitis of both legs Seborrheic keratosis Frida's thyroiditis Hypercholesterolemia Anxiety Cognitive impairment Abdominal hernia without obstruction and without gangrene, recurrence not specified, unspecified hernia type Astigmatism of right eye, unspecified type VAS US DUPLEX CAROTID BILATERAL Routine 05/23/2025 10:30 AM EDT Calculus of gallbladder without cholecystitis without obstruction Primary hypertension Vitamin D deficiency Xerosis of skin Amblyopia, right eye Atherosclerosis of both carotid arteries Claire angioma Venous insufficiency, peripheral Varicose veins of both lower extremities, unspecified whether complicated Stasis dermatitis of both legs Seborrheic keratosis Frida's thyroiditis Hypercholesterolemia Anxiety Cognitive impairment Abdominal hernia without obstruction and without gangrene, recurrence not specified, unspecified hernia type Astigmatism of right eye, unspecified type URINALYSIS WITH REFLEX MICROSCOPIC STAT 05/15/2025 5:10 PM EDT URINALYSIS WITH REFLEX MICROSCOPIC STAT 05/15/2025 5:10 PM EDT VAS US DUPLEX LOWER EXT VENOUS RIGHT Routine 05/15/2025 5:03 PM EDT Right leg pain XR LUMBAR SPINE 2-3 VIEWS STAT 05/15/2025 1:36 PM EDT XR CHEST 2 VIEWS STAT 05/15/2025 1:36 PM EDT CBC WITH AUTO DIFFERENTIAL STAT 05/15/2025 12:52 PM EDT COMPREHENSIVE METABOLIC PANEL STAT 05/15/2025 12:52 PM EDT CBC AND DIFFERENTIAL STAT 05/15/2025 12:52 PM EDT LIPID PANEL Routine 11/30/2024 from Last 3 Months or Most Recently Relevant to Health Maintenance Results * US Abdomen Complete (05/23/2025 10:31 AM EDT) Anatomical Region Laterality Modality Body Ultrasound 05/26/2025 9:50 AM EDT Impressions 05/26/2025 10:00 AM EDT Layering sludge and possibly small stones in the gallbladder. Assessment for a hiatal hernia is limited with ultrasound. Consider further evaluation with a fluoroscopic upper gastrointestinal exam or CT. -------- FINAL REPORT -------- Dictated By: Vick Gonzalez Dictated Date: 05/26/2025 09:50 ET Assigned Physician: Vick Gonzalez Reviewed and Electronically Signed By: Vick Gonzalez Signed Date: 05/26/2025 10:00 ET Workstation ID: [id number] Transcribed By: Self Edit Transcribed Date: 05/26/2025 09:50 ET Narrative 05/26/2025 10:00 AM EDT PROCEDURE: Ultrasound of the abdomen. HISTORY: LUQ abdominal pain r/o hiatal hernia. COMPARISON: None. TECHNIQUE: Grayscale, color Doppler, and spectral Doppler ultrasound evaluation of the abdomen. FINDINGS: Liver: Normal echotexture. No focal lesion. Normal flow in the main portal vein. Biliary: Sludge and possibly small layering stones in the gallbladder. No gallbladder wall thickening or pericholecystic fluid. Negative sonographic Baron sign. Pancreas: Visualized portions are normal. Kidneys: Normal size. No focal lesion or hydronephrosis. Spleen: Normal size. No focal lesion. Vasculature: Visualized portions of the aorta and IVC are normal. Procedure Note Vick Gonzalez MD - 05/26/2025 PROCEDURE: Ultrasound of the abdomen. HISTORY: LUQ abdominal pain r/o hiatal hernia. COMPARISON: None. TECHNIQUE: Grayscale, color Doppler, and spectral Doppler ultrasoundevaluation of the abdomen. FINDINGS: Liver: Normal echotexture. No focal lesion. Normal flow in the mainportal vein. Biliary: Sludge and possibly small layering stones in the gallbladder. Nogallbladder wall thickening or pericholecystic fluid. Negativesonographic Baron sign. Pancreas: Visualized portions are normal. Kidneys: Normal size. No focal lesion or hydronephrosis. Spleen: Normal size. No focal lesion. Vasculature: Visualized portions of the aorta and IVC are normal. IMPRESSION: Layering sludge and possibly small stones in the gallbladder. Assessment for a hiatal hernia is limited with ultrasound. Considerfurther evaluation with a fluoroscopic upper gastrointestinal exam orCT. -------- FINAL REPORT -------- Dictated By: Vick Gonzalez Dictated Date: 05/26/2025 09:50 ET Assigned Physician: Vick Gonzalez Reviewed and Electronically Signed By: Vick Gonzalez Signed Date: 05/26/2025 10:00 ET Workstation ID: [id number] Transcribed By: Self Edit Transcribed Date: 05/26/2025 09:50 ET us Sb Larsen LEAD INFORMATICA DEVELOPER IMG US PROCEDURES Final Result * Vascular US duplex carotid bilateral (05/23/2025 10:30 AM EDT) Anatomical Region Laterality Modality Vascular, Abdomen Ultrasound 05/23/2025 12:0 1 PM EDT Impressions 05/23/2025 12:03 PM EDT 1. No evidence of a hemodynamically significant stenosis is seen. 2. Patent, antegrade vertebral arteries. Measurement of carotid stenosis is based on velocity parameters that correlate the residual internal carotid diameter with [place] Symptomatic Carotid Endarterectomy Trial (NASCET)-based stenosis levels and velocity criteria are extrapolated from diameter data as defined by the Society of Radiologists in Ultrasound Consensus Conference Radiology 2003; 229;340-346.? [place] ([id number]) -------- FINAL REPORT -------- Dictated By: Aaliyah Luna Dictated Date: 05/23/2025 12:01 ET Assigned Physician: Aaliyah Luna Reviewed and Electronically Signed By: Aaliyah Luna Signed Date: 05/23/2025 12:03 ET Workstation ID: [id number] Transcribed By: Self Edit Transcribed Date: 05/23/2025 12:01 ET Narrative 05/23/2025 12:03 PM EDT HISTORY: Carotid artery stenosis. COMPARISON: No comparison imaging at this institution. TECHNIQUE: Duplex and color Doppler imaging of the bilateral extracranial carotid arterial systems was performed. FINDINGS: Right: Raymond scale images show diffuse intimal thickening and minimal calcified plaque adjacent to the ICA origin. The peak systolic velocity is 59.4 cm/sec in the proximal internal carotid. Right CCA 49.4 cm/sec Right ECA 95.1 cm/sec Ratio of right ICA/CCA 1.2 Left: Raymond scale images show diffuse intimal thickening and scattered small foci of calcified plaque within the common and internal carotid arteries. The peak systolic velocity is 65.4 cm/sec in the proximal internal carotid. Left CCA 66.1 cm/sec Left ECA 83.1 cm/sec Ratio of left ICA/CCA 1.0 There are normal end diastolic velocities bilaterally with antegrade flow in both vertebral arteries. Procedure Note Aaliyah Luna MD - 05/23/2025 HISTORY: Carotid artery stenosis. COMPARISON: No comparison imaging at this institution. TECHNIQUE: Duplex and color Doppler imaging of the bilateral extracranial carotidarterial systems was performed. FINDINGS: Right: Raymond scale images show diffuse intimal thickening and minimal calcifiedplaque adjacent to the ICA origin. The peak systolic velocity is 59.4 cm/sec in the proximal internalcarotid. Right CCA 49.4 cm/sec Right ECA 95.1 cm/sec Ratio of right ICA/CCA 1.2 Left: Raymond scale images show diffuse intimal thickening and scattered small fociof calcified plaque within the common and internal carotid arteries. The peak systolic velocity is 65.4 cm/sec in the proximal internalcarotid. Left CCA 66.1 cm/sec Left ECA 83.1 cm/sec Ratio of left ICA/CCA 1.0 There are normal end diastolic velocities bilaterally with antegrade flowin both vertebral arteries. IMPRESSION: 1. No evidence of a hemodynamically significant stenosis is seen. 2. Patent, antegrade vertebral arteries. Measurement of carotid stenosis is based on velocity parameters thatcorrelate the residual internal carotid diameter with North AmericanSymptomatic Carotid Endarterectomy Trial (NASCET)-based stenosis levelsand velocity criteria are extrapolated from diameter data as defined bythe Society of Radiologists in Ultrasound Consensus Conference [id number]; 229;340-346.? [place] ([id number]) -------- FINAL REPORT -------- Dictated By: Aaliyah Luna Dictated Date: 05/23/2025 12:01 ET Assigned Physician: Aaliyah Luna Reviewed and Electronically Signed By: Aaliyah Luna Signed Date: 05/23/2025 12:03 ET Workstation ID: [id number] Transcribed By: Self Edit Transcribed Date: 05/23/2025 12:01 ET us Sb Larsen LEAD INFORMATICA DEVELOPER CV VASCULAR PROCEDURES Final Res ult * (ABNORMAL) Urinalysis with reflex microscopic (05/15/2025 5:10 PM EDT) Specific [place] Urine 1.022 1.003 - 1.030 LAB URINALYSIS - [facility] pH, Urine 6.5 5.0 - 8.0 pH LAB URINALYSIS - AUTOMATED METHOD 05/15/2025 5:[address] [facility] Leukocytes, Urine Small(A) Negative LAB URINALYSIS - AUTOMATED METHOD 05/15/2025 5:[address] [facility] Nitrite, Urine Negative Negative LAB URINALYSIS - AUTOMATED METHOD 05/15/2025 5:[address] [facility] Protein, Urine Negative <=Trace mg/dL LAB URINALYSIS - AUTOMATED METHOD 05/15/2025 5:[address] [facility] Glucose, Urine Negative Negative mg/dL LAB URINALYSIS - AUTOMATED METHOD 05/15/2025 5:[address] [facility] Ketones, Urine Trace(A) Negative mg/dL LAB URINALYSIS - AUTOMATED METHOD 05/15/2025 5:[address] [facility] Urobilinogen, Urine 0.2 0.2 - 1.0 mg/dL LAB URINALYSIS - AUTOMATED METHOD 05/15/2025 5:[address] [facility] Bilirubin, Urine Negative Negative LAB URINALYSIS - AUTOMATED METHOD 05/15/2025 5:[address] [facility] Blood, Urine Negative Negative LAB URINALYSIS - AUTOMATED METHOD 05/15/2025 5:[address] [facility] RBC, Urine 4.7(H) 0 - 4 /HPF LAB URINALYSIS - AUTOMATED METHOD 05/15/2025 5:48 PM EDT [facility] WBC, Urine 17.5(H) 0 - 4 /HPF LAB URINALYSIS - AUTOMATED METHOD 05/15/2025 5:48 PM EDT [facility] Squamous Epithelial, Urine 37 0 - 60 /LPF LAB URINALYSIS - AUTOMATED METHOD 05/15/2025 5:48 PM EDT [facility] Bacteria, Urine Negative Negative /HPF LAB URINALYSIS - AUTOMATED METHOD 05/15/2025 5:48 PM EDT [facility] Hyaline Casts, Urine 0.8 0 - 3 /LPF LAB URINALYSIS - AUTOMATED METHOD 05/15/2025 5:48 PM EDT [facility] Urine Urine specimen obtained by clean catch procedure / Unknown Non-blood Collection / Unknown 05/15/2025 5:10 PM EDT 05/15/2025 5:40 PM EDT us Andrew ZAMUDIO LAB URINE ORDERABLES Final R esult [facility] [address] [place] [address], * Vascular US duplex lower extremity venous right (05/15/2025 5:03 PM EDT) Anatomical Region Laterality Modality Vascular, Abdomen Ultrasound 05/15/2025 5:14 PM EDT Impressions 05/15/2025 5:14 PM EDT Impression: No deep vein thrombosis. This document has been electronically signed by: Azeb Hanson MD on 05/15/2025 17:14:09 Narrative 05/15/2025 5:14 PM EDT INDICATION: edema Right lower extremity venous duplex ultrasound Comparison: None available Findings: The visualized deep veins are fully compressible with normal flow. No popliteal cyst. Procedure Note Azeb Youngblood MD - 05/15/2025 INDICATION: edema Right lower extremity venous duplex ultrasound Comparison: None available Findings: The visualized deep veins are fully compressible with normal flow. No popliteal cyst. IMPRESSION: Impression: No deep vein thrombosis. This document has been electronically signed by: Azeb Hanson MD on 05/15/2025 17:14:09 Andrew ZAMUDIO CV VASCULAR PROCEDURES Final Result * XR Lumbar Spine 2-3 Views (05/15/2025 1:36 PM EDT) Anatomical Region Laterality Modality Spine, L-spine Radiographic Priyanka ging 05/15/2025 2:13 PM EDT Impressions 05/15/2025 2:15 PM EDT Osteopenia and degenerative changes without acute compression fracture. -------- FINAL REPORT -------- Dictated By: Beny Estrada Dictated Date: 05/15/2025 14:13 ET Assigned Physician: Beny Estrada Reviewed and Electronically Signed By: Beny Estrada Signed Date: 05/15/2025 14:15 ET Workstation ID: [id number] Transcribed By: Self Edit Transcribed Date: 05/15/2025 14:13 ET Narrative 05/15/2025 2:15 PM EDT INDICATION: Lower back pain, weakness, fall FINDINGS: 3 views of the lumbar spine were obtained. No prior studies available for comparison. Vertebral bodies: No compression fracture. No lytic or sclerotic lesions. Mild grade 1 anterolisthesis of L4 on L5. Disc spaces: Mild multilevel disc space narrowing. Alignment: Minimal scoliotic changes. Procedure Note Beny Estrada MD - 05/15/2025 INDICATION: Lower back pain, weakness, fall FINDINGS: 3 views of the lumbar spine were obtained. No prior studiesavailable for comparison. Vertebral bodies: No compression fracture. No lytic or sclerotic lesions.Mild grade 1 anterolisthesis of L4 on L5. Disc spaces: Mild multilevel disc space narrowing. Alignment: Minimal scoliotic changes. IMPRESSION: Osteopenia and degenerative changes without acute compression fracture. -------- FINAL REPORT -------- Dictated By: Beny Estrada Dictated Date: 05/15/2025 14:13 ET Assigned Physician: Beny Estrada Reviewed and Electronically Signed By: Beny Estrada Signed Date: 05/15/2025 14:15 ET Workstation ID: [id number] Transcribed By: Self Edit Transcribed Date: 05/15/2025 14:13 ET Andrew ZAMUDIO IMG XR PROCEDURES Final Resu lt * XR Chest 2 Views (05/15/2025 1:36 PM EDT) Anatomical Region Laterality Modality Body Radiographic Priyanka ging 05/15/2025 2:12 PM EDT Impressions 05/15/2025 2:13 PM EDT No evidence of active pulmonary disease. -------- FINAL REPORT -------- Dictated By: Beny Estrada Dictated Date: 05/15/2025 14:12 ET Assigned Physician: Beny Estrada Reviewed and Electronically Signed By: Beny Estrada Signed Date: 05/15/2025 14:13 ET Workstation ID: [id number] Transcribed By: Self Edit Transcribed Date: 05/15/2025 14:12 ET Narrative 05/15/2025 2:13 PM EDT INDICATION: Chest pain, weakness, fall, numbness FINDINGS: Two views of the chest were obtained. There are no prior studies available for comparison. Lung moeller are hypoinflated with mild bibasilar atelectasis. Cardiomediastinal silhouette is normal in size and shape. Bony structures demonstrate osteopenia and degenerative changes. Mild wedge deformity along lower thoracic spine. Procedure Note Beny Estrada MD - 05/15/2025 INDICATION: Chest pain, weakness, fall, numbness FINDINGS: Two views of the chest were obtained. There are no prior studiesavailable for comparison. Lung moeller are hypoinflated with mild bibasilar atelectasis. Cardiomediastinal silhouette is normal in size and shape. Bony structures demonstrate osteopenia and degenerative changes. Mildwedge deformity along lower thoracic spine. IMPRESSION: No evidence of active pulmonary disease. -------- FINAL REPORT -------- Dictated By: Beny Estrada Dictated Date: 05/15/2025 14:12 ET Assigned Physician: Beny Estrada Reviewed and Electronically Signed By: Beny Estrada Signed Date: 05/15/2025 14:13 ET Workstation ID: [id number] Transcribed By: Self Edit Transcribed Date: 05/15/2025 14:12 ET us Andrew ZAMUDIO IMG XR PROCEDURES Final Resu lt * (ABNORMAL) CBC auto differential (05/15/2025 12:52 PM EDT) Pathologist [facility] WBC 7.8 4.8 - 10.8 K/mcL LAB HEMETOLOGY METHOD 05/15/2025 1:06 PM EDT [facility] RBC 3.90 3.80 - 4.80 M/mcL LAB HEMETOLOGY METHOD [facility] Hemoglobin 12.0 11.5 - 16.0 g/dL LAB HEMETOLOGY METHOD 05/15/2025 1:06 PM EDT [facility] Hematocrit 38.0 35.0 - 47.0 % LAB HEMETOLOGY METHOD 05/15/2025 1:[facility] MCV 96.9 79.0 - 98.0 FL LAB HEMETOLOGY METHOD 05/15/2025 1:[facility] MCH 30.6 27.0 - 32.0 pcg LAB HEMETOLOGY METHOD 05/15/2025 1:[address] [facility] MCHC 31.6(L) 32.0 - 37.0 g/dL LAB HEMETOLOGY METHOD 05/15/2025 1:[facility] RDW 13.1 11.0 - 15.0 % LAB HEMETOLOGY METHOD 05/15/2025 1:[address] [facility] Platelets 219 130 - 400 K/mcL LAB HEMETOLOGY METHOD 05/15/2025 1:[address] [facility] MPV 10.4 7.0 - 11.0 FL LAB HEMETOLOGY METHOD 05/15/2025 1:[address] [facility] NRBC 0.0 <1.0 % LAB HEMETOLOGY METHOD 05/15/2025 1:[address] [facility] NRBC Absolute 0.00 <0.10 K/mcL LAB HEMETOLOGY METHOD 05/15/2025 1:[address] [facility] Neutrophils Relative 72.5 % LAB HEMETOLOGY METHOD 05/15/2025 1:[address] [facility] Lymphocytes Relative 13.7 % LAB HEMETOLOGY METHOD 05/15/2025 1:[address] [facility] Monocytes Relative 9.8 % LAB HEMETOLOGY METHOD 05/15/2025 1:[address] [facility] Eosinophils Relative 2.8 % LAB HEMETOLOGY METHOD 05/15/2025 1:[address] [facility] Basophils Relative 0.8 % LAB HEMETOLOGY METHOD 05/15/2025 1:[address] [facility] Immature Granulocytes Relative 0.4 % LAB HEMETOLOGY METHOD 05/15/2025 1:[address] [facility] Neutrophils Absolute 5.68 1.50 - 7.00 K/mcL LAB HEMETOLOGY METHOD 05/15/2025 1:[address] [facility] Lymphocytes Absolute 1.07 1.00 - 5.00 K/mcL LAB HEMETOLOGY METHOD 05/15/2025 1:[address] [facility] Monocytes Absolute 0.77 0.20 - 1.00 K/mcL LAB HEMETOLOGY METHOD 05/15/2025 1:[address] [facility] Eosinophils Absolute 0.22 0.00 - 0.50 K/mcL LAB HEMETOLOGY METHOD 05/15/2025 1:06 PM EDT [facility] Basophils Absolute 0.06 0.00 - 0.20 K/mcL LAB HEMETOLOGY METHOD 05/15/2025 1:06 PM EDT [facility] Immature Granulocytes Absolute 0.03 0.00 - 0.03 K/mcL LAB HEMETOLOGY METHOD 05/15/2025 1:06 PM EDT [facility] Blood Venous blood specimen / Unknown Venipuncture / Unknown 05/15/2025 12:52 PM EDT 05/15/2025 12:58 PM EDT us Andrew ZAMUDIO LAB BLOOD ORDERABLES Final R esult [facility] [address] [place] [address], [place] [phone] * (ABNORMAL) Comprehensive metabolic panel (05/15/2025 12:52 PM EDT) Sodium 140 133 - 145 mmol/L LAB CHEMISTRY METHOD 05/15/2025 1:[address] [facility] Potassium 3.8 3.5 - 5.5 mmol/L LAB CHEMISTRY METHOD 05/15/2025 1:[address] [facility] Chloride 109 96 - 110 mmol/L LAB CHEMISTRY METHOD 05/15/2025 1:[address] [facility] CO2 28 21 - 32 mmol/L LAB CHEMISTRY METHOD 05/15/2025 1:[address] [facility] Anion Gap 3 3 - 11 LAB CHEMISTRY METHOD 05/15/2025 1:[address] [facility] Glucose 88 70 - 100 mg/dL LAB CHEMISTRY METHOD 05/15/2025 1:[address] [facility] BUN 29(H) 5 - 25 mg/dL LAB CHEMISTRY METHOD 05/15/2025 1:[address] [facility] Creatinine 0.72 0.50 - 1.10 mg/dL LAB CHEMISTRY METHOD 05/15/2025 1:[address] [facility] eGFR 84 >=60 mL/min/1. 73m2 LAB CHEMISTRY METHOD 05/15/2025 1:[address] [facility] Comment:Calculation based on the Chronic Kidney Disease Epidemiology Collaboration (CKD-EPI) equation refit without adjustment for race. BUN/Creatinine Ratio 40.3 LAB CHEMISTRY METHOD 05/15/2025 1:28 PM T [facility] Calcium 8.3(L) 8.5 - 10.5 mg/dL LAB CHEMISTRY METHOD 05/15/2025 1:[address] [facility] AST (SGOT) 17 10 - 42 unit/L LAB CHEMISTRY METHOD 05/15/2025 1:[address] [facility] ALT (SGPT) 25 10 - 60 unit/L LAB CHEMISTRY METHOD 05/15/2025 1:[address] [facility] Alkaline Phosphatase 70 42 - 121 unit/L LAB CHEMISTRY METHOD 05/15/2025 1:[address] [facility] Total Protein 6.4 6.0 - 8.0 g/dL LAB CHEMISTRY METHOD 05/15/2025 1:[address] [facility] Albumin 3.0(L) 3.2 - 5.0 g/dL LAB CHEMISTRY METHOD 05/15/2025 1:[address] [facility] Total Bilirubin 0.5 0.0 - 1.4 mg/dL LAB CHEMISTRY METHOD 05/15/2025 1:[address] [facility] Blood Venous blood specimen / Unknown Venipuncture / Unknown 05/15/2025 12:52 PM EDT 05/15/2025 12:58 PM EDT us Andrew ZAMUDIO LAB BLOOD ORDERABLES Final R esult [facility] [address] [place] [address], * Lipid panel (11/30/2024) LDL/HDL Ratio 2 <=5 Triglycerides 92 <=150 mg/dL Cholesterol 143 <=200 mg/dL HDL 61 >=50 mg/dL LDL Cholesterol 64 <=100 mg/dL Blood Venous blood specimen / Unknown us Historical Provider LAB BLOOD ORDERABLES Swapna l Result from Last 3 Months or Most Recently Relevant to Health Maintenance Insurance [facility] Advance Directives Documents on File Type Date Recorded 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 Care Teams Hospice Consultant Relationship Specialty Start Date End Date Sb Larsen NP [address] [place] [id number] PCP - General [facility] 12/23/24
--- OUTSIDE RECORDS SUMMARY | 2025-08-14 08:27 | XMS_ITS | Patient Health Record ---
Demographics Address [address] [place] [address] Preferred Language en Marital Status Worship Affiliation Unknown Race White Ethnic Group Not or Lati no Author Organization [facility] Address [address] [place] [address] Care Team Providers Care Sales Coordinator Name Role Phone Jenna Daly Primary Care Provider Frederick Emmanuel Jr Unavailable [phone] Allergies Allergen (clinical drug ingredient) Drug/Non Drug [...] Problem Status W/U Status Risk Notes Problem [id number] Hepatitis B surface antigen positive (795.79) Active confirmed Plan Of Treatment No Information Insurance Providers Payer Name Payer Address Payer Phone Subscriber Number Group Number Insured Name Patient Relationship to Insured Coverage Start Date Coverage End Date [facility] [address] [place] [phone] [id number] COOKIE ACUÑA Self - patient is the insured Medical (General) History Medical History History ICD Code Hypothyroidism hypertension elevated Cholesterol insomnia anxiety GERD gastritis Surgical History Surgery Date(Month/Year) Left ankle fracture tonsillectomy biopsy in groin
--- OUTSIDE RECORDS SUMMARY | 2025-08-14 08:27 | XMS_ITS | Encounter Summary ---
Author Organization [facility] Address [address] [place] [address] Care Team Providers Care Installer Molding And Trim Name Role Phone Adebayo Sachin ZUHAIR Primary Care Provider [phone] Encounter Details Date Type Department Care Team (Late st Contact Info) Description 03/21/2025 Health Home Core Service [facility] Quotations Book [facility] [address] [place] [phone] Rosa M Castillo RN Social History Tobacco Use Types Packs/Day Years Used Date Smoking Tobacco: Never Comments:Never smoked tobacc o Comments Unknown Sex and Gender Information Value Date Recorded Sex Assigned at Not on file Legal Sex Female 12:02 PM EST Gender Identity Not on file Sexual Orientation Not on file documented as of this encounter Plan of Treatment Upcoming Encounters Date Type Department Care Team (Late st Contact Info) Description 08/31/2025 9:10 AM EDT Clinical Support [address] [address] 10/17/2025 2:30 PM EST Clinical Support [address] [phone] 11/08/2025 12:15 PM EST [facility] External Visit [address] [phone] documented as of this encounter Visit Diagnoses Not on filedocumented in this encounter Care Teams Installer Molding And Trim Relationship Specialty Start Date End Date Sachin Fiore NP [address] [place] [address] PCP - General [facility] 12/23/24 documented as of this encounter
== END 2025-08-14 08:59 | disposition home or self-care (01) ==
PROVIDERS: PCP Internal Medicine; Visit Provider Nurse Practitioner Family
DX: M54.9 Dorsalgia, unspecified (principal); G89.29 Other chronic pain

== ENCOUNTER → 2025-08-14 08:12 | Outpatient (BNVA) | payer OTHER, SELFPAY | PROVIDERS: PCP Internal Medicine; Visit Provider Nurse Practitioner Family | DX: M54.50 Low back pain, unspecified (principal); B37.2 Candidiasis of skin and nail; G89.29 Other chronic pain | CPT/HCPCS: 99212 ==